=== PATIENT | male | born 1955 | race Caucasian/White ===

== ENCOUNTER 2018-03-02 20:09 | Observation (INO) ==
[2018-03-02 20:28] LABS: Basophils # 0.1 K/mm3 (0-0.2); Basophils % 0.6 % (0.1-2.0); Eosinophils # 0.1 K/mm3 (0.0-0.4); Eosinophils % 1.1 % (0.1-12.0); Hematocrit 50.6 % (42.0-52.0); Lymphocytes # 1.6 K/mm3 (0.7-4.5); Lymphocytes % 17.6 K/mm3 (10-50); Mean Corpuscular HGB Conc 33.6 g/dL (31.8-35.4); Mean Corpuscular Hemoglobin 30.6 pg (27.0-31.2); Mean Corpuscular Volume 91.3 fl (80-94); Mean Platelet Volume 7.3 fl (7.4-10.4); Monocytes # 0.5 K/mm3 (0.1-1.0); Monocytes % 5.9 % (1.7-9.3); Neutrophils # 6.6 K/mm3 (1.8-7.8); Neutrophils % 74.9 % (37.0-80.0); Platelet Count 198 K/mm3 (142-424); Red Blood Count 5.55 M/mm3 (4.60-6.20); Red Cell Distribution Width 13.2 % (11.5-17.5); White Blood Count 8.9 K/mm3 (4.8-10.8)
[2018-03-02 20:50] LABS: Alanine Aminotransferase 25 U/L (12-78); Albumin Level 3.5 gm/dL (3.4-5.0); Albumin/Globulin Ratio 0.9 (1.1-1.8); Alkaline Phosphatase 77 U/L (46-116); Anion Gap 14.7 mEq/L (5-15); Aspartate Amino Transferase 17 U/L (15-37); Bilirubin,Total 0.5 mg/dL (0.2-1.0); Blood Urea Nitrogen 9 mg/dL (7-18); Calcium 9.4 mg/dL (8.5-10.1); Carbon Dioxide 28 mmol/L (21.0-32.0); Chloride 101 mmol/L (98-107); Creatine Kinase 36 U/L (39-308); Globulin 3.7 gm/dl (1.3-3.2); Glucose 105 mg/dL (74-106); Potassium 3.7 mmoL/L (3.5-5.1); Sodium 140 mmol/L (136-145); Total Protein,Serum 7.2 gm/dL (6.4-8.2)
--- NOTE | 2018-03-02 20:54 | Emergency Department Note ---
ED Disposition Clinical Impression: Angina at rest Disposition: Admitted as Observation Condition on Discharge: Good Referrals: Miki Bello MD [Primary Care Provider] - - Critical Care Critical Care Time: No Attestation: On 03/02/18, the high probability of a clinically significant, sudden or life threatening deterioration of the following system(s) required my full and direct attention, intervention and personal management. The time I documented below is in addition to time spent performing reported procedures but includes the following listed in this critical care notation. Medical Decision Making - Medical Records Medical records reviewed: Yes: I reviewed the patient's medical records. - Frank Inquiry Pt receiving controlled substance: No Vital Signs: 03/02/18 20:10 03/02/18 20:30 Temperature 97.4 F L Temperature Source Oral Pulse Rate 73 Pulse Rate [Right Radial] 78 Respiratory Rate 20 Blood Pressure [Right Arm] 137/96 Blood Pressure Mean [Right Arm] 109 02 Sat by Pulse Oximetry 95 Oxygen Delivery Method Room Air - Lab Data Lab results reviewed: Yes: I reviewed the patient's lab results. Lab Results 03/02/18 20:15: WBC 8.9, RBC 5.55, Hgb 17.0, Hct 50.6, MCV 91.3, MCH 30.6, MCHC 33.6, RDW 13.2, Plt Count 198, MPV 7.3 L, Neut % (Auto) 74.9, Lymph % (Auto) 17.6, [place] % (Auto) 5.9, Eos % (Auto) 1.1, Baso % (Auto) 0.6, Neut # (Auto) 6.6 , Lymph # (Auto) 1.6, [place] # (Auto) 0.5, Eos # (Auto) 0.1, Baso # (Auto) 0.1 03/02/18 20:15: Sodium 140, Potassium 3.7, Chloride 101, Carbon Dioxide 28, Anion Gap 14.7, BUN 9, Creatinine 1.26, Estimated Creat Clear 88, Estimated GFR 58 L, Est GFR ( Amer) 70, Glucose 105, Calcium 9.4, Total Bilirubin 0.5, AST 17, ALT 25, Alkaline Phosphatase 77, Total Creatine Kinase 36 L, CK-MB (CK-2 ) 0.9, CK-MB (CK-2) Rel Index 2.5, Troponin I < 0.02, Total Protein 7.2, Albumin 3.5, Globulin 3.7 H, Albumin/Globulin Ratio 0.9 L Result diagrams: 03/02/18 20:15 03/02/18 20:15 Orders (Tests/Meds): ED MEDICATIONS Discontinued Medications Generic Name Dose Route Start Last Admin Trade Name Wilman PRN Reason Stop Dose Admin Aspirin 324 mg 03/02/18 20:18 03/02/18 20:29 Aspirin 81mg Chewable Tablet PO 03/02/18 20:19 324 mg ONCE ONE Administration Nitroglycerin 0.5 gm 03/02/18 20:26 03/02/18 20:29 Nitroglycerin 1 Inch Oint Udp TD 03/02/18 20:27 0.5 gm ONCE ONE Administration ORDERS Category Date Time Status XR chest 2V Stat Exams 03/02/18 20:17 Taken - Radiology Data #1 Image(s): Chest Image Reviewed: Yes I reviewed the patient's radiology image Preliminary Findings: Normal/NAD - ECG Data Tracing #1 I reviewed this ECG and interpreted as documented below: Normal Sinus Rhythm: Yes Ischemic changes: non-specific ST-T wave changes Chest Pain HPI - General Chief Complaint: Chest Pain Stated Complaint: chest pain Time Seen by Provider: 03/02/18 20:20 Mode of Arrival: Ambulatory Source of Information: Patient, Spouse, Medical Record Limitations: No Limitations Description of Symptoms (Recalled from ER Triage Doc. by RN): pt states he started having chest pains approx 20 min ago while cooking dinner. pt states that the pain radiates into left jaw. pt states he has had some nausea as well. - History of Present Illness HPI narrative: acute onset of ant chest pain with rad to jaw which is new and assoc with nausea - occurred at rest MD complaint: chest pain indicative of cardiac Onset (ago): hour(s) Duration: intermittent Activity at onset: during rest Pain location: left chest Severity: moderate Quality: sharp Pain radiation: jaw/teeth Relieving factors: nothing Associated symptoms: nausea Risk Factors for CAD: Family Hx of CAD Treatments prior to or on arrival for Cardiac Chest Pain: none - ABIDA Score Non-Stemi Age of patient: Less than 65 yrs Number of risk factors for CAD: Presence of 3 or more Prior coronary artery stenosis(seen in coronary angiography): Less than 50% ST-Segment deviation on ECG (more than 1 min): Absent Prior aspirin intake: No ASA in the last 7 days Severe anginal chest pain: Two or more episodes in last 24 hours Elevated cardiac markers(CK-MB or troponin): Absent Non-Stemi Risk Score: 2 - Related Data Home Medications Medication Instructions Recorded Confirmed Buspirone HCl [Buspar 10mg tablet] 10 mg PO BID 03/02/18 03/02/18 Lansoprazole [Prevacid] 30 mg PO DAILY 03/02/18 03/02/18 Levothyroxine Sodium [Synthroid 125 mcg PO DAILY 03/02/18 03/02/18 125mcg (0.125mg) tablet] Tamsulosin HCl [Flomax 0.4mg 0.4 mg PO HS 03/02/18 03/02/18 capsule] Allergies Allergy/AdvReac Type Severity Reaction Status Date / Time amantadine [AMANTADINE] Allergy Mild SEIZURE Unverified 10/27/17 15:05 codeine [CODEINE] Allergy Mild I-RASH Unverified 10/27/17 15:05 [facility] History I have reviewed the patient's past medical history: Yes Medical History: Reports:: Cancer (skin cancer removed) Denies:: Diabetes Mellitus Type 1, Diabetes Mellitus Type 2, MRSA Amputation: No Fractures: No - Social History Smoking Status: Former smoker Alcohol Intake: current Alcohol Intake Frequency:: other - Psychiatric History Expresses thoughts of harming self/others: None Suicide Plan Description: No Plan ROS Obtained: Yes All systems reviewed & no additional complaints - Constitutional Constitutional: Denies fever(s) - Eyes Eyes: Denies change in vision - ENT Ears, Nose, Mouth, and Throat: Denies sore throat - Cardiovascular Cardiovascular: Reports chest pain - Respiratory Respiratory: No cough - Gastrointestinal Gastrointestingal: Denies: abdominal pain - Genitourinary Male Genitourinary: Denies hematuria - Musculoskeletal Musculoskeletal: Denies joint pain - Integumentary/Breasts Skin/Breast: Denies rash - Neurologic Neurologic: Denies seizure-like activity Physical Exam - General General appearance: alert, in no apparent distress - Head Head exam: normocephalic - Eye Eye exam: Present: PERRL, EOMI - ENT ENT exam: Present: mucous membranes moist - Neck Neck exam: Present: trachea midline - Respiratory Respiratory exam: Present: normal lung sounds bilaterally. Absent: respiratory distress - Cardiovascular Cardiovascular exam: Present: regular rate, systolic murmur - Abdominal Exam Abdominal exam: Present: soft - Extremities Exam Extremities exam: Absent: calf tenderness - Neurological Exam Neurological exam: Present: alert, oriented X3, CN II-XII intact - Psychiatric Psychiatric exam: Present: normal affect - Skin Skin exam: Absent: rash
[2018-03-03 07:04] LABS: Basophils # 0.1 K/mm3 (0-0.2); Basophils % 0.7 % (0.1-2.0); Eosinophils # 0.1 K/mm3 (0.0-0.4); Eosinophils % 1.7 % (0.1-12.0); Hematocrit 47.6 % (42.0-52.0); Lymphocytes # 1.4 K/mm3 (0.7-4.5); Lymphocytes % 17.5 K/mm3 (10-50); Mean Corpuscular HGB Conc 33.7 g/dL (31.8-35.4); Mean Corpuscular Volume 91.9 fl (80-94); Mean Platelet Volume 7.3 fl (7.4-10.4); Monocytes # 0.5 K/mm3 (0.1-1.0); Neutrophils % 74.1 % (37.0-80.0); Platelet Count 203 K/mm3 (142-424); Red Blood Count 5.17 M/mm3 (4.60-6.20); Red Cell Distribution Width 13.5 % (11.5-17.5); White Blood Count 8.1 K/mm3 (4.8-10.8)
[2018-03-03 07:19] LABS: Anion Gap 13.8 mEq/L (5-15); Chol/HDL Ratio 2.6 (1-3.5); Potassium 3.8 mmoL/L (3.5-5.1)
--- NOTE | 2018-03-03 07:49 | Pharmacy Consult Notes ---
[facility] Pharmacy VTE Monitoring - Patient Demographics Admission date: 03/03/18 Report Date: 03/03/18 Time: 07:49 Allergies/Adverse Reactions: Patient Allergies amantadine [AMANTADINE] Allergy (Mild, Verified 03/02/18 23:34) SEIZURE codeine [CODEINE] Allergy (Mild, Verified 03/02/18 23:34) I-RASH Height: 1.8 m Weight: 100.357 kg Patient Problems: Current Active Problems Angina at rest (Acute) - VTE Risk Labs: VTE Related Lab Results Hgb 16.0 g/dL (14.1-18.0) 03/03/18 06:44 Hct 47.6 % (42.0-52.0) 03/03/18 06:44 Plt Count 203 K/mm3 (142-424) 03/03/18 06:44 BUN 10 mg/dL (7-18) 03/03/18 06:44 Creatinine 1.19 mg/dL (0.70-1.30) 03/03/18 06:44 Estimated Creat Clear 91 mL/min (0-300) 03/03/18 06:44 Was VTE Risk Assessment Performed: Yes VTE Score: 7 VTE Risk Level: Moderate Risk Clinical Trial Participant: No - Prophylaxis VTE Prophylaxis Ordered?: Yes Types of VTE Prophylaxis: TEDS Knee High
--- NOTE | 2018-03-03 09:15 | Consult Report ---
History of Present Illness Consult date: 03/03/18 Consult reason: chest pain Chief complaint: chest pain Additional Medical History:: 1. Former smoker A. History of 1 pack per day 40+ years, discontinued approximately 2014. B. COPD 2. History of esophageal reflux disease and Gonzalez's esophagitis, followed by Dr. Neville with endoscopy every 2 years 3. History of pancreatitis, no significant alcohol use 4. History of cholecystectomy 5. Family history of early heart disease in his father in his 40s at the same time that he was diagnosed with lung cancer 6. Patient relates history of some chronic kidney disease with a "creatinine of 1.6" A. Cr 1.16 with GFR of 75 this admission, 03/03/2018 7. Hypothyroidism History of present illness: 62-year-old white male presented to the emergency department for recurrent episode of chest pain with radiation into the neck and associated stress of breath while grilling last evening. He does relate some recent exertional shortness of breath and right upper abdominal discomfort recently the patient was attributing to known peptic ulcer disease. Patient relates a similar episode of chest pain approximately 2 years ago which time he had a stress test that was on markable. Patient discontinued tobacco use about 3 years ago and denies history of hypertension, hyperlipidemia or diabetes. ER workup last evening included troponin that was normal and EKG without acute changes. Patient was started on nitroglycerin paste and has had no recurrence of the chest pain, jaw discomfort or shortness of breath since then. Cardiology consulted for evaluation recommendation. [facility] History Medical History: Reports:: Cancer (skin cancer removed), Chronic Obstructive Pulmonary Disease (COPD), Renal Insufficiency Denies:: Diabetes Mellitus Type 1, Diabetes Mellitus Type 2, MRSA Other Medical History: Reports: Hypothyroidism Other Surgeries: Yes: Cholecystectomy, Colon Resection, Hernia Repair Amputation: No Fractures: No - *Social History Educational Level: Completed High School Smoking Status: Former smoker Tobacco Type: cigarettes Alcohol Intake: current Alcohol Intake Frequency:: holidays/special occasions only Occupational Status: retired Housing: house Household Members: significant other - Psychiatric History Expresses thoughts of harming self/others: None Suicide Plan Description: No Plan *Family Hx:: Cancer, Coronary Artery Disease, Heart Attack, Hyperlipidemia, Hypertension Meds Home Medications Medication Instructions Recorded Confirmed Type Buspirone HCl [Buspar 10mg tablet] 10 mg PO BID 03/02/18 03/02/18 History Lansoprazole [Prevacid] 30 mg PO DAILY 03/02/18 03/02/18 History Tamsulosin HCl [Flomax 0.4mg 0.4 mg PO HS 03/02/18 03/02/18 History capsule] Levothyroxine Sodium [Synthroid 100 mcg PO DAILY 03/03/18 03/03/18 History 100mcg (0.1mg) tablet] Montelukast Sodium [Singulair 10mg 10 mg PO PM 03/03/18 03/03/18 History tablet] Allergies Allergy/AdvReac Type Severity Reaction Status Date / Time amantadine [AMANTADINE] Allergy Mild SEIZURE Verified 03/02/18 23:34 codeine [CODEINE] Allergy Mild I-RASH Verified 03/02/18 23:34 Review of Systems - *Cardiovascular Reports chest pain - *Respiratory Reports shortness of breath with activity - *Gastrointestinal Reports abdominal pain - *Neurologic Denies seizure-like activity Exam Vital signs and Labs for Last 24 Hours: Temp Pulse Resp BP Pulse Ox 98.0 F 73 18 105/68 91 L 03/03/18 07:42 03/03/18 07:42 03/03/18 07:42 03/03/18 07:42 03/03/18 07:42 Laboratory Results - last 24 hr 03/02/18 20:15: WBC 8.9, RBC 5.55, Hgb 17.0, Hct 50.6, MCV 91.3, MCH 30.6, MCHC 33.6, RDW 13.2, Plt Count 198, MPV 7.3 L, Neut % (Auto) 74.9, Lymph % (Auto) 17.6, [place] % (Auto) 5.9, Eos % (Auto) 1.1, Baso % (Auto) 0.6, Neut # (Auto) 6.6 , Lymph # (Auto) 1.6, [place] # (Auto) 0.5, Eos # (Auto) 0.1, Baso # (Auto) 0.1 03/02/18 20:15: Sodium 140, Potassium 3.7, Chloride 101, Carbon Dioxide 28, Anion Gap 14.7, BUN 9, Creatinine 1.26, Estimated Creat Clear 88, Estimated GFR 58 L, Est GFR ( Amer) 70, Glucose 105, Calcium 9.4, Total Bilirubin 0.5, AST 17, ALT 25, Alkaline Phosphatase 77, Total Creatine Kinase 36 L, CK-MB (CK-2 ) 0.9, CK-MB (CK-2) Rel Index 2.5, Troponin I < 0.02, Total Protein 7.2, Albumin 3.5, Globulin 3.7 H, Albumin/Globulin Ratio 0.9 L 03/02/18 21:30: Troponin I < 0.02 03/03/18 00:45: Troponin I < 0.02 03/03/18 03:35: Troponin I < 0.02 03/03/18 06:44: WBC 8.1, RBC 5.17, Hgb 16.0, Hct 47.6, MCV 91.9, MCH 31.0, MCHC 33.7, RDW 13.5, Plt Count 203, MPV 7.3 L, Neut % (Auto) 74.1, Lymph % (Auto) 17.5, [place] % (Auto) 6.0, Eos % (Auto) 1.7, Baso % (Auto) 0.7, Neut # (Auto) 6.0 , Lymph # (Auto) 1.4, [place] # (Auto) 0.5, Eos # (Auto) 0.1, Baso # (Auto) 0.1 03/03/18 06:44: Sodium 142, Potassium 3.8, Chloride 106, Carbon Dioxide 26, Anion Gap 13.8, BUN 10, Creatinine 1.19, Estimated Creat Clear 91, Estimated GFR 62, Est GFR ( Amer) 75, Glucose 89, Magnesium 1.7, Triglycerides 60, Cholesterol 135 L, LDL Cholesterol 71, VLDL Cholesterol 12, HDL Cholesterol 52, Cholesterol/HDL Ratio 2.6 I & O for Last 24 hours: Intake & Output 02/28/18 03/01/18 03/02/18 03/03/18 11:59 11:59 11:59 11:59 Intake Total 0 / 0 Balance 0 / 0 Weight 221 lb 4 oz - *Routine Neck Exam Absent: JVD, carotid bruit - *Routine Respiratory Exam Present: CTA bilaterally - *Routine Cardiovascular Exam Present: RRR. Absent: murmur, gallop - *Routine Abdominal Exam Absent: tenderness - *Routine Extremities Exam Absent: edema - *Routine Neurological Exam Present: alert, oriented X3, moving all extremities Assessment and Plan (1) Unstable angina Current visit: Yes Status: Acute Category: Medical Code(s): I20.0 - Unstable angina (2) COPD (chronic obstructive pulmonary disease) Current visit: Yes Status: Acute Category: Medical Code(s): J44.9 - Chronic obstructive pulmonary disease, unspecified (3) Ex-smoker for more than 1 year Current visit: Yes Status: Acute Category: Social Hx Code(s): Z87.891 - Personal history of nicotine dependence (4) Family history of coronary artery disease in father Current visit: Yes Status: Acute Category: Medical Code(s): Z82.49 - Family history of ischemic heart disease and other diseases of the circulatory system (5) Peptic ulcer disease Current visit: Yes Status: Acute Category: Medical Code(s): K27.9 - Peptic ulcer, site unspecified, unspecified as acute or chronic, without hemorrhage or perforation (6) Gonzalez's esophagus with esophagitis Current visit: Yes Status: Acute Category: Medical Code(s): K22.70 - Gonzalez's esophagus without dysplasia; K20.9 - Esophagitis, unspecified - Assessment and plan all Dx Assessment and Plan for all problems:: 1. In light of the patient's recurrent episodes of chest pain that resolved with sublingual nitroglycerin and subsequently nitroglycerin paste, would recommend proceeding with left heart catheterization. Patient's blood pressure would not tolerate antianginal med occasions with systolic pressures in the 100 mmHg range. I do not feel repeating a stress test would provide additional benefit in light of the patient's increasing episodes of chest pain or shortness of breath recently. Patient is scheduled to follow up with Dr. Neville for an EGD in the near future and would need preop evaluation and clearance. Further recommendations to follow. She did receive aspirin in the
--- NOTE | 2018-03-03 15:16 | History & Physical Report ---
*Admission Date: 03/03/18 *Chief complaint: chest pain *History of present illness: this wm who presented to [facility] with episode of ant chest pain with rad to jaw- new onset- Former smoker A. History of 1 pack per day 40+ years, discontinued approximately 2014. B. COPD 2. History of esophageal reflux disease and Gonzalez's esophagitis, followed by Dr. Neville with endoscopy every 2 years 3. History of pancreatitis, no significant alcohol use 4. History of cholecystectomy 5. Family history of early heart disease in his father in his 40s at the same time that he was diagnosed with lung cancer 6. Patient relates history of some chronic kidney disease with a "creatinine of 1.6" A. Cr 1.16 with GFR of 75 this admission, 03/03/2018 7. Hypothyroidism History of present illness: 62-year-old white male presented to the emergency department for recurrent episode of chest pain with radiation into the neck and associated stress of breath while grilling last evening. He does relate some recent exertional shortness of breath and right upper abdominal discomfort recently the patient was attributing to known peptic ulcer disease. Patient relates a similar episode of chest pain approximately 2 years ago which time he had a stress test that was on markable. Patient discontinued tobacco use about 3 years ago and denies history of hypertension, hyperlipidemia or diabetes. ER workup last evening included troponin that was normal and EKG without acute changes. Patient was started on nitroglycerin paste and has had no recurrence of the chest pain, jaw discomfort or shortness of breath since then. Cardiology consulted for evaluation recommendation. [facility] History I have reviewed the patient's past medical history: Yes Medical History: Reports:: Cancer (skin cancer removed), Chronic Obstructive Pulmonary Disease (COPD), Renal Insufficiency Denies:: Diabetes Mellitus Type 1, Diabetes Mellitus Type 2, MRSA Other Medical History: Reports: Hypothyroidism Other Surgeries: Yes: Cholecystectomy, Colon Resection, Hernia Repair Amputation: No Fractures: No - *Social History Educational Level: Completed High School Smoking Status: Former smoker Tobacco Type: cigarettes Alcohol Intake: current Alcohol Intake Frequency:: holidays/special occasions only Occupational Status: retired Housing: house Household Members: significant other - Psychiatric History Expresses thoughts of harming self/others: None Suicide Plan Description: No Plan *Family Hx:: Cancer, Coronary Artery Disease, Heart Attack, Hyperlipidemia, Hypertension Review of Systems - Review of Systems Review of systems:: pertinent systems reviewed and negative unless documented below - Constitutional Denies fever(s) - Eyes Denies change in vision - ENT Denies throat swelling - *Cardiovascular Reports chest pain at rest, Reports radiating jaw, neck or arm pain - *Respiratory Denies cough - *Gastrointestinal Reports nausea, Denies abdominal pain - *Genitourinary Denies blood in urine - *Musculoskeletal Denies joint pain, Denies joint swelling - Integumentary/Breasts Denies rash - *Neurologic Denies confusion, Denies headache(s), Denies seizure-like activity Meds Home Medications Medication Instructions Recorded Confirmed Type Buspirone HCl [Buspar 10mg tablet] 10 mg PO BID 03/02/18 03/02/18 History Lansoprazole [Prevacid] 30 mg PO DAILY 03/02/18 03/02/18 History Tamsulosin HCl [Flomax 0.4mg 0.4 mg PO HS 03/02/18 03/02/18 History capsule] Levothyroxine Sodium [Synthroid 100 mcg PO DAILY 03/03/18 03/03/18 History 100mcg (0.1mg) tablet] Montelukast Sodium [Singulair 10mg 10 mg PO PM 03/03/18 03/03/18 History tablet] Allergies Allergy/AdvReac Type Severity Reaction Status Date / Time amantadine [AMANTADINE] Allergy Mild SEIZURE Verified 03/02/18 23:34 codeine [CODEINE] Allergy Mild I-RASH Verified 03/02/18 23:34 Exam Vital signs and Labs for Last 24 Hours: Temp Pulse Resp BP Pulse Ox 97.6 F 71 20 104/70 94 L 03/03/18 11:33 03/03/18 12:41 03/03/18 12:41 03/03/18 12:41 03/03/18 12:41 Laboratory Results - last 24 hr 03/02/18 20:15: WBC 8.9, RBC 5.55, Hgb 17.0, Hct 50.6, MCV 91.3, MCH 30.6, MCHC 33.6, RDW 13.2, Plt Count 198, MPV 7.3 L, Neut % (Auto) 74.9, Lymph % (Auto) 17.6, [place] % (Auto) 5.9, Eos % (Auto) 1.1, Baso % (Auto) 0.6, Neut # (Auto) 6.6 , Lymph # (Auto) 1.6, [place] # (Auto) 0.5, Eos # (Auto) 0.1, Baso # (Auto) 0.1 03/02/18 20:15: Sodium 140, Potassium 3.7, Chloride 101, Carbon Dioxide 28, Anion Gap 14.7, BUN 9, Creatinine 1.26, Estimated Creat Clear 88, Estimated GFR 58 L, Est GFR ( Amer) 70, Glucose 105, Calcium 9.4, Total Bilirubin 0.5, AST 17, ALT 25, Alkaline Phosphatase 77, Total Creatine Kinase 36 L, CK-MB (CK-2 ) 0.9, CK-MB (CK-2) Rel Index 2.5, Troponin I < 0.02, Total Protein 7.2, Albumin 3.5, Globulin 3.7 H, Albumin/Globulin Ratio 0.9 L 03/02/18 21:30: Troponin I < 0.02 03/03/18 00:45: Troponin I < 0.02 03/03/18 03:35: Troponin I < 0.02 03/03/18 06:44: WBC 8.1, RBC 5.17, Hgb 16.0, Hct 47.6, MCV 91.9, MCH 31.0, MCHC 33.7, RDW 13.5, Plt Count 203, MPV 7.3 L, Neut % (Auto) 74.1, Lymph % (Auto) 17.5, [place] % (Auto) 6.0, Eos % (Auto) 1.7, Baso % (Auto) 0.7, Neut # (Auto) 6.0 , Lymph # (Auto) 1.4, [place] # (Auto) 0.5, Eos # (Auto) 0.1, Baso # (Auto) 0.1 03/03/18 06:44: Sodium 142, Potassium 3.8, Chloride 106, Carbon Dioxide 26, Anion Gap 13.8, BUN 10, Creatinine 1.19, Estimated Creat Clear 91, Estimated GFR 62, Est GFR ( Amer) 75, Glucose 89, Magnesium 1.7, Triglycerides 60, Cholesterol 135 L, LDL Cholesterol 71, VLDL Cholesterol 12, HDL Cholesterol 52, Cholesterol/HDL Ratio 2.6 I & O for Last 24 hours: Intake & Output 03/01/18 03/02/18 03/03/18 03/04/18 11:59 11:59 11:59 11:59 Intake Total 0 / 0 Balance 0 / 0 Weight 221 lb 4 oz - Constitutional no acute distress - *Routine HEENT Exam Head: Present: normocephalic Eye: Present: EOMI, PERRL ENT: Present: mucous membranes dry - *Routine Neck Exam Present: supple. Absent: JVD - Routine Chest/Breast/Axilla Exam Chest wall: Absent: tenderness - *Routine Respiratory Exam Present: CTA bilaterally - *Routine Cardiovascular Exam Present: RRR, murmur - *Routine Abdominal Exam Present: soft. Absent: tenderness, distended - *Routine Extremities Exam Absent: calf tenderness - *Routine Skin Exam Present: intact - *Routine Neurological Exam Present: alert, oriented X3, CN II-XII intact - Routine Psychiatric Exam Present: normal affect H&P: Result - Labs Labs: Short CBC 03/02/18 03/03/18 Range/Units 20:15 06:44 WBC 8.9 8.1 (4.8-10.8) K/mm3 Hgb 17.0 16.0 (14.1-18.0) g/dL Hct 50.6 47.6 (42.0-52.0) % Plt Count 198 203 (142-424) K/mm3 BMP 03/02/18 03/03/18 20:15 06:44 Sodium 140 142 Potassium 3.7 3.8 Chloride 101 106 Carbon Dioxide 28 26 BUN 9 10 Creatinine 1.26 1.19 Glucose 105 89 Calcium 9.4 Cardiac Enzymes 03/02/18 03/02/18 03/03/18 Range/Units 20:15 21:30 00:45 Total Creatine Kinase 36 L (39-308) U/L CK-MB (CK-2) 0.9 (0.0-3.6) ng/ml Troponin I < 0.02 < 0.02 < 0.02 (0.00-0.06) ng/ml 03/03/18 Range/Units 03:35 Total Creatine Kinase (39-308) U/L CK-MB (CK-2) (0.0-3.6) ng/ml Troponin I < 0.02 (0.00-0.06) ng/ml Liver Function 04/24/18 Range/Units 20:15 Total Bilirubin 0.5 (0.2-1.0) mg/dL AST 17 (15-37) U/L ALT 25 (12-78) U/L Alkaline Phosphatase 77 (46-116) U/L Albumin 3.5 (3.4-5.0) gm/dL Assessment and Plan (1) Unstable angina Current visit: Yes Status: Acute Category: Medical Code(s): I20.0 - Unstable angina (2) COPD (chronic obstructive pulmonary disease) Current visit: Yes Status: Acute Category: Medical Code(s): J44.9 - Chronic obstructive pulmonary disease, unspecified (3) Ex-smoker for more than 1 year Current visit: Yes Status: Acute Category: Social Hx Code(s): Z87.891 - Personal history of nicotine dependence (4) Family history of coronary artery disease in father Current visit: Yes Status: Acute Category: Medical Code(s): Z82.49 - Family history of ischemic heart disease and other diseases of the circulatory system (5) Peptic ulcer disease Current visit: Yes Status: Acute Category: Medical Code(s): K27.9 - Peptic ulcer, site unspecified, unspecified as acute or chronic, without hemorrhage or perforation (6) Gonzalez's esophagus with esophagitis Current visit: Yes Status: Acute Category: Medical Code(s): K22.70 - Gonzalez's esophagus without dysplasia; K20.9 - Esophagitis, unspecified
--- NOTE | 2018-03-03 20:00 | Discharge Summary ---
General - General Admission date:: 03/02/18 Discharge date: 03/03/18 HPI HPI: this wm who presented to [facility] ed with episode of ant chest pain with rad to jaw- new onset- Former smoker A. History of 1 pack per day 40+ years, discontinued approximately 2014. B. COPD 2. History of esophageal reflux disease and Gonzalez's esophagitis, followed by Dr. Neville with endoscopy every 2 years 3. History of pancreatitis, no significant alcohol use 4. History of cholecystectomy 5. Family history of early heart disease in his father in his 40s at the same time that he was diagnosed with lung cancer 6. Patient relates history of some chronic kidney disease with a "creatinine of 1.6" A. Cr 1.16 with GFR of 75 this admission, 03/03/2018 7. Hypothyroidism History of present illness: 62-year-old white male presented to the emergency department for recurrent episode of chest pain with radiation into the neck and associated stress of breath while grilling last evening. He does relate some recent exertional shortness of breath and right upper abdominal discomfort recently the patient was attributing to known peptic ulcer disease. Patient relates a similar episode of chest pain approximately 2 years ago which time he had a stress test that was on markable. Patient discontinued tobacco use about 3 years ago and denies history of hypertension, hyperlipidemia or diabetes. ER workup last evening included troponin that was normal and EKG without acute changes. Patient was started on nitroglycerin paste and has had no recurrence of the chest pain, jaw discomfort or shortness of breath since then. Cardiology consulted for evaluation recommendation. Hospital Course Hospital Course: pt did well with dec pain and had abn cxr but ct showed no mass and had card cath that was neg GIOGRAPHIC RESULTS: 1. The left main artery normal 2. The left anterior descending artery is a small vessel with no angiographic stenosis 3. The circumflex artery normal 4. The right coronary artery very large dominant and normal 5. The PAEZ ventriculogram reveals normal 65% 6. The left ventricular end-diastolic pressure elevated at 20 25 mmHg IMPRESSION: 1. Normal coronary arteries 2. Congenitally small LAD system 3. Normal ejection fraction 4. Elevated LVEDP PLAN: 1. Decrease LVEDP with diuretics 2. Risk factor modification 3. Control hypertension PRESSION: 1. Centrilobular emphysema. 2. Mild bibasilar atelectasis. 3. No suspicious nodule evident that would correspond to the radiographic abnormality. That abnormality may have been due to summation artifact versus rounded atelectasis that has since clear Objective Vital signs: Temp Pulse Resp BP Pulse Ox 97.6 F 78 16 112/75 94 L 03/03/18 19:25 03/03/18 19:25 03/03/18 19:25 03/03/18 19:25 03/03/18 19:25 no acute distress - *Routine HEENT Exam Head: Present: normocephalic Eye: Present: EOMI, PERRL ENT: Absent: mucous membranes dry - *Routine Neck Exam Present: supple - *Routine Respiratory Exam Present: CTA bilaterally - *Routine Cardiovascular Exam Present: RRR, murmur - *Routine Abdominal Exam Present: soft - *Routine Extremities Exam Absent: edema - *Routine Skin Exam Present: intact - *Routine Neurological Exam Present: alert, oriented X3, CN II-XII intact - Routine Psychiatric Exam Present: normal affect Results Labs on day of discharge: Labs from last 24 hours 03/03/18 03/03/18 03/03/18 06:44 06:44 03:35 WBC 8.1 RBC 5.17 Hgb 16.0 Hct 47.6 MCV 91.9 MCH 31.0 MCHC 33.7 RDW 13.5 Plt Count 203 MPV 7.3 L Neut % (Auto) 74.1 Lymph % (Auto) 17.5 [place] % (Auto) 6.0 Eos % (Auto) 1.7 Baso % (Auto) 0.7 Neut # (Auto) 6.0 Lymph # (Auto) 1.4 [place] # (Auto) 0.5 Eos # (Auto) 0.1 Baso # (Auto) 0.1 Sodium 142 Potassium 3.8 Chloride 106 Carbon Dioxide 26 Anion Gap 13.8 BUN 10 Creatinine 1.19 Estimated Creat Clear 91 Estimated GFR 62 Est GFR ( Amer) 75 Glucose 89 Calcium Magnesium 1.7 Total Bilirubin AST ALT Alkaline Phosphatase Total Creatine Kinase CK-MB (CK-2) CK-MB (CK-2) Rel Index Troponin I < 0.02 Total Protein Albumin Globulin Albumin/Globulin Ratio Triglycerides 60 Cholesterol 135 L LDL Cholesterol 71 VLDL Cholesterol 12 HDL Cholesterol 52 Cholesterol/HDL Ratio 2.6 03/03/18 03/02/18 03/02/18 00:45 21:30 20:15 WBC RBC Hgb Hct MCV MCH MCHC RDW Plt Count MPV Neut % (Auto) Lymph % (Auto) [place] % (Auto) Eos % (Auto) Baso % (Auto) Neut # (Auto) Lymph # (Auto) [place] # (Auto) Eos # (Auto) Baso # (Auto) Sodium 140 Potassium 3.7 Chloride 101 Carbon Dioxide 28 Anion Gap 14.7 BUN 9 Creatinine 1.26 Estimated Creat Clear 88 Estimated GFR 58 L Est GFR ( Amer) 70 Glucose 105 Calcium 9.4 Magnesium Total Bilirubin 0.5 AST 17 ALT 25 Alkaline Phosphatase 77 Total Creatine Kinase 36 L CK-MB (CK-2) 0.9 CK-MB (CK-2) Rel Index 2.5 Troponin I < 0.02 < 0.02 < 0.02 Total Protein 7.2 Albumin 3.5 Globulin 3.7 H Albumin/Globulin Ratio 0.9 L Triglycerides Cholesterol LDL Cholesterol VLDL Cholesterol HDL Cholesterol Cholesterol/HDL Ratio 03/02/18 20:15 WBC 8.9 RBC 5.55 Hgb 17.0 Hct 50.6 MCV 91.3 MCH 30.6 MCHC 33.6 RDW 13.2 Plt Count 198 MPV 7.3 L Neut % (Auto) 74.9 Lymph % (Auto) 17.6 [place] % (Auto) 5.9 Eos % (Auto) 1.1 Baso % (Auto) 0.6 Neut # (Auto) 6.6 Lymph # (Auto) 1.6 [place] # (Auto) 0.5 Eos # (Auto) 0.1 Baso # (Auto) 0.1 Sodium Potassium Chloride Carbon Dioxide Anion Gap BUN Creatinine Estimated Creat Clear Estimated GFR Est GFR ( Amer) Glucose Calcium Magnesium Total Bilirubin AST ALT Alkaline Phosphatase Total Creatine Kinase CK-MB (CK-2) CK-MB (CK-2) Rel Index Troponin I Total Protein Albumin Globulin Albumin/Globulin Ratio Triglycerides Cholesterol LDL Cholesterol VLDL Cholesterol HDL Cholesterol Cholesterol/HDL Ratio DS: Diagnosis - Discharge Diagnosis (1) Unstable angina Status: Acute (2) COPD (chronic obstructive pulmonary disease) Status: Acute (3) Ex-smoker for more than 1 year Status: Acute (4) Family history of coronary artery disease in father Status: Acute (5) Peptic ulcer disease Status: Acute (6) Gonzalez's esophagus with esophagitis Status: Acute Discharge Plan - Patient Discharge Instructions ACTIVITY: Continue current activity DIET: continue same diet - Follow up Plan Disposition: Home, Self-Jail Medications: Home Medications Medication Instructions Recorded Confirmed Type Buspirone HCl [Buspar 10mg tablet] 10 mg PO BID 03/02/18 03/02/18 History Lansoprazole [Prevacid] 30 mg PO DAILY 03/02/18 03/02/18 History Tamsulosin HCl [Flomax 0.4mg 0.4 mg PO HS 03/02/18 03/02/18 History capsule] Levothyroxine Sodium [Synthroid 100 mcg PO DAILY 03/03/18 03/03/18 History 100mcg (0.1mg) tablet] Montelukast Sodium [Singulair 10mg 10 mg PO PM 03/03/18 03/03/18 History tablet] Prescriptions/Medication Reconciliation: New Levothyroxine Sodium [Synthroid 125mcg (0.125mg) tablet] 125 mcg PO DAILY tablet Pantoprazole Sodium [Protonix 40mg tablet] 40 mg PO DAILY tablet. Atorvastatin Calcium [Lipitor 40mg Tablet] 40 mg PO HS #30 tab Furosemide [Lasix 20mg tablet] 20 mg PO DAILY #30 tab Continue Buspirone HCl [Buspar 10mg tablet] 10 mg PO BID Lansoprazole [Prevacid] 30 mg PO DAILY Levothyroxine Sodium [Synthroid 100mcg (0.1mg) tablet] 100 mcg PO DAILY Tamsulosin HCl [Flomax 0.4mg capsule] 0.4 mg PO HS Montelukast Sodium [Singulair 10mg tablet] 10 mg PO PM
--- NOTE | 2018-03-04 13:56 | Cardiology Report ---
PROCEDURE: 2-D M-mode and color Doppler study INDICATIONS FOR THE TEST: Chest pain + COPD Heart Murmur Tobacco Smoking Palpitations Fatigue Syncope Edema Hypertension Diabetes Mellitus Rheumatic Fever SOB HADDAD Obesity Hyperlipidemia Family History HD Additional History PATIENT INFORMATION HEIGHT: 71 WEIGHT:226 GENDER: Male B/P:137/96 2-D/M-MODE INTERPRETATION: 2-D MEASUREMENTS OBSERVED VALUES IN CMS Right Ventricular Dimension (RVDd) 2.6 Interventricular Septum (Thickness)(IVsd) 1.5 Left Ventricular Internal Dimensions(LVIDd) 4.5 Left Ventricular Posterior Wall (Thickness)(LVPWd) 1.3 Aortic Root 4.3 Aortic Cusp Separation 2.4 Left Atrial Dimensions (LAD) 4.9 2D 1. Left atrium is mildly enlarged, left ventricle is normal size, mild concentric left ventricular hypertrophy, visually estimated ejection fraction 55% with no obvious regional wall motion abnormality, endocardial surfaces are poorly visualized. 2. The right atrium and right ventricle are mildly enlarged with normal contractility. 3. The aortic valve is minimally thickened and fibrosed. 4. The mitral and tricuspid valve are grossly normal 5. The pulmonic valve is poorly visualized. 6. No significant pericardial effusion noted. DOPPLER INTERROGATION: Doppler interrogation of the aortic, mitral and tricuspid valvular presence of mild mitral and tricuspid regurgitation, tricuspid and jet velocity is insufficient for calculation of the right ventricular systolic pressure, grade 1 diastolic dysfunction seen without tissue Doppler evidence of raised left atrial pressure. CONCLUSION: 1. Mildly enlarged left atrium, normal left ventricular size, mild concentric left ventricular hypertrophy, visually estimated ejection fraction 55% with no obvious regional wall motion abnormality, grade 1 diastolic dysfunction seen without tissue Doppler evidence of raised left atrial pressure, endocardial surface of poorly visualized. 2. Mild mitral and tricuspid regurgitation 3. No significant pericardial effusion noted.
== END 2018-03-03 20:52 | disposition home or self-care (01) ==
LOC: 2ND 20:09 → ER 20:09 → 2ND 22:09
PROVIDERS: ADMIT Emergency Medicine; ATTEND Emergency Medicine

== ENCOUNTER → 2018-03-09 12:33 | Outpatient (CLI) | payer BC, SELFPAY ==
[2018-03-09 13:55] LABS: Anion Gap 11.8 mEq/L (5-15); Blood Urea Nitrogen 11 mg/dL (7-18); Carbon Dioxide 29 mmol/L (21.0-32.0); Chloride 102 mmol/L (98-107); Creatinine,Serum 1.34 mg/dL (0.70-1.30); Estimated Glomerular Filt Rate 54 ml/min (>60); GFR (African American) 65 ML/MIN (>60); Glucose 89 mg/dL (74-106); Potassium 3.8 mmoL/L (3.5-5.1); Sodium 139 mmol/L (136-145)
== END ==
PROVIDERS: Visit Provider Internal Medicine
DX: I50.30 Unspecified diastolic (congestive) heart failure (principal)
CPT/HCPCS: 36415; 80048

== ENCOUNTER → 2018-05-10 10:15 | Outpatient (POV) | payer BC, SELFPAY ==
[2018-05-10 11:59] LABS: Basophils # 0.1 K/mm3 (0-0.2); Basophils % 1.1 % (0.1-2.0); Eosinophils # 0.2 K/mm3 (0.0-0.4); Eosinophils % 2.7 % (0.1-12.0); Hematocrit 52.1 % (42.0-52.0); Hemoglobin 16.9 g/dL (14.1-18.0); Lymphocytes # 1.5 K/mm3 (0.7-4.5); Lymphocytes % 24.8 K/mm3 (10-50); Mean Corpuscular HGB Conc 32.4 g/dL (31.8-35.4); Mean Corpuscular Hemoglobin 30.2 pg (27.0-31.2); Mean Corpuscular Volume 93.2 fl (80-94); Mean Platelet Volume 7.2 fl (7.4-10.4); Monocytes # 0.4 K/mm3 (0.1-1.0); Monocytes % 7.1 % (1.7-9.3); Neutrophils # 3.9 K/mm3 (1.8-7.8); Neutrophils % 64.4 % (37.0-80.0); Platelet Count 194 K/mm3 (142-424); Red Blood Count 5.59 M/mm3 (4.60-6.20); Red Cell Distribution Width 13.3 % (11.5-17.5)
[2018-05-10 12:23] LABS: Alanine Aminotransferase 22 U/L (12-78); Albumin Level 3.6 gm/dL (3.4-5.0); Albumin/Globulin Ratio 1.2 (1.1-1.8); Alkaline Phosphatase 76 U/L (46-116); Anion Gap 12.8 mEq/L (5-15); Aspartate Amino Transferase 20 U/L (15-37); Bilirubin,Total 0.7 mg/dL (0.2-1.0); Blood Urea Nitrogen 12 mg/dL (7-18); Calcium 9.1 mg/dL (8.5-10.1); Carbon Dioxide 26 mmol/L (21.0-32.0); Chloride 104 mmol/L (98-107); Creatinine,Serum 1.35 mg/dL (0.70-1.30); Estimated Glomerular Filt Rate 54 ml/min (>60); GFR (African American) 65 ML/MIN (>60); Glucose 101 mg/dL (74-106); Potassium 4.8 mmoL/L (3.5-5.1); Sodium 138 mmol/L (136-145); Total Protein,Serum 6.6 gm/dL (6.4-8.2)
== END ==
PROVIDERS: Visit Provider Nurse Practitioner Acute Care
DX: R10.11 Right upper quadrant pain (principal)
CPT/HCPCS: 36415; 80053; 85025

== ENCOUNTER → 2018-05-25 08:22 | Outpatient (CLI) | payer BC, SELFPAY ==
--- NOTE | 2018-05-25 08:26 | US_ITS ---
US abdomen limited History:] Right upper Quadrant pain, history of previous cholecystectomy Ordering Physician:Soraya Shah Patient Age: 63 years Comparison:11/18/2016 Findings: Pancreas:The pancreas is not well seen primarily view the patient's body habitus. Liver:No focal liver lesions demonstrated. Homogeneous echogenicity. No intrahepatic biliary ductal dilatation evident the common bile duct measures 0.5 cm. Right Kidney:Unremarkable. Normal size and echogenicity. Right kidney measures 10.5 x 5.2 x 5.9 cm. There is normal cortical thickness. No hydronephrosis Gallbladder:Surgically absent. Impression: Essentially negative ultrasound right upper quadrant postcholecystectomy though pancreas not well seen
== END ==
PROVIDERS: Family Provider Emergency Medicine; PCP Emergency Medicine; Visit Provider Nurse Practitioner Acute Care
DX: R10.11 Right upper quadrant pain (principal)
CPT/HCPCS: 76705

== ENCOUNTER → 2018-06-21 11:12 | Outpatient (POV) | payer BC, SELFPAY | PROVIDERS: Family Provider Emergency Medicine; PCP Emergency Medicine; Visit Provider Nurse Practitioner Acute Care | DX: Z00.00 Encounter for general adult medical examination without abnormal findings (principal) ==

== ENCOUNTER → 2018-12-20 11:07 | Outpatient (POV) | payer BC, SELFPAY | PROVIDERS: Visit Provider Nurse Practitioner Acute Care | DX: Z00.00 Encounter for general adult medical examination without abnormal findings (principal) ==

== ENCOUNTER → 2019-12-02 09:53 | Outpatient (CLI) | payer BC, SELFPAY ==
[2019-12-02 10:10] LABS: Microscopic, Urine URINE MICROSCOPIC (MICROSCOPIC)
[2019-12-02 10:25] LABS: Basophils # 0.1 K/mm3 (0-0.2); Basophils % 1.3 % (0.1-2.0); Eosinophils # 0.1 K/mm3 (0.0-0.4); Eosinophils % 2.4 % (0.1-12.0); Hematocrit 49.5 % (42.0-52.0); Hemoglobin 16.6 g/dL (14.1-18.0); Lymphocytes # 1.4 K/mm3 (0.7-4.5); Lymphocytes % 25.3 % (10-50); Mean Corpuscular HGB Conc 33.6 g/dL (31.8-35.4); Mean Corpuscular Volume 92.5 fl (80-94); Monocytes # 0.4 K/mm3 (0.1-1.0); Monocytes % 7.4 % (1.7-9.3); Neutrophils # 3.4 K/mm3 (1.8-7.8); Neutrophils % 63.5 % (37.0-80.0); Platelet Count 190 K/mm3 (142-424); Red Blood Count 5.35 M/mm3 (4.60-6.20); Red Cell Distribution Width 12.8 % (11.5-17.5); White Blood Count 5.4 K/mm3 (4.8-10.8)
[2019-12-02 11:10] LABS: Appearance,Urine CLEAR (Clear); Bilirubin,Urine Negative (Negative); Blood, Urine Negative (Negative); Color,Urine YELLOW (Yellow); Glucose,Urine (UA) Negative (Negative); Ketones,Urine Negative (Negative); Leukocyte Esterase,Urine Negative (Negative); Nitrate,Urine Negative (Negative); Protein,Urine Negative (Negative); Specific Gravity, Urine 1.025 (1.005-1.030)
[2019-12-02 11:12] LABS: Alanine Aminotransferase 24 U/L (12-78); Albumin Level 3.5 gm/dL (3.4-5.0); Albumin/Globulin Ratio 1.5 (1.1-1.8); Alkaline Phosphatase 93 U/L (46-116); Anion Gap 10.3 mEq/L (5-15); Aspartate Amino Transferase 21 U/L (15-37); Bilirubin,Total 1.1 mg/dL (0.2-1.0); Blood Urea Nitrogen 13 mg/dL (7-18); Calcium 8.8 mg/dL (8.5-10.1); Carbon Dioxide 30 mmol/L (21.0-32.0); Chloride 107 mmol/L (98-107); Chol/HDL Ratio 2.3 (1-3.5); Cholesterol 150 mg/dL (140-200); Creatinine,Serum 1.51 mg/dL (0.70-1.30); Estimated Glomerular Filt Rate 47 ml/min (>60); GFR (African American) 57 ML/MIN (>60); Globulin 2.4 gm/dl (1.3-3.2); Glucose 90 mg/dL (74-106); HDL Cholesterol 64 mg/dL (27-67); LDL Cholesterol 78 mg/dL (0-130); Potassium 4.3 mmoL/L (3.5-5.1); Sodium 143 mmol/L (136-145); Thyroid Stimulating Hormone 0.02 uIU/ml (0.358-3.740); Total Protein,Serum 5.9 gm/dL (6.4-8.2); Triglycerides 42 mg/dL (30-200); VLDL Cholesterol 8 mg/dL (0-40)
[2019-12-02 11:21] LABS: RBC,Urine Occasional #/hpf (0-3); Squamous Epithelial Cell,Urine Occasional #/hpf (0-5)
[2019-12-03 08:12] LABS: Iron 119 ug/dL (38-169); Iron Saturation 43 % (15-55); UIBC 160 ug/dL (111-343)
[2019-12-03 09:46] LABS: Folate 7.6 ng/mL (>3.0); Vitamin B12 1062 pg/mL (232-1245); Vitamin D 25 Hydroxy 24.9 ng/mL (30.0-100.0)
== END ==
PROVIDERS: Visit Provider Emergency Medicine
DX: E03.9 Hypothyroidism, unspecified (principal); E55.9 Vitamin D deficiency, unspecified; M85.80 Other specified disorders of bone density and structure, unspecified site; D64.9 Anemia, unspecified; I73.9 Peripheral vascular disease, unspecified; N40.0 Benign prostatic hyperplasia without lower urinary tract symptoms
CPT/HCPCS: 80053; 80061; 81001; 82607; 82652; 82746; 83540; 83550; 84443; 85025; G0103

== ENCOUNTER → 2020-01-19 13:19 | Outpatient (CLI) | payer BC, SELFPAY ==
--- NOTE | 2020-01-19 13:28 | XR_ITS ---
PROCEDURE: XR CHEST 2V CLINICAL HISTORY: FLU A Cough and congestion COMPARISON: CXR CHEST(2 VIEWS-NOT PORTABLE) from 11/18/2016 CXR CHEST(2 VIEWS-NOT PORTABLE) from 03/28/2017 CXR2V XR chest 2V from 03/02/[address] chest wo/w con from 03/03/2018 FINDINGS: Heart size upper limits of normal. The no lobar consolidation or collapse. There is mild pleural thickening in the right hemithorax laterally unchanged. There is mild degenerative change in the kyphotic thoracic spine. The lungs are clear without infiltrates, suspicious nodules, or pleural effusions. Degenerative changes thoracic spine IMPRESSION: No change with no acute finding Dictated by: Noam Britton MD 01/19/2020 13:49 Electronically signed by Noam Britton MD in [place] 01/19/2020 13:49
[2020-01-19 14:06] LABS: Basophils # 0.1 K/mm3 (0-0.2); Basophils % 1.1 % (0.1-2.0); Eosinophils # 0.1 K/mm3 (0.0-0.4); Eosinophils % 1.5 % (0.1-12.0); Hematocrit 48.9 % (42.0-52.0); Hemoglobin 16.6 g/dL (14.1-18.0); Lymphocytes # 1.5 K/mm3 (0.7-4.5); Lymphocytes % 21.9 % (10-50); Mean Corpuscular Volume 88.4 fl (80-94); Mean Platelet Volume 7.6 fl (7.4-10.4); Monocytes # 0.4 K/mm3 (0.1-1.0); Monocytes % 5.9 % (1.7-9.3); Neutrophils # 4.9 K/mm3 (1.8-7.8); Neutrophils % 69.6 % (37.0-80.0); Platelet Count 195 K/mm3 (142-424); Red Blood Count 5.53 M/mm3 (4.60-6.20); Red Cell Distribution Width 12.8 % (11.5-17.5)
== END ==
PROVIDERS: PCP Emergency Medicine; Visit Provider Emergency Medicine
DX: J10.1 Influenza due to other identified influenza virus with other respiratory manifestations (principal)
CPT/HCPCS: 36415; 71046; 85025

== ENCOUNTER 2020-05-06 20:13 | Observation (INO) | payer BC, SELFPAY ==
[2020-05-06] VITALS (8 sets, daily range): BP systolic 117–130; BP diastolic 74–88; PULSE 58–76; RESP 16–18; TEMP 36.3–36.8; O2SAT 94–98; BMI 29.8; BMI 31.1
--- NOTE | 2020-05-06 20:15 | PC.NURSE ---
this nurse gave pt a 2 on the NIH scale.
--- NOTE | 2020-05-06 20:45 | CT_ITS ---
PROCEDURE: CT HEAD/BRAIN WO CON Patient Age:64Y CLINICAL INDICATION: left wided weakness last night COMPARISON: No exams were available for comparison TECHNIQUE: Standard axial images were obtained.. No IV contrast All CT scans at the facility use one or more dose reduction, viz: automated exposure control, ma/kV adjustment per patient size (including targeted exams where dose is matched to indication, i.e. head), or iterative reconstruction technique. FINDINGS: No acute intracranial findings. CT without brain within normal limits. No intracranial hemorrhage. No territorial infarct. Particular attention directed to the right cerebral hemisphere motor strip with history of left sign weakness-no appreciable abnormalities. No hydrocephalus.The ventricles and basal cisterns appear clear and satisfactory. No mass or midline shift nor mass effect. No subdural or extra-axial fluid collection is evident. Posterior fossa unremarkable. Skull is intact.. Mastoid air cells well developed well aerated and clear. No mastoid effusion. Middle ear and IAC's unremarkable. The visualized portions of paranasal sinuses are clear with no significant findings. No air-fluid levels. . Deviation nasal septum, convex to the right incidentally noted IMPRESSION: No acute intracranial findings Dictated by: Harlan Le MD 05/06/2020 21:57 Electronically signed by Harlan Le MD in [place] 05/06/2020 21:57
--- NOTE | 2020-05-06 20:45 | HMH.EDNEU ---
ED Disposition Clinical Impression: Cerebrovascular accident Qualifiers: CVA mechanism: unspecified Qualified Code(s): I63.9 - Cerebral infarction, unspecified Disposition: Admitted as Observation Condition on Discharge: Good Referrals: Derrell West [Primary Care Provider] - - Critical Care Critical Care Time: No Attestation: On 05/06/20, the high probability of a clinically significant, sudden or life threatening deterioration of the following system(s) required my full and direct attention, intervention and personal management. The time I documented below is in addition to time spent performing reported procedures but includes the following listed in this critical care notation. Medical Decision Making - Medical Records Medical records reviewed: Yes: I reviewed the patient's medical records. - Frank Inquiry Pt receiving controlled substance: No Vital Signs: 05/06/20 20:14 05/06/20 20:51 05/06/20 21:00 Temperature 98.2 F Temperature Source Oral Pulse Rate [Left Radial] 76 62 63 Respiratory Rate 16 16 18 Blood Pressure [Right Arm] 129/88 119/74 119/74 Blood Pressure Mean [Right Arm] 101 89 89 Blood Pressure Source [Right Arm] Automatic Cuff Automatic Cuff Automatic Cuff Blood Pressure Position [Right Arm] Sitting Sitting Supine 02 Sat by Pulse Oximetry 97 94 L 96 Oxygen Delivery Method Room Air Room Air Room Air 05/06/20 21:30 05/06/20 22:00 05/06/20 22:30 Temperature Temperature Source Pulse Rate [Left Radial] 64 69 58 L Respiratory Rate 16 17 16 Blood Pressure [Right Arm] 117/80 122/77 130/81 Blood Pressure Mean [Right Arm] 92 92 97 Blood Pressure Source [Right Arm] Automatic Cuff Automatic Cuff Automatic Cuff Blood Pressure Position [Right Arm] Supine Supine Supine 02 Sat by Pulse Oximetry 96 98 96 Oxygen Delivery Method Room Air Room Air Room Air - Lab Data Lab results reviewed: Yes: I reviewed the patient's lab results. Lab Results 05/06/20 20:47: Urine Color Yellow, Urine Appearance Clear, Urine pH 6.0, Ur Specific [place] 1.010, Urine Protein Negative, Urine Glucose (UA) Negative, Urine Ketones Negative, Urine Blood Negative, Urine Nitrate Negative, Urine Bilirubin Negative, Urine Urobilinogen 0.2, Ur Leukocyte Esterase Negative, Urine WBC Occasional, Amorphous Sediment Trace 05/06/20 20:47: WBC 7.3, RBC 5.29, Hgb 16.9, Hct 48.3, MCV 91.2, MCH 31.9 H, MCHC 35.0, RDW 13.1, Plt Count 177, MPV 7.8, Neut % (Auto) 65.0, Lymph % (Auto) 25.4, [place] % (Auto) 5.8, Eos % (Auto) 2.7, Baso % (Auto) 1.2, Neut # (Auto) 4.8, Lymph # (Auto) 1.9, [place] # (Auto) 0.4, Eos # (Auto) 0.2, Baso # (Auto) 0.1 05/06/20 20:47: Sodium 136, Potassium 4.0, Chloride 99, Carbon Dioxide 31 H, Anion Gap 10.0, BUN 13, Creatinine 1.30 H, Estimated Creat Clear 81, Estimated GFR 56 L, Est GFR ( Amer) 67, Glucose 132 H, Calcium 9.3, Total Bilirubin 0.4, AST 31, ALT 19, Alkaline Phosphatase 119, Troponin I < 0.01, Total Protein 6.9, Albumin 4.0, Globulin 2.9, Albumin/Globulin Ratio 1.4 Result diagrams: 05/06/20 20:47 05/06/20 20:47 Orders (Tests/Meds): ED MEDICATIONS Generic Name Dose Route Start Last Admin Trade Name Freq PRN Reason Stop Dose Admin Sodium Chloride 1,000 mls @ 999 mls/hr 05/06/20 21:15 05/06/20 21:14 Sod Chlor 0.9% 1000ml Bag IV 05/06/20 22:15 999 mls/hr .Q1H1M JENI Administration Discontinued Medications Generic Name Dose Route Start Last Admin Trade Name Freq PRN Reason Stop Dose Admin Aspirin 324 mg 05/06/20 22:40 05/06/20 22:45 Aspirin 81mg Chewable Tablet PO 05/06/20 22:41 324 mg ONCE ONE Administration Clopidogrel Bisulfate 75 mg 05/06/20 22:40 05/06/20 22:45 Plavix 75mg Tablet PO 05/06/20 22:41 75 mg ONCE ONE Administration ORDERS Category Date Time Status T4 (Thyroxine) Stat Lab 05/06/20 20:40 Received TSH [Thyroid Stimulating Hormone] Stat Lab 05/06/20 20:40 Received Troponin I Q3H Lab 05/07/20 02:51 Ordered Troponin I Routine
--- NOTE | 2020-05-06 20:51 | ECG_ITS ---
APPROVED REPORT Exam: Resting ECG HR:68 bpm ECG Measurements Heart Rate 68 AXES SC 112 P 40 QRSd 88 QRS -8 QT 374 T 234 QTc 397 <Conclusion> Normal sinus rhythm Inferior infarct, old NDST-T Changes Abnormal ECG Electronically signed by : Derrell West, 05/07/2020 11:42:14
[2020-05-06 20:57] LABS: Basophils # 0.1 K/mm3 (0-0.2); Basophils % 1.2 % (0.1-2.0); Eosinophils # 0.2 K/mm3 (0.0-0.4); Eosinophils % 2.7 % (0.1-12.0); Hematocrit 48.3 % (42.0-52.0); Hemoglobin 16.9 g/dL (14.1-18.0); Lymphocytes # 1.9 K/mm3 (0.7-4.5); Lymphocytes % 25.4 % (10-50); Mean Corpuscular Hemoglobin 31.9 pg (27.0-31.2); Mean Corpuscular Volume 91.2 fl (80-94); Mean Platelet Volume 7.8 fl (7.4-10.4); Microscopic, Urine URINE MICROSCOPIC (MICROSCOPIC); Monocytes # 0.4 K/mm3 (0.1-1.0); Monocytes % 5.8 % (1.7-9.3); Neutrophils # 4.8 K/mm3 (1.8-7.8); Platelet Count 177 K/mm3 (142-424); Red Blood Count 5.29 M/mm3 (4.60-6.20); Red Cell Distribution Width 13.1 % (11.5-17.5); White Blood Count 7.3 K/mm3 (4.8-10.8)
[2020-05-06 21:03] LABS: Appearance,Urine CLEAR (Clear); Bilirubin,Urine Negative (Negative); Blood, Urine Negative (Negative); Color,Urine YELLOW (Yellow); Glucose,Urine (UA) Negative (Negative); Ketones,Urine Negative (Negative); Leukocyte Esterase,Urine Negative (Negative); Nitrate,Urine Negative (Negative); Protein,Urine Negative (Negative); Urobilinogen,Urine 0.2 EU/dl (0.2)
[2020-05-06 21:04] LABS: Alanine Aminotransferase 19 U/L (12-78); Albumin/Globulin Ratio 1.4 (1.1-1.8); Alkaline Phosphatase 119 U/L (38-126); Aspartate Amino Transferase 31 U/L (17-59); Bilirubin,Total 0.4 mg/dl (0.2-1.3); Blood Urea Nitrogen 13 mg/dl (9-20); Calcium 9.3 mg/dl (8.4-10.2); Carbon Dioxide 31 mmol/L (22.0-30.0); Chloride 99 mmol/L (98-107); Creatinine Clearance Estimated 81 mL/min (50-200); Estimated Glomerular Filt Rate 56 ml/min (>60); GFR (African American) 67 ML/MIN (>60); Globulin 2.9 g/dL (1.3-3.2); Glucose 132 mg/dl (74-100); Sodium 136 mmol/L (136-145); Total Protein,Serum 6.9 g/dl (6.3-8.2)
[2020-05-06 21:07] LABS: Amorphous Sediment,Urine Trace /lpf; WBC,Urine Occasional #/hpf (0-3)
[2020-05-06 21:33] LABS: Troponin I < 0.01 ng/ml (0.00-0.034)
--- NOTE | 2020-05-06 21:38 | PC.NURSE ---
pt to RAD for head CT
--- NOTE | 2020-05-06 21:50 | PC.NURSE ---
pt back from RAD
--- NOTE | 2020-05-06 22:24 | PC.NURSE ---
speaking with Dr. Isaacs at [facility]
--- NOTE | 2020-05-06 22:30 | PC.NURSE ---
consulted with and placed a call out to dr coker.
--- NOTE | 2020-05-06 22:30 | PC.NURSE ---
[facility] denied acceptance
--- NOTE | 2020-05-06 22:30 | PC.NURSE ---
Dr. Munira davis
--- NOTE | 2020-05-06 22:33 | PC.NURSE ---
on phone with dr. coker at this time
--- NOTE | 2020-05-06 22:43 | PC.NURSE ---
dr coker accepted patient for admission. md at bed side speaking to patient at this time about admission.
[2020-05-06 22:55] LABS: T4 (Thyroxine) 15.6 ug/dl (5.53-11.0)
--- NOTE | 2020-05-06 23:04 | PC.NURSE ---
report called to TANIKA Sanchez. nurse notified of cardiac monitoring and Q4hr neuro checks to be performed.
[2020-05-06 23:09] LABS: Thyroid Stimulating Hormone < 0.02 uIU/mL (0.465-4.68)
[2020-05-07 00:23] LABS: Troponin I < 0.01 ng/ml (0.00-0.034)
[2020-05-07 01:21] VITALS: PULSE 60
[2020-05-07 04:00] VITALS: BP 112/65; PULSE 60; PULSE 67; RESP 18; TEMP 36.7; O2SAT 97
--- NOTE | 2020-05-07 05:32 | PC.NURSE ---
Pt A&O x4. Resting in bed at this time. VS have remained stable. NSR on telemetry. NIH of 2. Pt continues to have slight drifting to LUE and LLE. No additional neurological symptoms noted. Pt has ambulated to BR without difficulty. No complaints stated. Will continue to monitor.
[2020-05-07 06:01] LABS: Basophils # 0.1 K/mm3 (0-0.2); Basophils % 1.4 % (0.1-2.0); Eosinophils # 0.2 K/mm3 (0.0-0.4); Eosinophils % 3.1 % (0.1-12.0); Hematocrit 47.8 % (42.0-52.0); Hemoglobin 16.7 g/dL (14.1-18.0); Lymphocytes # 1.8 K/mm3 (0.7-4.5); Lymphocytes % 30.7 % (10-50); Mean Corpuscular Hemoglobin 31.9 pg (27.0-31.2); Mean Corpuscular Volume 91.2 fl (80-94); Mean Platelet Volume 7.6 fl (7.4-10.4); Monocytes # 0.4 K/mm3 (0.1-1.0); Monocytes % 6.4 % (1.7-9.3); Neutrophils # 3.5 K/mm3 (1.8-7.8); Neutrophils % 58.5 % (37.0-80.0); Platelet Count 175 K/mm3 (142-424); Red Blood Count 5.24 M/mm3 (4.60-6.20); Red Cell Distribution Width 13.4 % (11.5-17.5)
[2020-05-07 06:06] LABS: Blood Urea Nitrogen 13 mg/dl (9-20); Calcium 9.1 mg/dl (8.4-10.2); Carbon Dioxide 30 mmol/L (22.0-30.0); Chloride 103 mmol/L (98-107); Chol/HDL Ratio 2.1 (1-3.5); Cholesterol 153 mg/dl (140-200); Creatinine Clearance Estimated 89 mL/min (50-200); Estimated Glomerular Filt Rate 61 ml/min (>60); GFR (African American) 74 ML/MIN (>60); HDL Cholesterol 72 mg/dl (40-60); Magnesium 1.9 mg/dl (1.6-2.3); Sodium 136 mmol/L (136-145); Triglycerides 61 mg/dl (30-150); VLDL Cholesterol 12 mg/dL (0-40)
[2020-05-07 06:13] LABS: Glucose 93 mg/dl (74-100)
[2020-05-07 06:15] LABS: Hemoglobin A1C 5.6 % (4.0-6.0)
[2020-05-07 06:17] LABS: Direct LDL Cholesterol 73.15 mg/dL (100-129)
--- NOTE | 2020-05-07 06:35 | PC.NURSE ---
Pt off floor for echo and carotid doppler
--- NOTE | 2020-05-07 06:57 | HMH.PHAVTE ---
[facility] Pharmacy VTE Monitoring - Patient Demographics Admission date: 05/06/20 Report Date: 05/07/20 Time: 06:57 Allergies/Adverse Reactions: Patient Allergies amantadine [AMANTADINE] Allergy (Mild, Verified 05/06/20 22:45) SEIZURE codeine [CODEINE] Allergy (Mild, Verified 05/06/20 22:45) I-RASH Penicillins Allergy (Verified 05/06/20 22:45) Height: 1.8 m Weight: 101.293 kg Patient Problems: Current Active Problems Cerebrovascular accident (Acute) - VTE Risk Labs: VTE Related Lab Results Hgb 16.7 g/dL (14.1-18.0) 05/07/20 05:23 Hct 47.8 % (42.0-52.0) 05/07/20 05:23 Plt Count 175 K/mm3 (142-424) 05/07/20 05:23 BUN 13 mg/dl (9-20) 05/07/20 05:23 Creatinine 1.20 mg/dl (0.66-1.25) 05/07/20 05:23 Estimated Creat Clear 89 mL/min (50-200) 05/07/20 05:23 VTE Score: 9 VTE Risk Level: Moderate Risk - Prophylaxis VTE Prophylaxis Ordered?: Yes Types of VTE Prophylaxis: TEDS Knee High Location of Applied Device: Bilateral Lower Extremeties - VTE Diagnosis Confirmed Treatment or plan recommended: Continue Current Treatment
[2020-05-07 08:00] VITALS: BP 155/83; PULSE 70; PULSE 72; RESP 18; TEMP 36.9; O2SAT 97
--- NOTE | 2020-05-07 08:00 | CA_ITS ---
APPROVED REPORT Crowd Controller: RENETTA Laterality: Bilateral Study Quality: Good Indications: cva Doppler Spectral Velocity Analysis dICA (R) 66.40/31.10 cm/s dICA (L) 41.70/14.50 cm/s [place] (R) 82.30/31.50 cm/s [place] (L) 73.20/21.20 cm/s pICA (R) 43.20/18.40 cm/s pICA (L) 45.30/12.00 cm/s dCCA (R) 74.90/26.30 cm/s dCCA (L) 57.80/20.40 cm/s pCCA (R) 76.90/17.10 cm/s pCCA (L) 82.10/22.10 cm/s Vert (R) 43.50/8.60 cm/s Vert (L) 26.90/7.20 cm/s ICA/CCA 1.10 ICA/CCA 1.30 Findings Duplex evaluation demonstrates stenosis of the right proximal internal carotid artery <20% with PSV <140 cm/sec, EDV <100 cm/sec, and IC/CC Ratio <4.0.Duplex evaluation demonstrates stenosis of the left proximal internal carotid artery <20% with PSV <140 cm/sec, EDV <100 cm/sec, and IC/CC Ratio <4.0.Antegrade flow seen bilateral vertebral arteries. Conclusion No increased velocities to suggest hemodynamically significant stenosis in either internal carotid artery. Electronically signed by : Noam Britton MD 05/07/2020 17:03:44
--- NOTE | 2020-05-07 08:25 | HMH.HP ---
*Admission Date: 05/06/20 *Chief complaint: Left hemiparesis *History of present illness: 64-year-old white male with history of chronic kidney insufficiency and hypothyroidism but without history of vascular disease who presented to the emergency department last night with chief complaints of left-sided weakness and clumsiness since 4 AM the morning of 05/06/2020. When he came to the emergency department work-up was unremarkable including negative CT scan but he had demonstrable weakness on the left side and was admitted to hospital for further evaluation. Patient denies previous stroke, previous heart attack, only takes lisinopril, GERD medication, thyroid replacement and BuSpar, is an ex-smoker, quit 5 years ago. Is retired from factory work. [facility] History I have reviewed the patient's past medical history: Yes Medical History: Reports:: Cancer (skin), Congestive Heart Failure, Chronic Obstructive Pulmonary Disease (COPD), Renal Insufficiency Denies:: Diabetes Mellitus Type 1, Diabetes Mellitus Type 2, MRSA *Have you ever received a pneumonia vaccine?: No *Have you received a flu vaccine this season?: Yes Other Medical History: Reports: Arthritis, Hypothyroidism, Thyroid Disease Laterality Cases: Bilateral: Other Other Surgeries: Yes: Cardiac Catheterization (03/03/18 no stents), Cholecystectomy, Colon Resection, Hernia Repair Amputation: No Fractures: No - *Social History Educational Level: Completed High School Smoking Status: Former smoker Tobacco Type: cigarettes # Packs/Day (cigarettes): 1 Alcohol Intake: current Alcohol Intake Frequency:: a few times a week Substance Use Type: denies use *Occupational Status:: retired Housing: house Household Members: significant other *Travel in the last 8 weeks: Inside the [facility] Family Hx:: Cancer, Coronary Artery Disease, Heart Attack, Hyperlipidemia, Hypertension, Kidney Disease, Stroke, Thyroid Disorder, Alcoholism Review of Systems - Review of Systems Review of systems:: pertinent systems reviewed and negative unless documented below - *Neurologic Reports tingling/numbness/burning sensations, Denies localized weakness, Denies headache(s), Denies seizure-like activity Meds Home Medications Medication Instructions Recorded Confirmed Type Buspirone HCl [Buspar 10mg 10 mg PO BID 03/02/18 05/07/20 History tablet] Tamsulosin HCl [Flomax 0.4mg 0.4 mg PO HS 03/02/18 05/07/20 History capsule] cyanocobalamin (vitamin B-12) 1,000 mcg PO DAILY tab 03/09/18 05/07/20 History 1,000 mcg tablet Furosemide [Lasix 20mg tablet] 20 mg PO DAILY 05/16/18 05/07/20 History Albuterol Sulfate [Albuterol HFA 1 - 2 puffs IH Q4-6H PRN #1 inh 10/03/18 05/07/20 Rx Inhaler] Lansoprazole [Prevacid] 30 mg PO DAILY 05/07/20 05/07/20 History Levothyroxine Sodium 125 mcg PO DAILY 05/07/20 05/07/20 History [Levothyroxine 125mcg (0.125mg) Tab] Allergies Allergy/AdvReac Type Severity Reaction Status Date / Time amantadine [AMANTADINE] Allergy Mild SEIZURE Verified 05/06/20 22:45 codeine [CODEINE] Allergy Mild I-RASH Verified 05/06/20 22:45 Penicillins Allergy Verified 05/06/20 22:45 Exam Vital signs and Labs for Last 24 Hours: Temp Pulse Resp BP Pulse Ox 98.4 F 72 18 155/83 H 97 05/07/20 08:00 05/07/20 08:00 05/07/20 08:00 05/07/20 08:00 05/07/20 08:00 Laboratory Results - last 24 hr 05/06/20 20:40: TSH < 0.02 L, Thyroxine (T4) 15.6 H 05/06/20 20:47: Urine Color Yellow, Urine Appearance Clear, Urine pH 6.0, Ur Specific [place] 1.010, Urine Protein Negative, Urine Glucose (UA) Negative, Urine Ketones Negative, Urine Blood Negative, Urine Nitrate Negative, Urine Bilirubin Negative, Urine Urobilinogen 0.2, Ur Leukocyte Esterase Negative, Urine WBC Occasional, Amorphous Sediment Trace 05/06/20 20:47: WBC 7.3, RBC 5.29, Hgb 16.9, Hct 48.3, MCV 91.2, MCH 31.9 H, MCHC 35.0, RDW 13.1, Plt Count 177, MPV 7.8, Neut % (Auto) 65.0, Lymph % (Auto) 25.4, [place]
--- NOTE | 2020-05-07 08:55 | MR_ITS ---
PROCEDURE: MR HEAD/BRAIN WO CON CLINICAL INDICATION: LEFT HEMIPARESIS Left-sided weakness, left leg and arm weakness with disorientation dizziness and headache COMPARISON: CT HEAD/BRAIN WO CON from 05/06/2020 CA ECHO DOPPLER COMPLETE from 05/07/2020 TECHNIQUE: Routine multiplanar multi echo sequences are performed without gadolinium enhancement. FINDINGS: On the diffusion images there is a gyriform area of increased signal intensity in the right parietal area at the vertex with concordant decrease in ADC signal consistent with an area of acute infarction. This area measures 2.2 cm in length and 0 point 6 cm in with. In addition, there is a small cortical area of increased diffusion signal and decreased ADC signal in the right frontal lobe consistent with an area of acute infarction which measures 0.8 x 0.6 cm. No evidence of hemorrhage in these regions on the axial flash hemo images. No other areas of acute infarction are apparent. The cerebellopontine angles, cerebellum, and brainstem and mid brain have an unremarkable appearance. There are few scattered periventricular and subcortical T2 white matter hyperintensities which may be due to small ischemic gliotic foci. The pituitary, optic chiasm, corpus callosum, and craniocervical junction have an unremarkable appearance. No mastoid effusion or sinus air-fluid level. IMPRESSION: There are 2 small areas of the of acute infarction involving the cortex of the right parietal and right frontal lobe. These could be due to small watershed or embolic infarctions. Dictated by: Noam Britton MD 05/07/2020 12:39 Electronically signed by Noam Britton MD in [place] 05/07/2020 12:39
--- NOTE | 2020-05-07 09:09 | HMH.OTEV ---
OT Inpatient Evaluation Rehab OT IP Evaluation Start: 05/07/20 08:24 Freq: ONCE Status: Complete Protocol: Document 05/07/20 09:04 VINCENT (Rec: 05/07/20 09:09 [facility] [id number] Rehab OT IP Assessment Subjective History Pt oriented x 3 on arrival. Pt agreeable to engage in therapy evaluation. Pt is a 64 year old male admitted via ED on 05/06/20 due to L sided weakness. Pt has a past medical history of skin CA, CHF, COPD, and renal insufficency. Pt claims he was independent with all ADL's and IADL's. Pt still drove and did not require any type of AE. Subjective I just felt weak. Objective Patient Orientation Person,Place,Birthday,Year Upper Extremity Gross ROM Min Limitation <25% Shoulder ROM Limitations Muscle Weakness Elbow ROM Limitations Muscle Weakness Wrist Limitations of Range of Motion Muscle Weakness Bed Mobility bed mobility-scooting,bed mobility - supine/sit,bed mobility - rolling Assist Level Supervision/Stand by Transfer Training Sit/Stand Transfer Assist Level Contact Guard/Hand Hold Rehab OT IP prob,goals,plan Problems Date of Evaluation: 05/07/20 OT IP Problems Bed Mobility,Transfers,Gait, Balance,Self care,Safety Rehab Potential Rehab Potential Good Equipment Needs Assistive Devices None / NA Plan OT intervention Plan Bed Mobility,Transfers,Gait, Balance,Self care,Safety, Therapeutic Exercise OT Plan Frequency Daily Duration LOS Discharge Goals Bed Mobility Ability Standby Assistance Sit to Stand Chair Transfer Ability Supervision/Stand by Chair Transfer Ability Supervision/Stand by Chair Transfer Technique Sit to/from Ambulatory Chair Transfer Assistive Devices None Self care skills fully toilet trained,dressing/ undressing independently,uses utensils to feed self Feeding Ability Independent Lower Body Dressing Ability Standby Assistance Upper Body Dressing Ability Standby Assistance Bathing Ability Standby Assistance Performing Toilet Hygiene Ability Standby Assistance Overall Commode/Toilet Transfer Abil
--- NOTE | 2020-05-07 09:22 | HMH.PHAINT ---
MEDICATION RECONCILIATION COMPLETED USING EXTERNAL FILL HISTORY AND PHARMACY
--- NOTE | 2020-05-07 10:33 | PC.NURSE ---
Called and spoke with Vivian in Dr. Silver's office in [place] to stating he is unable to do MRI according to elian, because he is claustrophobic. 1034 am awaiting at this time.
[2020-05-07 12:00] VITALS: BP 119/73; PULSE 56; RESP 20; TEMP 36.5; O2SAT 98
--- NOTE | 2020-05-07 12:44 | PC.NURSE ---
pt back from MRI at this time. Did receive order for [address] x diazepam [address] Silver, r/t pt being anxious claustrophobic in MRI. Pt states it helped. Calm and cooperative at this time and in room. Will cont to mx pt.
--- NOTE | 2020-05-07 13:20 | HMH.PTEV ---
Physical Therapy Evaluation Rehab PT IP Evaluation Start: 05/07/20 08:24 Freq: ONCE Status: Active Protocol: Document 05/07/20 13:15 WILLIAM (Rec: 05/07/20 13:20 WILLIAM [id number]) Subjective/History History History This is the initial IP PT evaluation for Aden Cheung. Pt is a 64 y/o male admitted to [facility] thru ER. Pt reported to ER w/ c/o L sided weakness in upper and lower extremities. PMH includes Cancer (skin), Congestive Heart Failure, Chronic Obstructive Pulmonary Disease (COPD), Renal Insufficiency Subjective Subjective Pt reports he feels okay, still has weakness in L side Rehab PT IP Eval Objective Appearance Patient Behavior Appropriate,Cooperative Patient Orientation Person,Place,Time Difficulty following instructions none Speech Pattern Clear Ambulation Patient Able to Ambulate Yes Ambulation Observation IP General Gait Pattern Observation Decrease Weight Bear (L), Decrease Stride Lngth (L) Ambulation Distance (feet) 30 Ambulation Assistive Device None Ambulation Ability Independent Balance Ability to Arise Able, w/o using arms Sitting Balance Steady, safe Standing Balance Steady, wide stance Dynamic Sitting Balance Ability Normal Dynamic Standing Balance Ability Good Transfers Bed Transfer Ability Independent Chair Transfer Ability Independent Sit to Stand Bed Transfer Ability Independent Sit to Stand Chair Transfer Ability Independent ROM All Extremities PT ROM Status WFL MMT LUE Abnormal MMT Grade 4/5 LLE Abnormal MMT Grade 4/5 Rehab PT IP prob,goals,plan Problems Date of Evaluation: 05/07/20 Rehab Potential Rehab Potential Innapropriate for Skilled Therapy Equipment Needs Assistive Devices None / NA Discharge Plan PT Discharge Plan Pt to dc to home - pt could benefit from HHPT or OPPT for strengthening of L side and return to PLOF G -code Required No Eval Complexity Eval Charge Codes 03500 - Low Complexity PHYSICIAN CERTIFICATION: I certify the specified therapy services for Aden Woodson
[2020-05-07 14:01] VITALS: BMI 31.1
[2020-05-07 15:34] VITALS: BP 119/74; PULSE 58; RESP 20; TEMP 36.5; O2SAT 96
[2020-05-07 16:00] VITALS: PULSE 50
--- NOTE | 2020-05-07 16:00 | HMH.DCSUM ---
General - General Admission date:: 05/06/20 Discharge date: 05/07/20 HPI HPI: 64-year-old white male with history of chronic kidney insufficiency and hypothyroidism but without history of vascular disease who presented to the emergency department last night with chief complaints of left-sided weakness and clumsiness since 4 AM the morning of 05/06/2020. When he came to the emergency department work-up was unremarkable including negative CT scan but he had demonstrable weakness on the left side and was admitted to hospital for further evaluation. Patient denies previous stroke, previous heart attack, only takes lisinopril, GERD medication, thyroid replacement and BuSpar, is an ex-smoker, quit 5 years ago. Is retired from factory work. Hospital Course Hospital Course: Patient was admitted, had no further episodes of neurologic compromise. MRI without contrast was done revealing 2 small embolic areas in the right hemisphere. No bleeding. Echocardiogram was done showing normal ejection fraction, no evidence of embolic source. Carotid Doppler is pending at the time of discharge. Plan will be to discharge home with ongoing lisinopril therapy, we will add Plavix therapy and statin therapy. Patient has appointment with his provider on May 21. I would recommend the patient have a 30-day event recorder at that time to rule out atrial fibrillation although no evidence was seen in the hospital here. Instructed to return to the hospital if worsening neurologic symptoms occur. Objective Vital signs: Temp Pulse Resp BP Pulse Ox 97.7 F 58 L 20 119/74 96 05/07/20 15:34 05/07/20 15:34 05/07/20 15:34 05/07/20 15:34 05/07/20 15:34 Narrative: *Routine HEENT Exam Head: Present: normocephalic Eye: Present: EOMI, PERRL ENT: Present: mucous membranes moist - *Routine Neck Exam Present: supple. Absent: lymphadenopathy - *Routine Respiratory Exam Present: CTA bilaterally - *Routine Cardiovascular Exam Present: RRR - *Routine Abdominal Exam Present: soft, normoactive bowel sounds. Absent: tenderness - *Routine Extremities Exam Absent: cyanosis, clubbing, edema - *Routine Skin Exam Present: warm. Absent: rash - *Routine Neurological Exam Present: alert, oriented X3, CN II-XII intact Patient has diminished dexterity in the left hand, has 4/5 strength in the left arm and leg, 5/5 on the right. Cranial nerves are uninvolved. Results Labs on day of discharge: Labs from last 24 hours 05/07/20 05/07/20 05/07/20 05:23 05:23 05:23 WBC 6.0 RBC 5.24 Hgb 16.7 Hct 47.8 MCV 91.2 MCH 31.9 H MCHC 35.0 RDW 13.4 Plt Count 175 MPV 7.6 Neut % (Auto) 58.5 Lymph % (Auto) 30.7 [place] % (Auto) 6.4 Eos % (Auto) 3.1 Baso % (Auto) 1.4 Neut # (Auto) 3.5 Lymph # (Auto) 1.8 [place] # (Auto) 0.4 Eos # (Auto) 0.2 Baso # (Auto) 0.1 Sodium 136 Potassium 4.0 Chloride 103 Carbon Dioxide 30 Anion Gap 7.0 BUN 13 Creatinine 1.20 Estimated Creat Clear 89 Estimated GFR 61 Est GFR ( Amer) 74 Glucose 93 D Hemoglobin A1c 5.6 Calcium 9.1 Magnesium 1.9 Total Bilirubin AST ALT Alkaline Phosphatase Troponin I Total Protein Albumin Globulin Albumin/Globulin Ratio Triglycerides 61 Cholesterol 153 LDL Cholesterol Direct 73.15 L VLDL Cholesterol 12 HDL Cholesterol 72 H Cholesterol/HDL Ratio 2.1 TSH Thyroxine (T4) Urine Color Urine Appearance Urine pH Ur Specific [place] Urine Protein Urine Glucose (UA) Urine Ketones Urine Blood Urine Nitrate Urine Bilirubin Urine Urobilinogen Ur Leukocyte Esterase Urine WBC Amorphous Sediment 05/06/20 05/06/20 05/06/20 23:40 20:47 20:47 WBC 7.3 RBC 5.29 Hgb 16.9 Hct 48.3 MCV 91.2 MCH 31.9 H MCHC 35.0 RDW 13.1 Plt Count 177
--- NOTE | 2020-05-07 16:24 | HMH.PHAINT ---
NEW MEDICATIONS: CLOPIDOGREL, ATORVASTATIN, AND LISINOPRIL WERE CONSULTED WITH PATIENT AND SENT TO [facility]. ALL HOME MEDICATIONS ARE BEING CONTINUED WHILE NONE ARE BEING DISCONTINUED. PATIENT HAD NO QUESTIONS AT THIS TIME.
--- NOTE | 2020-05-08 10:25 | SW/DCPLANNER ---
PATIENT WAS SET UP WITH OUT PATIENT PT/OT EVAL AND TREAT PER HIS REQUEST... THIS WAS CONFIRMED FOR SERVICES TO START BY SCHEDULING...PATIENT DISCHARGED LAST EVENING.....
[2020-06-08 09:30] LABS: POC Glucose,Bedside 119 (70-110)
== END 2020-05-07 17:00 | disposition home or self-care (01) ==
LOC: ER 22:55 → 2ND 23:29
PROVIDERS: Admitting Provider Internal Medicine Adolescent Medicine; Emergency Provider Emergency Medicine; PCP Internal Medicine; Visit Provider Internal Medicine Adolescent Medicine
DX: I63.49 Cerebral infarction due to embolism of other cerebral artery (principal); G81.94 Hemiplegia, unspecified affecting left nondominant side; E03.9 Hypothyroidism, unspecified; N18.9 Chronic kidney disease, unspecified; I50.9 Heart failure, unspecified; Z87.891 Personal history of nicotine dependence; Z88.0 Allergy status to penicillin; Z88.5 Allergy status to narcotic agent; Z88.8 Allergy status to other drugs, medicaments and biological substances; Z79.899 Other long term (current) drug therapy
CPT/HCPCS: 36415; 70450; 70551; 80048; 80053; 80061; 81001; 82962; 83036; 83735; 84436; 84443; 84484; 85025; 93005; 93306; 93880; 96365; 97161; 97165; 99285; G0378

== ENCOUNTER 2020-05-15 08:01 | Outpatient (RCR) | payer MEDICARE, SELFPAY | END 2020-05-15 09:02 | disposition home or self-care (01) | LOC: OT 08:01 | PROVIDERS: PCP Internal Medicine; Visit Provider Internal Medicine Adolescent Medicine | DX: I63.89 Other cerebral infarction (principal) ==

== ENCOUNTER → 2020-05-15 09:35 | Outpatient (CLI) | payer MEDICARE, SELFPAY | PROVIDERS: PCP Internal Medicine; Visit Provider Internal Medicine | DX: I63.40 Cerebral infarction due to embolism of unspecified cerebral artery (principal); G45.9 Transient cerebral ischemic attack, unspecified | CPT/HCPCS: 93270 ==

== ENCOUNTER → 2020-07-21 15:56 | Outpatient (CLI) | payer MEDICARE, SELFPAY ==
[2020-07-21 17:20] LABS: Coronavirus 19 IgG Antibody Negative (Negative); Coronavirus 19 IgM Antibody Negative (Negative)
== END ==
PROVIDERS: PCP Internal Medicine; Visit Provider Internal Medicine Gastroenterology
DX: Z01.818 Encounter for other preprocedural examination (principal); Z12.11 Encounter for screening for malignant neoplasm of colon; Z13.810 Encounter for screening for upper gastrointestinal disorder
CPT/HCPCS: 86328

== ENCOUNTER 2020-07-23 07:40 | Day surgery (SDC) | payer MEDICARE, SELFPAY ==
[2020-07-17 15:56] VITALS: BMI 30.7
[2020-07-23] VITALS (7 sets, daily range): BP systolic 99–128; BP diastolic 68–81; PULSE 62–82; RESP 16–18; TEMP 33.8–36.4; O2SAT 92–99
--- NOTE | 2020-07-23 08:21 | P.PN_ITS ---
[facility] Anesthesia Checklist - Patient Identification Patient Identification: Arm Band, Verbal (Name & ) - Structural Data Admitted From: Home Planned Operative Procedure/s: egd/colon Consent for Planned Operative Procedure(s) Verified: Yes - NPO Status Verified Time NPO: 00:00 - Additional verifications Patient : No Anesthesia Reactions: No Hx Blood Transfusions: No Blood Transfusion Reaction: No Cephalosporin Allergy: No Previous Colonoscopy: Yes - Cardiovascular Assessment Heart Sounds: S1 & S2 Pulse Strength: Baseline Pulse Rhythm: Regular Peripheral Edema: No - Airway Assessment C-Spine Mobility Assessed: Yes TMJ Mobility Assessed: Yes Dentition: Edentulous - Neurological Assessment Level of Consciousness: Awake, Alert, Appropriate Hx Seizures: No Numbness or tingling in extremities: No - Anesthesia Plan Anesthesia Risk discussed: Yes Anesthesia Plan: Verified ASA Class: III Anesthesia Type: MAC [facility] History I have reviewed the patient's past medical history: Yes Medical History: Reports:: Arrhythmia, Cancer (skin), Congestive Heart Failure, Chronic Obstructive Pulmonary Disease (COPD), Hypertension, Renal Insufficiency, Seizures Denies:: Diabetes Mellitus Type 1, Diabetes Mellitus Type 2, Internal Pacemaker, MRSA *Have you ever received a pneumonia vaccine?: No *Have you received a flu vaccine this season?: No Other Medical History: Reports: Arthritis, Hypothyroidism, Thyroid Disease Anesthesia experience/problems:: none Laterality Cases: Bilateral: Other Other Surgeries: Yes: Cardiac Catheterization (03/03/18 no stents), Cholecystectomy, Colon Resection, Hernia Repair. No: Pacemaker Amputation: No Fractures: No - *Social History Smoking Status: Former smoker Tobacco Type: cigarettes # Packs/Day (cigarettes): 1 Alcohol Intake: current Alcohol Intake Frequency:: a few times a week Substance Use Type: denies use *Occupational Status:: retired Housing: house Household Members: significant other *Travel in the last 8 weeks: None Family Hx:: Cancer, Coronary Artery Disease, Heart Attack, Hyperlipidemia, Hypertension, Kidney Disease, Stroke, Thyroid Disorder, Alcoholism
--- NOTE | 2020-07-23 08:28 | HMH.PROC ---
[facility] Procedure Note Procedure Note:: Upper Endoscopy Procedure Report: Esophagogastroduodenoscopy with cold biopsies Endoscopost: Cash Neville II, MD Referring Physician: Derrell West MD Date of Procedure: July 23, 2020 Equipment: Olympus GIF 180 standard upper endoscope Sedation: MAC sedation Indications: Mr. Cheung is a 65-year-old gentleman with a history of Gonzalez's esophagus who is here for surveillance upper endoscopy. He does have well-controlled reflux as long as he maintains on a PPI (omeprazole or lansoprazole). The patient's last EGD and March 2017 revealed no obvious Gonzalez's esophagus. However, the biopsies did show intestinal metaplasia at the GE junction. The patient reports no heartburn, reflux or dysphagia. He has had no indigestion or dyspepsia. Procedure: Prior to the procedure, a history and physical exam was performed, and patient's medications and allergies were reviewed. The risks, benefits and alternatives of the sedation and procedure were discussed with the patient. All questions were answered and informed consent was obtained. The patient was brought to the procedure room. Patient identification and proposed procedure were verified by the physician and the nurse. The patient was placed in a left lateral decubitus position and the scope was passed under direct vision. Throughout the procedure, the patient's blood pressure, pulse, and oxygen saturations were monitored continuously. The upper GI endoscopy was accomplished without difficulty. The patient tolerated the procedure well. Findings: The scope was passed directly into the upper esophagus and advanced to the third portion of the duodenum. The post bulbar duodenum and duodenal bulb were normal with normal mucosa and conniventes. The scope was withdrawn through a normal duodenal bulb and pylorus into the stomach. There was moderate bile reflux with linear reactive gastropathy of the antrum and body. The remainder of the antrum, body and fundus of the stomach were grossly normal. Upon retroflexion there was no hiatal hernia. 2 biopsies were taken in the antrum and along the lesser curvature for histology to rule out gastritis and/or H pylori. The scope was then withdrawn into the esophagus. There was certainly no clear evidence of Gonzalez's esophagus and there was no reflux esophagitis or Schatzki's ring. Biopsies were taken at the GE junction to rule out intestinal metaplasia. The remainder of the esophageal mucosa was normal. Impression: 1. Nonerosive GERD 2. Bile reflux with mild linear reactive gastropathy Plan: I will follow-up the biopsies. Certainly if the biopsies show intestinal metaplasia at the GE junction, this is not denial management representative of Gonzalez's and I will discuss with the patient. I would continue PPI therapy. I will proceed with surveillance colonoscopy.
--- NOTE | 2020-07-23 08:41 | SUR.OPER ---
EGD COMPLETED. COLONOSCOPY ABORTED DUE TO POOR BOWEL PREP.
--- NOTE | 2020-07-23 08:42 | HMH.PROC ---
[facility] Procedure Note Procedure Note:: Flexible Sigmoidoscopy Procedure Report: Aborted colonoscopy Endoscopist: Cash Neville II, MD Referring physician: Derrell West MD Date of Procedure: July 23, 2020 Equipment: Olympus 180 variable stiffness pediatric colonoscope Sedation: MAC sedation Indication: Mr. Cheung is a 65-year-old gentleman who is here for follow-up high risk screening/surveillance colonoscopy secondary to a personal history of multiple adenomatous colon polyps. His colonoscopy in February 2015 showed 9 polyps (tubular adenomas x7/hyperplastic polyps x2) which were removed. His last colonoscopy in March 2017 revealed 7 polyps (tubular adenomas x5/small serrated adenomas x2) which were removed. He reports no abdominal pain, weight loss, change in his bowel habits or rectal bleeding. He reports no family history of colon cancer. Procedure: Prior to the procedure, a history and physical exam was performed, and patient's medications and allergies were reviewed. The risks, benefits and alternatives of the sedation and procedure were discussed with the patient. All questions were answered and informed consent was obtained. The patient was brought to the procedure room. Patient identification and proposed procedure were verified by the physician and the nurse. The patient was placed in a left lateral decubitus position and the scope was passed under direct vision. Throughout the procedure, the patient's blood pressure, pulse, and oxygen saturations were monitored continuously. The colonoscopy was accomplished without difficulty. The patient tolerated the procedure well. Findings: On digital rectal examination there was normal rectal tone. There were no external hemorrhoids. The scope was then inserted through the anal canal into the rectum and advanced to 35 cm. There was abundant solid stool within the sigmoid and rectum impairing visualization and the preparation was very poor. The procedure was aborted. Impression: 1. Unprepped colonoscopy Plan: I will discuss the bowel preparation with the patient and we will plan to improve this preparation and repeat colonoscopy soon.
== END 2020-07-23 09:41 | disposition home or self-care (01) ==
LOC: OUTP 07:41
PROVIDERS: PCP Internal Medicine; Visit Provider Internal Medicine Gastroenterology
PROC: 0DJ08ZZ Inspection of Upper Intestinal Tract, Via Natural or Artificial Opening Endoscopic (ICD-10-PCS; CPT 43235; principal; 2020-07-23 08:30)
DX: Z12.11 Encounter for screening for malignant neoplasm of colon (principal); K21.9 Gastro-esophageal reflux disease without esophagitis; K31.9 Disease of stomach and duodenum, unspecified; Z86.010 Personal history of colon polyps; Z91.19 Patient's noncompliance with other medical treatment and regimen; Z87.19 Personal history of other diseases of the digestive system; Z85.828 Personal history of other malignant neoplasm of skin; I49.9 Cardiac arrhythmia, unspecified; I50.9 Heart failure, unspecified; J44.9 Chronic obstructive pulmonary disease, unspecified; I11.0 Hypertensive heart disease with heart failure; N28.9 Disorder of kidney and ureter, unspecified
CPT/HCPCS: 43239; 45330; 88305

== ENCOUNTER → 2020-09-18 15:11 | Outpatient (CLI) | payer MEDICARE, SELFPAY ==
[2020-09-20 17:20] LABS: Covid-19 Nasal PCR Sendout Lex Not Detected
== END ==
PROVIDERS: PCP Internal Medicine; Visit Provider Internal Medicine
DX: Z03.818 Encounter for observation for suspected exposure to other biological agents ruled out (principal); J06.9 Acute upper respiratory infection, unspecified
CPT/HCPCS: U0004

== ENCOUNTER 2020-10-04 16:18 | Emergency (ER) | payer MEDICARE, SELFPAY ==
[2020-10-04] VITALS (10 sets, daily range): BP systolic 96–136; BP diastolic 64–86; PULSE 84–110; RESP 17–20; TEMP 36.7–39.4; O2SAT 90–98; BMI 32.1; BMI 34.0
--- NOTE | 2020-10-04 16:41 | XR_ITS ---
PROCEDURE: XR CHEST PORTABLE CLINICAL HISTORY: fever, cough COMPARISON: CR CXR CHEST(2 VIEWS-NOT PORTABLE) from 03/28/2017 CR CXR2V XR chest 2V from 03/02/[address] chest wo/w con from 03/03/2018 CR XR CHEST 2V from 01/19/2020 FINDINGS: The cardiomediastinal silhouette and pulmonary vascularity are within normal limits. The lungs are clear without infiltrates, suspicious nodules, or pleural effusions. No acute bony abnormalities. IMPRESSION: No acute findings. Dictated by: Noam Britton MD 10/04/2020 19:06 Noam Britton MD in [place] 10/04/2020 19:06
--- NOTE | 2020-10-04 17:09 | HMH.EDGENADL ---
ED Disposition Clinical Impression: Febrile illness, Viral respiratory infection Disposition: Home, Self-Care Condition on Discharge: Fair Instructions: DI for Fever (Symptom) -- Adult Additional Instructions: Call back to the emergency department in 2 hours to obtain your COVID-19 test result. Quarantine yourself until you know the result. Continue Tylenol or ibuprofen for fever. Return to the emergency department if you are getting short of breath. If your COVID-19 test result is positive you will be a candidate for antibody infusion. Call your primary care doctor to get this ordered as an outpatient if your COVID-19 test result is positive. If your COVID-19 test swab result is negative, I would recommend that you get retested in 2 days. You may come to the urgent treatment center 9 AM to 9 PM to have this done. Referrals: Derrell West [Primary Care Provider] - - Critical Care Critical Care Time: No Attestation: On 10/04/20, the high probability of a clinically significant, sudden or life threatening deterioration of the following system(s) required my full and direct attention, intervention and personal management. The time I documented below is in addition to time spent performing reported procedures but includes the following listed in this critical care notation. Medical Decision Making - Medical Records Medical records reviewed: Yes: I reviewed the patient's medical records. MR Comment: Admitted 05/06/2020 for CVA - Frank Inquiry Pt receiving controlled substance: No Vital Signs: 10/04/20 16:21 10/04/20 17:36 10/04/20 18:05 Temperature 102.9 F H 101.1 F H Temperature Source Oral Oral Pulse Rate [Right Radial] 110 H 100 H 95 H Respiratory Rate 18 20 20 Blood Pressure [Right Arm] 136/86 111/75 110/70 Blood Pressure Mean [Right Arm] 102 87 83 Blood Pressure Source [Right Arm] Automatic Cuff Automatic Cuff Automatic Cuff Blood Pressure Position [Right Arm] Sitting Sitting Sitting 02 Sat by Pulse Oximetry 94 L 91 L 94 L Oxygen Delivery Method Room Air Room Air Room Air Oxygen Flow Rate (LPM) 10/04/20 18:42 10/04/20 18:51 10/04/20 19:00 Temperature 99.0 F Temperature Source Oral Pulse Rate [Right Radial] 103 H 98 H Respiratory Rate 20 17 Blood Pressure [Right Arm] 96/66 L 101/73 L Blood Pressure Mean [Right Arm] 76 82 Blood Pressure Source [Right Arm] Automatic Cuff Automatic Cuff Blood Pressure Position [Right Arm] Sitting Supine 02 Sat by Pulse Oximetry 90 L 94 L 98 Oxygen Delivery Method Room Air Nasal Cannula Nasal Cannula Oxygen Flow Rate (LPM) 2 2 10/04/20 19:30 Temperature Temperature Source Pulse Rate [Right Radial] 84 Respiratory Rate 17 Blood Pressure [Right Arm] 109/64 L Blood Pressure Mean [Right Arm] 79 Blood Pressure Source [Right Arm] Automatic Cuff Blood Pressure Position [Right Arm] Supine 02 Sat by Pulse Oximetry 95 Oxygen Delivery Method Nasal Cannula Oxygen Flow Rate (LPM) 2 - Lab Data Lab results reviewed: Yes: I reviewed the patient's lab results. Lab Results 10/04/20 17:12: SARS-CoV-2 IgG Ab (Rapid) Negative, SARS-CoV-2 IgM Ab (Rapid) Negative 10/04/20 17:15: WBC 5.5, RBC 5.78, Hgb 18.0, Hct 51.7, MCV 89.5, MCH 31.2, MCHC 34.9, RDW 13.5, Plt Count 125 L, MPV 7.9, Neut % (Auto) 71.9, Lymph % (Auto) 16.0, [place] % (Auto) 9.5 H, Eos % (Auto) 0.4, Baso % (Auto) 2.2 H, Neut # (Auto) 4.0, Lymph # (Auto) 0.9, [place] # (Auto) 0.5, Eos # (Auto) 0.0, Baso # (Auto) 0.1 10/04/20 17:15: Sodium 133 L, Potassium 3.7, Chloride 99, Carbon Dioxide 25, Anion Gap 12.7, BUN 15, Creatinine 1.50 H, Estimated Creat Clear 72, Estimated GFR 47 L, Est GFR ( Amer) 57 L, Glucose 105 H, Calcium 8.9, Total Bilirubin 0.8, AST 51, ALT 28, Alkaline Phosphatase 94, Total Protein 6.9, Albumin 4.1, Globulin 2.8, Albumin/Globulin Ratio 1.5 10/04/20 17:15: Influenza Type A Ag Negative, Influenza Type B Ag Negative 10/04/20 17:15: Lactate 1.2 Result diagrams: 10/04/20 17:15
[2020-10-04 17:29] LABS: Chloride 99 mmol/L (98-107)
[2020-10-04 17:30] LABS: Basophils # 0.1 K/mm3 (0-0.2); Basophils % 2.2 % (0.1-2.0); Eosinophils % 0.4 % (0.1-12.0); Hematocrit 51.7 % (42.0-52.0); Lymphocytes # 0.9 K/mm3 (0.7-4.5); Mean Corpuscular HGB Conc 34.9 g/dL (31.8-35.4); Mean Corpuscular Hemoglobin 31.2 pg (27.0-31.2); Mean Corpuscular Volume 89.5 fl (80-94); Mean Platelet Volume 7.9 fl (7.4-10.4); Monocytes # 0.5 K/mm3 (0.1-1.0); Monocytes % 9.5 % (1.7-9.3); Neutrophils % 71.9 % (37.0-80.0); Platelet Count 125 K/mm3 (142-424); Potassium 3.7 mmoL/L (3.5-5.1); Red Blood Count 5.78 M/mm3 (4.60-6.20); Red Cell Distribution Width 13.5 % (11.5-17.5); Sodium 133 mmol/L (136-145); White Blood Count 5.5 K/mm3 (4.8-10.8)
[2020-10-04 17:32] LABS: Alanine Aminotransferase 28 U/L (12-78); Alkaline Phosphatase 94 U/L (38-126); Aspartate Amino Transferase 51 U/L (17-59); Bilirubin,Total 0.8 mg/dl (0.2-1.3); Blood Urea Nitrogen 15 mg/dl (9-20); Creatinine Clearance Estimated 72 mL/min (50-200); Estimated Glomerular Filt Rate 47 ml/min (>60); GFR (African American) 57 ML/MIN (>60)
[2020-10-04 17:33] LABS: Albumin Level 4.1 g/dl (3.5-5.0); Albumin/Globulin Ratio 1.5 (1.1-1.8); Anion Gap 12.7 mEq/L (5-15); Calcium 8.9 mg/dl (8.4-10.2); Carbon Dioxide 25 mmol/L (22.0-30.0); Globulin 2.8 g/dL (1.3-3.2); Glucose 105 mg/dl (74-100); Lactic Acid 1.2 mmol/L (0.7-2.1); Total Protein,Serum 6.9 g/dl (6.3-8.2)
[2020-10-04 18:08] LABS: Coronavirus 19 IgG Antibody Negative (Negative); Coronavirus 19 IgM Antibody Negative (Negative)
--- NOTE | 2020-10-04 18:47 | CT_ITS ---
PROCEDURE: CT ANGIO CHEST CLINCIAL INDICATION: hypoxia Shortness of breath, cough, shortness of air, fever COMPARISON: CT CHESTWW CT chest wo/w con from 03/03/2018 TECHNIQUE: IV Contrast: 70ML Isovue 370 Axial images obtained with sagittal and coronal reformats. All CT scans at the facility use one or more dose reduction, viz: automated exposure control, ma/kV adjustment per patient size (including targeted exams where dose is matched to indication, i.e. head), or iterative reconstruction technique. FINDINGS: HEART AND MEDIASTINAL STRUCTURES: No evidence of aortic aneurysm or dissection. No evidence of pulmonary embolus. LUNGS AND PLEURAL SPACES: Centrilobular emphysema. There are mild atelectatic changes in the lung bases. Faint ground-glass opacity noted within the lingula and to lesser degree within the right middle lobe right upper lobe posteriorly as well as mediate right perihilar region. No effusions. COPD changes BONY STRUCTURES: Degenerative change thoracic spine with kyphosis. UPPER ABDOMEN: There is an 11 mm hypodensity in the hepatic dome. This is slightly increased in size previously measuring 9 mm. A 7 mm hypodensity is present adjacent to the gallbladder fossa probably not significantly changed. ADDITIONAL FINDINGS: No other significant abnormalities. IMPRESSION: 1. No evidence of pulmonary embolus or aortic aneurysm or dissection. 2. Scattered multi segmental areas of faint ground-glass opacity nonspecific but could be seen with atypical/ COVID 19 pneumonia. 3. Enlarging hypodensity in the hepatic dome. Consider nonemergent MRI for further evaluation. Dictated by: Noam Britton MD 10/05/2020 06:22 Noam Britton MD in [facility] 10/05/2020 06:22
--- NOTE | 2020-10-04 21:17 | PC.NURSE ---
lab called and stated patients COVID test came back positive. I called and advised patient of the results and informed him to self isolate and the health department will be in contact with him.
== END 2020-10-04 20:52 | disposition home or self-care (01) ==
PROVIDERS: Emergency Provider Emergency Medicine; PCP Internal Medicine
DX: U07.1 COVID-19 (principal); J44.9 Chronic obstructive pulmonary disease, unspecified; Z01.84 Encounter for antibody response examination; N28.9 Disorder of kidney and ureter, unspecified; I10 Essential (primary) hypertension; Z86.73 Personal history of transient ischemic attack (TIA), and cerebral infarction without residual deficits; Z87.891 Personal history of nicotine dependence; Z79.899 Other long term (current) drug therapy
CPT/HCPCS: 71045; 71275; 80053; 83605; 85025; 86328; 87040; 87275; 87276; 96365; 99284; Q9967; U0003

== ENCOUNTER 2020-10-09 23:54 | Inpatient (IN) | payer MEDICARE, SELFPAY ==
[2020-10-09 23:38] VITALS: BP 130/78; PULSE 84; RESP 24; TEMP 37.1; O2SAT 92; BMI 32.1
--- NOTE | 2020-10-09 23:53 | XR_ITS ---
PROCEDURE: XR CHEST PORTABLE CLINICAL HISTORY: SOA Shortness of breath, cough, Covid19 positive COMPARISON: CR CXR2V XR chest 2V from 03/02/2018 CR XR CHEST 2V from 01/19/2020 CR XR CHEST PORTABLE from 10/04/[address] ANGIO CHEST from 10/04/2020 FINDINGS: Mild cardiomegaly without failure. Patchy density is developed in the right upper lobe and right lower lobe consistent with pneumonia. No acute bony abnormalities. IMPRESSION: Patchy right upper and right lower lobe pneumonia. Dictated by: Noam Britton MD 10/10/2020 05:20 Noam Britton MD in [facility] 10/10/2020 05:20
--- NOTE | 2020-10-09 23:53 | ECG_ITS ---
APPROVED REPORT Exam: Resting ECG HR:122 bpm ECG Measurements Heart Rate 122 AXES QRSd 88 QRS -6 QT 264 T -89 QTc 376 Conclusion Atrial fibrillation with rapid ventricular response Low voltage QRS Cannot rule out Inferior infarct, age undetermined ST & T wave abnormality, consider anterior ischemia or digitalis effect Abnormal ECG Electronically signed by : Aden Silver, 10/12/2020 10:23:13
[2020-10-09 23:56] LABS: ABG HCO3 22.8 mmhg (22.0-26.0); ABG PCO2 33.6 mmhg (35.0-45.0); ABG PH 7.45 mmol/L (7.35-7.45); ABG PO2 60.7 mmhg (80-100)
[2020-10-09 23:57] LABS: Allen's Test Y; Oxygen R/A %; Source R/R
[2020-10-10] VITALS (28 sets, daily range): BP systolic 90–130; BP diastolic 62–84; PULSE 68–116; RESP 14–29; TEMP 36.4–37.6; O2SAT 88–98; BMI 29.9
[2020-10-10 00:03] LABS: Basophils % 0.8 % (0.1-2.0); Eosinophils % 0.3 % (0.1-12.0); Hematocrit 55.2 % (42.0-52.0); Lymphocytes # 1.1 K/mm3 (0.7-4.5); Lymphocytes % 22.6 % (10-50); Mean Corpuscular HGB Conc 34.4 g/dL (31.8-35.4); Mean Corpuscular Hemoglobin 30.8 pg (27.0-31.2); Mean Corpuscular Volume 89.4 fl (80-94); Mean Platelet Volume 8.9 fl (7.4-10.4); Monocytes # 0.3 K/mm3 (0.1-1.0); Monocytes % 5.6 % (1.7-9.3); Neutrophils # 3.4 K/mm3 (1.8-7.8); Neutrophils % 70.6 % (37.0-80.0); Platelet Count 110 K/mm3 (142-424); Red Blood Count 6.17 M/mm3 (4.60-6.20); Red Cell Distribution Width 13.2 % (11.5-17.5); White Blood Count 4.8 K/mm3 (4.8-10.8)
[2020-10-10 00:10] LABS: Alanine Aminotransferase 57 U/L (12-78); Albumin Level 3.8 g/dl (3.5-5.0); Alkaline Phosphatase 117 U/L (38-126); Anion Gap 13.4 mEq/L (5-15); Aspartate Amino Transferase 116 U/L (17-59); Bilirubin,Direct 0.7 mg/dl (0.0-0.4); Bilirubin,Indirect 0.6 mg/dL (0.0-0.9); Bilirubin,Total 1.3 mg/dl (0.2-1.3); Bilirubin,Unconjugated 0.7 mg/dL (0.0-1.1); Blood Urea Nitrogen 20 mg/dl (9-20); Calcium 8.9 mg/dl (8.4-10.2); Carbon Dioxide 27 mmol/L (22.0-30.0); Chloride 98 mmol/L (98-107); Creatinine Clearance Estimated 78 mL/min (50-200); Estimated Glomerular Filt Rate 51 ml/min (>60); GFR (African American) 62 ML/MIN (>60); Glucose 134 mg/dl (74-100); Potassium 3.4 mmoL/L (3.5-5.1); Sodium 135 mmol/L (136-145); Total Protein,Serum 7.1 g/dl (6.3-8.2)
--- NOTE | 2020-10-10 00:12 | CT_ITS ---
PROCEDURE: CT ANGIO CHEST CLINCIAL INDICATION: SOA Shortness of air, cough, Covid19 positive COMPARISON: CT CT ANGIO CHEST from 10/04/2020 TECHNIQUE: IV Contrast: 70ML Isovue 370 Axial images obtained with sagittal and coronal reformats. All CT scans at the facility use one or more dose reduction, viz: automated exposure control, ma/kV adjustment per patient size (including targeted exams where dose is matched to indication, i.e. head), or iterative reconstruction technique. FINDINGS: HEART AND MEDIASTINAL STRUCTURES: There are mildly prominent mediastinal lymph nodes the largest of which is in the precarinal region measuring 2.2 by 1.3 cm. Mildly prominent bilateral hilar lymph nodes are also present measuring up to 2.6 by 1.6 cm in the right hilar area. The the lymph nodes appear slightly more prominent compared to the previous exam. This may be reactive in nature. No obvious pulmonary embolus. No aortic aneurysm or dissection. There is a moderate amount of pericardial fat which is situated deep and superficial to the pericardium which is thin. There is some minimal calcification of the pericardium however. No pericardial effusion apparent. LUNGS AND PLEURAL SPACES: There has been progression of the ground-glass infiltrates with multi segmental areas of ground-glass infiltrate bilaterally mainly in the upper lobes but also in the superior segment of the lower lobes on both sides to lesser degree in the lung bases. This is consistent with progression of Covid19 pneumonia. There is superimposed centrilobular emphysema. There are mild atelectatic changes in the lung bases. Crazy paving pattern noted in the left upper lobe. BONY STRUCTURES: There are degenerative changes of the thoracic spine with kyphosis. UPPER ABDOMEN: Indeterminate hypodense lesion in the hepatic dome as previously described. Convalescent follow-up suggested. ADDITIONAL FINDINGS: No other significant abnormalities. IMPRESSION: 1. Interval progression of multi segmental ground-glass infiltrates in a background of centrilobular emphysema consistent with Covid19 pneumonia in this patient which is reported Covid19 positive. 2. No evidence of pulmonary embolus. 3. Prominent pericardial and epicardial fat. There is some minimal calcification of the pericardium which could be seen with constrictive pericarditis. 4. Indeterminate hepatic lesion for which convalescent follow-up is suggested. Dictated by: Noam Britton MD 10/10/2020 05:33 Noam Britton MD in [facility] 10/10/2020 05:33
[2020-10-10 00:15] LABS: Lactic Acid 2.6 mmol/L (0.7-2.1)
[2020-10-10 00:22] LABS: Hemoglobin 18.7 g/dL (14.1-18.0)
--- NOTE | 2020-10-10 00:40 | PC.NURSE ---
Pt placed in Airborne and Contact precautions upon arrival. All staff wearing appropriate PPE for pt care.
[2020-10-10 00:55] LABS: Troponin I < 0.01 ng/ml (0.00-0.034)
[2020-10-10 01:00] LABS: Coronavirus 19 IgG Antibody Negative (Negative); Coronavirus 19 IgM Antibody Negative (Negative)
[2020-10-10 01:05] LABS: Procalcitonin 0.293 ng/mL (0.0-2.0)
--- NOTE | 2020-10-10 01:20 | HMH.EDSOB ---
ED Disposition Clinical Impression: Dyspnea due to COVID-19, Acute exacerbation of chronic obstructive airways disease, Severe sepsis with acute organ dysfunction, Atrial fibrillation with rapid ventricular response, Polycythemia, Thrombocytopenia associated with COVID-19 Disposition: Admitted As Inpatient Condition on Discharge: Fair Referrals: Derrell West [Primary Care Provider] - - Critical Care Critical Care Time: No Attestation: On 10/09/20, the high probability of a clinically significant, sudden or life threatening deterioration of the following system(s) required my full and direct attention, intervention and personal management. The time I documented below is in addition to time spent performing reported procedures but includes the following listed in this critical care notation. Medical Decision Making - Medical Records Medical records reviewed: Yes: I reviewed the patient's medical records. - Frank Inquiry Pt receiving controlled substance: No Vital Signs: 10/09/20 23:38 10/10/20 00:00 10/10/20 00:30 Temperature 98.8 F Temperature Source Oral Pulse Rate [Left Radial] 84 98 H 116 H Respiratory Rate 24 24 22 Blood Pressure [Right Arm] 130/78 125/75 116/66 Blood Pressure Mean [Right Arm] 95 91 82 Blood Pressure Source [Right Arm] Automatic Cuff Automatic Cuff Automatic Cuff Blood Pressure Position [Right Arm] Sitting Supine Supine 02 Sat by Pulse Oximetry 92 L 90 L 95 Oxygen Delivery Method Room Air Nasal Cannula Nasal Cannula Oxygen Flow Rate (LPM) 2 2 - Lab Data Lab results reviewed: Yes: I reviewed the patient's lab results. Lab Results 10/09/20 23:45: WBC 4.8, RBC 6.17, Hgb 18.7 H*, Hct 55.2 H, MCV 89.4, MCH 30.8, MCHC 34.4, RDW 13.2, Plt Count 110 L, MPV 8.9, Neut % (Auto) 70.6, Lymph % (Auto) 22.6, Mcdowell % (Auto) 5.6, Eos % (Auto) 0.3, Baso % (Auto) 0.8, Neut # (Auto) 3.4, Lymph # (Auto) 1.1, Mcdowell # (Auto) 0.3, Eos # (Auto) 0.0, Baso # (Auto) 0.0 10/09/20 23:45: Sodium 135 L, Potassium 3.4 L, Chloride 98, Carbon Dioxide 27, Anion Gap 13.4, BUN 20, Creatinine 1.40 H, Estimated Creat Clear 78, Estimated GFR 51 L, Est GFR ( Amer) 62, Glucose 134 H, Calcium 8.9, Total Bilirubin 1.3, Direct Bilirubin 0.7 H, Conjugated Bilirubin 0.0, Indirect Bilirubin 0.6, Unconjugated Bilirubin 0.7, AST 116 H, ALT 57, Alkaline Phosphatase 117, Total Protein 7.1, Albumin 3.8 10/09/20 23:45: Lactate 2.6 H 10/09/20 23:55: Specimen Source R/r, O2 % R/a, ABG pH 7.45, ABG pCO2 33.6 L, ABG pO2 60.7 L, ABG HCO3 22.8, Noam Test Y 10/10/20 00:00: Troponin I < 0.01 10/10/20 00:00: SARS-CoV-2 IgG Ab (Rapid) Negative, SARS-CoV-2 IgM Ab (Rapid) Negative 10/10/20 00:00: Procalcitonin 0.293 Result diagrams: 10/09/20 23:45 10/09/20 23:45 Orders (Tests/Meds): ED MEDICATIONS Generic Name Dose Route Start Last Admin Trade Name Freq PRN Reason Stop Dose Admin Sodium Chloride 1,000 mls @ 999 mls/hr 10/09/20 23:45 10/10/20 00:05 Sod Chlor 0.9% 1000ml Bag IV 10/10/20 00:45 999 mls/hr .Q1H1M JENI Administration Sodium Chloride 1,000 mls @ 999 mls/hr 10/10/20 01:00 Sod Chlor 0.9% 1000ml Bag IV 10/10/20 02:00 .Q1H1M JENI Diltiazem HCl 100 mg/ Sodium 100 mls @ 5 mls/hr 10/10/20 01:15 Chloride IV 11/09/20 01:14 .Q20H JENI Protocol Diltiazem HCl 100 mg/ Sodium 100 mls @ 5 mls/hr 10/10/20 01:27 Chloride IV 11/09/20 01:26 .Q20H JENI Protocol Discontinued Medications Generic Name Dose Route Start Last Admin Trade Name Freq PRN Reason Stop Dose Admin Dexamethasone Sodium Phosphate 8 mg 10/09/20 23:53 10/10/20 00:07 Dexamethasone 4mg/Ml 1ml Vial IV 10/09/20 23:54 Not Given ONCE ONE Dexamethasone Sodium Phosphate 10 mg 10/10/20 00:06 10/10/20 00:07 Dexamethasone 4mg/Ml 5ml Mdv IV 10/10/20 00:07 10 mg ONCE ONE Administration Diltiazem HCl 10 mg 10/10/20 01:12 Diltiazem 25mg/5ml Vial IV 10/10/20 01:13 ONCE ONE ORDERS Cat
--- NOTE | 2020-10-10 01:40 | PC.NURSE ---
Cardizem started at 0120 after 10mg bolus given, verified wit TANIKA Begum.
[2020-10-10 01:53] LABS: NT Pro Brain Natriuretic Pep. 991 pg/mL (0-125)
--- NOTE | 2020-10-10 01:53 | PC.NURSE ---
Cardizem increased to 10ml/hr 0135
[2020-10-10 03:38] LABS: Reflex Lactic Add Lactic Reflex
[2020-10-10 03:57] LABS: Lactic Acid Follow Up (RFLX 1) 1.4 mmol/L (0.7-2.1)
[2020-10-10 04:13] LABS: Troponin I < 0.01 ng/ml (0.00-0.034)
[2020-10-10 06:16] LABS: Chloride 104 mmol/L (98-107); Potassium 4.1 mmoL/L (3.5-5.1); Sodium 134 mmol/L (136-145)
[2020-10-10 06:19] LABS: Anion Gap 10.1 mEq/L (5-15); Blood Urea Nitrogen 20 mg/dl (9-20); Calcium 8.3 mg/dl (8.4-10.2); Carbon Dioxide 24 mmol/L (22.0-30.0); Creatinine Clearance Estimated 92 mL/min (50-200); Estimated Glomerular Filt Rate 67 ml/min (>60); GFR (African American) 81 ML/MIN (>60); Glucose 128 mg/dl (74-100); Magnesium 1.7 mg/dl (1.6-2.3)
[2020-10-10 06:21] LABS: Basophils % 0.4 % (0.1-2.0); Eosinophils % 0.1 % (0.1-12.0); Hematocrit 48.2 % (42.0-52.0); Lymphocytes # 0.5 K/mm3 (0.7-4.5); Lymphocytes % 14.9 % (10-50); Mean Corpuscular HGB Conc 34.6 g/dL (31.8-35.4); Mean Corpuscular Hemoglobin 30.6 pg (27.0-31.2); Mean Corpuscular Volume 88.4 fl (80-94); Mean Platelet Volume 8.9 fl (7.4-10.4); Monocytes # 0.1 K/mm3 (0.1-1.0); Monocytes % 4.3 % (1.7-9.3); Neutrophils # 2.6 K/mm3 (1.8-7.8); Neutrophils % 80.2 % (37.0-80.0); Platelet Count 113 K/mm3 (142-424); Red Blood Count 5.46 M/mm3 (4.60-6.20); Red Cell Distribution Width 13.1 % (11.5-17.5); White Blood Count 3.2 K/mm3 (4.8-10.8)
--- NOTE | 2020-10-10 07:10 | PC.NURSE ---
He reports a poor appetite over the last week. He has a non-productive intermittent cough. Oxygen requirements has increased from 2LPM n/c to 3LPM n/c. He continues in contact and airborne precautions. He reports some SOA at rest. Reports his last BM was 10/08/20. Denies nausea and sore throat. Controlled afib on telemetry.
--- NOTE | 2020-10-10 07:15 | P.CONPHA_ITS ---
[facility] Pharmacy VTE Monitoring - Patient Demographics Admission date: 10/10/20 Report Date: 10/10/20 Time: 07:15 Allergies/Adverse Reactions: Patient Allergies amantadine [AMANTADINE] Allergy (Mild, Verified 10/10/20 03:23) SEIZURE codeine [CODEINE] Allergy (Mild, Verified 10/10/20 03:23) I-RASH Penicillins Allergy (Verified 10/10/20 03:23) Height: 1.8 m Weight: 97.324 kg Patient Problems: Current Active Problems Dyspnea due to COVID-19 (Acute) Acute exacerbation of chronic obstructive airways disease (Acute) Severe sepsis with acute organ dysfunction (Acute) Atrial fibrillation with rapid ventricular response (Acute) Polycythemia (Acute) Thrombocytopenia associated with COVID-19 (Acute) - VTE Risk Labs: VTE Related Lab Results Hgb 18.7 g/dL (14.1-18.0) H* 10/09/20 23:45 Hct 55.2 % (42.0-52.0) H 10/09/20 23:45 Plt Count 110 K/mm3 (142-424) L 10/09/20 23:45 BUN 20 mg/dl (9-20) 10/10/20 05:45 Creatinine 1.10 mg/dl (0.66-1.25) D 10/10/20 05:45 Estimated Creat Clear 92 mL/min (50-200) 10/10/20 05:45 VTE Score: 5 VTE Risk Level: Low Risk Clinical Trial Participant: No - Prophylaxis VTE Prophylaxis Ordered?: Yes Types of VTE Prophylaxis: TEDS Knee High Location of Applied Device: Bilateral Lower Extremeties
[2020-10-10 07:21] LABS: Hemoglobin 16.7 g/dL (14.1-18.0)
--- NOTE | 2020-10-10 07:39 | HMH.PHAINT ---
verified with home med list with [facility] Pharmacy.
--- NOTE | 2020-10-10 07:41 | P.CONPHA_ITS ---
[facility] Pharmacy VTE Monitoring - Patient Demographics Admission date: 10/10/20 Report Date: 10/10/20 Time: 07:41 Allergies/Adverse Reactions: Patient Allergies amantadine [AMANTADINE] Allergy (Mild, Verified 10/10/20 03:23) SEIZURE codeine [CODEINE] Allergy (Mild, Verified 10/10/20 03:23) I-RASH Penicillins Allergy (Verified 10/10/20 03:23) Height: 1.8 m Weight: 97.324 kg Patient Problems: Current Active Problems Dyspnea due to COVID-19 (Acute) Acute exacerbation of chronic obstructive airways disease (Acute) Severe sepsis with acute organ dysfunction (Acute) Atrial fibrillation with rapid ventricular response (Acute) Polycythemia (Acute) Thrombocytopenia associated with COVID-19 (Acute) - VTE Risk Labs: VTE Related Lab Results Hgb 16.7 g/dL (14.1-18.0) D 10/10/20 05:45 Hct 48.2 % (42.0-52.0) 10/10/20 05:45 Plt Count 113 K/mm3 (142-424) L 10/10/20 05:45 BUN 20 mg/dl (9-20) 10/10/20 05:45 Creatinine 1.10 mg/dl (0.66-1.25) D 10/10/20 05:45 Estimated Creat Clear 92 mL/min (50-200) 10/10/20 05:45 Was VTE Risk Assessment Performed: Yes VTE Score: 5 VTE Risk Level: Low Risk Clinical Trial Participant: No - Prophylaxis VTE Prophylaxis Ordered?: Yes Types of VTE Prophylaxis: TEDS Knee High Location of Applied Device: Bilateral Lower Extremeties
--- NOTE | 2020-10-10 08:00 | PC.NURSE ---
Cardizem gtt decreased to 5 mls/hr
--- NOTE | 2020-10-10 09:17 | HMH.HP ---
*Admission Date: 10/10/20 *Chief complaint: shortness of breath *History of present illness: Jonatan is a 65-year old male with a history of hypothyroidism, previous CVA, GERD, Gonzalez's esophagus, recent onset of irregular heart rhythm being evaluated by Dr. Reynaga, sleep apnea who presented to [facility] emergency room with progressive shortness of breath. Patient states he has been sick for greater than 1 week and was seen and [facility] emergency room at which time he tested positive for COVID-19 on 10/04/2020. After his visit he did feel somewhat better but then progressively worsened with a dry cough and shortness of breath. He did have some pain on deep inspiration as well. Following our notes from [facility] emergency room documentation on admission: Pt c/o SOB, mainly with exertion that has gotten worse tonight. Pt also reports dry cough, mild chest pain, and dizziness. He denies N/V/D, abd pain. Pt tested positive for COVID 10/04. covid positive pt from 10/04/20 and has progressive sob with cough - irreg ht beat - With evaluation in the emergency room patient was found to be in atrial fibrillation with and was given a bolus of Cardizem and started on a Cardizem drip. Chest x-ray revealed patchy right upper and right lower lobe pneumonia. CTA of the chest revealed interval progression of multisegmental groundglass infiltrates in a background of centrilobular emphysema consistent with COVID-19 pneumonia, no evidence of pulmonary embolus, prominent pericardial and epicardial fat with minimal calcification of the pericardium, and in determinate hepatic lesion. Laboratory data in the emergency room showed white blood cell count of 4900, hemoglobin of 18.7 hematocrit of 55.2. Sodium was 135 and potassium was 3.4 with a creatinine of 1.40. Liver function studies revealed an AST elevated at 116, ALT normal at 57 and alkaline phosphatase normal at 117. Lactic acid was 2.6. ABGs revealed pH of 7.45, PCO2 of 33.6, PO2 of 68.7, and bicarb of 22.8. Troponin I was less than 0.01. Patient did receive IV fluid boluses as well as 8 mg of dexamethasone and a bolus of diltiazem prior to starting the drip. He was then admitted for further evaluation and treatment. This a.m. patient states he feels much better. He feels his breathing is easier. He states he is scared to eat before taking his normal PPI. He denies chest pain this morning on deep inspiration. He also denies nausea. Repeat lab work this morning reveals white blood cell count of 3200 with a normal hemoglobin and hematocrit at 16.7/48.2. Platelet count continues to be decreased at 113,000. Blood chemistries show a low sodium of 134, potassium of 4.1 and normal renal function. Lactate has decreased to 1.4. BNP is elevated at 991 and troponin I 0.01. [facility] History Medical History: Reports:: Arrhythmia, Atrial Fibrillation, Congestive Heart Failure, Chronic Obstructive Pulmonary Disease (COPD), Hypertension, Renal Insufficiency Denies:: Cancer, Diabetes Mellitus Type 1, Diabetes Mellitus Type 2, Internal Pacemaker, MRSA, Seizures *Have you ever received a pneumonia vaccine?: No *Have you received a flu vaccine this season?: No Other Medical History: Reports: Arthritis, Hypothyroidism, Thyroid Disease. Denies: Blood Transfusion Reaction Comment:: Gonzalez's esophagus which is followed by Dr. Neville Laterality Cases: Bilateral: Other Other Surgeries: Yes: Cardiac Catheterization (03/03/18 no stents), Cholecystectomy, Colon Resection, Hernia Repair. No: Pacemaker Amputation: No Fractures: No - *Social History Last grade of school completed: High school graduate Smoking Status: Former smoker Tobacco Type: cigarettes # Packs/Day (cigarettes): 1 #Yrs smoked (if former smoker): 40 Alcohol Intake: current Alcohol Intake Frequency:: a few times a week Substance Use Type: denies use *Occupational Status:: disabled Housing: house Household Member
--- NOTE | 2020-10-10 10:34 | HMH.CNCARD ---
History of Present Illness Consult date: 10/10/20 Requesting physician: Rich Sanders Consult reason: atrial fibrillation, shortness of breath Chief complaint: soa History of present illness: This is a 65-year-old white gentleman who presented to the emergency department with worsening shortness of breath after being diagnosed with COVID-19. The patient states that he just got more more short of breath with an associated cough. When the patient came into the hospital he is also states that he felt an irregular heart rate. He was found to be in atrial fibrillation with RVR. The patient was given a Cardizem bolus and then started on a Cardizem drip. He is now rate controlled in atrial fibrillation. The patient does have right upper and lower lobe pneumonia from the COVID-19. His troponins have been negative. He has ruled out for an PA. He denies any chest pain or pressure. He denies any fever, chills, nausea, vomiting, diarrhea, PND or orthopnea. Of note, he has been seen by Dr. Reynaga for the irregular heart rhythm. He states that he is set up for a stress test on an outpatient basis and was started on metoprolol but has never started taking the medication. [facility] History I have reviewed the patient's past medical history: Yes Medical History: Reports:: Arrhythmia, Atrial Fibrillation, Congestive Heart Failure, Chronic Obstructive Pulmonary Disease (COPD), Hypertension, Renal Insufficiency Denies:: Cancer, Diabetes Mellitus Type 1, Diabetes Mellitus Type 2, Internal Pacemaker, MRSA, Seizures *Have you ever received a pneumonia vaccine?: No *Have you received a flu vaccine this season?: No Other Medical History: Reports: Arthritis, Hypothyroidism, Thyroid Disease. Denies: Blood Transfusion Reaction Laterality Cases: Bilateral: Other Other Surgeries: Yes: Cardiac Catheterization (03/03/18 no stents), Cholecystectomy, Colon Resection, Hernia Repair. No: Pacemaker Amputation: No Fractures: No - *Social History Last grade of school completed: High school graduate Smoking Status: Former smoker Tobacco Type: cigarettes # Packs/Day (cigarettes): 1 #Yrs smoked (if former smoker): 40 Alcohol Intake: current Alcohol Intake Frequency:: a few times a week Substance Use Type: denies use *Occupational Status:: disabled Housing: house Household Members: significant other *Travel in the last 8 weeks: None Family Hx:: Asthma, Cancer, Heart Attack, Hypertension, Kidney Disease, Thyroid Disorder Meds Home Medications Medication Instructions Recorded Confirmed Type Buspirone HCl [Buspar 10mg 10 mg PO BID 03/02/18 10/10/20 History tablet] Tamsulosin HCl [Flomax 0.4mg 0.4 mg PO HS 03/02/18 10/10/20 History capsule] Furosemide [Lasix 20mg tablet] 20 mg PO DAILY 05/16/18 10/10/20 History Lansoprazole [Prevacid] 30 mg PO DAILY 05/07/20 10/10/20 History Levothyroxine Sodium 125 mcg PO DAILY 05/07/20 10/10/20 History [Levothyroxine 125mcg (0.125mg) Tab] Atorvastatin Calcium [Lipitor 40mg 40 mg PO HS 07/17/20 10/10/20 History Tab] Clopidogrel Bisulfate [Plavix 75mg 75 mg PO DAILY 07/17/20 10/10/20 History Tab] Alendronate Sodium [Fosamax 70mg 70 mg PO WEEKLY 10/10/20 10/10/20 History Tablet] Metoprolol Succinate [Metoprolol 25 mg PO DAILY 10/10/20 10/10/20 History Succinate 25mg Tablet*] lisinopriL [Lisinopril 10mg Tab] 10 mg PO DAILY 10/10/20 10/10/20 History Allergies Allergy/AdvReac Type Severity Reaction Status Date / Time amantadine [AMANTADINE] Allergy Mild SEIZURE Verified 10/10/20 03:23 codeine [CODEINE] Allergy Mild I-RASH Verified 10/10/20 03:23 Penicillins Allergy Verified 10/10/20 03:23 Exam Vital signs and Labs for Last 24 Hours: Temp Pulse Resp BP Pulse Ox 97.6 F 76 29 H 90/62 L 94 L 10/10/20 07:59 10/10/20 07:59 10/10/20 07:59 10/10/20 07:59 10/10/20 07:59 Laboratory Results - last 24 hr 10/09/20 23:45: WBC 4.8, RBC 6.17, Hgb 18.7 H*, Hct 55.2 H, MCV 89.4,
--- NOTE | 2020-10-10 10:37 | CA_ITS ---
APPROVED REPORT EXAM: Comprehensive 2D, Doppler, and color-flow Echocardiogram Baggage Security Checker: Jen Blackwood CRT Ht: 5 ft 10 in Wt: 214lbs BSA: 2.15 BP: 90/60 mmHg Indications: COPD, Shortness of Breath, CVA/TIA, DANNY 2D Dimensions LVOT 2.02 cm (M/F) 1.5-2.5 M-Mode Dimensions RVDd 3.31 cm (0.9-2.6) LA Diam 4.13 cm (1.9-4.0) LVDd 6.04 cm (3.5-5.7) Ao Diam 4.87 cm (2.0-3.7) LVDs 5.01 cm (3.5-5.7) IVSd 1.21 cm (0.6-1.1) PWd 0.63 cm (0.6-1.1) EF (Teich) 46.50% FS 23.90% EDV (Teich) 222.10 mL ESV (Teich) 118.80 mL Aortic Valve AO Peak GR. 1.80 mmHg Pulmonary Valve PV Peak Velocity 62.00 (50-150 cm/s) Tricuspid Valve TR P. Velocity 182.00 cm/s RAP Estimate 10.00 mmHg RVSP 23.20 mmHg Left Ventricle Technically difficult study because of the patient factors and poor acoustic windows. Left atrium is mildly enlarged, left ventricle is normal size, mild concentric left ventricular hypertrophy, visually estimated ejection fraction 50% with no obvious regional wall motion abnormality, endocardial surfaces are very poorly visualized. Diastolic parameters are inconclusive. Right Ventricle Right atrium and right ventricle mildly enlarged with normal contractility. Aortic Valve Aortic valve is minimally thickened and fibrosed, there is no aortic stenosis or aortic insufficiency. Mitral Valve Mitral valve leaflets are minimally thickened, there is mild mitral regurgitation. Tricuspid Valve Tricuspid valve grossly normal, there is mild tricuspid regurgitation, tricuspid regurgitation jet velocity is inadequate for calculation of the right ventricular systolic pressure. Pulmonic Valve Pulmonic valve is poorly visualized. Great Vessels Aortic root is normal size. Pericardium No significant pericardial effusion noted. Conclusion 1. Technically difficult study because of the patient factors and poor acoustic windows. Biatrial enlargement, normal left ventricular size, mild concentric left ventricular hypertrophy, visually estimated ejection fraction approximately 50% with no obvious regional wall motion abnormality, endocardial surfaces are poorly visualized, diastolic parameters are inconclusive. 2. Mildly enlarged right ventricle with normal contractility. 3. Mild mitral and tricuspid regurgitation. 4. No significant pericardial effusion noted. Electronically signed by : Kennedy Dietz, 10/11/2020 12:55:09
--- NOTE | 2020-10-10 12:14 | PC.NURSE ---
Pt instructed to cough. Sputum cup left on bedside.
--- NOTE | 2020-10-10 12:27 | PC.NURSE ---
Verbal order per Luda Knutson to DC cardizem gtt 1 hour after admin of PO cardizem. Cardizem gtt off @ 1977.
[2020-10-10 15:22] LABS: ABG Base Excess -0.3 mmol/L (-2.4-2.3); ABG Oxygen Saturation 92 % (90-100)
--- NOTE | 2020-10-10 16:22 | PC.NURSE ---
Remains on 3 L O2 per nasal cannula. No c/o being SOA. Lungs diminished upon auscultation. Dry hacking cough noted, pt aware for need of sputum specimen and cup is at bedside. Abdomen soft, non-tender w/ active BS. Skin intact. No edema present. Pt voiding per urinal w/o difficulty. Urine color noted to be clear and leno. No BM this shift. Has been awake most of shift using cell phone, napping for short time. Remains off Cardizem gtt, Afib on tely rate ranging 70-80's. Poor appetite this shift. No needs voiced to staff. Call toney w/in reach.
[2020-10-11] VITALS (8 sets, daily range): BP systolic 95–109; BP diastolic 54–74; PULSE 57–110; RESP 20–24; TEMP 36.2–36.6; O2SAT 90–94; BMI 29.8
--- NOTE | 2020-10-11 03:30 | PC.NURSE ---
Pt has rested well this shift. Pt is A&Ox4. Pt o2 was increased to 4L NC this shift due to o2 sats decreasing to 84-85% and sustaining. Currently pt is at 90%. Dry, nonproductive cough noted this shift. Sputum sample has still not been obtained thus far this shift. Lung sounds remain diminished t/o. Pt continues to be in controlled a fib on tele. No other acute changes or complaints this shift. Will continue to monitor.
[2020-10-11 06:31] LABS: Basophils % 0.3 % (0.1-2.0); Chloride 109 mmol/L (98-107); Hematocrit 49.7 % (42.0-52.0); Hemoglobin 16.9 g/dL (14.1-18.0); Lymphocytes # 0.6 K/mm3 (0.7-4.5); Lymphocytes % 13.1 % (10-50); Mean Corpuscular Hemoglobin 30.3 pg (27.0-31.2); Mean Corpuscular Volume 89.3 fl (80-94); Mean Platelet Volume 8.5 fl (7.4-10.4); Monocytes # 0.3 K/mm3 (0.1-1.0); Monocytes % 6.7 % (1.7-9.3); Neutrophils # 3.9 K/mm3 (1.8-7.8); Neutrophils % 79.8 % (37.0-80.0); Platelet Count 153 K/mm3 (142-424); Red Blood Count 5.57 M/mm3 (4.60-6.20); Red Cell Distribution Width 13.1 % (11.5-17.5); White Blood Count 4.9 K/mm3 (4.8-10.8)
[2020-10-11 06:32] LABS: Potassium 3.9 mmoL/L (3.5-5.1); Sodium 139 mmol/L (136-145)
[2020-10-11 06:34] LABS: Alanine Aminotransferase 44 U/L (12-78); Aspartate Amino Transferase 88 U/L (17-59); Blood Urea Nitrogen 25 mg/dl (9-20); Creatinine Clearance Estimated 101 mL/min (50-200); Estimated Glomerular Filt Rate 85 ml/min (>60); GFR (African American) 102 ML/MIN (>60)
[2020-10-11 06:35] LABS: Albumin Level 3.2 g/dl (3.5-5.0); Albumin/Globulin Ratio 1.1 (1.1-1.8); Alkaline Phosphatase 78 U/L (38-126); Anion Gap 9.9 mEq/L (5-15); Bilirubin,Total 0.8 mg/dl (0.2-1.3); Calcium 8.6 mg/dl (8.4-10.2); Carbon Dioxide 24 mmol/L (22.0-30.0); Globulin 2.9 g/dL (1.3-3.2); Glucose 136 mg/dl (74-100); Total Protein,Serum 6.1 g/dl (6.3-8.2)
--- NOTE | 2020-10-11 16:35 | PC.NURSE ---
Remains on 4 L O2 per nasal cannula. Lungs diminished throughout. Non-productive dry cough noted. Remains A-Fib on tely. Abdomen soft, non-tender w/ active BS in all quads. Voiding per urinal. Pt's urine noted to be a drk leno. Skin intact. No edema noted. Appeite remains poor. Pt asked what he would like best to eat for supper and changes called down to dietary. Pt is currently resting in bed w/ no needs voiced. Call toney w/in reach.
[2020-10-12] VITALS (10 sets, daily range): BP systolic 99–110; BP diastolic 63–75; PULSE 66–120; RESP 16–24; TEMP 35.9–36.7; O2SAT 88–96; BMI 30.7
--- NOTE | 2020-10-12 05:00 | PC.NURSE ---
Pt. o2 sat 89-91% on 3.5l nc; pt. reports feeling better , but does state he is a little short of breath . Pt. has an intermittent nonproductive cough. No c/o dizziness, pain, n/v/d this shift.
[2020-10-12 06:18] LABS: Chloride 112 mmol/L (98-107); Potassium 3.6 mmoL/L (3.5-5.1); Sodium 141 mmol/L (136-145)
[2020-10-12 06:21] LABS: Alanine Aminotransferase 42 U/L (12-78); Albumin Level 2.9 g/dl (3.5-5.0); Albumin/Globulin Ratio 1.1 (1.1-1.8); Alkaline Phosphatase 77 U/L (38-126); Anion Gap 9.6 mEq/L (5-15); Aspartate Amino Transferase 70 U/L (17-59); Bilirubin,Total 0.7 mg/dl (0.2-1.3); Blood Urea Nitrogen 23 mg/dl (9-20); Calcium 8.4 mg/dl (8.4-10.2); Carbon Dioxide 23 mmol/L (22.0-30.0); Creatinine Clearance Estimated 104 mL/min (50-200); Estimated Glomerular Filt Rate 85 ml/min (>60); GFR (African American) 102 ML/MIN (>60); Globulin 2.6 g/dL (1.3-3.2); Glucose 116 mg/dl (74-100); Total Protein,Serum 5.5 g/dl (6.3-8.2)
--- NOTE | 2020-10-12 12:55 | SW/DCPLANNER ---
Addendum entered by Jami Haro 10/15/20 13:17: I have faxed patient information to [facility] for a neb machine. Addendum entered by Jami Haro 10/12/20 13:22: Danuta from [facility] has stated that portable tank will be delivered today. Original Note: Patient information and order has been faxed to [facility] for home O2 due to COVID-19 diagnosis.
--- NOTE | 2020-10-12 13:23 | HMH.ACPN2 ---
Internal Medicine - PN: Subj *Date: 10/11/20 *Time: 09:00 Interval history: The patient was seen 12/3 AM but visit was not documented. He is very anxious for discharge, but still requires high level of nasal O2, and remains in A-fib. He is not in distress. He quit smoking 2004. Exam Vital signs and Labs for Last 24 Hours: Temp Pulse Resp BP Pulse Ox 97.2 F L 105 H 20 106/75 L 93 L 10/12/20 12:00 10/12/20 12:00 10/12/20 12:00 10/12/20 12:00 10/12/20 12:00 Laboratory Results - last 24 hr 10/12/20 05:38: Sodium 141, Potassium 3.6, Chloride 112 H, Carbon Dioxide 23, Anion Gap 9.6, BUN 23 H, Creatinine 0.90, Estimated Creat Clear 104, Estimated GFR 85, Est GFR ( Amer) 102, Glucose 116 H, Calcium 8.4, Total Bilirubin 0.7, AST 70 H, ALT 42, Alkaline Phosphatase 77, Total Protein 5.5 L, Albumin 2.9 L, Globulin 2.6, Albumin/Globulin Ratio 1.1 I & O for Last 24 hours: Intake & Output 10/10/20 10/11/20 10/12/20 10/13/20 11:59 11:59 11:59 11:59 Intake Total 221 / 221 3249 / 3249 2838 / 2838 Output Total 1000 / 1000 450 / 450 Balance 221 / 221 2249 / 2249 2388 / 2388 Weight 213 lb 13.574 oz 213 lb 1 oz 219 lb 9 oz Microbiology Reports for the Last 24 Hours: Microbiology 10/09/20 23:45 Blood Blood Culture - Preliminary NO GROWTH AFTER 48 HOURS 10/09/20 23:45 Blood Blood Culture - Preliminary NO GROWTH AFTER 48 HOURS - Constitutional no acute distress - *Routine HEENT Exam Head: Present: normocephalic Eye: Present: PERRL ENT: Present: mucous membranes moist - *Routine Respiratory Exam Present: decreased breath sounds, CTA bilaterally - *Routine Cardiovascular Exam Present: irregular rhythm (controlled rate) - *Routine Abdominal Exam Present: soft. Absent: tenderness - *Routine Extremities Exam Present: edema (trace) Assessment and Plan (1) Acute exacerbation of chronic obstructive airways disease Status: Acute Category: Medical Code(s): J44.1 - Chronic obstructive pulmonary disease with (acute) exacerbation (2) Atrial fibrillation with rapid ventricular response Status: Acute Category: Medical Code(s): I48.91 - Unspecified atrial fibrillation (3) Dyspnea due to COVID-19 Status: Acute Category: Medical Code(s): U07.1 - COVID-19; R06.00 - Dyspnea, unspecified (4) Thrombocytopenia associated with COVID-19 Status: Acute Category: Medical Code(s): U07.1 - COVID-19; D69.59 - Other secondary thrombocytopenia (5) Gonzalez's esophagus with esophagitis Status: Acute Category: Medical Code(s): K22.70 - Gonzalez's esophagus without dysplasia; K20.9 - Esophagitis, unspecified (6) COPD (chronic obstructive pulmonary disease) Status: Acute Category: Medical Code(s): J44.9 - Chronic obstructive pulmonary disease, unspecified (7) Ex-smoker for more than 1 year Status: Acute Category: Social Hx Code(s): Z87.891 - Personal history of nicotine dependence (8) Chronic renal disease Status: Chronic Category: Medical Code(s): N18.9 - Chronic kidney disease, unspecified (9) Peptic ulcer disease Status: Chronic Category: Medical Code(s): K27.9 - Peptic ulcer, site unspecified, unspecified as acute or chronic, without hemorrhage or perforation (10) Pneumonia due to COVID-19 virus Status: Acute Category: Medical Code(s): U07.1 - COVID-19; J12.89 - Other viral pneumonia - Assessment and plan all Dx Assessment and Plan for all problems:: I feel his presentation was more cardiac than COVID, but he deserves 5 days of Remdesivir and Dexamethasone.
--- NOTE | 2020-10-12 13:28 | HMH.ACPN2 ---
Internal Medicine - PN: Subj *Date: 10/12/20 *Time: 09:15 Interval history: The patient was seen this morning on rounds. He would like to be discharged, but I would like him to receive 5 days of Remdesivir. He will also need home O2. I have spoken with Case management about this. Exam Vital signs and Labs for Last 24 Hours: Temp Pulse Resp BP Pulse Ox 97.2 F L 105 H 20 106/75 L 93 L 10/12/20 12:00 10/12/20 12:00 10/12/20 12:00 10/12/20 12:00 10/12/20 12:00 Laboratory Results - last 24 hr 10/12/20 05:38: Sodium 141, Potassium 3.6, Chloride 112 H, Carbon Dioxide 23, Anion Gap 9.6, BUN 23 H, Creatinine 0.90, Estimated Creat Clear 104, Estimated GFR 85, Est GFR ( Amer) 102, Glucose 116 H, Calcium 8.4, Total Bilirubin 0.7, AST 70 H, ALT 42, Alkaline Phosphatase 77, Total Protein 5.5 L, Albumin 2.9 L, Globulin 2.6, Albumin/Globulin Ratio 1.1 I & O for Last 24 hours: Intake & Output 10/10/20 10/11/20 10/12/20 10/13/20 11:59 11:59 11:59 11:59 Intake Total 221 / 221 3249 / 3249 2838 / 2838 Output Total 1000 / 1000 450 / 450 Balance 221 / 221 2249 / 2249 2388 / 2388 Weight 213 lb 13.574 oz 213 lb 1 oz 219 lb 9 oz Microbiology Reports for the Last 24 Hours: Microbiology 10/09/20 23:45 Blood Blood Culture - Preliminary NO GROWTH AFTER 48 HOURS 10/09/20 23:45 Blood Blood Culture - Preliminary NO GROWTH AFTER 48 HOURS - Constitutional no acute distress - *Routine HEENT Exam Head: Present: normocephalic Eye: Present: PERRL ENT: Present: mucous membranes moist - *Routine Respiratory Exam Present: decreased breath sounds (but he is moving air better.), CTA bilaterally - *Routine Cardiovascular Exam Present: irregular rhythm - *Routine Extremities Exam Present: edema (minimal) Assessment and Plan (1) Acute exacerbation of chronic obstructive airways disease Status: Acute Category: Medical Code(s): J44.1 - Chronic obstructive pulmonary disease with (acute) exacerbation (2) Atrial fibrillation with rapid ventricular response Status: Acute Category: Medical Code(s): I48.91 - Unspecified atrial fibrillation (3) Dyspnea due to COVID-19 Status: Acute Category: Medical Code(s): U07.1 - COVID-19; R06.00 - Dyspnea, unspecified (4) Thrombocytopenia associated with COVID-19 Status: Acute Category: Medical Code(s): U07.1 - COVID-19; D69.59 - Other secondary thrombocytopenia (5) Gonzalez's esophagus with esophagitis Status: Acute Category: Medical Code(s): K22.70 - Gonzalez's esophagus without dysplasia; K20.9 - Esophagitis, unspecified (6) COPD (chronic obstructive pulmonary disease) Status: Acute Category: Medical Code(s): J44.9 - Chronic obstructive pulmonary disease, unspecified (7) Ex-smoker for more than 1 year Status: Acute Category: Social Hx Code(s): Z87.891 - Personal history of nicotine dependence (8) Chronic renal disease Status: Chronic Category: Medical Code(s): N18.9 - Chronic kidney disease, unspecified (9) Peptic ulcer disease Status: Chronic Category: Medical Code(s): K27.9 - Peptic ulcer, site unspecified, unspecified as acute or chronic, without hemorrhage or perforation (10) Pneumonia due to COVID-19 virus Status: Acute Category: Medical Code(s): U07.1 - COVID-19; J12.89 - Other viral pneumonia - Assessment and plan all Dx Assessment and Plan for all problems:: I explained about the 5 day course of Remdesivir and discussed home O2. We will assess his status in AM regarding discharge.
--- NOTE | 2020-10-12 14:43 | DIET.NUTRFU ---
PO intakes 50% with mostly fair toleration- diet liberalized from cardiac to no added salt, this allows for greater variety with no fat/cholesterol restriction while keeping 3g Na restriction. Pt may also have snacks/supplements by request/RN offer with poor meal intake. Weight is stable, trace edema present, has had some moderate hyperglycemia- ~120. Continuing to monitor.
--- NOTE | 2020-10-12 16:08 | XR_ITS ---
PROCEDURE: XR CHEST PORTABLE CLINICAL HISTORY: pneumonia Positive Covid19 COMPARISON: CR XR CHEST 2V from 01/19/2020 CR XR CHEST PORTABLE from 10/04/2020 CR XR CHEST PORTABLE from 10/10/[address] ANGIO CHEST from 10/10/2020 FINDINGS: Mild cardiomegaly without failure. Patchy density is present in the lung apices and left lower lobe suspicious Covid19 pneumonia this has progressed since the previous exam No acute bony abnormalities. IMPRESSION: Worsening bilateral pneumonia Dictated by: Noam Britton MD 10/12/2020 17:49 Noam Britton MD in [facility] 10/12/2020 17:49
--- NOTE | 2020-10-12 17:54 | PC.NURSE ---
Patient is resting in bed eating dinner. Neurologically patient is alert and oriented x 4. Pupils are equal and responsive. Dehydrogenation Operator Head are equal. GI: patient has eaten well. No bm on this shift. No c/o n/v/d. : Patient has been using his urinal. Pulmonary: Patient is on room air and has been since roughly noon. Has been educated on and encouraged to use the incentive spirometer which patient has been doing often throughout the day. Patients oxygen saturation is 90 currently, saturations have been down to 85 with exertion but typically range in the mid 90's when resting. [facility] home medication delivered patients oxygen that he will be taking home with him hopefully tomorrow. Patient has had very few complaints and has had a pleasant demeanor throughout the day. Patient is anxious to go home tomorrow.
[2020-10-13] VITALS (7 sets, daily range): BP systolic 105–118; BP diastolic 71–79; PULSE 80–140; RESP 20–22; TEMP 36.6–36.8; O2SAT 90–98; BMI 31.1
--- NOTE | 2020-10-13 05:43 | PC.NURSE ---
At rest pt. o2 sat 89-91% on RA; while asleep pt o2 sat 87-88%, applied 2l nc and o2 sats increased to 90-93%. Around 0200 pt. became increasingly anxious; pt. states I'm going home today whether the doctor wants me to or not , pt. educated on the benefits of staying to receive treatment and discussed with pt. about anxieties he's having. Pt. was able to calm down and rested with his eyes closed for a few hours. Pt. states he has no needs at this time. Has not c/o n/v/d, dizziness or pain. C/o SOA with anxiety and movement, continues to wear o2 at this time.
[2020-10-13 05:54] LABS: Chloride 112 mmol/L (98-107)
[2020-10-13 05:55] LABS: Potassium 3.6 mmoL/L (3.5-5.1); Sodium 142 mmol/L (136-145)
[2020-10-13 05:57] LABS: Alanine Aminotransferase 52 U/L (12-78); Aspartate Amino Transferase 82 U/L (17-59); Blood Urea Nitrogen 21 mg/dl (9-20); Creatinine Clearance Estimated 105 mL/min (50-200); Estimated Glomerular Filt Rate 85 ml/min (>60); GFR (African American) 102 ML/MIN (>60)
[2020-10-13 05:58] LABS: Albumin Level 2.8 g/dl (3.5-5.0); Alkaline Phosphatase 90 U/L (38-126); Anion Gap 8.6 mEq/L (5-15); Bilirubin,Total 0.9 mg/dl (0.2-1.3); Calcium 8.3 mg/dl (8.4-10.2); Carbon Dioxide 25 mmol/L (22.0-30.0); Globulin 2.7 g/dL (1.3-3.2); Glucose 95 mg/dl (74-100); Total Protein,Serum 5.5 g/dl (6.3-8.2)
--- NOTE | 2020-10-13 13:39 | HMH.ACPN2 ---
Internal Medicine - PN: Subj *Date: 10/13/20 *Time: 13:39 Interval history: The patient is desperate for discharge. He refuses to stay another day. I discussed his worsening chest x-ray report and his rapid heart rate. The patient states that he feels well enough for discharge. Oxygen for home use has been arranged already. He understands the risks and limitations of going home at this point. He has received the initial 200 mg of remdesivir on admission +3 additional bags of 100 mg. He has been on dexamethasone since his admission. 10/12/2020 X ray report: Mild cardiomegaly without failure. Patchy density is present in the lung apices and left lower lobe suspicious Covid19 pneumonia this has progressed since the previous exam No acute bony abnormalities. IMPRESSION: Worsening bilateral pneumonia Exam Vital signs and Labs for Last 24 Hours: Temp Pulse Resp BP Pulse Ox 98.1 F 140 H 22 113/79 91 L 10/13/20 11:30 10/13/20 12:00 10/13/20 11:30 10/13/20 11:30 10/13/20 11:31 Laboratory Results - last 24 hr 10/13/20 04:49: Sodium 142, Potassium 3.6, Chloride 112 H, Carbon Dioxide 25, Anion Gap 8.6, BUN 21 H, Creatinine 0.90, Estimated Creat Clear 105, Estimated GFR 85, Est GFR ( Amer) 102, Glucose 95, Calcium 8.3 L, Total Bilirubin 0.9, AST 82 H, ALT 52, Alkaline Phosphatase 90, Total Protein 5.5 L, Albumin 2.8 L, Globulin 2.7, Albumin/Globulin Ratio 1.0 L I & O for Last 24 hours: Intake & Output 10/11/20 10/12/20 10/13/20 10/14/20 11:59 11:59 11:59 11:59 Intake Total 3249 / 3249 2838 / 2838 2243 / 2243 360 / 360 Output Total 1000 / 1000 450 / 1025 1375 / 1375 Balance 2249 / 2249 2388 / 1813 868 / 868 360 / 360 Weight 213 lb 1 oz 219 lb 9 oz 222 lb 5 oz - Constitutional no acute distress (Sitting up with nasal oxygen on and comfortable.) - *Routine HEENT Exam Head: Present: normocephalic Eye: Present: PERRL ENT: Present: mucous membranes moist - Routine Chest/Breast/Axilla Exam Chest wall: Absent: tenderness - *Routine Respiratory Exam Present: decreased breath sounds - *Routine Cardiovascular Exam Present: irregular rhythm (120-140.) - *Routine Abdominal Exam Present: soft. Absent: tenderness - *Routine Extremities Exam Present: edema (1+) Assessment and Plan (1) Acute exacerbation of chronic obstructive airways disease Status: Acute Category: Medical Code(s): J44.1 - Chronic obstructive pulmonary disease with (acute) exacerbation (2) Atrial fibrillation with rapid ventricular response Status: Acute Category: Medical Code(s): I48.91 - Unspecified atrial fibrillation (3) Dyspnea due to COVID-19 Status: Acute Category: Medical Code(s): U07.1 - COVID-19; R06.00 - Dyspnea, unspecified (4) Thrombocytopenia associated with COVID-19 Status: Acute Category: Medical Code(s): U07.1 - COVID-19; D69.59 - Other secondary thrombocytopenia (5) Gonzalez's esophagus with esophagitis Status: Acute Category: Medical Code(s): K22.70 - Gonzalez's esophagus without dysplasia; K20.9 - Esophagitis, unspecified (6) COPD (chronic obstructive pulmonary disease) Status: Acute Category: Medical Code(s): J44.9 - Chronic obstructive pulmonary disease, unspecified (7) Ex-smoker for more than 1 year Status: Acute Category: Social Hx Code(s): Z87.891 - Personal history of nicotine dependence (8) Chronic renal disease Status: Chronic Category: Medical Code(s): N18.9 - Chronic kidney disease, unspecified (9) Peptic ulcer disease Status: Chronic Category: Medical Code(s): K27.9 - Peptic ulcer, site unspecified, unspecified as acute or chronic, without hemorrhage or perforation (10) Pneumonia due to COVID-19 virus Status: Acute Category: Medical Code(s): U07.1 - COVID-19; J12.89 - Other viral pneumonia - Assessment and plan all Dx Assessment and Plan for all problems:: The patient will be discharged. I am increasing his d
--- NOTE | 2020-10-13 15:06 | PC.NURSE ---
Called and spoke with Keyana at [facility] pharmacy in [place] and ordered duonebs for pt, that were ordered per Dr. Sanders and didn't go through. She stated that she would add meds to other list of meds called in.
--- NOTE | 2020-10-13 15:16 | PC.NURSE ---
Called and LM for [facility] emergency line and let them know pt was being d/cd for home 02 set up and also called back and requested nebulizer be set up, since it hadn't been done and pt was d/cd today.
--- NOTE | 2020-10-13 15:22 | PC.NURSE ---
Spoke with Geoffrey at [facility] at this time and he stated he would make sure pt got nebulizer set up.
--- NOTE | 2020-10-15 13:40 | HMH.DCSUM ---
General - General Admission date:: 10/10/20 Discharge date: 10/13/20 HPI HPI: Jonatna is a 65-year old male with a history of hypothyroidism, previous CVA, GERD, Gonzalez's esophagus, recent onset of irregular heart rhythm being evaluated by Dr. Reynaga, sleep apnea who presented to [facility] emergency room with progressive shortness of breath. Patient states he has been sick for greater than 1 week and was seen and [facility] emergency room at which time he tested positive for COVID-19 on 10/04/2020. After his visit he did feel somewhat better but then progressively worsened with a dry cough and shortness of breath. He did have some pain on deep inspiration as well. Following our notes from [facility] emergency room documentation on admission: Pt c/o SOB, mainly with exertion that has gotten worse tonight. Pt also reports dry cough, mild chest pain, and dizziness. He denies N/V/D, abd pain. Pt tested positive for COVID 10/04. covid positive pt from 10/04/20 and has progressive sob with cough - irreg ht beat - With evaluation in the emergency room patient was found to be in atrial fibrillation with and was given a bolus of Cardizem and started on a Cardizem drip. Chest x-ray revealed patchy right upper and right lower lobe pneumonia. CTA of the chest revealed interval progression of multisegmental groundglass infiltrates in a background of centrilobular emphysema consistent with COVID-19 pneumonia, no evidence of pulmonary embolus, prominent pericardial and epicardial fat with minimal calcification of the pericardium, and in determinate hepatic lesion. Laboratory data in the emergency room showed white blood cell count of 4900, hemoglobin of 18.7 hematocrit of 55.2. Sodium was 135 and potassium was 3.4 with a creatinine of 1.40. Liver function studies revealed an AST elevated at 116, ALT normal at 57 and alkaline phosphatase normal at 117. Lactic acid was 2.6. ABGs revealed pH of 7.45, PCO2 of 33.6, PO2 of 68.7, and bicarb of 22.8. Troponin I was less than 0.01. Patient did receive IV fluid boluses as well as 8 mg of dexamethasone and a bolus of diltiazem prior to starting the drip. He was then admitted for further evaluation and treatment. This a.m. patient states he feels much better. He feels his breathing is easier. He states he is scared to eat before taking his normal PPI. He denies chest pain this morning on deep inspiration. He also denies nausea. Repeat lab work this morning reveals white blood cell count of 3200 with a normal hemoglobin and hematocrit at 16.7/48.2. Platelet count continues to be decreased at 113,000. Blood chemistries show a low sodium of 134, potassium of 4.1 and normal renal function. Lactate has decreased to 1.4. BNP is elevated at 991 and troponin I 0.01. Hospital Course Hospital Course: The patient was started on DuoNeb's and Covid medications, labs were monitored. Cardiology was consulted. The patient was rate controlled in atrial fib on a Cardizem drip. The drip was discontinued and he was started on diltiazem ER 120 mg daily. One hour after being given his first oral dose of Cardizem ER, the drip was stopped. Cardiology felt he would require long-term anticoagulation given his A. fib, therefore he was started on Xarelto 20 mg daily. They also ordered an echo which showed an EF of 45 to 50% with mild mitral regurgitation. The patient reported he had had a stress test set up with Dr. Reynaga on an outpatient basis and they felt he needed to proceed with this. Patient's blood cultures showed no growth. It was felt he would need 5 days of remdesivir and dexamethasone. The patient was stable throughout the rest of his stay. He had a repeat chest x-ray on 10/12/2020 showing worsening bilateral pneumonia. The patient, however, felt better and was desperate for discharge. He refused to stay another day. Home oxygen was ordered and he understood
== END 2020-10-13 14:47 | disposition home or self-care (01) | DRG 177 ==
LOC: ER 10-10 01:34 → ICU 10-10 11:45
PROVIDERS: Nurse Practitioner Family; Admitting Provider Family Medicine; Emergency Provider Emergency Medicine; PCP Internal Medicine; Visit Provider Family Medicine
DX: U07.1 COVID-19 (principal); J12.89 Other viral pneumonia; J44.1 Chronic obstructive pulmonary disease with (acute) exacerbation; I13.0 Hypertensive heart and chronic kidney disease with heart failure and stage 1 through stage 4 chronic kidney disease, or unspecified chronic kidney disease; N18.9 Chronic kidney disease, unspecified; I50.9 Heart failure, unspecified; I48.91 Unspecified atrial fibrillation; E03.9 Hypothyroidism, unspecified; Z87.891 Personal history of nicotine dependence; Z88.0 Allergy status to penicillin; Z88.5 Allergy status to narcotic agent; Z79.899 Other long term (current) drug therapy; K22.70 Barrett's esophagus without dysplasia; K20.80 Other esophagitis without bleeding
CPT/HCPCS: 36415; 71045; 71275; 80048; 80053; 80076; 82803; 83605; 83735; 83880; 84145; 84484; 85025; 86328; 87040; 93005; 93306; 94640; 94761; 96365; 96367; 96375; 99285; Q9967

== ENCOUNTER → 2020-10-23 11:06 | Outpatient (POV) | payer MEDICARE, SELFPAY | PROVIDERS: Visit Provider Dermatology | DX: Z00.00 Encounter for general adult medical examination without abnormal findings (principal) ==

== ENCOUNTER → 2021-04-09 09:25 | Outpatient (CLI) | payer MEDICARE, SELFPAY ==
[2021-04-09 11:47] LABS: Chol/HDL Ratio 2.6 (1-3.5); Cholesterol 156 mg/dl (140-200); HDL Cholesterol 60 mg/dl (40-60); Triglycerides 75 mg/dl (30-150); VLDL Cholesterol 15 mg/dL (0-40)
[2021-04-09 11:50] LABS: Alanine Aminotransferase 18 U/L (12-78); Albumin Level 3.8 g/dl (3.5-5.0); Albumin/Globulin Ratio 1.6 (1.1-1.8); Alkaline Phosphatase 107 U/L (38-126); Anion Gap 8.2 mEq/L (5-15); Aspartate Amino Transferase 29 U/L (17-59); Bilirubin,Total 1.2 mg/dl (0.2-1.3); Blood Urea Nitrogen 13 mg/dl (9-20); Calcium 9.1 mg/dl (8.4-10.2); Carbon Dioxide 33 mmol/L (22.0-30.0); Chloride 102 mmol/L (98-107); Estimated Glomerular Filt Rate 47 ml/min (>60); GFR (African American) 57 ML/MIN (>60); Globulin 2.4 g/dL (1.3-3.2); Glucose 103 mg/dl (74-100); Potassium 4.2 mmoL/L (3.5-5.1); Sodium 139 mmol/L (136-145); Total Protein,Serum 6.2 g/dl (6.3-8.2)
[2021-04-09 11:53] LABS: NT Pro Brain Natriuretic Pep. 165 pg/mL (0-125)
[2021-04-09 12:19] LABS: Thyroid Stimulating Hormone < 0.02 uIU/mL (0.465-4.68)
[2021-04-09 17:05] LABS: Basophils # 0.1 K/mm3 (0-0.2); Basophils % 1.1 % (0.1-2.0); Eosinophils # 0.2 K/mm3 (0.0-0.4); Eosinophils % 2.6 % (0.1-12.0); Hematocrit 47.3 % (42.0-52.0); Lymphocytes # 2.2 K/mm3 (0.7-4.5); Lymphocytes % 26.8 % (10-50); Mean Corpuscular HGB Conc 33.8 g/dL (31.8-35.4); Mean Corpuscular Hemoglobin 29.4 pg (27.0-31.2); Mean Corpuscular Volume 86.9 fl (80-94); Mean Platelet Volume 9.9 fl (7.4-10.4); Monocytes # 0.6 K/mm3 (0.1-1.0); Monocytes % 6.9 % (1.7-9.3); Neutrophils # 5.1 K/mm3 (1.8-7.8); Neutrophils % 62.5 % (37.0-80.0); Platelet Count 202 K/mm3 (142-424); Red Blood Count 5.44 M/mm3 (4.60-6.20); Red Cell Distribution Width 14.2 % (11.5-17.5); White Blood Count 8.1 K/mm3 (4.8-10.8)
== END ==
PROVIDERS: Visit Provider Nurse Practitioner Family
DX: I25.10 Atherosclerotic heart disease of native coronary artery without angina pectoris (principal); I50.33 Acute on chronic diastolic (congestive) heart failure; I11.0 Hypertensive heart disease with heart failure; I48.0 Paroxysmal atrial fibrillation; E78.5 Hyperlipidemia, unspecified; E03.9 Hypothyroidism, unspecified; N40.1 Benign prostatic hyperplasia with lower urinary tract symptoms; Z86.73 Personal history of transient ischemic attack (TIA), and cerebral infarction without residual deficits
CPT/HCPCS: 36415; 80053; 80061; 83880; 84153; 84443; 85025

== ENCOUNTER → 2021-09-10 15:22 | Outpatient (POV) | payer MEDICARE, SELFPAY | PROVIDERS: Visit Provider Dermatology | DX: Z00.00 Encounter for general adult medical examination without abnormal findings (principal) ==

== ENCOUNTER → 2021-09-17 15:10 | Outpatient (CLI) | payer MEDICARE, SELFPAY ==
--- NOTE | 2021-09-17 15:13 | XR_ITS ---
PROCEDURE: XR CHEST PORTABLE CLINICAL HISTORY: COVID OUTPATIENT The COMPARISON: CR XR CHEST PORTABLE from 10/04/2020 CR XR CHEST PORTABLE from 10/10/[address] ANGIO CHEST from 10/10/2020 CR XR CHEST PORTABLE from 10/12/2020 FINDINGS: The cardiomediastinal silhouette and pulmonary vascularity are within normal limits. The lungs are clear without infiltrates, suspicious nodules, or pleural effusions. No acute bony abnormalities. IMPRESSION: No acute findings. Dictated by: Noam Britton MD 09/17/2021 15:47 Noam Britton MD in [facility] 09/17/2021 15:47
[2021-09-17 15:28] LABS: Coronavirus 19, PCR Not Detected (NotDetected); Influenza A, PCR Not Detected (NotDetected); Influenza B, PCR Not Detected (NotDetected)
== END ==
PROVIDERS: PCP Internal Medicine; Visit Provider Internal Medicine
DX: Z20.822 Contact with and (suspected) exposure to COVID-19 (principal)
CPT/HCPCS: 71045; C9803; U0003; U0005

== ENCOUNTER → 2021-10-14 08:18 | Outpatient (CLI) | payer MEDICARE, SELFPAY ==
[2021-10-14 09:11] LABS: Basophils # 0.1 K/mm3 (0-0.2); Basophils % 0.9 % (0.1-2.0); Eosinophils # 0.1 K/mm3 (0.0-0.4); Eosinophils % 1.5 % (0.1-12.0); Hematocrit 45.4 % (42.0-52.0); Hemoglobin 15.7 g/dL (14.1-18.0); Lymphocytes # 3.1 K/mm3 (0.7-4.5); Lymphocytes % 33.5 % (10-50); Mean Corpuscular HGB Conc 34.5 g/dL (31.8-35.4); Mean Corpuscular Hemoglobin 30.8 pg (27.0-31.2); Mean Corpuscular Volume 89.2 fl (80-94); Mean Platelet Volume 8.2 fl (7.4-10.4); Monocytes # 0.6 K/mm3 (0.1-1.0); Monocytes % 6.9 % (1.7-9.3); Neutrophils # 5.3 K/mm3 (1.8-7.8); Neutrophils % 57.2 % (37.0-80.0); Platelet Count 239 K/mm3 (142-424); Red Blood Count 5.09 M/mm3 (4.60-6.20); Red Cell Distribution Width 13.3 % (11.5-17.5); White Blood Count 9.2 K/mm3 (4.8-10.8)
[2021-10-14 09:45] LABS: Chloride 100 mmol/L (98-107); Potassium 3.8 mmoL/L (3.5-5.1); Sodium 139 mmol/L (136-145)
[2021-10-14 09:48] LABS: Alanine Aminotransferase 24 U/L (12-78); Alkaline Phosphatase 110 U/L (38-126); Aspartate Amino Transferase 39 U/L (17-59); Bilirubin,Total 0.7 mg/dl (0.2-1.3); Blood Urea Nitrogen 12 mg/dl (9-20); Cholesterol 162 mg/dl (140-200); Estimated Glomerular Filt Rate 51 ml/min (>60); GFR (African American) 61 ML/MIN (>60); Total Protein,Serum 6.5 g/dl (6.3-8.2); Triglycerides 81 mg/dl (30-150); VLDL Cholesterol 16 mg/dL (0-40)
[2021-10-14 09:49] LABS: Calcium 9.5 mg/dl (8.4-10.2); Chol/HDL Ratio 2.7 (1-3.5); Glucose 104 mg/dl (74-100); HDL Cholesterol 59 mg/dl (40-60)
[2021-10-14 10:00] LABS: Direct LDL Cholesterol 79.66 mg/dL (100-129)
[2021-10-14 10:04] LABS: Free T4 (Free Thyroxine) 1.67 ng/dl (0.78-2.19)
[2021-10-14 10:19] LABS: Thyroid Stimulating Hormone < 0.02 uIU/mL (0.465-4.68)
[2021-10-14 15:47] LABS: Anion Gap 11.8 mEq/L (5-15); Carbon Dioxide 31 mmol/L (22.0-30.0)
[2021-10-14 15:48] LABS: Albumin Level 3.9 g/dl (3.5-5.0); Albumin/Globulin Ratio 1.5 (1.1-1.8); Globulin 2.6 g/dL (1.3-3.2)
== END ==
PROVIDERS: Visit Provider Internal Medicine
DX: I10 Essential (primary) hypertension (principal); E78.5 Hyperlipidemia, unspecified; E03.9 Hypothyroidism, unspecified; I48.0 Paroxysmal atrial fibrillation; I63.9 Cerebral infarction, unspecified
CPT/HCPCS: 36415; 80053; 80061; 84439; 84443; 85025

== ENCOUNTER → 2021-11-19 08:54 | Outpatient (CLI) | payer MEDICARE, SELFPAY ==
--- NOTE | 2021-11-19 08:58 | CT_ITS ---
FINAL REPORT TECHNIQUE: Axial images through the abdomen and pelvis were performed without contrast.This study was performed with techniques to keep radiation doses as low as reasonably achievable, (ALARA). Individualized dose reduction techniques using automated exposure control or adjustment of mA and/or kV according to the patient's size were employed. CLINICAL HISTORY: INCISIONAL HERNIA COMPARISON: 11/18/2016 FINDINGS: ABDOMEN: There is mild scarring seen at the lung bases. There is mild, stable pericardial thickening and pericardial calcifications. The heart size is normal. Patient is status post cholecystectomy. A small, low-attenuation mass is seen in the liver dome, now measuring 15 mm, previously measuring 11 mm. Findings could represent cyst or hemangioma. The spleen is normal. No adrenal mass is identified. The aorta is normal in caliber. There is no significant free fluid or adenopathy. There is no nephrolithiasis. There is no hydronephrosis. There are 3, small supraumbilical hernias containing only fat, visually stable from prior exam. These are seen on axial images 45 and 74. PELVIS: The appendix is not identified. There are no secondary findings of appendicitis. There is mild wall thickening of the urinary bladder. There is descending and sigmoid diverticulosis without evidence of diverticulitis. There is no significant free fluid or adenopathy. IMPRESSION: 3, small supraumbilical hernias containing only fat, visually stable from prior exam. No acute process identified. Reviewed, Interpreted and Dictated by Noel Neal III, MD Transcribed by Carey Orozco Authenticated by Noel Neal III, MD on 11/19/2021 10:30:[address] [facility]
== END ==
PROVIDERS: PCP Internal Medicine; Visit Provider Surgery
DX: K43.2 Incisional hernia without obstruction or gangrene (principal)
CPT/HCPCS: 74176

== ENCOUNTER → 2022-01-14 14:04 | Outpatient (CLI) | payer MEDICARE, SELFPAY ==
[2022-01-14 15:10] LABS: Anion Gap 13.6 mEq/L (5-15); Blood Urea Nitrogen 11 mg/dl (9-20); Calcium 9.1 mg/dl (8.4-10.2); Carbon Dioxide 33 mmol/L (22.0-30.0); Chloride 96 mmol/L (98-107); Estimated Glomerular Filt Rate 51 ml/min (>60); GFR (African American) 61 ML/MIN (>60); Glucose 69 mg/dl (74-100); Potassium 3.6 mmoL/L (3.5-5.1); Sodium 139 mmol/L (136-145)
[2022-01-14 15:40] LABS: Thyroid Stimulating Hormone 0.05 uIU/mL (0.465-4.68)
== END ==
PROVIDERS: Visit Provider Internal Medicine
DX: I25.10 Atherosclerotic heart disease of native coronary artery without angina pectoris (principal); I10 Essential (primary) hypertension; I48.0 Paroxysmal atrial fibrillation; E03.9 Hypothyroidism, unspecified
CPT/HCPCS: 80048; 84443

== ENCOUNTER → 2022-03-24 16:43 | Outpatient (CLI) | payer MEDICARE, SELFPAY ==
[2022-03-24 17:20] LABS: Basophils # 0.1 K/mm3 (0-0.2); Basophils % 1.3 % (0.1-2.0); Eosinophils # 0.2 K/mm3 (0.0-0.4); Eosinophils % 2.2 % (0.1-12.0); Hematocrit 47.3 % (42.0-52.0); Hemoglobin 15.9 g/dL (14.1-18.0); Lymphocytes # 1.9 K/mm3 (0.7-4.5); Lymphocytes % 25.7 % (10-50); Mean Corpuscular HGB Conc 33.7 g/dL (31.8-35.4); Mean Corpuscular Hemoglobin 31.2 pg (27.0-31.2); Mean Corpuscular Volume 92.6 fl (80-94); Mean Platelet Volume 9.1 fl (7.4-10.4); Monocytes # 0.5 K/mm3 (0.1-1.0); Monocytes % 6.3 % (1.7-9.3); Neutrophils # 4.7 K/mm3 (1.8-7.8); Neutrophils % 64.5 % (37.0-80.0); Platelet Count 235 K/mm3 (142-424); Red Blood Count 5.11 M/mm3 (4.60-6.20); Red Cell Distribution Width 13.2 % (11.5-17.5); White Blood Count 7.2 K/mm3 (4.8-10.8)
[2022-03-24 17:48] LABS: Chloride 97 mmol/L (98-107); Potassium 3.5 mmoL/L (3.5-5.1); Sodium 138 mmol/L (136-145)
[2022-03-24 17:50] LABS: Amylase 64 U/L (30-110)
[2022-03-24 17:51] LABS: Alanine Aminotransferase 18 U/L (12-78); Albumin Level 3.9 g/dl (3.5-5.0); Albumin/Globulin Ratio 1.6 (1.1-1.8); Alkaline Phosphatase 145 U/L (38-126); Anion Gap 12.5 mEq/L (5-15); Aspartate Amino Transferase 28 U/L (17-59); Bilirubin,Total 0.7 mg/dl (0.2-1.3); Blood Urea Nitrogen 13 mg/dl (9-20); Calcium 9.2 mg/dl (8.4-10.2); Carbon Dioxide 32 mmol/L (22.0-30.0); Estimated Glomerular Filt Rate 55 ml/min (>60); GFR (African American) 67 ML/MIN (>60); Globulin 2.4 g/dL (1.3-3.2); Glucose 123 mg/dl (74-100); Total Protein,Serum 6.3 g/dl (6.3-8.2)
== END ==
PROVIDERS: PCP Internal Medicine; Visit Provider Internal Medicine
DX: R10.13 Epigastric pain (principal); R11.0 Nausea; R10.9 Unspecified abdominal pain
CPT/HCPCS: 80053; 82150; 85025

== ENCOUNTER → 2022-03-28 10:08 | Outpatient (CLI) | payer MEDICARE, SELFPAY ==
--- NOTE | 2022-03-28 10:10 | CT_ITS ---
FINAL REPORT CLINICAL HISTORY: EPIGASTRIC PAIN,NAUSEA POST EATING, pain on left side, hx bowel obstruction COMPARISON: November 19, 2021 FINDINGS: Axial CT images of the abdomen and pelvis were obtained without intravenous contrast. Coronal reformatted images were also obtained.This study was performed with techniques to keep radiation doses as low as reasonably achievable (ALARA). Individualized dose reduction techniques using automated exposure control or adjustment of mA and/or kV according to the patient''s size were employed. Abdomen: There is calcified granuloma at the right lung base, stable. There is mild bibasilar atelectasis or scarring. There are stable pericardial calcifications which may represent sequela of pericarditis. There is no evidence of renal stone or hydronephrosis.The spleen and pancreas have an unremarkable, unenhanced appearance. There is a stable 13 mm low-attenuation mass in the liver dome which may represent cyst or hemangioma. The patient is status post cholecystectomy. There are moderate vascular calcifications. No inflammatory process is identified. There are small bilateral periumbilical hernias containing fat. There are other small supraumbilical hernias containing fat which are stable. Pelvis: Images of the pelvis reveal no evidence of ureteral dilation or ureteral stone.No mass or abnormal fluid collection is identified. There is descending and sigmoid colon diverticulosis. There is mild urinary bladder wall thickening. IMPRESSION: Stable low-attenuation mass in the liver dome. Stable bilateral periumbilical and supraumbilical hernias. Reviewed, Interpreted and Dictated by Noel Neal III, MD Transcribed by Tyra Johnson Authenticated by Noel Neal III, MD on 03/28/2022 11:54:[address] [facility]
== END ==
PROVIDERS: PCP Internal Medicine; Visit Provider Internal Medicine
DX: R10.13 Epigastric pain (principal); R11.0 Nausea
CPT/HCPCS: 74176

== ENCOUNTER → 2022-04-08 09:43 | Outpatient (CLI) | payer MEDICARE, SELFPAY ==
[2022-04-08 10:02] LABS: Coronavirus 19, PCR Not Detected (NotDetected); Influenza A, PCR Not Detected (NotDetected); Influenza B, PCR Not Detected (NotDetected)
== END ==
PROVIDERS: Visit Provider Internal Medicine Gastroenterology
DX: Z01.812 Encounter for preprocedural laboratory examination (principal); Z20.822 Contact with and (suspected) exposure to COVID-19; R10.13 Epigastric pain; K22.70 Barrett's esophagus without dysplasia
CPT/HCPCS: C9803; U0003; U0005

== ENCOUNTER → 2022-04-15 11:19 | Outpatient (CLI) | payer MEDICARE, SELFPAY ==
[2022-04-15 13:33] LABS: Chol/HDL Ratio 2.7 (1-3.5); Cholesterol 139 mg/dl (140-200); HDL Cholesterol 52 mg/dl (40-60); Triglycerides 93 mg/dl (30-150); VLDL Cholesterol 19 mg/dL (0-40)
[2022-04-15 13:45] LABS: Direct LDL Cholesterol 63.58 mg/dL (100-129)
[2022-04-15 14:04] LABS: Thyroid Stimulating Hormone 0.04 uIU/mL (0.465-4.68)
== END ==
PROVIDERS: PCP Internal Medicine; Visit Provider Internal Medicine
DX: E03.9 Hypothyroidism, unspecified (principal); I10 Essential (primary) hypertension; E78.5 Hyperlipidemia, unspecified; J44.9 Chronic obstructive pulmonary disease, unspecified; Z86.73 Personal history of transient ischemic attack (TIA), and cerebral infarction without residual deficits
CPT/HCPCS: 80061; 84443

== ENCOUNTER → 2022-10-15 13:53 | Outpatient (CLI) | payer MEDICARE, SELFPAY ==
[2022-10-15 15:49] LABS: Basophils # 0.1 K/mm3 (0-0.2); Basophils % 1.1 % (0.1-2.0); Eosinophils # 0.3 K/mm3 (0.0-0.4); Eosinophils % 2.8 % (0.1-12.0); Hemoglobin 15.7 g/dL (14.1-18.0); Lymphocytes % 22.4 % (10-50); Mean Corpuscular HGB Conc 32.8 g/dL (31.8-35.4); Mean Corpuscular Hemoglobin 30.3 pg (27.0-31.2); Mean Corpuscular Volume 92.4 fl (80-94); Mean Platelet Volume 9.4 fl (7.4-10.4); Monocytes # 0.5 K/mm3 (0.1-1.0); Monocytes % 5.4 % (1.7-9.3); Neutrophils # 6.3 K/mm3 (1.8-7.8); Neutrophils % 68.4 % (37.0-80.0); Platelet Count 230 K/mm3 (142-424); Red Blood Count 5.19 M/mm3 (4.60-6.20); Red Cell Distribution Width 12.9 % (11.5-17.5); White Blood Count 9.2 K/mm3 (4.8-10.8)
[2022-10-15 16:39] LABS: Alanine Aminotransferase 14 U/L (12-78); Albumin Level 4.1 g/dl (3.5-5.0); Albumin/Globulin Ratio 1.6 (1.1-1.8); Alkaline Phosphatase 169 U/L (38-126); Anion Gap 13.8 mEq/L (5-15); Aspartate Amino Transferase 25 U/L (17-59); Bilirubin,Total 1.3 mg/dl (0.2-1.3); Blood Urea Nitrogen 12 mg/dl (9-20); Calcium 9.5 mg/dl (8.4-10.2); Carbon Dioxide 31 mmol/L (22.0-30.0); Chloride 97 mmol/L (98-107); Chol/HDL Ratio 2.7 (1-3.5); Cholesterol 172 mg/dl (140-200); Estimated Glomerular Filt Rate 27 ml/min (>60); GFR (African American) 33 ML/MIN (>60); Globulin 2.5 g/dL (1.3-3.2); Glucose 75 mg/dl (74-100); HDL Cholesterol 64 mg/dl (40-60); Potassium 3.8 mmoL/L (3.5-5.1); Sodium 138 mmol/L (136-145); Total Protein,Serum 6.6 g/dl (6.3-8.2); Triglycerides 79 mg/dl (30-150); VLDL Cholesterol 16 mg/dL (0-40)
[2022-10-15 17:10] LABS: Prostate Specific Ag Screen 0.5 ng/ml (0.0-4.0); Thyroid Stimulating Hormone 3.77 uIU/mL (0.465-4.68)
== END ==
PROVIDERS: PCP Internal Medicine; Visit Provider Internal Medicine
DX: I48.0 Paroxysmal atrial fibrillation (principal); I10 Essential (primary) hypertension; E78.5 Hyperlipidemia, unspecified; E03.9 Hypothyroidism, unspecified; Z86.73 Personal history of transient ischemic attack (TIA), and cerebral infarction without residual deficits; Z12.5 Encounter for screening for malignant neoplasm of prostate
CPT/HCPCS: 80053; 80061; 84443; 85025; G0103

== ENCOUNTER → 2022-12-08 14:33 | Outpatient (CLI) | payer MEDICARE, SELFPAY ==
[2022-12-08 14:46] LABS: Microscopic, Urine URINE MICROSCOPIC (MICROSCOPIC)
[2022-12-08 15:18] LABS: Appearance,Urine CLEAR (Clear); Bilirubin,Urine Negative (Negative); Blood, Urine Negative (Negative); Color,Urine YELLOW (Yellow); Glucose,Urine (UA) Negative (Negative); Ketones,Urine Negative (Negative); Leukocyte Esterase,Urine Negative (Negative); Nitrate,Urine Negative (Negative); Protein,Urine Negative (Negative); Specific Gravity, Urine <= 1.005 (1.005-1.030); Urobilinogen,Urine 0.2 EU/dl (0.2)
[2022-12-08 15:21] LABS: Basophils # 0.1 K/mm3 (0-0.2); Basophils % 1.2 % (0.1-2.0); Eosinophils # 0.3 K/mm3 (0.0-0.4); Eosinophils % 3.7 % (0.1-12.0); Hemoglobin 14.9 g/dL (14.1-18.0); Lymphocytes # 1.7 K/mm3 (0.7-4.5); Lymphocytes % 18.5 % (10-50); Mean Corpuscular HGB Conc 32.3 g/dL (31.8-35.4); Mean Corpuscular Hemoglobin 29.5 pg (27.0-31.2); Mean Corpuscular Volume 91.1 fl (80-94); Monocytes # 0.6 K/mm3 (0.1-1.0); Monocytes % 6.7 % (1.7-9.3); Neutrophils # 6.3 K/mm3 (1.8-7.8); Neutrophils % 69.9 % (37.0-80.0); Platelet Count 265 K/mm3 (142-424); Red Blood Count 5.05 M/mm3 (4.60-6.20); Red Cell Distribution Width 13.6 % (11.5-17.5)
[2022-12-08 15:44] LABS: Squamous Epithelial Cell,Urine Occasional #/hpf (0-5)
[2022-12-08 16:11] LABS: Albumin Level 3.7 g/dl (3.5-5.0); Blood Urea Nitrogen 7 mg/dl (9-20); Calcium 8.6 mg/dl (8.4-10.2); Carbon Dioxide 34 mmol/L (22.0-30.0); Chloride 96 mmol/L (98-107); Estimated Glomerular Filt Rate 43 ml/min (>60); GFR (African American) 52 ML/MIN (>60); Glucose 83 mg/dl (74-100); Phosphorous 3.9 mg/dl (2.5-4.5); Sodium 136 mmol/L (136-145)
[2022-12-08 16:22] LABS: Intact Parathyroid Hormone 129.3 pg/mL (7.5-53.5)
[2022-12-08 16:27] LABS: 25-OH Vitamin D, Total 22.7 ng/mL (30-100)
[2022-12-11 13:42] LABS: Creatinine,Urine Random 24 mg/dL (Not Estab.)
== END ==
PROVIDERS: PCP Internal Medicine; Visit Provider Internal Medicine Nephrology
DX: N18.4 Chronic kidney disease, stage 4 (severe) (principal); E55.9 Vitamin D deficiency, unspecified
CPT/HCPCS: 36415; 80069; 81001; 82306; 82570; 83970; 84155; 85025

== ENCOUNTER → 2023-02-13 13:34 | Outpatient (CLI) | payer MEDICARE, SELFPAY ==
[2023-02-13 14:42] LABS: Albumin Level 3.9 g/dl (3.5-5.0); Anion Gap 7.6 mEq/L (5-15); Blood Urea Nitrogen 14 mg/dl (9-20); Calcium 8.6 mg/dl (8.4-10.2); Carbon Dioxide 34 mmol/L (22.0-30.0); Chloride 96 mmol/L (98-107); Estimated Glomerular Filt Rate 40 ml/min (>60); GFR (African American) 49 ML/MIN (>60); Glucose 111 mg/dl (74-100); Phosphorous 3.8 mg/dl (2.5-4.5); Potassium 3.6 mmoL/L (3.5-5.1); Sodium 134 mmol/L (136-145)
== END ==
PROVIDERS: PCP Internal Medicine; Visit Provider Internal Medicine Nephrology
DX: N18.4 Chronic kidney disease, stage 4 (severe) (principal)
CPT/HCPCS: 36415; 80069

== ENCOUNTER → 2023-02-16 14:33 | Outpatient (POV) | payer MEDICARE, SELFPAY | PROVIDERS: Visit Provider Internal Medicine Nephrology | DX: Z00.00 Encounter for general adult medical examination without abnormal findings (principal) ==

== ENCOUNTER → 2023-03-31 09:54 | Outpatient (POV) | payer MEDICARE, SELFPAY | PROVIDERS: Visit Provider Dermatology | DX: Z00.00 Encounter for general adult medical examination without abnormal findings (principal) ==

== ENCOUNTER → 2023-07-01 14:39 | Outpatient (CLI) | payer MEDICARE, SELFPAY ==
--- NOTE | 2023-07-01 14:43 | XR_ITS ---
FINAL REPORT CLINICAL HISTORY: LOW BACK PAIN, FINDINGS: LUMBAR SPINE Five views demonstrate no acute fracture. The disc spaces are well preserved. There is no malalignment. There is moderate calcification of the abdominal aorta. There is facet sclerosis in the lower lumbar spine. IMPRESSION: Facet sclerosis in the lower lumbar spine. Reviewed, Interpreted and Dictated by Kelby Bettencourt MD Transcribed by Allyn Tsang Authenticated and [facility]
== END ==
LOC: RAD 14:40
PROVIDERS: PCP Internal Medicine; Visit Provider Internal Medicine
DX: M54.50 Low back pain, unspecified (principal)
CPT/HCPCS: 72110

== ENCOUNTER → 2023-07-09 13:00 | Outpatient (CLI) | payer MEDICARE, SELFPAY ==
--- NOTE | 2023-07-09 13:41 | US_ITS ---
FINAL REPORT CLINICAL HISTORY: CHRONIC KIDNEY DISESE COMPARISON: None FINDINGS: RENAL ULTRASOUND Ultrasound images of the kidneys were obtained. Limited images of the liver parenchyma demonstrates normal echogenicity. The right kidney measures 9.8 cm in length. It is normal echogenicity. There is no hydronephrosis. The left kidney measures 11.9 cm in length. It is normal echogenicity. There is no hydronephrosis. IMPRESSION: Normal renal ultrasound. Reviewed, Interpreted and Dictated by Noel Neal III, MD Transcribed by Tyra Johnson Authenticated and [facility]
== END ==
LOC: RAD 13:00
PROVIDERS: PCP Internal Medicine; Visit Provider Internal Medicine Nephrology
DX: N18.32 Chronic kidney disease, stage 3b (principal)
CPT/HCPCS: 76770

== ENCOUNTER → 2023-07-10 10:11 | Outpatient (CLI) | payer MEDICARE, SELFPAY ==
[2023-07-10 10:20] LABS: Microscopic, Urine URINE MICROSCOPIC (MICROSCOPIC)
[2023-07-10 10:34] LABS: Basophils % 1.1 % (0.1-2.0); Eosinophils # 0.2 K/mm3 (0.0-0.4); Eosinophils % 5.9 % (0.1-12.0); Hematocrit 46.6 % (42.0-52.0); Hemoglobin 15.1 g/dL (14.1-18.0); Lymphocytes # 1.4 K/mm3 (0.7-4.5); Lymphocytes % 35.4 % (10-50); Mean Corpuscular HGB Conc 32.4 g/dL (31.8-35.4); Mean Corpuscular Hemoglobin 29.9 pg (27.0-31.2); Mean Corpuscular Volume 92.3 fl (80-94); Monocytes # 0.2 K/mm3 (0.1-1.0); Monocytes % 6.2 % (1.7-9.3); Neutrophils % 51.3 % (37.0-80.0); Platelet Count 169 K/mm3 (142-424); Red Blood Count 5.05 M/mm3 (4.60-6.20); Red Cell Distribution Width 14.1 % (11.5-17.5); White Blood Count 3.9 K/mm3 (4.8-10.8)
[2023-07-10 11:04] LABS: Appearance,Urine Clear (Clear); Bilirubin,Urine Negative (Negative); Blood, Urine Negative (Negative); Color,Urine Yellow (Yellow); Glucose,Urine (UA) Negative (Negative); Ketones,Urine Negative (Negative); Leukocyte Esterase,Urine Negative (Negative); Nitrate,Urine Negative (Negative); Protein,Urine Negative (Negative); Specific Gravity, Urine 1.005 (1.005-1.030); Urobilinogen,Urine 0.2 EU/dl (0.2)
[2023-07-10 11:06] LABS: Squamous Epithelial Cell,Urine Occasional #/hpf (0-5); WBC,Urine Occasional #/hpf (0-3)
[2023-07-10 11:26] LABS: Albumin Level 3.7 g/dl (3.5-5.0); Anion Gap 15.1 mEq/L (5-15); Blood Urea Nitrogen 13 mg/dl (9-20); Calcium 8.9 mg/dl (8.4-10.2); Carbon Dioxide 29 mmol/L (22.0-30.0); Chloride 100 mmol/L (98-107); Estimated Glomerular Filt Rate 47 ml/min (>60); GFR (African American) 56 ML/MIN (>60); Glucose 78 mg/dl (74-100); Phosphorous 3.7 mg/dl (2.5-4.5); Potassium 4.1 mmoL/L (3.5-5.1); Sodium 140 mmol/L (136-145)
[2023-07-10 11:38] LABS: Creatinine,Urine Random 11 mg/dL (Not Estab.)
[2023-07-10 11:45] LABS: 25-OH Vitamin D, Total 42.3 ng/mL (30-100)
[2023-07-10 14:47] LABS: Intact Parathyroid Hormone 96.4 pg/mL (7.5-53.5)
== END ==
PROVIDERS: PCP Internal Medicine; Visit Provider Internal Medicine Nephrology
DX: N18.32 Chronic kidney disease, stage 3b (principal)
CPT/HCPCS: 36415; 80069; 81001; 82306; 82570; 83970; 84155; 85025

== ENCOUNTER → 2023-10-13 11:18 | Outpatient (CLI) | payer MEDICARE, SELFPAY ==
[2023-10-13 12:06] LABS: Basophils # 0.1 K/mm3 (0-0.2); Basophils % 1.1 % (0.1-2.0); Eosinophils # 0.2 K/mm3 (0.0-0.4); Eosinophils % 2.8 % (0.1-12.0); Hematocrit 45.6 % (42.0-52.0); Hemoglobin 15.5 g/dL (14.1-18.0); Lymphocytes # 1.9 K/mm3 (0.7-4.5); Mean Corpuscular Hemoglobin 31.1 pg (27.0-31.2); Mean Corpuscular Volume 91.6 fl (80-94); Mean Platelet Volume 8.7 fl (7.4-10.4); Monocytes # 0.4 K/mm3 (0.1-1.0); Monocytes % 6.3 % (1.7-9.3); Neutrophils # 4.4 K/mm3 (1.8-7.8); Neutrophils % 62.9 % (37.0-80.0); Platelet Count 192 K/mm3 (142-424); Red Blood Count 4.98 M/mm3 (4.60-6.20); Red Cell Distribution Width 13.7 % (11.5-17.5)
[2023-10-13 12:42] LABS: Alanine Aminotransferase 22 U/L (12-78); Albumin Level 4.2 g/dl (3.5-5.0); Albumin/Globulin Ratio 1.3 (1.1-1.8); Alkaline Phosphatase 121 U/L (38-126); Anion Gap 13.8 mEq/L (5-15); Aspartate Amino Transferase 34 U/L (17-59); Bilirubin,Total 0.6 mg/dl (0.2-1.3); Blood Urea Nitrogen 21 mg/dl (9-20); Carbon Dioxide 32 mmol/L (22.0-30.0); Chloride 98 mmol/L (98-107); Chol/HDL Ratio 2.4 (1-3.5); Cholesterol 204 mg/dl (140-200); Estimated Glomerular Filt Rate 43 ml/min (>60); GFR (African American) 52 ML/MIN (>60); Globulin 3.2 g/dL (1.3-3.2); Glucose 86 mg/dl (74-100); HDL Cholesterol 86 mg/dl (40-60); Potassium 3.8 mmoL/L (3.5-5.1); Sodium 140 mmol/L (136-145); Total Protein,Serum 7.4 g/dl (6.3-8.2); Triglycerides 48 mg/dl (30-150); VLDL Cholesterol 10 mg/dL (0-40)
[2023-10-13 13:46] LABS: Prostate Specific Ag Screen 0.7 ng/ml (0.0-4.0)
[2023-10-13 14:15] LABS: Direct LDL Cholesterol 103.32 mg/dL (100-129)
== END ==
PROVIDERS: PCP Internal Medicine; Visit Provider Internal Medicine
DX: I25.10 Atherosclerotic heart disease of native coronary artery without angina pectoris (principal); I10 Essential (primary) hypertension; I48.0 Paroxysmal atrial fibrillation; E03.9 Hypothyroidism, unspecified; E78.5 Hyperlipidemia, unspecified; J44.9 Chronic obstructive pulmonary disease, unspecified; G47.33 Obstructive sleep apnea (adult) (pediatric); Z86.73 Personal history of transient ischemic attack (TIA), and cerebral infarction without residual deficits; Z12.5 Encounter for screening for malignant neoplasm of prostate
CPT/HCPCS: 36415; 80053; 80061; 85025; G0103

== ENCOUNTER 2024-01-07 09:47 | Outpatient (CLI) | payer MEDICARE, SELFPAY ==
[2024-01-07 09:59] LABS: Microscopic, Urine URINE MICROSCOPIC (MICROSCOPIC)
[2024-01-07 10:22] LABS: Appearance,Urine CLEAR (Clear); Bilirubin,Urine Negative (Negative); Blood, Urine Negative (Negative); Color,Urine YELLOW (Yellow); Glucose,Urine (UA) Negative (Negative); Ketones,Urine Negative (Negative); Leukocyte Esterase,Urine Negative (Negative); Nitrate,Urine Negative (Negative); Protein,Urine Negative (Negative); Specific Gravity, Urine 1.015 (1.005-1.030); Urobilinogen,Urine 0.2 EU/dl (0.2)
[2024-01-07 10:27] LABS: Hematocrit 46.6 % (42.0-52.0); Hemoglobin 15.1 g/dL (14.1-18.0); Mean Corpuscular HGB Conc 32.5 g/dL (31.8-35.4); Mean Corpuscular Volume 92.4 fl (80-94); Platelet Count 266 K/mm3 (142-424); Red Blood Count 5.04 M/mm3 (4.60-6.20); Red Cell Distribution Width 14.3 % (11.5-17.5); White Blood Count 9.7 K/mm3 (4.8-10.8)
[2024-01-07 10:38] LABS: Bacteria,Urine Trace /lpf; Squamous Epithelial Cell,Urine Occasional #/hpf (0-5)
[2024-01-07 10:41] LABS: Creatinine,Urine Random 17 mg/dL (Not Estab.)
[2024-01-07 11:02] LABS: Albumin Level 3.8 g/dl (3.5-5.0); Anion Gap 9.1 mEq/L (5-15); Blood Urea Nitrogen 18 mg/dl (9-20); Calcium 9.4 mg/dl (8.4-10.2); Carbon Dioxide 32 mmol/L (22.0-30.0); Chloride 103 mmol/L (98-107); Estimated Glomerular Filt Rate 50 ml/min (>60); GFR (African American) 61 ML/MIN (>60); Glucose 88 mg/dl (74-100); Phosphorous 4.2 mg/dl (2.5-4.5); Potassium 4.1 mmoL/L (3.5-5.1); Sodium 140 mmol/L (136-145)
== END 2024-01-07 23:59 ==
LOC: LAB 09:49
PROVIDERS: PCP Internal Medicine; Visit Provider Internal Medicine Nephrology
DX: N18.32 Chronic kidney disease, stage 3b (principal)
CPT/HCPCS: 36415; 80069; 81001; 82570; 84155; 85014; 85018; 85048; 85049

== ENCOUNTER 2024-01-14 16:06 | Outpatient (POV) | payer MEDICARE, SELFPAY | END 2024-01-14 23:59 | disposition home or self-care (01) | LOC: SC 16:06 | PROVIDERS: Visit Provider Internal Medicine Nephrology | DX: Z00.00 Encounter for general adult medical examination without abnormal findings (principal) ==

== ENCOUNTER 2024-04-13 09:44 | Outpatient (CLI) | payer MEDICARE, SELFPAY ==
[2024-04-13 15:10] LABS: Basophils # 0.1 K/mm3 (0-0.2); Basophils % 1.4 % (0.1-2.0); Eosinophils # 0.4 K/mm3 (0.0-0.4); Eosinophils % 5.8 % (0.1-12.0); Hematocrit 48.2 % (42.0-52.0); Lymphocytes # 1.7 K/mm3 (0.7-4.5); Lymphocytes % 27.2 % (10-50); Mean Corpuscular HGB Conc 33.1 g/dL (31.8-35.4); Mean Corpuscular Hemoglobin 30.4 pg (27.0-31.2); Mean Corpuscular Volume 91.8 fl (80-94); Mean Platelet Volume 8.4 fl (7.4-10.4); Monocytes # 0.5 K/mm3 (0.1-1.0); Monocytes % 7.7 % (1.7-9.3); Neutrophils # 3.6 K/mm3 (1.8-7.8); Neutrophils % 57.9 % (37.0-80.0); Platelet Count 185 K/mm3 (142-424); Red Blood Count 5.25 M/mm3 (4.60-6.20); Red Cell Distribution Width 14.9 % (11.5-17.5); White Blood Count 6.2 K/mm3 (4.8-10.8)
[2024-04-13 15:50] LABS: Chloride 100 mmol/L (98-107); Potassium 4.7 mmoL/L (3.5-5.1); Sodium 139 mmol/L (136-145)
[2024-04-13 15:53] LABS: Alanine Aminotransferase 15 U/L (12-78); Albumin Level 4.2 g/dl (3.5-5.0); Albumin/Globulin Ratio 1.6 (1.1-1.8); Alkaline Phosphatase 93 U/L (38-126); Anion Gap 12.7 mEq/L (5-15); Aspartate Amino Transferase 31 U/L (17-59); Bilirubin,Total 0.9 mg/dl (0.2-1.3); Blood Urea Nitrogen 19 mg/dl (9-20); Calcium 9.5 mg/dl (8.4-10.2); Carbon Dioxide 31 mmol/L (22.0-30.0); Chol/HDL Ratio 1.6 (1-3.5); Cholesterol 175 mg/dl (140-200); Estimated Glomerular Filt Rate 47 ml/min (>60); GFR (African American) 56 ML/MIN (>60); Globulin 2.7 g/dL (1.3-3.2); Glucose 73 mg/dl (74-100); HDL Cholesterol 107 mg/dl (40-60); Total Protein,Serum 6.9 g/dl (6.3-8.2); Triglycerides 71 mg/dl (30-150); VLDL Cholesterol 14 mg/dL (0-40)
[2024-04-13 16:08] LABS: Direct LDL Cholesterol 73.75 mg/dL (100-129)
== END 2024-04-13 23:59 | disposition home or self-care (01) ==
LOC: LAB.DROPOF 04-14 09:45
PROVIDERS: PCP Internal Medicine; Visit Provider Internal Medicine
DX: I10 Essential (primary) hypertension (principal); E78.5 Hyperlipidemia, unspecified; Z87.891 Personal history of nicotine dependence
CPT/HCPCS: 80053; 80061; 85025

== ENCOUNTER 2024-06-02 13:55 | Emergency (ER) | payer MEDICARE, SELFPAY ==
[2024-06-02 14:35] VITALS: BP 121/76; PULSE 77; RESP 16; TEMP 36.9; O2SAT 96; BMI 31.1
[2024-06-02 15:00] LABS: Uric Acid 9.3 mg/dl (3.5-8.5)
--- NOTE | 2024-06-02 15:07 | ED_ITS ---
Discharge Plan Disposition Patient Disposition: Home, Self-Care Condition: Good Prescriptions Prescriptions: New prednisone 20 mg tablet 20 mg PO BID 5 Days Qty: 10 0RF No Action ascorbic acid (vitamin C) 500 mg tablet 500 mg PO DAILY sildenafil 100 mg tablet 100 mg PO PRN potassium chloride 20 mEq tablet extended release PO bumetanide 2 mg tablet 2 mg PO DAILY ondansetron HCl 4 mg tablet 4 mg PO Q8H PRN terbinafine HCl 250 mg tablet See Rx Instructions PO DAILY Qty: 45 0RF Rx Instructions: One half a tablet daily orally ; tamsulosin 0.4 mg capsule 0.4 mg PO DAILY Qty: 30 0RF Eliquis 5 mg tablet 5 mg PO BID Qty: 180 1RF tamsulosin 0.4 MG capsule 0.4 mg PO HS buspirone 10 MG tablet 10 mg PO BID lansoprazole 30 MG capsule,delayed release(DR/EC) 30 mg PO DAILY levothyroxine 125 mcg tablet 75 mcg PO DAILY ipratropium-albuterol 3 ML solution for nebulization 3 ml inhalation Q6RT 0RF diltiazem HCl 120 MG capsule,extended release 24hr 120 mg PO BID Qty: 60 1RF atorvastatin 40 MG tablet 40 mg PO HS Referrals Follow up/Referrals: Derrell West MD [Primary Care Provider] - See instructions Activity Restrictions/Add. Instructions Additional Instructions/Restrictions: Start oral Prednisone tomorrow 06/04/24 Follow up with your Family Doctor if no improvement or any worsening of symptoms Return if needed Straight to ER if any life threatening symptoms Clinical Impressions Clinical Impression: Gout Qualifiers: Gout site: knee Gout etiology: unspecified cause Chronicity: acute Laterality: left Qualified Code(s): M10.9 - Gout, unspecified Instructions Patient Instructions: Gout, DI for Gout, Prednisone Print Language Print Language: Nigerian Discharge ED Provider: Carri Matos [facility] [place] General Stated complaint: pain in right foot and ankle Mode of Arrival: Wheelchair Source of Information: Patient Limitations: No Limitations Time Seen by Provider: 06/02/24 15:07 Description of Symptoms (Recalled from Triage Doc. by RN): Reports right foot and ankle pain and swelling. States he thinks he has a gout flareup. HEENT Symptoms (Recalled from RN notes): No Resp Symptoms (Recalled from RN notes): No Skin Symptoms (Recalled from RN notes): No MS Symptoms (Recalled from RN notes): Yes Functional Status (Recalled from RN notes): wnl History of Present Illness Provider Complaint: Patient states that he has been having swelling and pain in his right ankle States he seen PCP earlier in the week but the pain had stopped so they increased his fluid pill but now the pain has returned and feels like it does when he has gout so he came in Related Data Home Medications ?Medication ?Instructions ?Recorded ?Confirmed buspirone 10 mg tablet 10 mg PO BID Anxiety 03/02/18 05/30/24 tamsulosin 0.4 mg capsule 0.4 mg PO HS Prostate 03/02/18 05/30/24 lansoprazole 30 mg capsule,delayed 30 mg PO DAILY ACID REFLUX 05/07/20 05/30/24 release atorvastatin 40 mg tablet 40 mg PO HS Cholesterol 07/17/20 05/30/24 ascorbic acid (vitamin C) 500 mg 500 mg PO DAILY 04/13/24 05/30/24 tablet bumetanide 2 mg tablet 2 mg PO DAILY 04/13/24 05/30/24 levothyroxine 125 mcg tablet 75 mcg PO DAILY Hypothyroidism 04/13/24 05/30/24 ondansetron HCl 4 mg tablet 4 mg PO Q8H PRN 04/13/24 05/30/24 potassium chloride 20 mEq meq PO 04/13/24 05/30/24 tablet,extended release sildenafil 100 mg tablet 100 mg PO PRN 04/13/24 05/30/24 Previous Rx's ?Medication ?Instructions ?Recorded diltiazem HCl 120 mg 120 mg PO BID ##60 10/13/20 capsule,extended release 24 hr ipratropium 0.5 mg-albuterol 3 mg 3 ml inhalation Q6RT 10/13/20 (2.5 mg base)/3 mL nebulization soln tamsulosin 0.4 mg capsule 0.4 mg PO DAILY #30 caps 03/25/24 apixaban 5 mg tablet (Eliquis) 5 mg PO BID #180 tabs 05/23/24 terbinafine HCl 250 mg tablet See Rx Instructions PO DAILY #45 05/30/24 tabs prednisone 20 mg tablet 20 mg PO BID 5 days #10 tabs 06/02/24 Allergies Allergy/AdvReac Type Severity Reaction Status Date / Time amantadine [AMANTADINE] Allergy Mild SEIZURE Verified 05/30/24 14:07 codeine [CODEINE] Allergy Mild I-RASH Verified 05/30/24 14:07 metoclopramide [From Reglan] Allergy Verified 05/30/24 14:07 Penicillins Allergy Verified 05/30/24 14:07 Worker's Comp Is this a Worker's Comp case?: No [facility] Disclaimer: The information contained in this section may have been updated after the patient was seen, as this information can be updated by other users. Medical History Acute gout of left foot Moderate major depression Benign essential HTN Hyperlipidemia LDL goal <100 Obstructive sleep apnea (adult) (pediatric) Anxiety disorder, unspecified Hypothyroidism, unspecified Social History Smoking Status: Former smoker tobacco type: cigarettes packs per day: 1 second hand exposure: Yes alcohol intake: current alcohol intake frequency: a few times a week substance use type: denies use current occupational status: disabled Travel in the last 8 weeks: None household members: significant other housing: house current occupational exposures/hazards: No caffeine: Yes ROS Obtained: Yes All systems reviewed & no additional complaints except as documented and Yes Systems reviewed as appropriate & no additional complaints except as documented Constitutional Constitutional: Reports system reviewed and no additional complaints, except as documented and Reports as per HPI ENT Ears, Nose, Mouth, and Throat: Reports system reviewed and no additional complaints, except as documented and Reports as per HPI Cardiovascular Cardiovascular: Reports system reviewed and no additional complaints, except as documented and Reports as per HPI Respiratory Respiratory: Reports system reviewed and no additional complaints, except as documented and Reports as per HPI Gastrointestinal Gastrointestingal: Reports system reviewed and no additional complaints, except as documented and as per HPI Musculoskeletal Musculoskeletal: Reports system reviewed and no additional complaints, except as documented and Reports as per HPI Comments: Pain and swelling in right ankle feels like it does when he has gout flare Integumentary/Breasts Skin/Breast: Reports system reviewed and no additional complaints, except as documented and Reports as per HPI Physical Exam General General appearance: alert and in no apparent distress ENT ENT exam: Present mucous membranes moist Respiratory Respiratory exam: Present normal lung sounds bilaterally; Absent respiratory distress or wheezes Cardiovascular Cardiovascular exam: Present regular rate and normal rhythm Expanded Lower Extremity Exam Right: Ankle exam: Present swelling and erythema (mild) Ankle image: 2 1. swelling noted Neurological Exam Neurological exam: Present alert, oriented X3 and normal gait Medical Decision Making Frank Inquiry Pt receiving controlled substance: No Frank was queried for this patient: No Vital Signs: 06/02/24 14:35 Temperature 98.4 F Temperature Source Oral Pulse Rate [Radial] 77 Respiratory Rate 16 Blood Pressure [Right Arm] 121/76 Blood Pressure Mean [Right Arm] 91 Blood Pressure Source [Right Arm] Automatic Cuff Blood Pressure Position [Right Arm] Sitting 02 Sat by Pulse Oximetry 96 Oxygen Delivery Method Room Air Lab Data Lab results reviewed: Yes I reviewed the patient's lab results. Lab Results 06/02/24 14:33: Uric Acid 9.3 H Orders (Tests/Meds): ORDERS Category Date Time Status Uric Acid Stat Lab 06/02/24 14:33 Completed Medical Decision Narrative: Medication discussed with pharmacy, Patient reports he has taken prednisone in the past without complications or reactions
[2024-06-02] MEDS: METHYLPREDNISOLONE SOD SUCC 125MG VIAL 125 MG IM (15:26)
[2024-06-02 15:49] VITALS: BP 121/76; PULSE 77; RESP 16; TEMP 36.9; O2SAT 96
== END 2024-06-02 15:50 | disposition home or self-care (01) ==
PROVIDERS: Emergency Provider Nurse Practitioner; PCP Internal Medicine
DX: M10.071 Idiopathic gout, right ankle and foot (principal); M25.571 Pain in right ankle and joints of right foot
CPT/HCPCS: 84550; 96372; 99204; 99212; G0463; J2919

== ENCOUNTER 2024-09-06 14:55 | Outpatient (CLI) | payer MEDICARE, SELFPAY ==
[2024-09-06 15:09] LABS: Microscopic, Urine URINE MICROSCOPIC (MICROSCOPIC)
[2024-09-06 15:50] LABS: Appearance,Urine CLEAR (Clear); Bilirubin,Urine Negative (Negative); Blood, Urine Negative (Negative); Color,Urine YELLOW (Yellow); Glucose,Urine (UA) Negative (Negative); Ketones,Urine Negative (Negative); Leukocyte Esterase,Urine Negative (Negative); Nitrate,Urine Negative (Negative); PH,Urine 6.5 (5.0-8.5); Protein,Urine Negative (Negative)
[2024-09-06 15:55] LABS: Basophils # 0.1 K/mm3 (0-0.2); Eosinophils # 0.2 K/mm3 (0.0-0.4); Eosinophils % 2.6 % (0.1-12.0); Hematocrit 46.7 % (42.0-52.0); Hemoglobin 16.2 g/dL (14.1-18.0); Lymphocytes # 1.4 K/mm3 (0.7-4.5); Lymphocytes % 15.4 % (10-50); Mean Corpuscular HGB Conc 34.7 g/dL (31.8-35.4); Mean Corpuscular Hemoglobin 30.9 pg (27.0-31.2); Mean Corpuscular Volume 88.9 fl (80-94); Mean Platelet Volume 7.3 fl (7.4-10.4); Monocytes # 0.6 K/mm3 (0.1-1.0); Monocytes % 6.3 % (1.7-9.3); Neutrophils # 6.6 K/mm3 (1.8-7.8); Neutrophils % 74.7 % (37.0-80.0); Platelet Count 184 K/mm3 (142-424); Red Blood Count 5.26 M/mm3 (4.60-6.20); Red Cell Distribution Width 14.1 % (11.5-17.5); White Blood Count 8.9 K/mm3 (4.8-10.8)
[2024-09-06 16:27] LABS: Bacteria,Urine 1+ /lpf; Mucus,Urine 1+ /lpf
[2024-09-06 16:44] LABS: Albumin Level 3.7 g/dl (3.5-5.0); Anion Gap 15.9 mEq/L (5-15); Blood Urea Nitrogen 20 mg/dl (9-20); Carbon Dioxide 26 mmol/L (22.0-30.0); Chloride 97 mmol/L (98-107); Estimated Glomerular Filt Rate 43 ml/min (>60); GFR (African American) 52 ML/MIN (>60); Glucose 82 mg/dl (74-100); Phosphorous 3.2 mg/dl (2.5-4.5); Potassium 3.9 mmoL/L (3.5-5.1); Sodium 135 mmol/L (136-145)
[2024-09-06 16:46] LABS: Creatinine,Urine Random 41 mg/dL (Not Estab.)
== END 2024-09-06 23:59 | disposition home or self-care (01) ==
LOC: LAB 14:58
PROVIDERS: PCP Internal Medicine; Visit Provider Internal Medicine Nephrology
DX: N18.31 Chronic kidney disease, stage 3a (principal)
CPT/HCPCS: 36415; 80069; 81001; 82570; 84156; 85025

== ENCOUNTER 2024-09-13 13:10 | Outpatient (POV) | payer MEDICARE, SELFPAY | END 2024-09-13 23:59 | disposition home or self-care (01) | LOC: SC 09-14 08:09 | PROVIDERS: Visit Provider Dermatology | DX: Z00.00 Encounter for general adult medical examination without abnormal findings (principal) ==

== ENCOUNTER 2024-10-13 13:03 | Outpatient (CLI) | payer MEDICARE, SELFPAY ==
[2024-10-13 12:46] LABS: Basophils # 0.1 K/mm3 (0-0.2); Basophils % 0.7 % (0.1-2.0); Eosinophils # 0.2 K/mm3 (0.0-0.4); Eosinophils % 1.8 % (0.1-12.0); Hemoglobin 17.2 g/dL (14.1-18.0); Lymphocytes # 2.6 K/mm3 (0.7-4.5); Mean Corpuscular HGB Conc 33.8 g/dL (31.8-35.4); Mean Corpuscular Volume 91.9 fl (80-94); Mean Platelet Volume 7.7 fl (7.4-10.4); Monocytes # 0.8 K/mm3 (0.1-1.0); Monocytes % 6.6 % (1.7-9.3); Neutrophils # 8.1 K/mm3 (1.8-7.8); Neutrophils % 68.9 % (37.0-80.0); Platelet Count 215 K/mm3 (142-424); Red Blood Count 5.55 M/mm3 (4.60-6.20); Red Cell Distribution Width 14.9 % (11.5-17.5); White Blood Count 11.8 K/mm3 (4.8-10.8)
[2024-10-13 13:38] LABS: Alanine Aminotransferase 30 U/L (12-78); Albumin Level 4.2 g/dl (3.5-5.0); Albumin/Globulin Ratio 1.8 (1.1-1.8); Alkaline Phosphatase 80 U/L (38-126); Anion Gap 11.7 mEq/L (5-15); Aspartate Amino Transferase 34 U/L (17-59); Bilirubin,Total 1.2 mg/dl (0.2-1.3); Blood Urea Nitrogen 29 mg/dl (9-20); Calcium 9.5 mg/dl (8.4-10.2); Carbon Dioxide 34 mmol/L (22.0-30.0); Chloride 97 mmol/L (98-107); Cholesterol 199 mg/dl (140-200); Estimated Glomerular Filt Rate 46 ml/min (>60); GFR (African American) 56 ML/MIN (>60); Globulin 2.4 g/dL (1.3-3.2); Glucose 68 mg/dl (74-100); Potassium 3.7 mmoL/L (3.5-5.1); Sodium 139 mmol/L (136-145); Total Protein,Serum 6.6 g/dl (6.3-8.2); Triglycerides 128 mg/dl (30-150); Uric Acid 10.3 mg/dl (3.5-8.5); VLDL Cholesterol 26 mg/dL (0-40)
[2024-10-13 13:45] LABS: Chol/HDL Ratio 1.9 (1-3.5); HDL Cholesterol 104 mg/dl (40-60)
[2024-10-13 13:48] LABS: Direct LDL Cholesterol 78.05 mg/dL (100-129)
[2024-10-13 14:03] LABS: Prostate Specific Ag Screen 0.8 ng/ml (0.0-4.0)
== END 2024-10-13 23:59 | disposition home or self-care (01) ==
LOC: LAB.DROPOF 13:03
PROVIDERS: PCP Internal Medicine; Visit Provider Internal Medicine
DX: Z12.5 Encounter for screening for malignant neoplasm of prostate (principal); I11.0 Hypertensive heart disease with heart failure; I50.32 Chronic diastolic (congestive) heart failure; E78.5 Hyperlipidemia, unspecified; M10.9 Gout, unspecified; Z87.891 Personal history of nicotine dependence
CPT/HCPCS: 80053; 80061; 84550; 85025; G0103

== ENCOUNTER 2024-11-11 13:40 | Outpatient (CLI) | payer MEDICARE, SELFPAY ==
--- NOTE | 2024-11-11 13:43 | XR_ITS ---
FINAL REPORT CLINICAL HISTORY: Low back pain COMPARISON: 07/01/2023 FINDINGS: AP and lateral views of the lumbar spine were obtained. There is no prior exam for comparison. There is no acute fracture or malalignment. There is a minimal compression deformity of the superior endplate of L1, stable when compared to the prior exam. Multilevel degenerative disc disease is present, similar to that seen on the prior exam. No acute paraspinal abnormality. IMPRESSION: Degenerative change as described above, without acute osseous abnormality. Reviewed, Interpreted and Dictated by Rika Ennis MD Transcribed by Svetlana Chase Authenticated and [facility]
== END 2024-11-11 23:59 | disposition home or self-care (01) ==
LOC: RAD 13:41
PROVIDERS: PCP Internal Medicine; Visit Provider Internal Medicine
DX: M54.50 Low back pain, unspecified (principal)
CPT/HCPCS: 72100

== ENCOUNTER 2024-12-06 14:00 | Outpatient (RCR) | payer MEDICARE, SELFPAY ==
--- NOTE | 2024-11-21 12:27 | HMH.PTOPEV ---
PT Outpatient Evaluation Rehab PT Outpatient Evaluation Start: 11/21/24 10:01 Freq: Status: Active Protocol: Document 11/21/24 10:01 BELTRAN (Rec: 11/21/24 12:24 [id number]) E-signed By Sydnee Khan, PT Outpatient Therapy Subjective History Subjective History This is an initial physical therapy evaluation for 69 y/o male, Aden Cheung, who presents to PT with referral for LBP and Stiffness . Pt reports he had similar LBP in 2019 that resolved itself but then returned in Sep. Pt reports since his symptoms have returned, they have worsened. Pt reports central LBP with recent onset of radiating LLE pain to the knee . Pt is retired. Activities that worsen pt's pain include weed eating, vacuuming, bed mobility, and carrying weights /lifting. Pt does report more difficulty being able to lift LE into car d/t some weakness. Pt does have some numbness and tingling but those symptoms are infrequent. Pt finds some relief with muscle relaxers, heat, and Tylenol. Symptom onset: 2019. Symptoms went away. Then September 2024 symptoms returned. Mechanism of injury: Insidious X-ray 11/11: Degenerative change as described above, without acute osseous abnormality. There is a minimal compression deformity of the superior endplate of L1. PMH: Osteoporosis, Hypertension, chronic diastolic congestive heart failure, chronic atrial fibrillation, atherosclerotic coronary artery disease without angina pectoris, chronic kidney disease, old CVA, hyperlipidemia, degenerative joint disease, gout, and GERD with Gonzalez's esophagus. New diagnosis of cancer in past 12 No months? Chief Complaint Pain,Stiff,Weakness Symptom Type Ache,Shooting Symptoms Relieved By OTC Meds Symptoms Aggravated By Prone,Bending/Stooping, Physical Activity,Twisting, Lifting Prior Functional Limitations None Current Functional Limitations Lifting,Housework,Sleeping, Standing,Squatting,Recreation Activity,Bending/Stooping Level of pain today (0-10) 5 Pain scale - at its best (0-10) 0 Lumbopelvic Eval Posture Thoracic Spine Posture Standing Position Neutral Lumbar Spine Posture Standing Position Neutral Assistive device Assistive Devices None / NA Gait Observation General Gait Pattern Observation Antalgic Gait Palapation tenderness right lumbar spinal tenderness Yes: 2/4 TTP paraspinal tenderness Yes: 1/4 TTP buttock tenderness No: 0/4 TTP left lumbar spinal tenderness Yes: 2/4 TTP paraspinal tenderness Yes: 2/4 TTP buttock tenderness Yes: 2/4 TTP Lumbar/Sacral Palpation Findings Tenderness Range of Motion Lumbar Spine Active Flexion Range of 50%, painful Motion (degrees) Lumbar Spine Active Extension Range of 25%, painful Motion (degrees) Left Lumbar Spine Lateral Flexion Active 50%, painful Range of Motion (degrees) Right Lumbar Spine Lateral Flexion 50%, painful Active Range of Motion (degrees) Lumbar Spine ROM Limitations Pain Manual Muscle Test Right Hip Flexion Strength Grade 4 Good Hip Abduction Strength Grade 4- Good- Hip Adduction Strength Grade 4 Good Hip Extension Strength Grade 4 Good Left Hip Flexion Strength Grade 4- Good- Hip Abduction Strength Grade 4- Good- Hip Adduction Strength Grade 4- Good- Hip Extension Strength Grade 4- Good- Special Tests Hip Chris (JOSE R) Test Negative Left,Negative Right Hip Piriformis Test Negative Right,Positive Left Sciatic Nerve Tension Test Negative Right,Positive Left Crossed Straight Leg Raise Test Negative Left,Negative Right Sacroiliac Joint Compression Test Negative Left,Negative Right Oswestry Index Section 1 Pain Intensity The pain comes and goes and is severe Section 2 Personal Care (Washing,Dresing) my way of washing or dressing even though it causes some pain Section 3 Lifting I can lift heavy weights, but it gives me extra pain Section 4 Walking I cannot walk more than 1/4 mile without increasing pain Section 5 Sitting I can sit in any chair for as long as I like Section 6 Standing I have some pain on standing, but it does not increase with time Section 7 Sleeping Because of my pain, my normal night's sleep is less than 4 hours Section 8 Social Life Pain has no significant effect on my social life apart from limiting Section 9 Traveling I get some pain when traveling , but none of my usual forms of travel m Section 10 Changing Degreee of Pain My pain is neither getting better or worse Score and Risk Level Oswestry Sc 20 Oswestry Risk Level Moderate Disability Outpatient Therapy Assessment Impairments Problems/Impairmments Impaired Range of Motion, Impaired Strength,Impaired Transfers,Impaired Gait Pattern,Impaired Walking, Impaired Standing,Impaired Lifting,Impaired Bending, Impaired Recreational Activities,Subjective C/O Pain Prognosis Rehab Potential Good Comment Pt presents with chronic LBP with radiating pain. Pt with + slump test and sciatic nerve tensioning test on L side. Pt found symptom relief with HS and piriformis stretch. POC to include stretching taut muscles and strengthening core muscles. Pt would benefit from skilled OP PT to address deficits. Clinical Impression Consistent with Diagnosis Yes Consistent with LBP Short Term Goals Number of Weeks 3 Decreased Palpation Tenderness Yes: Lumbar paraspinals 1/4 TTP to decrease symptom irritability Increase Range of Motion Yes: Improved B HS mobility to 90 degrees. Increase Strength Yes: Improve LLE hip flexion to 4/5 MMT to assist with car transfers. Improve Oswestry Score Yes: Improve by 2 points/score of 18 points Decrease Subjective C/O Pain Yes: 48 hour pain average of 4 10 Patient to be Ind w/ HEP Yes: Verbalize IND with HEP White Spooler Goals Number of Weeks 8 Decreased Palpation Tenderness Yes: Lumbar paraspinals 0/4 TTP to decrease symptom irritability Increase Range of Motion Yes: Improve lumbar AROM to at least 75% available range all planes Increase Strength Yes: BLE demo 5/5 MMT to maximize functional strength and return to PLOF. Improve Oswestry Score Yes: Improve by 4 points since IE (<or=16) to improve symptom severity Decrease Subjective C/O Pain Yes: 48-hour pain average of to decrease pain severity. Patient to be Ind w/ Advanced HEP Yes: Verbalize compliance with HEP Outpatient Therapy Plan of Care Treatment Plan May Include Therapeutic Exercise Including Home Yes Exercise Program Manual Therapy Techniques Yes: Avoid spinal joint mobs d /t reported osteoporosis. Neuromuscular Re-education Yes Therapeutic Activities to Return to Yes Previous Functional/Work Level Gait Training Yes ADL/Self Care Education Yes Mechanical Traction Pt reports hx of osteoporosis Dry Needling Yes Thermal Modalities Yes Electrical Stimulation Yes Ultrasound/Phonophoresis Yes Iontophoresis Yes Orthotics/Bracing/Splinting Yes Vasopneumatic Compression Pump Yes Massage Yes Eval/Re-Eval Yes Aquatic Therapy Yes Frequency Times per week 2-3 times Duration Number of Weeks 6-8 weeks Addendums This patient is a candidate for social No or vocational rehab? Patient/Guardian verbally acknowledges Yes understanding of treatment program and consents to further treatment? Patient/Guardian verbally acknowledges Yes understanding of diagnosis, prognosis and goals for treatment? Eval Complexity PT Charges 04997 - Moderate Complexity Shoulder/Elbow Eval Shoulder Objective Measurements Elbow Objective Measurements PHYSICIAN CERTIFICATION: I certify the specified therapy services for Aden Fightmaster are required, authorized, and reviewed every 30 days.
== END 2024-12-06 23:59 | disposition home or self-care (01) ==
LOC: PT 14:00
PROVIDERS: Visit Provider Internal Medicine
DX: M54.50 Low back pain, unspecified (principal)
CPT/HCPCS: 97110; 97163; 97530

== ENCOUNTER 2024-12-13 14:02 | Outpatient (RCR) | payer MEDICARE, SELFPAY | END 2024-12-13 23:59 | disposition home or self-care (01) | LOC: PT 14:02 | PROVIDERS: Visit Provider Internal Medicine | DX: M54.50 Low back pain, unspecified (principal) | CPT/HCPCS: 97110 ==

== ENCOUNTER 2025-01-13 04:34 | Emergency (ER) | payer MEDICARE, SELFPAY ==
[2025-01-13 04:33] VITALS: BP 128/92; PULSE 82; O2SAT 92
[2025-01-13 04:34] VITALS: BP 128/92; PULSE 59; RESP 20; TEMP 36.8; O2SAT 93; BMI 33.5
--- NOTE | 2025-01-13 04:44 | PC.NURSE ---
Pt awake alert and oriented Skin pink warm and dry REsp full and easy Speech clear and appropriate. Pt able to [place] x4.
[2025-01-13 04:45] VITALS: PULSE 83; O2SAT 95
--- NOTE | 2025-01-13 04:45 | HMH.EDGENADL ---
Discharge Plan Disposition Patient Disposition: Home, Self-Care Prescriptions Prescriptions: New cyclobenzaprine 5 mg tablet 10 mg PO TID PRN (Reason: muscle spasm) Qty: 30 0RF lidocaine 5 % adhesive patch,medicated 1 patch topical DAILY PRN (Reason: pain) Qty: 30 0RF Rx Instructions: leave on most painful area for up to 12 hrs No Action ascorbic acid (vitamin C) 500 mg tablet 500 mg PO DAILY potassium chloride 20 mEq tablet extended release PO bumetanide 2 mg tablet 2 mg PO DAILY ondansetron HCl 4 mg tablet 4 mg PO Q8H PRN prednisone 10 mg tablet 10 mg PO DIRECTED Qty: 32 0RF Rx Instructions: see taper instructions: 4 tabs po qam x 5 days; 3 tabs po qam x 2 days; 2 tabs po qam x 2 days; 1 tab po qam x 2 days; then stop tizanidine 2 mg tablet See Rx Instructions PO Q8H PRN (Reason: muscle spasticity) Qty: 60 1RF Rx Instructions: 1 or 2 tablets orally every 8 hours PRN; prednisone 10 mg tablet 10 mg PO DIRECTED Qty: 32 0RF Rx Instructions: see taper instructions: 4 tabs po qam x 5 days; 3 tabs po qam x 2 days; 2 tabs po qam x 2 days; 1 tab po qam x 2 days; then stop allopurinol 100 mg tablet 200 mg PO DAILY Qty: 180 1RF trazodone 50 mg tablet 50 mg PO HS PRN (Reason: insomnia) Qty: 30 1RF tamsulosin 0.4 mg capsule 0.4 mg PO DAILY Qty: 30 0RF Eliquis 5 mg tablet 5 mg PO BID Qty: 180 1RF sildenafil 100 mg tablet See Rx Instructions .ROUTE .COMPLEX Qty: 9 2RF Dose Instruction: TAKE 1/2 OR 1 TABLET NEEDED Rx Instructions: TAKE 1/2 OR 1 TABLET NEEDED azithromycin 250 mg tablet See Rx Instructions PO .COMPLEX Qty: 6 0RF Rx Instructions: For 250 mg dose pack: take 500 mg today (day 1), then 250 mg for 4 days (days 2-5) PO lansoprazole 30 mg capsule,delayed release(DR/EC) 30 mg PO DAILY Qty: 90 1RF levothyroxine 125 mcg tablet 75 mcg PO DAILY Qty: 90 1RF buspirone 10 MG tablet 10 mg PO BID diltiazem HCl 120 MG capsule,extended release 24hr 120 mg PO BID Qty: 60 1RF atorvastatin 40 MG tablet 40 mg PO HS Activity Restrictions/Add. Instructions Additional Instructions/Restrictions: Please follow-up with your primary care provider. Please return to the emergency department if you develop any new or worsening symptoms or become concerned for your health. Clinical Impressions Clinical Impression: Osteopenia, Degenerative disc disease Acute left-sided low back pain with sciatica Qualifiers: Sciatica laterality: sciatica of left side Qualified Code(s): M54.42 - Lumbago with sciatica, left side Instructions Patient Instructions: DI for Low Back Pain Print Language Print Language: Bots[place] Discharge ED Provider: Odilon Jacob Adult HPI General Chief complaint: Back Pain/Injury Stated complaint: Back pain Time Seen by Provider: 01/13/25 04:35 Mode of Arrival: Ambulatory Source of Information: Patient Description of Symptoms (Recalled from ER Triage Doc. by RN): Pt states his back pain became worse yesterday morning Pain radiating down L leg Denies incontinence History of Present Illness HPI narrative: 69-year-old male with history of gout, chronic low back pain, A-fib on Eliquis, COPD presents for worsening back pain. He reports that he chronically has left-sided low back pain and has been going to therapy for it but does not feel like it has been getting any better. He is here this morning because back pain has been significantly worse than normal. It is located in the same location, left low back/SI joint area. It also radiates down the back of the left leg in the thigh. He denies any urinary/stool retention or incontinence, denies any groin/inguinal numbness. No recent trauma. No recent fever or infectious symptoms. No history of surgery in the area. Related Data Home Medications ?Medication ?Instructions ?Recorded ?Confirmed buspirone 10 mg tablet 10 mg PO BID Anxiety 03/02/18 12/21/24 atorvastatin 40 mg tablet 40 mg PO HS Cholesterol 07/17/20 12/21/24 ascorbic acid (vitamin C) 500 mg 500 mg PO DAILY 04/13/24 12/21/24 tablet bumetanide 2 mg tablet 2 mg PO DAILY 04/13/24 12/21/24 ondansetron HCl 4 mg tablet 4 mg PO Q8H PRN 04/13/24 12/21/24 potassium chloride 20 mEq meq PO 04/13/24 12/21/24 tablet,extended release Previous Rx's ?Medication ?Instructions ?Recorded diltiazem HCl 120 mg 120 mg PO BID ##60 10/13/20 capsule,extended release 24 hr tamsulosin 0.4 mg capsule 0.4 mg PO DAILY #30 caps 03/25/24 apixaban 5 mg tablet (Eliquis) 5 mg PO BID #180 tabs 05/23/24 sildenafil 100 mg tablet See Rx Instructions .Route 09/09/24 .COMPLEX #9 tabs azithromycin 250 mg tablet See Rx Instructions PO .COMPLEX #6 09/26/24 tabs lansoprazole 30 mg capsule,delayed 30 mg PO DAILY ACID REFLUX #90 caps 09/27/24 release levothyroxine 125 mcg tablet 75 mcg (0.6 x 125 mcg) PO DAILY 09/27/24 Hypothyroidism #90 tabs prednisone 10 mg tablet 10 mg PO DIRECTED #32 tabs 10/04/24 tizanidine 2 mg tablet See Rx Instructions PO Q8H PRN 10/04/24 muscle spasticity #60 tabs allopurinol 100 mg tablet 200 mg (2 x 100 mg) PO DAILY #180 12/21/24 tabs prednisone 10 mg tablet 10 mg PO DIRECTED #32 tabs 12/21/24 trazodone 50 mg tablet 50 mg PO HS PRN insomnia #30 tabs 12/21/24 cyclobenzaprine 5 mg tablet 10 mg (2 x 5 mg) PO TID PRN muscle 01/13/25 spasm #30 tabs lidocaine 5 % topical patch 1 patch topical DAILY PRN pain #30 01/13/25 ea Allergies Allergy/AdvReac Type Severity Reaction Status Date / Time metoclopramide (From Reglan) Allergy Intermediate Anxiety Verified 01/13/25 04:55 Penicillins Allergy Intermediate Anxiety Verified 01/13/25 04:55 amantadine (AMANTADINE) Allergy Mild SEIZURE Verified 12/21/24 13:48 codeine (CODEINE) Allergy Mild I-RASH Verified 12/21/24 13:48 cephalexin (From Keflex) Allergy Anxiety Verified 01/13/25 04:55 terbinafine AdvReac Mild Confusion Verified 12/21/24 13:48 [facility] Disclaimer: The information contained in this section may have been updated after the patient was seen, as this information can be updated by other users. Medical History Acute gout of left foot Moderate major depression Benign essential HTN Hyperlipidemia LDL goal <100 Obstructive sleep apnea (adult) (pediatric) Anxiety disorder, unspecified Hypothyroidism, unspecified Social History Smoking Status: Never smoker second hand exposure: Yes alcohol intake: current alcohol intake frequency: a few times a week substance use type: denies use current occupational status: disabled Travel in the last 8 weeks: None household members: significant other housing: house current occupational exposures/hazards: No caffeine: Yes Other Medical History Have you received the Flu Vaccine for this season: No Have you received the Pneumonia Vaccine: Yes ROS Obtained: Yes All systems reviewed & no additional complaints except as documented Physical Exam General General appearance: alert and in no apparent distress Head Head exam: atraumatic and normocephalic Eye Eye exam: Present normal appearance, PERRL and EOMI ENT ENT exam: Present normal oropharynx and normal external ear exam Neck Neck exam: Present normal inspection and full ROM Chest Chest inspection: Present normal inspection and symmetric chest wall rise; Absent tenderness Respiratory Respiratory exam: Present normal lung sounds bilaterally; Absent respiratory distress Cardiovascular Cardiovascular exam: Present regular rate and normal rhythm Abdominal Exam Abdominal exam: Present soft; Absent distention, tenderness or guarding Extremities Exam Extremities exam: Present normal inspection; Absent edema or joint swelling Back Exam Back exam: Present normal inspection, tenderness (Left low back/SI joint area. No CVA tenderness, no midline spinal tenderness.) and straight leg raise (L) Neurological Exam Neurological exam: Present alert and oriented X3; Absent motor sensory deficit Psychiatric Psychiatric exam: Present normal affect and normal mood Skin Skin exam: Present warm, dry and normal color Lymphatic Lymphatic Findings: no adenopathy Medical Decision Making Medical Records Medical records reviewed: Yes I reviewed the patient's medical records. Screening: Per USPSTF and CDC recommendations, given the prevalence of disease in our region, it is our hospital?s policy to screen for HIV and viral Hepatitis for all patients aged 18 and over and those with ongoing risk factors. Frank Inquiry Pt receiving controlled substance: No Frank was queried for this patient: No Vital Signs: 01/13/25 04:33 01/13/25 04:34 01/13/25 04:45 Temperature 98.2 F Temperature Source Oral Pulse Rate 82 83 Pulse Rate [Right Brachial] 59 L Respiratory Rate 20 Blood Pressure 128/92 H Blood Pressure [Right Arm] 128/92 H Blood Pressure Mean [Right Arm] 104 Blood Pressure Source [Right Arm] Automatic Cuff Blood Pressure Position [Right Arm] Sitting 02 Sat by Pulse Oximetry 92 L 93 L 95 Oxygen Delivery Method Room Air Room Air 01/13/25 05:00 01/13/25 05:06 Temperature Temperature Source Pulse Rate 79 91 H Pulse Rate [Right Brachial] Respiratory Rate Blood Pressure 127/75 116/71 Blood Pressure [Right Arm] Blood Pressure Mean [Right Arm] Blood Pressure Source [Right Arm] Blood Pressure Position [Right Arm] 02 Sat by Pulse Oximetry 96 94 L Oxygen Delivery Method Room Air Lab Data Lab results reviewed: Yes I reviewed the patient's lab results. Orders (Tests/Meds): ED MEDICATIONS Discontinued Medications Generic Name Dose Route Start Last Admin Trade Name Wilman PRN Reason Stop Dose Admin Acetaminophen 1,000 mg 01/13/25 04:55 01/13/25 05:02 Acetaminophen 500mg Tab PO 01/13/25 04:56 1,000 mg ONCE ONE Administration Ketorolac Tromethamine 30 mg 01/13/25 04:55 01/13/25 05:02 Ketorolac 30mg/Ml Vial IV 01/13/25 04:56 30 mg ONCE ONE Administration Lidocaine 1 each 01/13/25 04:55 01/13/25 05:02 Lidocaine 5% Transdermal Patch TP 01/13/25 04:56 1 each ONCE ONE Administration Methocarbamol 1,000 mg 01/13/25 04:55 01/13/25 05:02 Methocarbamol 500mg Tablet PO 01/13/25 04:56 1,000 mg ONCE ONE Administration ORDERS Category Date Time Status CT lumbar spine wo con Stat Cat Scan 01/13/25 04:55 Taken Medical Decision Narrative: 69-year-old male with history of gout hypertension COPD A-fib on Eliquis chronic low back pain presents with worsening of his left low back pain. History was obtained via interactive discussion with patient, chart review. On arrival, patient is [afebrile, hemodynamically stable, satting appropriately, alert, oriented x4, GCS 15], moving all extremities spontaneously. Full physical exam performed and significant for focal tenderness over the left SI area, positive straight leg raise on the left, no neurologic deficits on exam, no urinary retention Differential includes but is not limited to sacroiliitis, herniated disc, arthritis, fracture, dislocation, spinal cord pathology. Patient has no urinary symptoms nor any CVA tenderness to suggest a kidney stone UTI or pyelonephritis Patient was given Tylenol Toradol Robaxin and lidocaine patch for symptomatic management and correction of underlying abnormalities. Workup initiated including CT Noncon of the spine.. On re-evaluation, patient reports some symptomatic improvement. Imaging independently interpreted by me and significant for osteopenia and degenerative disc disease without fracture or severe canal stenosis. See radiology read for full review of final results. Blood work and urinalysis was considered, but deemed unnecessary due to history and exam. Given patient history, exam and workup, patient's presentation most likely represents acute on chronic low back pain, may represent sciatica or sacroiliitis. Interactive discussion was had with patient regarding his presentation and CT scan. He was given return precautions for signs of spinal cord pathology such as urinary retention, weakness numbness etc. He was discharged with prescription for Flexeril and lidocaine patches. Procedures Risk/Benefits of Procedure(s) Were Explained: Yes Critical Care Critical Care Time Critical Care Time: No
--- NOTE | 2025-01-13 04:55 | CT_ITS ---
FINAL REPORT CLINICAL HISTORY: worsening left low back/SI pain, fall from wheelchair COMPARISON: none FINDINGS: CT LUMBAR SPINE TECHNIQUE: Thin section axial CT with sagittal and coronal reconstructions This study was performed with techniques to keep radiation doses as low as reasonably achievable, (ALARA). Individualized dose reduction techniques using automated exposure control or adjustment of mA and/or kV according to the patient's size were employed. FINDINGS: No fracture is present. Alignment is normal. No bony canal stenosis is seen. There is mild degenerative disc disease and facet arthropathy. IMPRESSION: Negative CT evaluation of the lumbar spine for acute bony injury. Reviewed, Interpreted and Dictated by Rich Shearer MD Transcribed by Tyra Johnson Authenticated and [facility]
[2025-01-13 05:00] VITALS: BP 127/75; PULSE 79; O2SAT 96
[2025-01-13] MEDS: METHOCARBAMOL 500MG TABLET 1000 MG PO (05:02)
[2025-01-13] MEDS: KETOROLAC 30MG/ML VIAL 30 MG IV (05:02)
[2025-01-13] MEDS: LIDOCAINE 5% TRANSDERMAL PATCH 1 EACH TP (05:02)
[2025-01-13] MEDS: ACETAMINOPHEN 500MG TAB 1000 MG PO (05:02)
[2025-01-13 05:06] VITALS: BP 116/71; PULSE 91; O2SAT 94
--- NOTE | 2025-01-13 05:43 | PC.NURSE ---
provider at the bedside.
[2025-01-13 06:03] VITALS: BP 116/71; PULSE 91; RESP 14; TEMP 36.6; O2SAT 94
== END 2025-01-13 06:04 | disposition home or self-care (01) ==
PROVIDERS: Emergency Provider Emergency Medicine
DX: M54.2 Cervicalgia (principal)
CPT/HCPCS: 72131; 96374; 99284; J1885

== ENCOUNTER 2025-01-26 09:09 | Outpatient (POV) | payer MEDICARE, SELFPAY ==
--- NOTE | 2025-01-26 09:17 | A.OFFVIS_ITS ---
HPI Data of Consult Patient: new to practice Consult date: 01/26/25 Requesting Physician: Aleida Frank APRN Primary Care Provider: Derrell West MD Consult Narrative Reason for consult: Low back pain, left-sided History of present illness: Mr. Cheung is a 69 year old male who presents today as a new patient. He is a referral from Dr. West. Today he rates his pain a 7 out of 10. Patient states that he has been experiencing worsening pain in his low back along the left side and into his left hip, buttocks area for longer than a year. He denies any specific trauma or injury that initially started this symptoms. He states that it is a aching sensation with occasional sharp shooting pains with certain positions. He states over the last 3 months it is progressively worsened to where it is constant and is interfering with his ability to perform activities of daily living such as cooking and cleaning. Patient has had oral medications such as Tylenol as well as muscle relaxers and Percocet with some improvement however not consistent. He has also tried heat and topical THC ointment with minimal changes. Patient did complete physical therapy however did not get any improvement whatsoever from this. Patient denies any prior injections for his back however does state in years past he did have injections into his hips for bursitis and that these did work well and he has not needed any for more than 5 years. Patient is interested in any options we may be able to provide. His Frank has been reviewed and is appropriate. CC: Aleida Frank APRN [facility] Disclaimer: The information contained in this section may have been updated after the patient was seen, as this information can be updated by other users. Medical History Acute gout of left foot Moderate major depression Benign essential HTN Hyperlipidemia LDL goal <100 Obstructive sleep apnea (adult) (pediatric) Anxiety disorder, unspecified Hypothyroidism, unspecified Family History (Updated 01/26/25 @ 09:45 by Francesca Juarez RN) Other Unknown family medical history Social History (Updated 01/26/25 @ 09:45 by Francesca Juarez RN) Smoking Status: Never smoker second hand exposure: Yes alcohol intake: current alcohol intake frequency: a few times a week substance use type: denies use current occupational status: disabled Travel in the last 8 weeks: None household members: significant other housing: house current occupational exposures/hazards: No caffeine: Yes Contact w/someone who lives/traveled outside [place] past 30 days?: No Exposure to someone with infectious disease in past 14 days?: No Do you have a fever (greater than 100.4 F or 38 C)?: No Have you tested positive for COVID-19: No Exposed to someone with COVID-19 in past 14 days?: No Do you have a sore throat?: No Do you have a cough?: No Do you have any weakness?: No Are you experiencing any nausea/vomitting?: No Do you have any diarrhea?: No Are you experiencing any unusual bleeding?: No Do you have any muscle aches/pain?: No Do you have any abdominal pain?: No Are you experiencing loss of taste or smell?: No Review of Systems Review of Systems Review of systems:: pertinent systems reviewed and negative unless documented below Review of systems (narrative): Review of Systems: General: No recent weight changes, no fever, no sleep disturbances Respiratory: No cough, no shortness of air, no recurring pulmonary infections Cardiovascular/peripheral vascular: No chest pain, no palpitations, no edema, no shortness of breath Gastrointestinal: No new onset incontinence, normal bowel movements reported Genitourinary: No new onset incontinence Musculoskeletal: Low back pain left-sided Psychiatric: [Normal mood/affect] Neurological: [Denies weakness in extremities], [denies balance issues] Meds Home Medications and Allergies Home Medications ?Medication ?Instructions ?Recorded ?Confirmed ?Type buspirone 10 mg tablet 10 mg PO BID Anxiety 03/02/18 01/19/25 History atorvastatin 40 mg tablet 40 mg PO HS Cholesterol 07/17/20 01/19/25 History diltiazem HCl 120 mg 120 mg PO BID ##60 10/13/20 01/19/25 Rx capsule,extended release 24 hr tamsulosin 0.4 mg capsule 0.4 mg PO DAILY #30 caps 03/25/24 01/19/25 Rx ascorbic acid (vitamin C) 500 mg 500 mg PO DAILY 04/13/24 01/19/25 History tablet bumetanide 2 mg tablet 2 mg PO DAILY 04/13/24 01/19/25 History ondansetron HCl 4 mg tablet 4 mg PO Q8H PRN 04/13/24 01/19/25 History potassium chloride 20 mEq meq PO 04/13/24 01/19/25 History tablet,extended release apixaban 5 mg tablet (Eliquis) 5 mg PO BID #180 tabs 05/23/24 01/19/25 Rx lansoprazole 30 mg capsule,delayed 30 mg PO DAILY ACID REFLUX #90 caps 09/27/24 01/19/25 Rx release levothyroxine 125 mcg tablet 75 mcg (0.6 x 125 mcg) PO DAILY 09/27/24 01/19/25 Rx Hypothyroidism #90 tabs tizanidine 2 mg tablet See Rx Instructions PO Q8H PRN 10/04/24 01/19/25 Rx muscle spasticity #60 tabs allopurinol 100 mg tablet 200 mg (2 x 100 mg) PO DAILY #180 12/21/24 01/19/25 Rx tabs trazodone 50 mg tablet 50 mg PO HS PRN insomnia #30 tabs 12/21/24 01/19/25 Rx cyclobenzaprine 5 mg tablet 10 mg (2 x 5 mg) PO TID PRN muscle 01/13/25 01/19/25 Rx spasm #30 tabs lidocaine 5 % topical patch 1 patch topical DAILY PRN pain #30 01/13/25 01/19/25 Rx ea oxycodone-acetaminophen 5 mg-325 1 tab PO Q8H PRN pain #20 tabs 01/19/25 01/19/25 Rx mg tablet sildenafil 100 mg tablet See Rx Instructions .Route 01/19/25 01/19/25 Rx .COMPLEX #9 tabs New Prescriptions to Start Prescriptions: Allergies Allergy/AdvReac Type Severity Reaction Status Date / Time metoclopramide (From Reglan) Allergy Intermediate Anxiety Verified 01/19/25 10:44 Penicillins Allergy Intermediate Anxiety Verified 01/19/25 10:44 amantadine (AMANTADINE) Allergy Mild SEIZURE Verified 01/19/25 10:44 codeine (CODEINE) Allergy Mild I-RASH Verified 01/19/25 10:44 cephalexin (From Keflex) Allergy Anxiety Verified 01/19/25 10:44 terbinafine AdvReac Mild Confusion Verified 01/19/25 10:44 Objective Narrative: Physical Exam: General: Alert and oriented x3, no acute distress, pleasant and cooperative Lungs: Respirations even and unlabored, symmetrical chest expansion Eyes: PERRL Musculoskeletal: Flexion and extension of lumbar [spine] somewhat guarded secondary to pain, [antalgic gait noted] point tenderness along left SI with positive left Dario's, Tabitha's, Gaenslen's, compression and distraction exam Neurological: Speech clear, no gross sensory deficit Additional findings Additional findings: FINDINGS: CT LUMBAR SPINE TECHNIQUE: Thin section axial CT with sagittal and coronal reconstructions This study was performed with techniques to keep radiation doses as low as reasonably achievable, (ALARA). Individualized dose reduction techniques using automated exposure control or adjustment of mA and/or kV according to the patient's size were employed. FINDINGS: No fracture is present. Alignment is normal. No bony canal stenosis is seen. There is mild degenerative disc disease and facet arthropathy. IMPRESSION: Negative CT evaluation of the lumbar spine for acute bony injury. Reviewed, Interpreted and Dictated by Rich Shearer MD Transcribed by Tyra Johnson Authenticated and [facility] FINDINGS: AP and lateral views of the lumbar spine were obtained. There is no prior exam for comparison. There is no acute fracture or malalignment. There is a minimal compression deformity of the superior endplate of L1, stable when compared to the prior exam. Multilevel degenerative disc disease is present, similar to that seen on the prior exam. No acute paraspinal abnormality. IMPRESSION: Degenerative change as described above, without acute osseous abnormality. Reviewed, Interpreted and Dictated by Rika Ennis MD Transcribed by Svetlana Chase Authenticated and [facility] Assessment and Plan *Assessment and plan (1) Lumbago with sciatica, left side: Status: Acute Category: Medical Code(s): M54.42 - Lumbago with sciatica, left side (2) Low back pain: Status: Acute Category: Medical Code(s): M54.50 - Low back pain, unspecified (3) Sacroiliitis: Status: Acute Category: Medical Code(s): M46.1 - Sacroiliitis, not elsewhere classified Plan Patient is experiencing worsening pain along the low back and left hip. They did have limited range of motion of the lumbar spine along with point tenderness along left SI joints and a left bilateral Dario's, Tabitha's, Gaenslen's, compression and distraction exam. I did discuss with the patient that I do believe they would benefit from left SI injections. Risk and benefits were discussed with the patient and they would like to proceed forward with this option. Patient has tried and failed conservative therapy including oral medications, heat and ice, topicals, physical therapy and continued at home stretching exercise for longer than 12 weeks that was physician guided. Patient has been experiencing this pain for longer than 3 months. This will be a diagnostic SI injection with less than 1 mL of solution to be injected. If he does get significant improvement we will plan on repeating the injection when his pain does return with the possibility of a SI fusion in future. I will also order the patient a compounded cream. Patient will be scheduled for left SI injections under fluoroscopy. Patient has been instructed to contact the clinic with any concerns before the next appointment. Dr. Marvin has reviewed this note and agrees with this plan of care. This note was dictated using voice recognition software and make contain errors or omissions. All injections are used with Lidocaine or Bupivacaine and Depo Medrol.
[2025-01-26 09:44] VITALS: BP 106/57; PULSE 62; RESP 18; O2SAT 95; BMI 33.5
== END 2025-01-26 23:59 | disposition home or self-care (01) ==
LOC: SC.PAIN 09:10
PROVIDERS: PCP Internal Medicine; Visit Provider Nurse Practitioner Family
DX: M54.42 Lumbago with sciatica, left side (principal); M46.1 Sacroiliitis, not elsewhere classified; Z73.89 Other problems related to life management difficulty; Z79.01 Long term (current) use of anticoagulants
CPT/HCPCS: 99202; G0463

== ENCOUNTER 2025-02-15 18:14 | Observation (INO) | payer MEDICARE, SELFPAY ==
--- NOTE | 2025-02-15 18:17 | XR_ITS ---
PROCEDURE INFORMATION: Exam: XR Chest Exam date and time: 02/15/2025 7:10 PM Age: 69 years old Clinical indication: Shortness of breath; Additional info: yazmin BALDERAS TECHNIQUE: Imaging protocol: Radiologic exam of the chest. Views: 1 view. COMPARISON: CR XR CHEST PORTABLE 09/17/2021 3:27 PM FINDINGS: Lungs: Pleuroparenchymal scarring of the lung bases with subsegmental atelectasis is present without consolidations or pleural effusions that project above the diaphragm. Mild centrilobular emphysematous changes with an apical gradient is present. Pleural spaces: Unremarkable. No pleural effusion. No pneumothorax. Heart/Mediastinum: Unremarkable. No cardiomegaly. Bones/joints: Unremarkable. IMPRESSION: Pleuroparenchymal scarring of the lung bases with subsegmental atelectasis is present without consolidations or pleural effusions that project above the diaphragm.
[2025-02-15 18:18] VITALS: BP 115/82; PULSE 109; RESP 13; TEMP 36.9; O2SAT 93; BMI 34.2
--- NOTE | 2025-02-15 18:28 | ED_ITS ---
Discharge Plan Disposition Patient Disposition: Admitted Condition: Good Clinical Impressions Clinical Impression: CHF (congestive heart failure) Discharge ED Provider: Hua Allen General Adult HPI <Deb Wilkerson ([facility]), [employer] - Last Filed: 02/15/25 20:40> General Chief complaint: Shortness of Breath/Dyspnea Stated complaint: Gout Both Ankles Time Seen by Provider: 02/15/25 18:16 Mode of Arrival: EMS Source of Information: Patient Description of Symptoms (Recalled from ER Triage Doc. by RN): pt couldnt get up out of chair at home and called ems for a lift assist and then decided to come to hospital for bilateral ankle pain from his gout. pt states he took 5 mg percocet prior to ems ariival History of Present Illness HPI narrative: 69-year-old male presents for complaints of bilateral ankle pain and edema and increased shortness of breath. Patient states earlier today he could not get up out of a chair at home and called EMS for lift assistance and once they were there he decided to go get checked out in the ER. Related Data Home Medications ?Medication ?Instructions ?Recorded ?Confirmed buspirone 10 mg tablet 10 mg PO BID Anxiety 03/02/18 02/15/25 atorvastatin 40 mg tablet 40 mg PO HS Cholesterol 07/17/20 02/15/25 ascorbic acid (vitamin C) 500 mg 500 mg PO DAILY 04/13/24 02/15/25 tablet bumetanide 2 mg tablet 2 mg PO DAILY 04/13/24 02/15/25 ondansetron HCl 4 mg tablet 4 mg PO Q8H PRN Nausea 04/13/24 02/15/25 potassium chloride 20 mEq 40 meq PO DAILY SUPPLIMENT 04/13/24 02/15/25 tablet,extended release levothyroxine 112 mcg tablet 112 mcg PO DAILY 02/15/25 02/15/25 prasterone (dhea) 50 mg tablet 50 mg PO DAILY 02/15/25 02/15/25 (DHEA) sildenafil 100 mg tablet 100 mg PO NEEDED PRN Erectile 02/15/25 02/15/25 Dysfunction tamsulosin 0.4 mg capsule 0.8 mg PO DAILY 02/15/25 02/15/25 tizanidine 2 mg tablet 2 mg PO Q8H PRN muscle spasticity 02/15/25 02/15/25 Previous Rx's ?Medication ?Instructions ?Recorded diltiazem HCl 120 mg 120 mg PO BID ##60 10/13/20 capsule,extended release 24 hr apixaban 5 mg tablet (Eliquis) 5 mg PO BID #180 tabs 05/23/24 lansoprazole 30 mg capsule,delayed 30 mg PO DAILY ACID REFLUX #90 caps 09/27/24 release allopurinol 100 mg tablet 200 mg (2 x 100 mg) PO DAILY #180 12/21/24 tabs trazodone 50 mg tablet 50 mg PO HS PRN insomnia #30 tabs 12/21/24 cyclobenzaprine 5 mg tablet 10 mg (2 x 5 mg) PO TID PRN muscle 01/13/25 spasm #30 tabs oxycodone-acetaminophen 5 mg-325 1 tab PO Q8H PRN pain #20 tabs 01/19/25 mg tablet prednisone 10 mg tablet 10 mg PO DIRECTED #32 tabs 01/31/25 Allergies Allergy/AdvReac Type Severity Reaction Status Date / Time metoclopramide (From Reglan) Allergy Intermediate Anxiety Verified 01/19/25 10:44 Penicillins Allergy Intermediate Anxiety Verified 01/19/25 10:44 amantadine (AMANTADINE) Allergy Mild SEIZURE Verified 01/19/25 10:44 codeine (CODEINE) Allergy Mild I-RASH Verified 01/19/25 10:44 cephalexin (From Keflex) Allergy Anxiety Verified 01/19/25 10:44 terbinafine AdvReac Mild Confusion Verified 01/19/25 10:44 PFSH <Deb Wilkerson ([facility]), [employer] - Last Filed: 02/15/25 20:40> PFS Disclaimer: The information contained in this section may have been updated after the patient was seen, as this information can be updated by other users. Medical History (Reviewed 02/15/25 @ 20:36 by Deb Wilkerson ([facility]), [employer]) Acute gout of left foot Moderate major depression Benign essential HTN Hyperlipidemia LDL goal <100 Obstructive sleep apnea (adult) (pediatric) Anxiety disorder, unspecified Hypothyroidism, unspecified Family History (Updated 02/15/25 @ 21:28 by Krysta Storm RN) Other No significant family history Unknown family medical history Social History (Updated 02/15/25 @ 21:28 by Krysta Storm RN) Smoking Status: Former smoker tobacco type: cigarettes packs per day: 1 second hand exposure: Yes alcohol intake: current alcohol intake frequency: a few times a week substance use type: denies use current occupational status: retired and disabled Travel in the last 8 weeks: None household members: significant other housing: house current occupational exposures/hazards: No caffeine: Yes Have you lived/traveled outside [place] in past 30 days?: No Contact w/someone who lives/traveled outside US past 30 days?: No Exposure to someone with infectious disease in past 14 days?: No Do you have a fever (greater than 100.4 F or 38 C)?: No Have you tested positive for COVID-19: No Exposed to someone with COVID-19 in past 14 days?: No Do you have a sore throat?: No Do you have a cough?: No Do you have any weakness?: No Do you have any diarrhea?: No Are you experiencing any unusual bleeding?: No Do you have any muscle aches/pain?: No Do you have any abdominal pain?: No Are you experiencing loss of taste or smell?: No Other Medical History Have you received the Flu Vaccine for this season: Yes Have you received the Pneumonia Vaccine: Yes <Deb Wilkerson ([facility]), [employer] - Last Filed: 02/15/25 20:40> ROS Obtained: Yes Systems reviewed as appropriate & no additional complaints except as documented Cardiovascular Cardiovascular: Reports system reviewed and no additional complaints, except as documented, Reports as per HPI, Reports dyspnea, Reports dyspnea on exertion, Reports edema and Reports leg edema Respiratory Respiratory: Reports system reviewed and no additional complaints, except as documented, Reports as per HPI, Reports dyspnea and Reports dyspnea on exertion Physical Exam <Deb Wilkerson ([facility]), [employer] - Last Filed: 02/15/25 20:40> General General appearance: alert and in no apparent distress ENT ENT exam: Present normal exam Respiratory Respiratory exam: Present normal lung sounds bilaterally Cardiovascular Cardiovascular exam: Present regular rate and normal rhythm Extremities Exam Extremities exam: Present edema (2+) Neurological Exam Neurological exam: Present alert and oriented X3 Skin Skin exam: Present warm Medical Decision Making <Deb Wilkerson ([facility]), [employer] - Last Filed: 02/15/25 20:40> Medical Records Medical records reviewed: Yes I reviewed the patient's medical records. Screening: Per USPSTF and CDC recommendations, given the prevalence of disease in our region, it is our hospital?s policy to screen for HIV and viral Hepatitis for all patients aged 18 and over and those with ongoing risk factors. Frank Inquiry Pt receiving controlled substance: No Frank was queried for this patient: No Vital Signs: 02/15/25 18:18 02/15/25 18:30 02/15/25 19:00 Temperature 98.5 F Temperature Source Oral Pulse Rate 107 H 98 H Pulse Rate [Left Radial] 109 H Respiratory Rate 13 16 14 Blood Pressure 118/75 125/87 Blood Pressure [Right Arm] 115/82 Blood Pressure Mean 87 Blood Pressure Mean [Right Arm] 93 Blood Pressure Source Blood Pressure Position 02 Sat by Pulse Oximetry 93 L 93 L 92 L Oxygen Delivery Method Room Air 02/15/25 19:30 02/15/25 20:00 02/15/25 20:39 Temperature Temperature Source Pulse Rate 96 H 92 H Pulse Rate [Left Radial] Respiratory Rate 17 18 Blood Pressure 118/79 114/79 Blood Pressure [Right Arm] Blood Pressure Mean Blood Pressure Mean [Right Arm] Blood Pressure Source Blood Pressure Position 02 Sat by Pulse Oximetry 93 L 92 L Oxygen Delivery Method Room Air Room Air 02/15/25 21:00 02/15/25 21:01 Temperature 98.9 F Temperature Source Oral Pulse Rate 74 Pulse Rate [Left Radial] Respiratory Rate 16 Blood Pressure 115/84 Blood Pressure [Right Arm] Blood Pressure Mean Blood Pressure Mean [Right Arm] Blood Pressure Source Automatic Cuff Blood Pressure Position Supine 02 Sat by Pulse Oximetry Oxygen Delivery Method Room Air Lab Data Lab results reviewed: Yes I reviewed the patient's lab results. Lab Results 02/15/25 18:10: WBC 13.8 H, RBC 5.55, Hgb 17.3, Hct 50.7, MCV 91.4, MCH 31.2, MCHC 34.1, RDW 13.5, Plt Count 178, MPV 10.6 H, Neut % (Auto) 78.2, Lymph % (Auto) 11.1, Dundy % (Auto) 9.3, Eos % (Auto) 0.4, Baso % (Auto) 0.4, Neut # (Auto) 10.8 H, Lymph # (Auto) 1.5, Dundy # (Auto) 1.3 H, Eos # (Auto) 0.1, Baso # (Auto) 0.1 02/15/25 18:18: WBC Cancelled, Corrected WBC Cancelled, RBC Cancelled, Hgb Cancelled, Hct Cancelled, MCV Cancelled, MCH Cancelled, MCHC Cancelled, RDW Cancelled, Plt Count Cancelled, MPV Cancelled, Neut % (Auto) Cancelled, Lymph % (Auto) Cancelled, Dundy % (Auto) Cancelled, Eos % (Auto) Cancelled, Baso % (Auto) Cancelled, Neut # (Auto) Cancelled, Lymph # (Auto) Cancelled, Dundy # (Auto) Cancelled, Eos # (Auto) Cancelled, Baso # (Auto) Cancelled, Total Counted Cancelled, Neutrophils % (Manual) Cancelled, Band Neutrophils % Cancelled, Lymphocytes % (Manual) Cancelled, Atypical Lymphs % Cancelled, Monocytes % (Manual) Cancelled, Eosinophils % (Manual) Cancelled, Basophils % (Manual) Cancelled, Metamyelocytes % Cancelled, Myelocytes % Cancelled, Promyelocytes % Cancelled, Blast Cells % Cancelled, Nucleated RBCs Cancelled, Differential Comment Cancelled, Hypersegmented Neuts Cancelled, Toxic Granulation Cancelled, Toxic Vacuolation Cancelled, Dohle Bodies Cancelled, Theresa Rods Cancelled, Platelet Estimate Cancelled, Giant Platelets Cancelled, RBC Morphology Cancelled, Polychromasia Cancelled, Hypochromasia Cancelled, Poikilocytosis Cancelled, Basophilic Stippling Cancelled, Anisocytosis Cancelled, Microcytosis Cancelled, Macrocytosis Cancelled, Spherocytes Cancelled, Pappenheimer Bodies Cancelled, Sickle Cells Cancelled, Target Cells Cancelled, Tear Drop Cells Cancelled, Ovalocytes Cancelled, Stomatocytes Cancelled, Helmet Cells Cancelled, [place] Bodies Cancelled, [place] Rings Cancelled, [place] Cells Cancelled, Elliptocytes Cancelled, Acanthocytes (Spur) Cancelled, Rouleaux Cancelled, Schistocytes Cancelled, Sodium 137, Potassium 4.3, Chloride 97 L, Carbon Dioxide 30, Anion Gap 14.3, BUN 19, Creatinine 1.60 H, Estimated Creat Clear 68, E stimated GFR 43 L, Est GFR ( Amer) 52 L, Glucose 103 H, Uric Acid 8.9 H, Calcium 9.0, Total Bilirubin 1.3, AST 26, ALT 28, Alkaline Phosphatase 84, Troponin I < 0.01, NT-Pro-B Natriuret Pep 287 H, Total Protein 7.3, Albumin 4.1, Globulin 3.2, Albumin/Globulin Ratio 1.3 02/15/25 18:10 02/15/25 18:18 Orders (Tests/Meds): ED MEDICATIONS Generic Name Dose Route Start Last Admin Trade Name Freq PRN Reason Stop Dose Admin Acetaminophen 650 mg 02/15/25 20:54 Acetaminophen 325mg Tab PO 03/17/25 20:53 Q4HP PRN Fever or Mild Pain (1-3) Bumetanide 1 mg 02/15/25 20:54 02/15/25 21:44 Bumetanide 1mg/4ml Vial IV 02/15/25 20:55 1 mg ONCE ONE Administration Bumetanide 1 mg 02/16/25 09:00 Bumetanide 1mg/4ml Vial IV 03/18/25 08:59 BID JENI Colchicine 1.2 mg 02/15/25 20:49 02/15/25 21:45 Colchicine 0.6mg Tablet PO 02/15/25 20:50 1.2 mg ONCE ONE Administration Ondansetron HCl 4 mg 02/15/25 20:54 Ondansetron 4mg/2ml Vial IV 03/17/25 20:53 Q8HP PRN Nausea Oxycodone/Acetaminophen 1 each 02/15/25 20:59 Oxycodone 5mg W/Apap 325mg Tablet PO 03/17/25 20:58 Q6HP PRN Moderate to Severe Pain (4-10) Prednisone 40 mg 02/15/25 20:55 02/15/25 21:45 Prednisone 20mg Tab PO 03/17/25 20:54 40 mg DAILY JENI Administration Sodium Chloride 10 ml 02/15/25 20:54 Sodium Chloride 0.9% 10ml Flush Syringe IV 03/17/25 20:53 NEEDED PRN Maintain IV Site ORDERS Category Date Time Status CA echo color flow Routine Exams 02/16/25 08:00 Ordered XR chest portable Stat Exams 02/15/25 18:17 Completed BNP [NT Pro Brain Natriuretic Pep.] Stat Lab 02/15/25 18:18 Completed Basic Metabolic Panel AMLAB Lab 02/16/25 06:00 Ordered Basic Metabolic Panel AMLAB Lab 02/17/25 06:00 Ordered Basic Metabolic Panel AMLAB Lab 02/18/25 06:00 Ordered Basic Metabolic Panel AMLAB Lab 02/19/25 06:00 Ordered Basic Metabolic Panel AMLAB Lab 02/20/25 06:00 Ordered Basic Metabolic Panel AMLAB Lab 02/21/25 06:00 Ordered Basic Metabolic Panel AMLAB Lab 02/22/25 06:00 Ordered Basic Metabolic Panel AMLAB Lab 02/23/25 06:00 Ordered Basic Metabolic Panel AMLAB Lab 02/24/25 06:00 Ordered Basic Metabolic Panel AMLAB Lab 02/25/25 06:00 Ordered CBC [Complete Blood Count Auto Diff] Stat Lab 02/15/25 18:10 Completed CMP [Comprehensive Metabolic Panel] Stat Lab 02/15/25 18:18 Completed Complete Blood Count Auto Diff AMLAB Lab 02/16/25 06:00 Ordered Complete Blood Count Auto Diff AMLAB Lab 02/17/25 06:00 Ordered Complete Blood Count Auto Diff AMLAB Lab 02/18/25 06:00 Ordered Complete Blood Count Auto Diff AMLAB Lab 02/19/25 06:00 Ordered Complete Blood Count Auto Diff AMLAB Lab 02/20/25 06:00 Ordered Complete Blood Count Auto Diff AMLAB Lab 02/21/25 06:00 Ordered Complete Blood Count Auto Diff AMLAB Lab 02/22/25 06:00 Ordered Complete Blood Count Auto Diff AMLAB Lab 02/23/25 06:00 Ordered Complete Blood Count Auto Diff AMLAB Lab 02/24/25 06:00 Ordered Complete Blood Count Auto Diff AMLAB Lab 02/25/25 06:00 Ordered Trop I [Troponin I] Stat Lab 02/15/25 18:18 Completed Troponin I Q3H Lab 02/15/25 21:30 Completed Troponin I Q3H Lab 02/16/25 00:30 Ordered Uric Acid Stat Lab 02/15/25 18:18 Completed Medical Decision Narrative: In summary patient is a 69-year-old male who presents to the emergency department for evaluation of lower leg edema, pain, and increased shortness of breath. Patient is hemodynamically stable upon arrival, afebrile. 2+ lower leg edema. Differential diagnosis includes congestive heart failure, gout,. Initial workup will be conducted with BNP elevated, creatinine elevated, chest x-ray shows pleural effusion. Initial inventions include labs EKG chest x-ray. Initial workup reviewed by or labs with elevated BNP, creatinine elevated. Upon repeat evaluation was determined patient should be admitted to the hospital for congestive heart failure and elevated creatinine with shortness of breath. Given this hospitalist called José Basurto excepted the patient to [facility]. <Hua Allen MD - Last Filed: 02/16/25 00:20> Vital Signs: 02/15/25 18:18 02/15/25 18:30 02/15/25 19:00 Temperature 98.5 F Temperature Source Oral Pulse Rate 107 H 98 H Pulse Rate [Left Radial] 109 H Respiratory Rate 13 16 14 Blood Pressure 118/75 125/87 Blood Pressure [Right Arm] 115/82 Blood Pressure Mean 87 Blood Pressure Mean [Right Arm] 93 Blood Pressure Source Blood Pressure Position 02 Sat by Pulse Oximetry 93 L 93 L 92 L Oxygen Delivery Method Room Air 02/15/25 19:30 02/15/25 20:00 02/15/25 20:39 Temperature Temperature Source Pulse Rate 96 H 92 H Pulse Rate [Left Radial] Respiratory Rate 17 18 Blood Pressure 118/79 114/79 Blood Pressure [Right Arm] Blood Pressure Mean Blood Pressure Mean [Right Arm] Blood Pressure Source Blood Pressure Position 02 Sat by Pulse Oximetry 93 L 92 L Oxygen Delivery Method Room Air Room Air 02/15/25 21:00 02/15/25 21:01 Temperature 98.9 F Temperature Source Oral Pulse Rate 74 Pulse Rate [Left Radial] Respiratory Rate 16 Blood Pressure 115/84 Blood Pressure [Right Arm] Blood Pressure Mean Blood Pressure Mean [Right Arm] Blood Pressure Source Automatic Cuff Blood Pressure Position Supine 02 Sat by Pulse Oximetry Oxygen Delivery Method Room Air Lab Data Lab Results 02/15/25 18:10: WBC 13.8 H, RBC 5.55, Hgb 17.3, Hct 50.7, MCV 91.4, MCH 31.2, MCHC 34.1, RDW 13.5, Plt Count 178, MPV 10.6 H, Neut % (Auto) 78.2, Lymph % (Auto) 11.1, Dundy % (Auto) 9.3, Eos % (Auto) 0.4, Baso % (Auto) 0.4, Neut # (Auto) 10.8 H, Lymph # (Auto) 1.5, Dundy # (Auto) 1.3 H, Eos # (Auto) 0.1, Baso # (Auto) 0.1 02/15/25 18:18: WBC Cancelled, Corrected WBC Cancelled, RBC Cancelled, Hgb Cancelled, Hct Cancelled, MCV Cancelled, MCH Cancelled, MCHC Cancelled, RDW Cancelled, Plt Count Cancelled, MPV Cancelled, Neut % (Auto) Cancelled, Lymph % (Auto) Cancelled, Dundy % (Auto) Cancelled, Eos % (Auto) Cancelled, Baso % (Auto) Cancelled, Neut # (Auto) Cancelled, Lymph # (Auto) Cancelled, Dundy # (Auto) Cancelled, Eos # (Auto) Cancelled, Baso # (Auto) Cancelled, Total Counted Cancelled, Neutrophils % (Manual) Cancelled, Band Neutrophils % Cancelled, Lymphocytes % (Manual) Cancelled, Atypical Lymphs % Cancelled, Monocytes % (Manual) Cancelled, Eosinophils % (Manual) Cancelled, Basophils % (Manual) Cancelled, Metamyelocytes % Cancelled, Myelocytes % Cancelled, Promyelocytes % Cancelled, Blast Cells % Cancelled, Nucleated RBCs Cancelled, Differential Comment Cancelled, Hypersegmented Neuts Cancelled, Toxic Granulation Cancelled, Toxic Vacuolation Cancelled, Dohle Bodies Cancelled, Theresa Rods Cancelled, Platelet Estimate Cancelled, Giant Platelets Cancelled, RBC Morphology Cancelled, Polychromasia Cancelled, Hypochromasia Cancelled, Poikilocytosis Cancelled, Basophilic Stippling Cancelled, Anisocytosis Cancelled, Microcytosis Cancelled, Macrocytosis Cancelled, Spherocytes Cancelled, Pappenheimer Bodies Cancelled, Sickle Cells Cancelled, Target Cells Cancelled, Tear Drop Cells Cancelled, Ovalocytes Cancelled, Stomatocytes Cancelled, Helmet Cells Cancelled, [place] Bodies Cancelled, [place] Rings Cancelled, [place] Cells Cancelled, Elliptocytes Cancelled, Acanthocytes (Spur) Cancelled, Rouleaux Cancelled, Schistocytes Cancelled, Sodium 137, Potassium 4.3, Chloride 97 L, Carbon Dioxide 30, Anion Gap 14.3, BUN 19, Creatinine 1.60 H, Estimated Creat Clear 68, E stimated GFR 43 L, Est GFR ( Amer) 52 L, Glucose 103 H, Uric Acid 8.9 H, Calcium 9.0, Total Bilirubin 1.3, AST 26, ALT 28, Alkaline Phosphatase 84, Troponin I < 0.01, NT-Pro-B Natriuret Pep 287 H, Total Protein 7.3, Albumin 4.1, Globulin 3.2, Albumin/Globulin Ratio 1.3 Orders (Tests/Meds): ED MEDICATIONS Generic Name Dose Route Start Last Admin Trade Name Freq PRN Reason Stop Dose Admin Acetaminophen 650 mg 02/15/25 20:54 Acetaminophen 325mg Tab PO 03/17/25 20:53 Q4HP PRN Fever or Mild Pain (1-3) Bumetanide 1 mg 02/15/25 20:54 02/15/25 21:44 Bumetanide 1mg/4ml Vial IV 02/15/25 20:55 1 mg ONCE ONE Administration Bumetanide 1 mg 02/16/25 09:00 Bumetanide 1mg/4ml Vial IV 03/18/25 08:59 BID JENI Colchicine 1.2 mg 02/15/25 20:49 02/15/25 21:45 Colchicine 0.6mg Tablet PO 02/15/25 20:50 1.2 mg ONCE ONE Administration Ondansetron HCl 4 mg 02/15/25 20:54 Ondansetron 4mg/2ml Vial IV 03/17/25 20:53 Q8HP PRN Nausea Oxycodone/Acetaminophen 1 each 02/15/25 20:59 Oxycodone 5mg W/Apap 325mg Tablet PO 03/17/25 20:58 Q6HP PRN Moderate to Severe Pain (4-10) Prednisone 40 mg 02/15/25 20:55 02/15/25 21:45 Prednisone 20mg Tab PO 03/17/25 20:54 40 mg DAILY JENI Administration Sodium Chloride 10 ml 02/15/25 20:54 Sodium Chloride 0.9% 10ml Flush Syringe IV 03/17/25 20:53 NEEDED PRN Maintain IV Site ORDERS Category Date Time Status CA echo color flow Routine Exams 02/16/25 08:00 Ordered XR chest portable Stat Exams 02/15/25 18:17 Completed BNP [NT Pro Brain Natriuretic Pep.] Stat Lab 02/15/25 18:18 Completed Basic Metabolic Panel AMLAB Lab 02/16/25 06:00 Ordered Basic Metabolic Panel AMLAB Lab 02/17/25 06:00 Ordered Basic Metabolic Panel AMLAB Lab 02/18/25 06:00 Ordered Basic Metabolic Panel AMLAB Lab 02/19/25 06:00 Ordered Basic Metabolic Panel AMLAB Lab 02/20/25 06:00 Ordered Basic Metabolic Panel AMLAB Lab 02/21/25 06:00 Ordered Basic Metabolic Panel AMLAB Lab 02/22/25 06:00 Ordered Basic Metabolic Panel AMLAB Lab 02/23/25 06:00 Ordered Basic Metabolic Panel AMLAB Lab 02/24/25 06:00 Ordered Basic Metabolic Panel AMLAB Lab 02/25/25 06:00 Ordered CBC [Complete Blood Count Auto Diff] Stat Lab 02/15/25 18:10 Completed CMP [Comprehensive Metabolic Panel] Stat Lab 02/15/25 18:18 Completed Complete Blood Count Auto Diff AMLAB Lab 02/16/25 06:00 Ordered Complete Blood Count Auto Diff AMLAB Lab 02/17/25 06:00 Ordered Complete Blood Count Auto Diff AMLAB Lab 02/18/25 06:00 Ordered Complete Blood Count Auto Diff AMLAB Lab 02/19/25 06:00 Ordered Complete Blood Count Auto Diff AMLAB Lab 02/20/25 06:00 Ordered Complete Blood Count Auto Diff AMLAB Lab 02/21/25 06:00 Ordered Complete Blood Count Auto Diff AMLAB Lab 02/22/25 06:00 Ordered Complete Blood Count Auto Diff AMLAB Lab 02/23/25 06:00 Ordered Complete Blood Count Auto Diff AMLAB Lab 02/24/25 06:00 Ordered Complete Blood Count Auto Diff AMLAB Lab 02/25/25 06:00 Ordered Trop I [Troponin I] Stat Lab 02/15/25 18:18 Completed Troponin I Q3H Lab 02/15/25 21:30 Completed Troponin I Q3H Lab 02/16/25 00:30 Ordered Uric Acid Stat Lab 02/15/25 18:18 Completed ECG Data Tracing #1: I reviewed this ECG and interpreted as documented below: (Sinus tachycardia with intermittent PVCs. T wave inversions in lateral and inferior leads with no reciprocal elevations. Ventricular rate 102, QRS 90, QTc 359, OH 129.) Medical Decision Narrative: In summary patient is a 69-year-old male who presents to the emergency department for evaluation of lower leg edema, pain, and increased shortness of breath. Patient is hemodynamically stable upon arrival, afebrile. 2+ lower leg edema. Differential diagnosis includes congestive heart failure, gout,. Initial workup will be conducted with BNP elevated, creatinine elevated, chest x-ray shows pleural effusion. Initial inventions include labs EKG chest x-ray. Initial workup reviewed by me labs with elevated BNP, creatinine elevated. Upon repeat evaluation was determined patient should be admitted to the hospital for congestive heart failure and elevated creatinine with shortness of breath. Given this hospitalist called José Basurto excepted the patient to [employer]. I was consulted by the CLAU, and we discussed the complexity of the problems being addressed. I approved the treatment and management plan for this patient's care in the Emergency Department, thus performing a substantive portion of the medical decision making. Hua Allen MD Critical Care <Deb Wilkerson ([facility]), [employer] - Last Filed: 02/15/25 20:40> Critical Care Time Critical Care Time: No
--- NOTE | 2025-02-15 18:28 | ECG_ITS ---
APPROVED REPORT Exam: Resting ECG HR:102 bpm ECG Measurements Heart Rate 102 AXES VA 129 P 44 QRSd 90 QRS 12 QT 301 T 195 QTc 359 Conclusion SINUS TACHYCARDIA WITH OCCASIONAL VENTRICULAR PREMATURE COMPLEXES NONSPECIFIC T-WAVE ABNORMALITY ABNORMAL ECG UNCONFIRMED REPORT Electronically signed by : ANTONI WALKER, 02/16/2025 06:25:13
[2025-02-15 18:30] VITALS: BP 118/75; PULSE 107; RESP 16; O2SAT 93
[2025-02-15 18:31] LABS: Alanine Aminotransferase 28 U/L (12-78); Albumin Level 4.1 g/dl (3.5-5.0); Albumin/Globulin Ratio 1.3 (1.1-1.8); Alkaline Phosphatase 84 U/L (38-126); Anion Gap 14.3 mEq/L (5-15); Aspartate Amino Transferase 26 U/L (17-59); Bilirubin,Total 1.3 mg/dl (0.2-1.3); Blood Urea Nitrogen 19 mg/dl (9-20); Carbon Dioxide 30 mmol/L (22.0-30.0); Chloride 97 mmol/L (98-107); Creatinine Clearance Estimated 68 mL/min (50-200); Estimated Glomerular Filt Rate 43 ml/min (>60); GFR (African American) 52 ML/MIN (>60); Globulin 3.2 g/dL (1.3-3.2); Glucose 103 mg/dl (74-100); Potassium 4.3 mmoL/L (3.5-5.1); Sodium 137 mmol/L (136-145); Total Protein,Serum 7.3 g/dl (6.3-8.2); Uric Acid 8.9 mg/dl (3.5-8.5)
[2025-02-15 18:40] LABS: Basophils # 0.1 K/mm3 (0-0.2); Basophils % 0.4 % (0.1-2.0); Eosinophils # 0.1 K/mm3 (0.0-0.4); Eosinophils % 0.4 % (0.1-12.0); Hematocrit 50.7 % (42.0-52.0); Hemoglobin 17.3 g/dL (14.1-18.0); Lymphocytes # 1.5 K/mm3 (0.7-4.5); Lymphocytes % 11.1 % (10-50); Mean Corpuscular HGB Conc 34.1 g/dL (31.8-35.4); Mean Corpuscular Hemoglobin 31.2 pg (27.0-31.2); Mean Corpuscular Volume 91.4 fl (80-94); Mean Platelet Volume 10.6 fl (7.4-10.4); Monocytes # 1.3 K/mm3 (0.1-1.0); Monocytes % 9.3 % (1.7-9.3); Neutrophils # 10.8 K/mm3 (1.8-7.8); Neutrophils % 78.2 % (37.0-80.0); Nucleated Red Blood Cells # 0 10^3/uL; Nucleated Red Blood Cells % 0 %; Platelet Count 178 K/mm3 (142-424); Red Blood Count 5.55 M/mm3 (4.60-6.20); Red Cell Distribution Width 13.5 % (11.5-17.5); Red Cell Distribution Width-SD 45.1 fL; White Blood Count 13.8 K/mm3 (4.8-10.8)
[2025-02-15 18:42] LABS: NT Pro Brain Natriuretic Pep. 287 pg/mL (0-125)
[2025-02-15 18:50] LABS: Troponin I < 0.01 ng/ml (0.00-0.034)
[2025-02-15 19:00] VITALS: BP 125/87; PULSE 98; RESP 14; O2SAT 92
[2025-02-15 19:30] VITALS: BP 118/79; PULSE 96; RESP 17; O2SAT 93
--- NOTE | 2025-02-15 19:50 | PC.NURSE ---
shift report given to gayle garcia
[2025-02-15 20:00] VITALS: BP 114/79; PULSE 92; RESP 18; O2SAT 92
--- NOTE | 2025-02-15 20:41 | PC.NURSE ---
Report called to Kassidy Fernandes RN
[2025-02-15 21:01] VITALS: BP 115/84; PULSE 74; RESP 16; TEMP 37.2; O2SAT 96
--- NOTE | 2025-02-15 21:02 | P.HP_ITS ---
<Statement entered by Jair Barney MD - 02/18/25 14:07> I personally examined the patient and agree with the plan of care as outlined by the SUPPORT SERVICES REP. History of Present Illness *Admission Date: 02/15/25 *Reason for visit:: Shortness of breath *History of present illness: This is a 69-year-old male who has a past medical history significant for degenerative disc disease, osteopenia, insomnia, gout, obstructive sleep apnea, GERD, Gonzalez's esophagus, atrial fibrillation, diastolic dysfunction congestive heart failure (last 2D echo was obtained in 2019 revealed an EF of 50%), hypertension, and melodic stroke, CKD, bronchitis, peptic ulcer disease, COPD, unstable angina, anxiety, and hypothyroidism who presents with a chief complaint of an inability to get up out of his chair. Due to patient's symptoms, he contacted EMS for lift assist. Once EMS presented to patient's home residence, he decided he wanted to come to the emergency room for evaluation. While in the emergency room, chest x-ray revealed bilateral pleural effusions. Patient did have some elevation in his BNP. His uric acid level was elevated. Due to these findings, patient is being admitted for further management During my evaluation of the patient, patient states he has got intermittent shortness of breath; however, able started getting worse on Thursday. Patient also states he has had some weight gain with increasing swelling to his bilateral lower extremities. He reports that he had his most recent weight gain last week when he was prescribed steroids for a acute gout flare. Patient states that normally his right ankle only hurts when he has a gout flare but this time he has pain in both ankles. He reports swelling up to his calves but no pain/claudication in calf area. Patient is prescribed Eliquis. Patient reports that he has increased shortness of breath when he attempts to lay flat. He is currently denying any chest pain, lightheadedness, dizziness, fever, chills, rigors, nausea, vomiting, or diarrhea. Additional pertinent vitals obtained including white blood cell count of 13.8, chloride of 97, creatinine 1.60, GFR 43, blood glucose 103, uric acid level 8.9, and BNP of 287. [facility] Disclaimer: The information contained in this section may have been updated after the patient was seen, as this information can be updated by other users. Medical History , SUPPORT SERVICES REP) Acute gout of left foot Moderate major depression Benign essential HTN Hyperlipidemia LDL goal <100 Obstructive sleep apnea (adult) (pediatric) Anxiety disorder, unspecified Hypothyroidism, unspecified Family History , [facility] REP) Unknown family medical history Social History , [facility] REP) Smoking Status: Never smoker second hand exposure: Yes alcohol intake: current alcohol intake frequency: a few times a week substance use type: denies use current occupational status: disabled Travel in the last 8 weeks: None household members: significant other housing: house current occupational exposures/hazards: No caffeine: Yes Have you lived/traveled outside [place] in past 30 days?: No Contact w/someone who lives/traveled outside [place] past 30 days?: No Exposure to someone with infectious disease in past 14 days?: No Do you have a fever (greater than 100.4 F or 38 C)?: No Have you tested positive for COVID-19: No Exposed to someone with COVID-19 in past 14 days?: No Do you have a sore throat?: No Do you have a cough?: No Do you have any weakness?: No Do you have any diarrhea?: No Are you experiencing any unusual bleeding?: No Do you have any muscle aches/pain?: No Do you have any abdominal pain?: No Are you experiencing loss of taste or smell?: No Other Medical History Have you received the Flu Vaccine for this season: Yes Have you received the Pneumonia Vaccine: Yes Review of Systems Review of Systems Review of systems:: pertinent systems reviewed and negative unless documented below Constitutional Constitutional: Reports system reviewed and no additional complaints, except as documented Eyes Eyes: Reports system reviewed and no additional complaints, except as documented ENT Ears, Nose, Mouth, and Throat: Reports system reviewed and no additional complaints, except as documented *Cardiovascular Cardiovascular: Reports dyspnea, Reports dyspnea on exertion and Reports edema *Respiratory Respiratory: Reports dyspnea and Reports dyspnea on exertion *Gastrointestinal Gastrointestinal: Reports system reviewed and no additional complaints, except as documented *Genitourinary Genitourinary: Reports system reviewed and no additional complaints, except as documented *Musculoskeletal Musculoskeletal: Reports system reviewed and no additional complaints, except as documented Integumentary/Breasts Skin/Breast: Reports system reviewed and no additional complaints, except as documented *Neurologic Neurologic: Reports system reviewed and no additional complaints, except as documented Psychiatric Psychiatric: Reports system reviewed and no additional complaints, except as documented Endocrine Endocrine: Reports system reviewed and no additional complaints, except as documented Hematologic/Lymphatic Hematologic/Lymphatic: Reports system reviewed and no additional complaints, except as documented Allergic/Immunologic Allergic/Immunologic: Reports system reviewed and no additional complaints, except as documented Meds Home Medications and Allergies Home Medications ?Medication ?Instructions ?Recorded ?Confirmed ?Type buspirone 10 mg tablet 10 mg PO BID Anxiety 03/02/18 01/31/25 History atorvastatin 40 mg tablet 40 mg PO HS Cholesterol 07/17/20 01/31/25 History diltiazem HCl 120 mg 120 mg PO BID ##60 10/13/20 01/31/25 Rx capsule,extended release 24 hr ascorbic acid (vitamin C) 500 mg 500 mg PO DAILY 04/13/24 01/31/25 History tablet bumetanide 2 mg tablet 2 mg PO DAILY 04/13/24 01/31/25 History ondansetron HCl 4 mg tablet 4 mg PO Q8H PRN Nausea 04/13/24 01/31/25 History potassium chloride 20 mEq 20 meq PO DAILY SUPPLIMENT 04/13/24 01/31/25 History tablet,extended release apixaban 5 mg tablet (Eliquis) 5 mg PO BID #180 tabs 05/23/24 01/31/25 Rx lansoprazole 30 mg capsule,delayed 30 mg PO DAILY ACID REFLUX #90 caps 09/27/24 01/31/25 Rx release allopurinol 100 mg tablet 200 mg (2 x 100 mg) PO DAILY #180 12/21/24 01/31/25 Rx tabs trazodone 50 mg tablet 50 mg PO HS PRN insomnia #30 tabs 12/21/24 01/31/25 Rx cyclobenzaprine 5 mg tablet 10 mg (2 x 5 mg) PO TID PRN muscle 01/13/25 01/31/25 Rx spasm #30 tabs oxycodone-acetaminophen 5 mg-325 1 tab PO Q8H PRN pain #20 tabs 01/19/25 01/31/25 Rx mg tablet prednisone 10 mg tablet 10 mg PO DIRECTED #32 tabs 01/31/25 01/31/25 Rx levothyroxine 112 mcg tablet 112 mcg PO DAILY 02/15/25 02/15/25 History prasterone (dhea) 50 mg tablet 50 mg PO DAILY 02/15/25 02/15/25 History (DHEA) sildenafil 100 mg tablet 100 mg PO NEEDED PRN Erectile 02/15/25 02/15/25 History Dysfunction tamsulosin 0.4 mg capsule 0.8 mg PO DAILY 02/15/25 02/15/25 History tizanidine 2 mg tablet 2 mg PO Q8H PRN muscle spasticity 02/15/25 02/15/25 History New Prescriptions to Start Prescriptions: Allergies Allergy/AdvReac Type Severity Reaction Status Date / Time metoclopramide (From Reglan) Allergy Intermediate Anxiety Verified 01/19/25 10:44 Penicillins Allergy Intermediate Anxiety Verified 01/19/25 10:44 amantadine (AMANTADINE) Allergy Mild SEIZURE Verified 01/19/25 10:44 codeine (CODEINE) Allergy Mild I-RASH Verified 01/19/25 10:44 cephalexin (From Keflex) Allergy Anxiety Verified 01/19/25 10:44 terbinafine AdvReac Mild Confusion Verified 01/19/25 10:44 Exam Data for Last 24 hours Vital signs and Labs for Last 24 Hours: Temp Pulse Resp BP Pulse Ox O2 Del Method 98.5 F 92 H 18 114/79 92 L Room Air 02/15/25 18:18 02/15/25 20:00 02/15/25 20:00 02/15/25 20:00 02/15/25 20:00 02/15/25 20:00 Laboratory Results - last 24 hr 02/15/25 18:10: WBC 13.8 H, RBC 5.55, Hgb 17.3, Hct 50.7, MCV 91.4, MCH 31.2, MCHC 34.1, RDW 13.5, Plt Count 178, MPV 10.6 H, Neut % (Auto) 78.2, Lymph % (Auto) 11.1, Wilcox % (Auto) 9.3, Eos % (Auto) 0.4, Baso % (Auto) 0.4, Neut # (Auto) 10.8 H, Lymph # (Auto) 1.5, Wilcox # (Auto) 1.3 H, Eos # (Auto) 0.1, Baso # (Auto) 0.1 02/15/25 18:18: WBC Cancelled, Corrected WBC Cancelled, RBC Cancelled, Hgb Cancelled, Hct Cancelled, MCV Cancelled, MCH Cancelled, MCHC Cancelled, RDW Cancelled, Plt Count Cancelled, MPV Cancelled, Neut % (Auto) Cancelled, Lymph % (Auto) Cancelled, Wilcox % (Auto) Cancelled, Eos % (Auto) Cancelled, Baso % (Auto) Cancelled, Neut # (Auto) Cancelled, Lymph # (Auto) Cancelled, Wilcox # (Auto) Cancelled, Eos # (Auto) Cancelled, Baso # (Auto) Cancelled, Total Counted Cancelled, Neutrophils % (Manual) Cancelled, Band Neutrophils % Cancelled, Lymphocytes % (Manual) Cancelled, Atypical Lymphs % Cancelled, Monocytes % (Manual) Cancelled, Eosinophils % (Manual) Cancelled, Basophils % (Manual) Cancelled, Metamyelocytes % Cancelled, Myelocytes % Cancelled, Promyelocytes % Cancelled, Blast Cells % Cancelled, Nucleated RBCs Cancelled, Differential Comment Cancelled, Hypersegmented Neuts Cancelled, Toxic Granulation Cancelled, Toxic Vacuolation Cancelled, Dohle Bodies Cancelled, Theresa Rods Cancelled, Platelet Estimate Cancelled, Giant Platelets Cancelled, RBC Morphology Cancelled, Polychromasia Cancelled, Hypochromasia Cancelled, Poikilocytosis Cancelled, Basophilic Stippling Cancelled, Anisocytosis Cancelled, Microcytosis Cancelled, Macrocytosis Cancelled, Spherocytes Cancelled, Pappenheimer Bodies Cancelled, Sickle Cells Cancelled, Target Cells Cancelled, Tear Drop Cells Cancelled, Ovalocytes Cancelled, Stomatocytes Cancelled, Helmet Cells Cancelled, [place] Bodies Cancelled, [place] Rings Cancelled, [place] Cells Cancelled, Elliptocytes Cancelled, Acanthocytes (Spur) Cancelled, Rouleaux Cancelled, Schistocytes Cancelled, Sodium 137, Potassium 4.3, Chloride 97 L, Carbon Dioxide 30, Anion Gap 14.3, BUN 19, Creatinine 1.60 H, Estimated Creat Clear 68, Estimated GFR 43 L, Est GFR ( Amer) 52 L, Glucose 103 H, Uric Acid 8.9 H, Calcium 9.0, Total Bilirubin 1.3, AST 26, ALT 28, Alkaline Phosphatase 84, Troponin I < 0.01, NT-Pro-B Natriuret Pep 287 H, Total Protein 7.3, Albumin 4.1, Globulin 3.2, Albumin/Globulin Ratio 1.3 I & O for Last 24 hours: Intake & Output 02/12/25 02/13/25 02/14/25 02/15/25 23:59 23:59 23:59 23:59 Weight 111.13 kg Constitutional Constitutional: no acute distress and obese *Routine HEENT Exam Head: Present normocephalic and atraumatic Eye: Present EOMI and PERRL ENT: Present mucous membranes moist *Routine Neck Exam Neck: Present supple, full ROM and trachea midline *Routine Respiratory Exam Respiratory: Present wheezes and crackles *Routine Cardiovascular Exam Cardiovascular: Present Normal S1 and Normal S2 *Routine Abdominal Exam Abdominal: Present distended and obese *Routine Rectal Exam Rectal:: deferred *Routine Genitalia Exam Genitalia:: deferred *Routine Extremities Exam Extremities: Present full ROM, pulses intact and normal capillary refill Routine Back/Spine/Pelvis Exam Back/Spine: Present full ROM *Routine Skin Exam Skin: Present erythema, dry and warm *Routine Neurological Exam Neurological: Present alert, oriented X3, CN II-XII intact, moving all extremities and normal speech Routine Psychiatric Exam Psychiatric: Present normal affect, normal thought process, cooperative, good insight and good judgment H&P: Result Impressions This is a 69-year-old female who presents with shortness of breath and weakness found to be hypervolemic with acute gout flare. Assessment and Plan *Assessment and plan (1) Acute on chronic diastolic (congestive) heart failure: Status: Acute Category: Medical Code(s): I50.33 - Acute on chronic diastolic (congestive) heart failure (2) Pleural effusion: Status: Acute Category: Medical Code(s): J90 - Pleural effusion, not elsewhere classified (3) Acute gout: Status: Acute Qualifiers: Gout site: ankle Gout etiology: unspecified cause Laterality: unspecified laterality Qualified Code(s): M10.9 - Gout, unspecified Category: Medical Code(s): M10.9 - Gout, unspecified (4) Leukocytosis: Status: Acute Qualifiers: Leukocytosis type: unspecified Qualified Code(s): D72.829 - Elevated white blood cell count, unspecified Category: Medical Code(s): D72.829 - Elevated white blood cell count, unspecified (5) CKD (chronic kidney disease): Status: Acute Qualifiers: Chronic kidney disease stage: unspecified stage Qualified Code(s): N18.9 - Chronic kidney disease, unspecified Category: Medical Code(s): N18.9 - Chronic kidney disease, unspecified (6) Hypervolemia: Status: Acute Qualifiers: Hypervolemia type: unspecified Qualified Code(s): E87.70 - Fluid overload, unspecified Category: Medical Code(s): E87.70 - Fluid overload, unspecified Plan Assessment: Acute on chronic diastolic congestive heart failure: HFpEF -Give 1 mg of Bumex IV now and then twice daily -Strict intake and output -1500 mL fluid restriction -Once patient is euvolemic or close to normal swelling, will discharge patient home -Hopefully we can promote enough fluid diuresis to reduce patient's weight to baseline weight prior to weight gain -Obtain 2D echo Pleural effusion/hypervolemia -Will use Bumex as above -Will consider decubitus of the chest -Chest x-ray does not show significant effusions -Not sure if patient would benefit from thoracentesis -Will consider plasterer stucco consultation Acute gout flare -Give 1.2 mg of colchicine p.o. now and possibly repeat in 1 to 2 hours of 0.6 mg -40 mg of prednisone p.o. daily Leukocytosis -Will obtain blood cultures x 2 -Procalcitonin -Will hold off antibiotics for now Chronic kidney disease -Appears to be at baseline creatinine Plan: Admit patient to the MedSurg unit Saline lock Cardiac diet CBC/BMP daily 4 mg Zofran IV push to 8 hours pain nausea vomit 5 mg of Percocet p.o. every 6 hours pain moderate to severe pain Full code I will discuss this case with attending physician Dr. Barney and I look forward to more input
[2025-02-15] MEDS: BUMETANIDE 1MG/4ML VIAL 1 MG IV (21:44)
[2025-02-15] MEDS: COLCHICINE 0.6MG TABLET 1.2 MG PO (21:45)
[2025-02-15] MEDS: predniSONE 20MG TAB 40 MG PO (21:45)
[2025-02-15 22:13] LABS: Troponin I < 0.01 ng/ml (0.00-0.034)
[2025-02-16] VITALS: BP 127/77; PULSE 103; RESP 19; TEMP 36.8; O2SAT 98
--- NOTE | 2025-02-16 00:31 | PC.NURSE ---
patient had blood in urinal from urethra - states it is new and he has dysuria today at home.
[2025-02-16 01:08] LABS: Troponin I < 0.01 ng/ml (0.00-0.034)
[2025-02-16 03:49] VITALS: BMI 33.0
[2025-02-16 03:50] VITALS: BP 109/70; PULSE 87; RESP 18; TEMP 36.7; O2SAT 94
[2025-02-16 06:09] LABS: Basophils % 0.3 % (0.1-2.0); Eosinophils % 0.1 % (0.1-12.0); Hematocrit 47.9 % (42.0-52.0); Hemoglobin 16.2 g/dL (14.1-18.0); Lymphocytes % 8.7 % (10-50); Mean Corpuscular HGB Conc 33.8 g/dL (31.8-35.4); Mean Corpuscular Hemoglobin 30.8 pg (27.0-31.2); Mean Corpuscular Volume 91.1 fl (80-94); Mean Platelet Volume 10.1 fl (7.4-10.4); Monocytes # 0.3 K/mm3 (0.1-1.0); Neutrophils % 87.4 % (37.0-80.0); Nucleated Red Blood Cells # 0 10^3/uL; Nucleated Red Blood Cells % 0 %; Platelet Count 161 K/mm3 (142-424); Red Blood Count 5.26 M/mm3 (4.60-6.20); Red Cell Distribution Width 13.2 % (11.5-17.5); Red Cell Distribution Width-SD 44.1 fL; White Blood Count 11.5 K/mm3 (4.8-10.8)
[2025-02-16 06:19] LABS: Chloride 98 mmol/L (98-107); Sodium 133 mmol/L (136-145)
[2025-02-16 06:20] LABS: Potassium 4.3 mmoL/L (3.5-5.1)
--- NOTE | 2025-02-16 06:20 | PC.NURSE ---
patient educated on fluid restrictions and verbalized understanding. brought in home meds and they're labeled, in the second steward office awaiting pharm pickup. patient denies SOA. 4+ edema in bilateral ankles, not his baseline (describes a baseline of 1+).
[2025-02-16 06:22] LABS: Blood Urea Nitrogen 20 mg/dl (9-20); Creatinine Clearance Estimated 66 mL/min (50-200); Estimated Glomerular Filt Rate 43 ml/min (>60); GFR (African American) 52 ML/MIN (>60)
[2025-02-16 06:23] LABS: Anion Gap 10.3 mEq/L (5-15); Calcium 9.4 mg/dl (8.4-10.2); Carbon Dioxide 29 mmol/L (22.0-30.0); Glucose 152 mg/dl (74-100)
[2025-02-16 08:00] VITALS: BP 114/73; PULSE 75; RESP 18; TEMP 36.6; O2SAT 93
--- NOTE | 2025-02-16 08:00 | CA_ITS ---
APPROVED REPORT EXAM: Comprehensive 2D, Doppler, and color-flow Echocardiogram Administrative Assistant Coordinator: Vaishali Esteban RCS, RVS Ht: 5 ft 10 in Wt: 235lbs BSA: 2.24 BP: 114/79 mmHg Indications: CHF, Exsmokr Echo Enhancing Agent Comments: Technically limited exam due to body habitus 2D Dimensions IVSd 1.31 cm M: 0.6-1.2 LVEF (Visual) 50.00 % PWd 1.22 cm M: 0.6 - 1.2 EF AP4 46.20 % LVDd 5.22 cm M: 4.2 - 5.9 GL Strain -22.0 % LVDs 3.35 cm M: 2.5 - 4.0 Left Atrium 3.95 cm M: 3.0 - 4.0 M-Mode Dimensions LA Diam 4.09 cm (1.9-4.0) EPSs 2.27 cm TAPSE 1.84 (<1.7) LV Diastology E Decel Time 257 (160-240 msec) E/A Ratio 0.84 MED A' 11.30 cm/s LAT A' 8.10 cm/s Aortic Valve FLORENTINO Index 1.25 cm2/m2 AoV Peak Rafiq. 94.0 (50-130 cm/s) AO Peak GR. 3.60 mmHg AO Mean GR. 1.80 (<5 mmHg) AO VTI 15.9 (18-25 cm) FLORENTINO (VTI) 2.86 (2.5-4.5 cm2) Mitral Valve MV A Velocity 66.0 (40-130 cm/s) E/A Ratio 0.84 Pulmonary Valve PV Peak Velocity 61.0 (50-150 cm/s) Left Ventricle The left ventricle is normal size. The left ventricular systolic function is low normal. There is increased LV wall thickness. Diastolic function is indeterminate. There is normal LV segmental wall motion. LVEF is 50%. Right Ventricle Right ventricle is mildly dilated. The right ventricular systolic function is normal. Atria Left atrium is mildly dilated. Right atrium is mildly dilated. There is no Doppler evidence of interatrial shunt. Aortic Valve Aortic valve is mildly thickened. Trace aortic regurgitation. There is no aortic valvular stenosis. Mitral Valve The mitral valve is normal in structure. Trace mitral regurgitation. No evidence of mitral valve stenosis. Tricuspid Valve Tricuspid valve is grossly normal in structure and function. Trace tricuspid regurgitation. There is insufficient TR jet to estimate RVSP. Pulmonic Valve The pulmonary valve is normal in structure. Trace pulmonic regurgitation. Great Vessels The aortic root is normal in size. IVC is normal in size and collapses >50% with inspiration. Pericardium There is no pericardial effusion. Other Information Study Quality: Fair Conclusion Low normal LV systolic function Mild RV dilation. Mild biatrial dilation. No significant valvular stenosis or regurgitation. Electronically signed by : Jerri Alberts MD 02/17/2025 09:43:06
[2025-02-16] MEDS: predniSONE 20MG TAB 40 MG PO (08:38)
[2025-02-16] MEDS: BUMETANIDE 1MG/4ML VIAL 1 MG IV (08:38)
--- NOTE | 2025-02-16 08:46 | HMH.PHAINT1 ---
Pharmacy Intervention Comments: MEDICATION RECONCILIATION COMPLETED ON PATIENT USING EXTERNAL FILL HISTORY FROM PHARMACY AND LIST FROM PCP OFFICE. -LALITO ANDERSON, ANGÉLICAD
--- NOTE | 2025-02-16 12:31 | P.DS_ITS ---
General Admission date:: 02/15/25 HPI HPI HPI: This is a 69-year-old male who has a past medical history significant for degenerative disc disease, osteopenia, insomnia, gout, obstructive sleep apnea, GERD, Gonzalez's esophagus, atrial fibrillation, diastolic dysfunction congestive heart failure (last 2D echo was obtained in 2019 revealed an EF of 50%), hypertension, and melodic stroke, CKD, bronchitis, peptic ulcer disease, COPD, unstable angina, anxiety, and hypothyroidism who presents with a chief complaint of an inability to get up out of his chair. Due to patient's symptoms, he contacted EMS for lift assist. Once EMS presented to patient's home residence, he decided he wanted to come to the emergency room for evaluation. While in the emergency room, chest x-ray revealed bilateral pleural effusions. Patient did have some elevation in his BNP. His uric acid level was elevated. Due to these findings, patient is being admitted for further management During my evaluation of the patient, patient states he has got intermittent shortness of breath; however, able started getting worse on Thursday. Patient also states he has had some weight gain with increasing swelling to his bilateral lower extremities. He reports that he had his most recent weight gain last week when he was prescribed steroids for a acute gout flare. Patient states that normally his right ankle only hurts when he has a gout flare but this time he has pain in both ankles. He reports swelling up to his calves but no pain/claudication in calf area. Patient is prescribed Eliquis. Patient reports that he has increased shortness of breath when he attempts to lay flat. He is currently denying any chest pain, lightheadedness, dizziness, fever, chills, rigors, nausea, vomiting, or diarrhea. Additional pertinent vitals obtained including white blood cell count of 13.8, chloride of 97, creatinine 1.60, GFR 43, blood glucose 103, uric acid level 8.9, and BNP of 287. Hospital Course Hospital Course Hospital Course: Mich Cheung is a 69-year-old male who presented with worsening ankle pain, swelling and was admitted for acute gout flare and suspected HFpEF exacerbation. #Gout flare #CKD stage III ? Patient states he has not been very adherent to his diet, has been eating purine rich foods including red meat, alcohol. ? Uric acid 8.9, currently takes allopurinol 200 mg at home. ? Improved with prednisone 40 mg, IV Decadron 4 mg. Ambulating with only mild pain. ? Discharged with prednisone 40 mg for 4 more days, increased allopurinol to 300 mg daily with caution in the setting of CKD stage III. ? Creatinine 1.6, GFR 43. Stable. #HFpEF ? No overt signs of exacerbation. BNP 287. ? Patient states he has not been adherent with his fluid/salt restriction. In fact, he states he adds salt to [employer] [place] fries. Patient states he is trying to do better though. ? PCP reportedly has increased his Bumex from 2 mg to 6 mg daily, patient has been taking it all in the morning. Advised patient to take it 3 times a day in conjunction to salt restriction. #A-fib ? Currently rate controlled. ? Continue diltiazem, Eliquis. #Hypothyroidism ? Continue home levothyroxine. #BPH ? Continue home tamsulosin. Total time spent on discharge: 32 minutes on chart review, counseling, documentation, and direct care with patient. Exam Data for Last 24 hours Vital signs and Labs for Last 24 Hours: Temp Pulse Resp BP Pulse Ox O2 Del Method 97.8 F 75 18 114/73 93 L Room Air 02/16/25 08:00 02/16/25 08:00 02/16/25 08:00 02/16/25 08:00 02/16/25 08:00 02/16/25 11:00 Laboratory Results - last 24 hr 02/15/25 18:10: WBC 13.8 H, RBC 5.55, Hgb 17.3, Hct 50.7, MCV 91.4, MCH 31.2, MCHC 34.1, RDW 13.5, Plt Count 178, MPV 10.6 H, Neut % (Auto) 78.2, Lymph % (Auto) 11.1, [place] % (Auto) 9.3, Eos % (Auto) 0.4, Baso % (Auto) 0.4, Neut # (Auto) 10.8 H, Lymph # (Auto) 1.5, [place] # (Auto) 1.3 H, Eos # (Auto) 0.1, Baso # (Auto) 0.1 02/15/25 18:18: WBC Cancelled, Corrected WBC Cancelled, RBC Cancelled, Hgb Cancelled, Hct Cancelled, MCV Cancelled, MCH Cancelled, MCHC Cancelled, RDW Cancelled, Plt Count Cancelled, MPV Cancelled, Neut % (Auto) Cancelled, Lymph % (Auto) Cancelled, [place] % (Auto) Cancelled, Eos % (Auto) Cancelled, Baso % (Auto) Cancelled, Neut # (Auto) Cancelled, Lymph # (Auto) Cancelled, [place] # (Auto) Cancelled, Eos # (Auto) Cancelled, Baso # (Auto) Cancelled, Total Counted Cancelled, Neutrophils % (Manual) Cancelled, Band Neutrophils % Cancelled, Lymphocytes % (Manual) Cancelled, Atypical Lymphs % Cancelled, Monocytes % (Manual) Cancelled, Eosinophils % (Manual) Cancelled, Basophils % (Manual) Cancelled, Metamyelocytes % Cancelled, Myelocytes % Cancelled, Promyelocytes % Cancelled, Blast Cells % Cancelled, Nucleated RBCs Cancelled, Differential Comment Cancelled, Hypersegmented Neuts Cancelled, Toxic Granulation Cancelled, Toxic Vacuolation Cancelled, Dohle Bodies Cancelled, Theresa Rods Cancelled, Platelet Estimate Cancelled, Giant Platelets Cancelled, RBC Morphology Cancelled, Polychromasia Cancelled, Hypochromasia Cancelled, Poikilocytosis Cancelled, Basophilic Stippling Cancelled, Anisocytosis Cancelled, Microcytosis Cancelled, Macrocytosis Cancelled, Spherocytes Cancelled, Pappenheimer Bodies Cancelled, Sickle Cells Cancelled, Target Cells Cancelled, Tear Drop Cells Cancelled, Ovalocytes Cancelled, Stomatocytes Cancelled, Helmet Cells Cancelled, [place] Bodies Cancelled, Bend Rings Cancelled, [place] Cells Cancelled, Elliptocytes Cancelled, Acanthocytes (Spur) Cancelled, Rouleaux Cancelled, Schistocytes Cancelled, Sodium 137, Potassium 4.3, Chloride 97 L, Carbon Dioxide 30, Anion Gap 14.3, BUN 19, Creatinine 1.60 H, Estimated Creat Clear 68, Estimated GFR 43 L, Est GFR ( Amer) 52 L, Glucose 103 H, Uric Acid 8.9 H, Calcium 9.0, Total Bilirubin 1.3, AST 26, ALT 28, Alkaline Phosphatase 84, Troponin I < 0.01, NT-Pro-B Natriuret Pep 287 H, Total Protein 7.3, Albumin 4.1, Globulin 3.2, Albumin/Globulin Ratio 1.3 02/15/25 21:30: Troponin I < 0.01, Procalcitonin 0.120 02/16/25 00:29: Troponin I < 0.01 02/16/25 05:42: WBC 11.5 H, RBC 5.26, Hgb 16.2, Hct 47.9, MCV 91.1, MCH 30.8, MCHC 33.8, RDW 13.2, Plt Count 161, MPV 10.1, Neut % (Auto) 87.4 H, Lymph % (Auto) 8.7 L, [place] % (Auto) 3.0, Eos % (Auto) 0.1, Baso % (Auto) 0.3, Neut # (Auto) 10.0 H, Lymph # (Auto) 1.0, [place] # (Auto) 0.3, Eos # (Auto) 0.0, Baso # (Auto) 0.0, Sodium 133 L, Potassium 4.3, Chloride 98, Carbon Dioxide 29, Anion Gap 10.3, BUN 20, Creatinine 1.60 H, Estimated Creat Clear 66, Estimated GFR 43 L, Est GFR ( Amer) 52 L, Glucose 152 H D, Calcium 9.4 I & O for Last 24 hours: Intake & Output 02/13/25 02/14/25 02/15/25 02/16/25 23:59 23:59 23:59 23:59 Intake Total 120 / 120 480 / 480 Output Total 1000 / 1000 Balance 120 / -880 -520 / -520 Weight 111.13 kg 107.002 kg Constitutional Constitutional: no acute distress *Routine HEENT Exam Head: Present normocephalic Eye: Present EOMI and PERRL ENT: Present mucous membranes moist *Routine Neck Exam Neck: Present supple; Absent lymphadenopathy *Routine Respiratory Exam Respiratory: Present CTA bilaterally *Routine Cardiovascular Exam Cardiovascular: Present RRR *Routine Abdominal Exam Abdominal: Present soft and normoactive bowel sounds; Absent tenderness *Routine Extremities Exam Extremities: Absent cyanosis, clubbing or edema Comments: Swelling around ankles, with mild tenderness. No erythema. *Routine Skin Exam Skin: Present warm; Absent rash *Routine Neurological Exam Neurological: Present alert and oriented X3 Results Data Completed and Pending Labs on day of discharge: Labs from last 24 hours 0402/16/25 02/15/25 05:42 00:29 21:30 WBC 11.5 H Corrected WBC RBC 5.26 Hgb 16.2 Hct 47.9 MCV 91.1 MCH 30.8 MCHC 33.8 RDW 13.2 Plt Count 161 MPV 10.1 Neut % (Auto) 87.4 H Lymph % (Auto) 8.7 L [place] % (Auto) 3.0 Eos % (Auto) 0.1 Baso % (Auto) 0.3 Neut # (Auto) 10.0 H Lymph # (Auto) 1.0 [place] # (Auto) 0.3 Eos # (Auto) 0.0 Baso # (Auto) 0.0 Total Counted Neutrophils % (Manual) Band Neutrophils % Lymphocytes % (Manual) Atypical Lymphs % Monocytes % (Manual) Eosinophils % (Manual) Basophils % (Manual) Metamyelocytes % Myelocytes % Promyelocytes % Blast Cells % Nucleated RBCs Differential Comment Hypersegmented Neuts Toxic Granulation Toxic Vacuolation Dohle Bodies Theresa Rods Platelet Estimate Giant Platelets RBC Morphology Polychromasia Hypochromasia Poikilocytosis Basophilic Stippling Anisocytosis Microcytosis Macrocytosis Spherocytes Pappenheimer Bodies Sickle Cells Target Cells Tear Drop Cells Ovalocytes Stomatocytes Helmet Cells [place] Bodies Bend Rings [place] Cells Elliptocytes Acanthocytes (Spur) Rouleaux Schistocytes Sodium 133 L Potassium 4.3 Chloride 98 Carbon Dioxide 29 Anion Gap 10.3 BUN 20 Creatinine 1.60 H Estimated Creat Clear 66 Estimated GFR 43 L Est GFR ( Amer) 52 L Glucose 152 H D Uric Acid Calcium 9.4 Total Bilirubin AST ALT Alkaline Phosphatase Troponin I < 0.01 < 0.01 NT-Pro-B Natriuret Pep Total Protein Albumin Globulin Albumin/Globulin Ratio Procalcitonin 0.120 02/15/25 02/15/25 18:18 18:10 WBC Cancelled 13.8 H Corrected WBC Cancelled RBC Cancelled 5.55 Hgb Cancelled 17.3 Hct Cancelled 50.7 MCV Cancelled 91.4 MCH Cancelled 31.2 MCHC Cancelled 34.1 RDW Cancelled 13.5 Plt Count Cancelled 178 MPV Cancelled 10.6 H Neut % (Auto) Cancelled 78.2 Lymph % (Auto) Cancelled 11.1 [place] % (Auto) Cancelled 9.3 Eos % (Auto) Cancelled 0.4 Baso % (Auto) Cancelled 0.4 Neut # (Auto) Cancelled 10.8 H Lymph # (Auto) Cancelled 1.5 [place] # (Auto) Cancelled 1.3 H Eos # (Auto) Cancelled 0.1 Baso # (Auto) Cancelled 0.1 Total Counted Cancelled Neutrophils % (Manual) Cancelled Band Neutrophils % Cancelled Lymphocytes % (Manual) Cancelled Atypical Lymphs % Cancelled Monocytes % (Manual) Cancelled Eosinophils % (Manual) Cancelled Basophils % (Manual) Cancelled Metamyelocytes % Cancelled Myelocytes % Cancelled Promyelocytes % Cancelled Blast Cells % Cancelled Nucleated RBCs Cancelled Differential Comment Cancelled Hypersegmented Neuts Cancelled Toxic Granulation Cancelled Toxic Vacuolation Cancelled Dohle Bodies Cancelled Theresa Rods Cancelled Platelet Estimate Cancelled Giant Platelets Cancelled RBC Morphology Cancelled Polychromasia Cancelled Hypochromasia Cancelled Poikilocytosis Cancelled Basophilic Stippling Cancelled Anisocytosis Cancelled Microcytosis Cancelled Macrocytosis Cancelled Spherocytes Cancelled Pappenheimer Bodies Cancelled Sickle Cells Cancelled Target Cells Cancelled Tear Drop Cells Cancelled Ovalocytes Cancelled Stomatocytes Cancelled Helmet Cells Cancelled [place] Bodies Cancelled [place] Rings Cancelled [place] Cells Cancelled Elliptocytes Cancelled Acanthocytes (Spur) Cancelled Rouleaux Cancelled Schistocytes Cancelled Sodium 137 Potassium 4.3 Chloride 97 L Carbon Dioxide 30 Anion Gap 14.3 BUN 19 Creatinine 1.60 H Estimated Creat Clear 68 Estimated GFR 43 L Est GFR ( Amer) 52 L Glucose 103 H Uric Acid 8.9 H Calcium 9.0 Total Bilirubin 1.3 AST 26 ALT 28 Alkaline Phosphatase 84 Troponin I < 0.01 NT-Pro-B Natriuret Pep 287 H Total Protein 7.3 Albumin 4.1 Globulin 3.2 Albumin/Globulin Ratio 1.3 Procalcitonin DS: Diagnosis Discharge Diagnosis (1) Acute on chronic diastolic (congestive) heart failure: Status: Acute Code(s): I50.33 - Acute on chronic diastolic (congestive) heart failure (2) Pleural effusion: Status: Acute Code(s): J90 - Pleural effusion, not elsewhere classified (3) Acute gout: Status: Acute Code(s): M10.9 - Gout, unspecified Qualifiers: Gout etiology: unspecified cause Gout site: ankle Laterality: unspecified laterality Qualified Code(s): M10.9 - Gout, unspecified (4) Leukocytosis: Status: Acute Code(s): D72.829 - Elevated white blood cell count, unspecified Qualifiers: Leukocytosis type: unspecified Qualified Code(s): D72.829 - Elevated white blood cell count, unspecified (5) CKD (chronic kidney disease): Status: Acute Code(s): N18.9 - Chronic kidney disease, unspecified Qualifiers: Chronic kidney disease stage: unspecified stage Qualified Code(s): N18.9 - Chronic kidney disease, unspecified (6) Hypervolemia: Status: Acute Code(s): E87.70 - Fluid overload, unspecified Qualifiers: Hypervolemia type: unspecified Qualified Code(s): E87.70 - Fluid overload, unspecified Meds Home Medications and Allergies Home Medications ?Medication ?Instructions ?Recorded ?Confirmed ?Type buspirone 10 mg tablet 10 mg PO BID Anxiety 03/02/18 02/15/25 History atorvastatin 40 mg tablet 40 mg PO HS Cholesterol 07/17/20 02/15/25 History diltiazem HCl 120 mg 120 mg PO BID ##60 10/13/20 02/15/25 Rx capsule,extended release 24 hr ascorbic acid (vitamin C) 500 mg 500 mg PO DAILY 04/13/24 02/15/25 History tablet bumetanide 2 mg tablet 2 mg PO DAILY 04/13/24 02/15/25 History potassium chloride 20 mEq 40 meq PO DAILY 04/13/24 02/15/25 History tablet,extended release apixaban 5 mg tablet (Eliquis) 5 mg PO BID #180 tabs 05/23/24 02/15/25 Rx levothyroxine 112 mcg tablet 112 mcg PO DAILY 02/15/25 02/15/25 History prasterone (dhea) 50 mg tablet 50 mg PO DAILY 02/15/25 02/15/25 History (DHEA) sildenafil 100 mg tablet 50 - 100 mg PO NEEDED PRN 02/15/25 02/16/25 History Erectile Dysfunction tamsulosin 0.4 mg capsule 0.8 mg PO DAILY 02/15/25 02/15/25 History allopurinol 100 mg tablet 300 mg (3 x 100 mg) PO DAILY #180 02/16/25 02/15/25 Rx tabs cyclobenzaprine 5 mg tablet 10 mg PO TIDP PRN muscle spasm 02/16/25 02/16/25 History lansoprazole 30 mg capsule,delayed 30 mg PO DAILY 02/16/25 02/15/25 History release oxycodone-acetaminophen 5 mg-325 1 tab PO Q8HP PRN Moderate Pain 02/16/25 02/16/25 History mg tablet (Scale Score 5-6) prednisone 20 mg tablet 40 mg (2 x 20 mg) PO DAILY 4 days 02/16/25 Rx #8 tabs trazodone 50 mg tablet 50 mg PO HSP PRN insomnia 02/16/25 02/16/25 History New Prescriptions to Start Prescriptions: Jair Ceron Allergies Allergy/AdvReac Type Severity Reaction Status Date / Time metoclopramide (From Reglan) Allergy Intermediate Anxiety Verified 01/19/25 10:44 Penicillins Allergy Intermediate Anxiety Verified 01/19/25 10:44 amantadine (AMANTADINE) Allergy Mild SEIZURE Verified 01/19/25 10:44 codeine (CODEINE) Allergy Mild I-RASH Verified 01/19/25 10:44 cephalexin (From Keflex) Allergy Anxiety Verified 01/19/25 10:44 terbinafine AdvReac Mild Confusion Verified 01/19/25 10:44 Discharge Plan Disposition Patient Disposition: Home, Self-Care Condition: Fair Follow up Plan Follow up with: Derrell West MD [Primary Care Provider] - 02/20/25 11:00 am () Prescriptions/Medication Reconciliation: New prednisone 20 mg Tablet 40 mg PO DAILY 4 Days Qty: 8 0RF Continued ascorbic acid (vitamin C) 500 mg tablet 500 mg PO DAILY potassium chloride 20 mEq tablet extended release 40 meq PO DAILY bumetanide 2 mg tablet 2 mg PO DAILY Eliquis 5 mg tablet 5 mg PO BID Qty: 180 1RF buspirone 10 MG tablet 10 mg PO BID diltiazem HCl 120 MG capsule,extended release 24hr 120 mg PO BID Qty: 60 1RF atorvastatin 40 MG tablet 40 mg PO HS levothyroxine 112 mcg tablet 112 mcg PO DAILY sildenafil 100 mg tablet 50 - 100 mg PO NEEDED PRN (Reason: Erectile Dysfunction) Rx Instructions: TAKE 1/2 OR 1 TABLET NEEDED tamsulosin 0.4 mg capsule 0.8 mg PO DAILY DHEA 50 mg Tablet 50 mg PO DAILY trazodone 50 mg tablet 50 mg PO HSP PRN (Reason: insomnia) oxycodone-acetaminophen 5-325 mg tablet 1 tab PO Q8HP PRN (Reason: Moderate Pain (Scale Score 5-6)) lansoprazole 30 mg capsule,delayed release(DR/EC) 30 mg PO DAILY cyclobenzaprine 5 mg tablet 10 mg PO TIDP PRN (Reason: muscle spasm) Changed allopurinol 100 mg tablet 300 mg PO DAILY Qty: 180 1RF Problem Reconciliation Problems Reviewed?: Yes Patient Discharge Instructions Patient Instructions: Low-Purine Diet Print Language: [place] Providers Primary Care Provider: Derrell West Admit Provider: Jair Barney Attending Provider: Jair Barney
[2025-02-16] MEDS: DEXAMETHASONE 4MG/ML 1ML VIAL 4 MG IV (12:59)
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
--- NOTE | 2025-02-17 10:03 | SW/DCPLANNER ---
Spoke with patient on the phone. Patient stated that he is doing good. Patient stated that he is aware of his upcoming appointments. Patient stated that his new medicine was brought to his bedside. Patient stated that he has no concerns or questions at this time. Rosangela Espinoza
== END 2025-02-16 13:32 | disposition home or self-care (01) ==
LOC: ER 18:19 → 2ND 20:40
PROVIDERS: Nurse Practitioner Family; Admitting Provider Student in an Organized Health Care Education/Training Program; Emergency Provider Emergency Medicine; PCP Internal Medicine; Visit Provider Student in an Organized Health Care Education/Training Program
DX: M10.072 Idiopathic gout, left ankle and foot (principal); I50.30 Unspecified diastolic (congestive) heart failure; J90 Pleural effusion, not elsewhere classified; D72.829 Elevated white blood cell count, unspecified; M10.9 Gout, unspecified; N18.30 Chronic kidney disease, stage 3 unspecified; E87.70 Fluid overload, unspecified; E03.9 Hypothyroidism, unspecified; Z88.5 Allergy status to narcotic agent; Z88.0 Allergy status to penicillin; Z88.8 Allergy status to other drugs, medicaments and biological substances; Z79.01 Long term (current) use of anticoagulants; Z79.899 Other long term (current) drug therapy; K21.9 Gastro-esophageal reflux disease without esophagitis; I25.110 Atherosclerotic heart disease of native coronary artery with unstable angina pectoris; G47.33 Obstructive sleep apnea (adult) (pediatric); F41.8 Other specified anxiety disorders; I13.0 Hypertensive heart and chronic kidney disease with heart failure and stage 1 through stage 4 chronic kidney disease, or unspecified chronic kidney disease
CPT/HCPCS: 36415; 71045; 80048; 80053; 83880; 84145; 84484; 84550; 85025; 87040; 93005; 93306; 99285; G0378; J1100; J1939

== ENCOUNTER 2025-02-21 10:56 | Day surgery (SDC) | payer MEDICARE, SELFPAY ==
[2025-02-21 11:11] VITALS: BP 120/65; PULSE 79; RESP 16; TEMP 36.6; O2SAT 97; BMI 33.7
--- NOTE | 2025-02-21 11:20 | EXP.PAIN.PRO ---
Procedure Date: 02/21/25 Time: 11:10 Anesthesiologist:: Chris Doherty CRNA Complications:: None Pre-procedure Diagnosis:: Left sacroiliitis Post-procedure Diagnosis:: Same Indications for Procedure:: Patient is a very pleasant 69-year-old male who comes our clinic today for left sacroiliac joint injection of cortisone and local anesthetic. Patient describes low lumbar back pain off the midline to the left. Left posterior hip pain. Difficulty transitioning from sitting to standing due to left posterior hip pain. He rates his pain 7/10. Procedure Details:: Procedure: Left sacroiliac injection under fluoroscopy Informed consent was obtained and the risk and benefits of the procedure were explained to the patient.~ The patient was taken to the procedure room and noninvasive monitors were placed including noninvasive blood pressure cuff and pulse oximeter.~ The patient was placed prone on the procedure table.~ The~ left hip was cleansed using Betadine as a cleansing solution.~ C-arm fluorosocpy was used to view the left SI joint.~ The skin and subcutaneous tissues were anesthetized using Lidocaine 1.5% and a 25-gauge needle.~ After this, a 22-gauge spinal needle was inserted under fluoroscopic guidance into the inferior aspect of the left SI joint.~ Omnipaque dye was injected and a good spread was seen throughout the joint.~ After this, approximately 5 mL of bupivacaine 0.25% and Depo-Medrol 40 mg was incrementally injected into the sacroiliac joint.~ The patient tolerated the procedure well with no complications.~ The patient was observed in the Pain Clinic for a period of 30-45 minutes, then discharged home neurologically intact.~ Plan and Disposition:: Patient was discharged without incident.
[2025-02-21 11:30] VITALS: BP 131/71; PULSE 72; RESP 16; O2SAT 98
[2025-02-21] MEDS: BUPIVACAINE 0.25% 10ML INJ 25 MG IJ (12:04)
[2025-02-21] MEDS: methylPREDNISolone ACETATE 80MG/ML VIAL 80 MG (12:04)
[2025-02-21] MEDS: LIDOCAINE 1% 5ML PF VIAL 5 ML (12:04)
[2025-02-21 12:05] VITALS: BP 140/76; PULSE 77; RESP 18; O2SAT 95
[2025-02-21 12:06] VITALS: BP 140/76; PULSE 77; RESP 18; O2SAT 95
== END 2025-02-21 11:30 | disposition home or self-care (01) ==
PROVIDERS: PCP Internal Medicine; Visit Provider Nurse Anesthetist, Certified Registered
DX: M46.1 Sacroiliitis, not elsewhere classified (principal)
CPT/HCPCS: 27096; G0260; J1010

== ENCOUNTER 2025-03-08 10:17 | Outpatient (POV) | payer MEDICARE, SELFPAY ==
[2025-03-08 10:33] VITALS: BP 113/73; PULSE 64; RESP 18; O2SAT 98; BMI 33.5
--- NOTE | 2025-03-08 10:54 | EXP.PAIN.SOA ---
[facility] Disclaimer: The information contained in this section may have been updated after the patient was seen, as this information can be updated by other users. Medical History Hypervolemia Leukocytosis Pleural effusion Acute on chronic diastolic (congestive) heart failure COVID-19 Polycythemia Atrial fibrillation with rapid ventricular response Severe sepsis with acute organ dysfunction Acute exacerbation of chronic obstructive airways disease Dyspnea due to COVID-19 Viral respiratory infection Febrile illness Acute bronchitis Acute gout of left foot Moderate major depression Benign essential HTN Hyperlipidemia LDL goal <100 Obstructive sleep apnea (adult) (pediatric) Anxiety disorder, unspecified Hypothyroidism, unspecified Family History Other No significant family history Unknown family medical history Social History Smoking Status: Former smoker tobacco type: cigarettes packs per day: 1 second hand exposure: Yes alcohol intake: current alcohol intake frequency: a few times a week substance use type: denies use current occupational status: retired Travel in the last 8 weeks?: None household members: significant other housing: house current occupational exposures/hazards: No caffeine: Yes PM Subjective & Objective Subjective Subjective:: Patient is a pleasant 69-year-old male who presents today for follow-up of left SI injection on 02/21/2025. Today he rates his pain a 4 out of 10. He denies any new trauma or injury. He does state that it did take a couple of days to kick in but it has definitely brought the pain down to where it is much more manageable. He is rating at least 50% relief. Patient denies any other changes. Patient did get the compounded cream however states he is only tried it 1 or 2 times so cannot say for sure whether or not how much improvement it has done. Patient does state today that a lot of his pain is just when he is now up standing for prolonged periods and will occasionally happen when he is walking. He states that this pain is in and around his left lower buttocks area. His Frank has been reviewed and is appropriate. Review of Systems: General: No recent weight changes, no fever, no sleep disturbances Respiratory: No cough, no shortness of air, no recurring pulmonary infections Cardiovascular/peripheral vascular: No chest pain, no palpitations, no edema, no shortness of breath Gastrointestinal: No new onset incontinence, normal bowel movements reported Genitourinary: No new onset incontinence Musculoskeletal: Left hip pain Psychiatric: [Normal mood/affect] Neurological: [Denies weakness in extremities], [denies balance issues] Pain at rest (0-10 scale): 4 Objective Objective:: Physical Exam: General: Alert and oriented x3, no acute distress, pleasant and cooperative Lungs: Respirations even and unlabored, symmetrical chest expansion Eyes: PERRL Musculoskeletal: Flexion and extension of left hip somewhat guarded secondary to pain, [antalgic gait noted] Neurological: Speech clear, no gross sensory deficit Has patient had previous pain injection?: Yes Percent improvement in pain since last injection: At least 50% Conservative treatment options previously tried: Home exercise plan Length of treatment: Longer than 12 weeks Meds Home Medications and Allergies Home Medications ?Medication ?Instructions ?Recorded ?Confirmed ?Type buspirone 10 mg tablet 10 mg PO BID Anxiety 03/02/18 03/08/25 History atorvastatin 40 mg tablet 40 mg PO HS Cholesterol 07/17/20 03/08/25 History diltiazem HCl 120 mg 120 mg PO BID ##60 10/13/20 03/08/25 Rx capsule,extended release 24 hr ascorbic acid (vitamin C) 500 mg 500 mg PO DAILY 04/13/24 03/08/25 History tablet bumetanide 2 mg tablet 2 mg PO DAILY 04/13/24 03/08/25 History potassium chloride 20 mEq 40 meq PO DAILY 04/13/24 03/08/25 History tablet,extended release apixaban 5 mg tablet (Eliquis) 5 mg PO BID #180 tabs 05/23/24 03/08/25 Rx levothyroxine 112 mcg tablet 112 mcg PO DAILY 02/15/25 03/08/25 History prasterone (dhea) 50 mg tablet 50 mg PO DAILY 02/15/25 03/08/25 History (DHEA) sildenafil 100 mg tablet 50 - 100 mg PO NEEDED PRN 02/15/25 03/08/25 History Erectile Dysfunction tamsulosin 0.4 mg capsule 0.8 mg PO DAILY 02/15/25 03/08/25 History allopurinol 100 mg tablet 300 mg (3 x 100 mg) PO DAILY #180 02/16/25 03/08/25 Rx tabs cyclobenzaprine 5 mg tablet 10 mg PO TIDP PRN muscle spasm 02/16/25 03/08/25 History lansoprazole 30 mg capsule,delayed 30 mg PO DAILY 02/16/25 03/08/25 History release trazodone 50 mg tablet 50 mg PO HSP PRN insomnia 02/16/25 03/08/25 History colchicine 0.6 mg tablet 0.6 mg PO .COMPLEX #20 tabs 02/20/25 03/08/25 Rx oxycodone-acetaminophen 5 mg-325 1 tab PO Q8HP PRN Moderate Pain 02/22/25 03/08/25 Rx mg tablet (Scale Score 5-6) #20 tabs New Prescriptions to Start Prescriptions: Allergies Allergy/AdvReac Type Severity Reaction Status Date / Time metoclopramide (From Reglan) Allergy Intermediate Anxiety Verified 02/20/25 14:04 Penicillins Allergy Intermediate Anxiety Verified 02/20/25 14:04 amantadine (AMANTADINE) Allergy Mild SEIZURE Verified 02/20/25 14:04 codeine (CODEINE) Allergy Mild I-RASH Verified 02/20/25 14:04 cephalexin (From Keflex) Allergy Anxiety Verified 02/20/25 14:04 terbinafine AdvReac Mild Confusion Verified 02/20/25 14:04 Assessment and Plan *Assessment and plan (1) Sacroiliitis: Status: Acute Category: Medical Code(s): M46.1 - Sacroiliitis, not elsewhere classified (2) Left hip pain: Status: Acute Category: Medical Code(s): M25.552 - Pain in left hip Plan Patient has had significant improvement following his SI injection and does not require any additional injection therapy at this time. Patient is still having some left hip pain however his complaints are more lower in his buttocks and do seem more consistent with left hip/femoral head pain. I did discuss with patient in future he may benefit from an intra-articular hip injection. We will follow-up with this in future visits. Patient will return to clinic in 6 weeks for reevaluation of symptoms and plan of care. We did also discuss possibility of pump in the future if the injections only provide temporary relief. We will continue to monitor this. Patient has been instructed to contact the clinic with any concerns before the next appointment. Dr. Marvin has reviewed this note and agrees with this plan of care. This note was dictated using voice recognition software and make contain errors or omissions. All injections are used with Lidocaine, Bupivacaine and dexamethasone. Occasionally urine drug screen is needed to verify patient's compliance with our office pain contract. This is ordered based off specific treatments related to chronic pain with the potential to abuse certain medications.
== END 2025-03-08 23:59 | disposition home or self-care (01) ==
LOC: SC.PAIN 10:18
PROVIDERS: PCP Internal Medicine; Visit Provider Nurse Practitioner Family
DX: M46.1 Sacroiliitis, not elsewhere classified (principal); M25.552 Pain in left hip; Z87.891 Personal history of nicotine dependence
CPT/HCPCS: 99212; G0463

== ENCOUNTER 2025-03-21 08:59 | Outpatient (CLI) | payer MEDICARE, SELFPAY ==
[2025-03-21 09:04] LABS: Microscopic, Urine URINE MICROSCOPIC (MICROSCOPIC)
[2025-03-21 09:29] LABS: Hematocrit 45.6 % (42.0-52.0); Hemoglobin 15.5 g/dL (14.1-18.0); Mean Corpuscular Hemoglobin 30.9 pg (27.0-31.2); Nucleated Red Blood Cells # 0 10^3/uL; Nucleated Red Blood Cells % 0 %; Platelet Count 171 K/mm3 (142-424); Red Blood Count 5.01 M/mm3 (4.60-6.20); Red Cell Distribution Width 14.6 % (11.5-17.5); Red Cell Distribution Width-SD 47.8 fL; White Blood Count 6.2 K/mm3 (4.8-10.8)
[2025-03-21 10:00] LABS: Albumin Level 3.8 g/dl (3.5-5.0); Anion Gap 5.6 mEq/L (5-15); Blood Urea Nitrogen 21 mg/dl (9-20); Calcium 8.8 mg/dl (8.4-10.2); Carbon Dioxide 28 mmol/L (22.0-30.0); Chloride 107 mmol/L (98-107); Estimated Glomerular Filt Rate 50 ml/min (>60); GFR (African American) 61 ML/MIN (>60); Glucose 76 mg/dl (74-100); Phosphorous 3.4 mg/dl (2.5-4.5); Potassium 3.6 mmoL/L (3.5-5.1); Sodium 137 mmol/L (136-145)
[2025-03-21 10:04] LABS: Appearance,Urine CLEAR (Clear); Bilirubin,Urine Negative (Negative); Blood, Urine Negative (Negative); Color,Urine YELLOW (Yellow); Glucose,Urine (UA) Negative (Negative); Ketones,Urine Negative (Negative); Leukocyte Esterase,Urine Negative (Negative); Nitrate,Urine Negative (Negative); Protein,Urine Negative (Negative)
[2025-03-21 10:11] LABS: Intact Parathyroid Hormone 109.9 pg/mL (7.5-53.5)
[2025-03-21 10:17] LABS: 25-OH Vitamin D, Total 58.9 ng/mL (30-100)
[2025-03-21 10:20] LABS: Total Protein,Urine Random < 5.0 mg/dL (0.0-12.0)
[2025-03-21 10:23] LABS: Creatinine,Urine Random 167 mg/dL (Not Estab.)
[2025-03-21 10:27] LABS: Microalbumin < 6.000 mg/L (0-16.7)
== END 2025-03-21 23:59 | disposition home or self-care (01) ==
LOC: LAB 08:59
PROVIDERS: PCP Internal Medicine; Visit Provider Student in an Organized Health Care Education/Training Program
DX: I12.9 Hypertensive chronic kidney disease with stage 1 through stage 4 chronic kidney disease, or unspecified chronic kidney disease (principal); N18.30 Chronic kidney disease, stage 3 unspecified; Z87.891 Personal history of nicotine dependence
CPT/HCPCS: 36415; 80069; 81001; 82043; 82306; 82570; 83970; 84156; 85027

== ENCOUNTER 2025-03-22 13:19 | Outpatient (CLI) | payer MEDICARE, SELFPAY ==
[2025-03-22 18:59] LABS: Alanine Aminotransferase 19 U/L (12-78); Albumin Level 4.1 g/dl (3.5-5.0); Alkaline Phosphatase 86 U/L (38-126); Aspartate Amino Transferase 23 U/L (17-59); Bilirubin,Direct 0.2 mg/dl (0.0-0.4); Bilirubin,Indirect 0.6 mg/dL (0.0-0.9); Bilirubin,Total 0.8 mg/dl (0.2-1.3); Bilirubin,Unconjugated 0.5 mg/dL (0.0-1.1); Chol/HDL Ratio 2.3 (1-3.5); Cholesterol 171 mg/dl (140-200); HDL Cholesterol 75 mg/dl (40-60); Total Protein,Serum 6.3 g/dl (6.3-8.2); Triglycerides 98 mg/dl (30-150); Uric Acid 9.4 mg/dl (3.5-8.5); VLDL Cholesterol 20 mg/dL (0-40)
[2025-03-22 19:09] LABS: Direct LDL Cholesterol 82.42 mg/dL (100-129)
--- OUTSIDE RECORDS SUMMARY | 2025-03-24 13:21 | XMS_ITS | Data Portability ---
Author Organization [facility] Address [address] [place] [address] Care Team Providers Care Brand Recorder Name Role Phone DERRELL WEST Primary Care Provider [phone] HEMANTH BROOKS JR General Surgeon Assessment Encounter Date Assessment Date Assessment LastModified by Organization Details LastModified Time 05/14/2023 05/14/2023 Status post repair of large incisional hernia. No sign of recurrence. Follow-up as needed. [email or web address] Not available 05/14/2023 12:24:38 Plan of Treatment [...] pelvi s, w/o contr ast [place] [facility] [address] [place] [address] Fabiola t Name: RODGER marrqouin : 955 Patiramy t Orderi ng Provid er: Rich BROOKS EXAM [...] Atilio Belle MD on 022 5:[address] , [place], [address], 10/21/2022 09:38:56 Result Notes None recorded. Problems Name Problem SNOMED Code Status Onset Date Resolution Date Notes Provider Name and Address Organization Details Recorded Time Incisiona l hernia 997140771 Active 2021 HEMANTH BROOKS JR, MD [address] [place] [address], [phone] , [facility] 17:00:25 Abdominal pain 88651754 Active 2015 From [employer];Provi evie: Soraya Shah;Sta tus: Active Not Available [facility] 6 06:38:04 Problem Notes None recorded. Procedures Surgical History Date Name Laterality Status Provider Name and Address Organization Details Recorded Time cholecystectomy completed [facility] 10/07/2022 15:39:08 hernia repair completed [facility] 10/07/2022 15:39:18 Colectomy completed [facility] 10/07/2022 15:40:23 Appendectomy completed [facility] 10/07/2022 15:40:31 Xcapsl ctrc rmvl cplx wo ecp completed [facility] 10/07/2022 15:40:42 Cardioversion electric ext completed [facility] 10/07/2022 15:41:11 operation on testis completed [facility] 10/07/2022 15:41:40 Imaging Results Imaging Date Name Status LastModified by Organiz ation Details LastModified Time 10/13/2022 CT, abdomen + pelvis, w/o contrast completed [address] , [place], [address], 10/21/2022 09:38:56 Procedure Notes None recorded. Medical Equipment None Reported. Allergies Allergen ID Allergen Name Allergen Category Reaction Reaction Severity Criticality Documentation Date Start Date Code Code System Note Provider Name and Address Organization Details Recorded Time [id number] amantadin e hydrochlo ride medicatio n other Not available Not available 10/02/20162009 26724 5 RxNorm React ion: OTHER ; Comme nt: seizu res;C reate d By: Grdinesh ins Sandr a;Cre ated Date: 2009 9:00: 37 AM; Not Available [facility] 6 11:56:47 285389 Product containin g penicilli n (product) medicatio n hives Not available Not available 10/03/20162009 72289 8001 SNOMED React ion: HIVES ; Comme nt: Creat ed By: Grdinesh ins Sandr a;Cre ated Date: 2009 8:59: 55 AM; Not Available [facility] 6 05:40:36 702365 codeine medicatio n hives Not available Not available 10/03/20162009 2670 RxNorm React ion: HIVES ; Comme nt: Creat ed By: Michelle ins Sandr a;Cre ated Date: 2009 8:59: 37 AM; Not Available [facility] 6 08:37:12 631084 Reglan medicatio n Not available Not available Not available 10/07/2022 9230 RxNorm Arely No [facility] 2 15:29:04 487385 dexametha sone medicatio n Not available Not available Not available 10/07/2022 3264 [facility] 15:[facility] Medications Name Sig Start Date [...] Updated DateTime 2 180.34 cm 31.4 kg/m2 210149. 28 g 69 /min 126 mm[Hg] 84 mm[Hg] Arely [facility] 2 15:30:29 Date Recorded Body height Body mass index (BMI) Body weight Heart rate Systolic blood pressure Diastolic blood pressure Provider Name and Address Organization Details Last Updated DateTime 3 180.34 cm 28.6 kg/m2 58244.4 4 g 52 /min 106 mm[Hg] 75 mm[Hg] [facility] 3 09:50:13 Date Recorded Body height Body mass index (BMI) Body weight Heart rate Systolic blood pressure Diastolic blood pressure Provider Name and Address Organization Details Last Updated DateTime 3 180.34 cm 27.9 kg/m2 44779.4 7 g 68 /min 108 mm[Hg] 69 mm[Hg] [facility] 3 12:04:34 Social History None recorded. [...] available 2021 15:38:15 Medical History Condition Response Heart Disease Y Other Thyroid Disease Y Stroke Y Asthma Y Past Encounters Encounter ID Performer Location Encounter Start Date Encounter Closed Date Diagnosis/Indication Diagnosis SNOMED-CT Code Diagnosis ICD10 Code Diagnosis Note [id number] HEMANTH BROOKS JR, MD GENERAL SURGERY [address] [address] 10/07/2022 15:15:02 10/08/2022 12:13:02 Abdominal pain 75954650 R10.9 Incisional hernia 292549 000 K43.2 His abdominal pain is most likely from the incisional hernias. Check CT scan abdomen pelvis to confirm this and for operative planning. Dr. Alford cox branson found him low risk for cardiac complicati [...] smaller meshes. Await records from before deciding. [id number] HEMANTH BROOKS JR, MD GENERAL SURGERY [address] [address] 12/04/2022 09:38:32 12/05/2022 04:23:39 Abdominal pain 97013747 R10.9 Incisional hernia 452225 000 K43.2 Status post open repair of large incisional hernia requiring transversu s abdominis release on 11/12/2022 [id number] HEMANTH BROOKS JR, MD GENERAL SURGERY [address] [id number] 05/14/2023 11:57:03 05/18/2023 09:31:01 Health Concerns Section Related Observation LastModified by Organization Detai ls LastModified Time None Recorded Concern Status LastModified by Organization Details LastModified Time None Recorded Advance Directives Directive None Recorded Payers Insurance Date Sequence Insurance Name Policy Number Policy Limon Covered Member ID Limon Member ID Guarantor Name 05/14/2023 1 [employer] (MEDICARE REPLACEMENT HMO) Aden Cheung [id number] Aden Cheung 12/03/2022 1 [place] Aden Cheung [id number] Aden Cheung 12/04/2022 2 [employer] (MEDICARE SUPPLEMENT) Aden Cheung [id number] Aden Cheung 12/04/2022 [employer] (MEDICARE SUPPLEMENT) Aden Cheung [id number] Aden Cheung 01/14/2019 1 *SELF PAY* [facility] Notes Date Note Type Note Provider [...] for hydrocele, cardioversion. HEMANTH BROOKS JR, MD [address] [place] [address], [phone], [facility] 10/30/2022 10:21:20 12/04/2022 text/html 10/07/2022 [...] in a store without shortness of breath. Independence removed today. He is back on Eliquis for atrial fibrillation. I will see him in 6 months time. He will avoid heavy lifting until early January. HEMANTH BROOKS JR, MD [address] [place] [address], [phone], [facility] 12/04/2022 10:25:13 05/14/2023 text/html He [...] He feels great. HEMANTH BROOKS JR, MD [address] [place] [address], [phone], [facility] 05/14/2023 12:25:00
== END 2025-03-22 23:59 | disposition home or self-care (01) ==
LOC: LAB.DROPOF 03-24 13:19
PROVIDERS: PCP Internal Medicine; Visit Provider Internal Medicine
DX: M10.9 Gout, unspecified (principal); E78.5 Hyperlipidemia, unspecified; I10 Essential (primary) hypertension
CPT/HCPCS: 80061; 80076; 84550

== ENCOUNTER 2025-04-12 12:41 | Outpatient (CLI) | payer MEDICARE, SELFPAY ==
--- NOTE | 2025-04-12 12:44 | XR_ITS ---
FINAL REPORT CLINICAL HISTORY: Right neck pain and spasm FINDINGS: CERVICAL SPINE 5 views were obtained. There is no prior exam for comparison. The cervicothoracic junction is not well-seen on the lateral view. There is no acute fracture or malalignment through the superior endplate of C7. Multilevel degenerative disc disease is most pronounced at C5-6. Precervical soft tissues are unremarkable. IMPRESSION: Degenerative changes without acute osseous abnormality. Reviewed, Interpreted and Dictated by Rika Ennis MD Transcribed by Tyra Johnson Authenticated and [facility]
== END 2025-04-12 23:59 | disposition home or self-care (01) ==
LOC: RAD 12:41
PROVIDERS: PCP Internal Medicine; Visit Provider Internal Medicine
DX: M47.812 Spondylosis without myelopathy or radiculopathy, cervical region (principal)
CPT/HCPCS: 72050

== ENCOUNTER 2025-04-19 10:37 | Outpatient (POV) | payer MEDICARE, SELFPAY ==
--- OUTSIDE RECORDS SUMMARY | 2025-03-24 10:40 | XMS_ITS | Encounter Summary ---
Author Organization [facility] Address [address] [place] [address] Care Team Providers Care Drying Oven Attendant Name Role Phone Derrell West MD Primary Care Provider [phone] Reason for Visit * Reason Comments Chronic [...] Description 03/24/2025 10:40 AM EDT [facility] [address] [place] [address] Vernon Medina MD [address] [place] [phone] Stage 3 chronic kidney disease, unspecified whether [...] not included. Nephrology Outpatient Clinic Progress Note [facility] Patient: Aden Cheung Primary Care Provider: [...] Insecurity: No Food Insecurity (11/20/2023) Received from [employer] Insecurity : Not on file : Not on file Transportation Needs: Not on file Physical Activity: Not on file Stress: Not on file Social Connections: Low Risk (11/20/2023) Received from [facility] [employer] Family and Community Support Help with Day to Day Activities: Not on file Feeling Lonely or Isolated: Not on file Intimate Partner Violence: Unknown (08/19/2023) Received from [facility] Abuse Screen Unsafe at Home or Work/School: Not on file Feels Threatened by Someone?: Not on file Does Anyone Keep You from Contacting Others or Doint Things Outside the Home?: Not on file Physical Sign of Abuse Present: Not on file Housing Stability: Low Risk (11/20/2023) Received from [employer] Housing Stability Living situation today: Not on file Living situation problems: Not on file Allergies Allergen Reactions Amantadines Other - please document in the comment field seizure; confirmed by patient's daughter - per pharmacy sales representative Seizures, only time pt has ever had a seizure Penicillins Hives, Itching, Rash and Swelling confirmed by patient's daughter - per pharmacy sales representative Codeine Hives confirmed by patient's daughter - per pharmacy sales representative Metoclopramide Other - please document in the [...] , CAUR , CALCIUMUR , PHOSUR , [id number] , [id number] , CREATUR MBD: No results found for: [...] , LH , PROLACTIN , TSH , [id number] , FREET4 , CORTISOL 09/06/24 labs CBC: [...] discuss significance below. Impression & Plan: Aden hCeung is a 69 y.o. male with PMH [...] may tolerate it. Recommended he discuss with business database analyst for benefit #HTN in CKD - controlled [...] year Vernon Medina MD Division of Nephrology [facility] Counseling Documentation: The patient was counseled regarding COUNSELING TOPICS: diagnostic results, prognosis, risks and benefit of treatment options, risk factor reductions, instructions for management, patient and family education, medication changes, diagnostic impressions, Heart healthy diet, regular physical activity and weight control, Avoidance of NSAIDs and other nephrotoxins, and intermission coordinator nature of condition. Education provided was verbal counseling.Additional time was spent in care coordination including medical record review. ORDERS PLACED THIS ENCOUNTER Orders Placed This Encounter Procedures CBC W/O Differential Standing Status: Future Expected Date: 03/24/2026 Expiration Date: 04/28/2026 Release to patient in [facility]: Immediate Urinalysis with reflex microscopic (Culture NOT Included) Standing Status: Future Expected Date: 03/24/2026 Expiration Date: 04/28/2026 Release to patient in [facility]: Immediate Vitamin D 25 Hydroxy Standing Status: Future Expected Date: 03/24/2026 Expiration Date: 04/28/2026 Release to patient in [facility]: Immediate PTH Intact Total Standing Status: Future Expected Date: 03/24/2026 Expiration Date: 04/28/2026 Release to patient in [facility]: Immediate Albumin-creatinine ratio, urine, random Standing Status: Future Expected Date: 03/24/2026 Expiration Date: 04/28/2026 [facility] Protein, Random, Urine with Creatinine Standing Status: Future Expected Date: 03/24/2026 Expiration Date: 04/28/2026 [facility] Renal Function Panel, Plasma Standing Status: Future Expected Date: 03/24/2026 Expiration Date: 04/28/2026 [facility] Im[facility] Problem List Items Addressed This Visit Anemia in stage 3 chronic kidney disease Hypertensive chronic kidney disease with stage 1 through stage 4 chronic kidney disease, or unspecified chronic kidney disease Acute idiopathic gout of right foot Mixed hyperlipidemia Chronic kidney disease-mineral and bone disorder (CKD-MBD) Other Visit Diagnoses Stage 3 chronic kidney disease, unspecified whether stage 3a or 3b CKD ([facility]) - Primary Relevant Orders CBC W/O Differential [...] unspecified whether stage 3a or 3b CKD ([facility]) Expected: 03/24/2026 (Approximate), Expires: 04/28/2026 Vitamin D 25 Hydroxy Lab Routine Stage 3 chronic kidney disease, unspecified whether stage 3a or 3b CKD ([facility]) Expected: 03/24/2026 (Approximate), Expires: 04/28/2026 PTH Intact Total Lab Routine Stage 3 chronic kidney disease, unspecified whether stage 3a or 3b CKD ([facility]) Expected: 03/24/2026 (Approximate), Expires: 04/28/2026 Albumin-creatinine ratio, urine, random Lab Routine Stage 3 chronic kidney disease, unspecified whether stage 3a or 3b CKD ([facility]) Expected: 03/24/2026 (Approximate), Expires: 04/28/2026 Protein, Random, Urine with Creatinine Lab Routine Stage 3 chronic kidney disease, unspecified whether stage 3a or 3b CKD ([facility]) Expected: 03/24/2026 (Approximate), Expires: 04/28/2026 Renal Function Panel, Plasma Lab Routine Stage 3 chronic kidney disease, unspecified whether stage 3a or 3b CKD ([facility]) Expected: 03/24/2026 (Approximate), Expires: 04/28/2026 documented as of this encounter Visit Diagnoses Diagnosis Stage 3 chronic kidney disease, unspecified whether stage 3a or 3b CKD ([facility])- Primary Hypertensive chronic kidney disease with stage [...] documented as of this encounter Care Teams Drying Oven Attendant Relationship Specialty Start Date End Date Derrell West MD [address] [place] [address] [address] [place] [address] PCP - General 10/21/22 documented as of this encounter
--- NOTE | 2025-04-19 10:44 | EXP.PAIN.SOA ---
[facility] Disclaimer: The information contained in this section may have been updated after the patient was seen, as this information can be updated by other users. Medical History Hypervolemia Leukocytosis Pleural effusion Acute on chronic diastolic (congestive) heart failure COVID-19 Polycythemia Atrial fibrillation with rapid ventricular response Severe sepsis with acute organ dysfunction Acute exacerbation of chronic obstructive airways disease Dyspnea due to COVID-19 Viral respiratory infection Febrile illness Acute bronchitis Acute gout of left foot Moderate major depression Benign essential HTN Hyperlipidemia LDL goal <100 Obstructive sleep apnea (adult) (pediatric) Anxiety disorder, unspecified Hypothyroidism, unspecified Family History Other No significant family history Unknown family medical history Social History Smoking Status: Former smoker tobacco type: cigarettes packs per day: 1 second hand exposure: Yes alcohol intake: current alcohol intake frequency: a few times a week substance use type: denies use current occupational status: retired Travel in the last 8 weeks?: None household members: significant other housing: house current occupational exposures/hazards: No caffeine: Yes PM Subjective & Objective Subjective Subjective:: Patient is a pleasant 69-year-old male who presents today for 6-week follow-up. Today he rates his pain a 7 out of 10. Patient denies any new falls or injuries. He does state that he is still having the chronic low back pain and denies any radiating symptoms into his leg. He states typically it was tight more around the low back and into his hips or buttocks area. He does state that pain does interfere with his ability perform activities of daily living such as cooking and cleaning. Patient is interested in injection therapy as well as the possibility of the pump. Patient does state that he has been dealing with this for years and it just seems to progressively worsen and does not get better. patient did previously have a left SI injection that did provide significant relief. Patient has continued conservative measures with no additional improvement. His Frank has been reviewed and is appropriate. Review of Systems: General: No recent weight changes, no fever, no sleep disturbances Respiratory: No cough, no shortness of air, no recurring pulmonary infections Cardiovascular/peripheral vascular: No chest pain, no palpitations, no edema, no shortness of breath Gastrointestinal: No new onset incontinence, normal bowel movements reported Genitourinary: No new onset incontinence Musculoskeletal: Chronic back pain Psychiatric: [Normal mood/affect] Neurological: [Denies weakness in extremities], [denies balance issues] Pain at rest (0-10 scale): 7 Objective Objective:: Physical Exam: General: Alert and oriented x3, no acute distress, pleasant and cooperative Lungs: Respirations even and unlabored, symmetrical chest expansion Eyes: PERRL Musculoskeletal: Flexion and extension of lumbar [spine] somewhat guarded secondary to pain, [antalgic gait noted] point tenderness along bilateral SIs with positive bilateral Dario's, Tabitha's, Gaenslen's, compression and distraction exam Neurological: Speech clear, no gross sensory deficit Has patient had previous pain injection?: No Conservative treatment options previously tried: Home exercise plan Length of treatment: Longer than 12 weeks Meds Home Medications and Allergies Home Medications ?Medication ?Instructions ?Recorded ?Confirmed ?Type buspirone 10 mg tablet 10 mg PO BID Anxiety 03/02/18 04/12/25 History atorvastatin 40 mg tablet 40 mg PO HS Cholesterol 07/17/20 04/12/25 History diltiazem HCl 120 mg 120 mg PO BID ##60 10/13/20 04/12/25 Rx capsule,extended release 24 hr ascorbic acid (vitamin C) 500 mg 500 mg PO DAILY 04/13/24 04/12/25 History tablet bumetanide 2 mg tablet 2 mg PO DAILY 04/13/24 04/12/25 History potassium chloride 20 mEq 40 meq PO DAILY 04/13/24 04/12/25 History tablet,extended release apixaban 5 mg tablet (Eliquis) 5 mg PO BID #180 tabs 05/23/24 04/12/25 Rx levothyroxine 112 mcg tablet 112 mcg PO DAILY 02/15/25 04/12/25 History prasterone (DHEA) 50 mg tablet 50 mg PO DAILY 02/15/25 04/12/25 History (DHEA) sildenafil 100 mg tablet 50 - 100 mg PO NEEDED PRN 02/15/25 04/12/25 History Erectile Dysfunction tamsulosin 0.4 mg capsule 0.8 mg PO DAILY 02/15/25 04/12/25 History allopurinol 100 mg tablet 300 mg (3 x 100 mg) PO DAILY #180 02/16/25 04/12/25 Rx tabs trazodone 50 mg tablet 50 mg PO HSP PRN insomnia 02/16/25 04/12/25 History colchicine 0.6 mg tablet 0.6 mg PO .COMPLEX #20 tabs 02/20/25 04/12/25 Rx lansoprazole 30 mg capsule,delayed See Rx Instructions .Route 03/10/25 04/12/25 Rx release .COMPLEX #90 caps oxycodone-acetaminophen 5 mg-325 1 tab PO Q8HP PRN Moderate Pain 03/22/25 04/12/25 Rx mg tablet (Scale Score 5-6) #20 tabs cyclobenzaprine 5 mg tablet 5 mg PO TIDP PRN muscle spasm #60 04/12/25 04/12/25 Rx tabs prednisone 10 mg tablet 10 mg PO DIRECTED #32 tabs 04/12/25 04/12/25 Rx New Prescriptions to Start Prescriptions: Allergies Allergy/AdvReac Type Severity Reaction Status Date / Time metoclopramide (From Reglan) Allergy Intermediate Anxiety Verified 03/22/25 14:06 Penicillins Allergy Intermediate Anxiety Verified 03/22/25 14:06 amantadine (AMANTADINE) Allergy Mild SEIZURE Verified 03/22/25 14:06 codeine (CODEINE) Allergy Mild I-RASH Verified 03/22/25 14:06 cephalexin (From Keflex) Allergy Anxiety Verified 03/22/25 14:06 terbinafine AdvReac Mild Confusion Verified 03/22/25 14:06 Assessment and Plan *Assessment and plan (1) Bilateral sacroiliitis: Status: Acute Category: Medical Code(s): M46.1 - Sacroiliitis, not elsewhere classified (2) Disc disease, degenerative, cervical: Status: Acute Category: Medical Code(s): M50.30 - Other cervical disc degeneration, unspecified cervical region (3) Degenerative disc disease: Status: Acute Category: Medical (4) Chronic pain syndrome: Status: Acute Category: Medical Code(s): G89.4 - Chronic pain syndrome Plan Patient is experiencing worsening pain along the low back and bilateral hips. They did have limited range of motion of the lumbar spine along with point tenderness along bilateral SI joints and a positive bilateral Dario's, Tabitha's, Gaenslen's, compression and distraction exam. I did discuss with the patient that I do believe they would benefit from bilateral SI injections. Risk and benefits were discussed with the patient and they would like to proceed forward with this option. Patient has tried and failed conservative therapy. Patient has been actively doing conservative treatment including oral medication, heat and ice, topicals, at home exercising and stretching for longer than 12 weeks. Patient is having to adjust their activity based off the increased pain resulting in activity modification. I do believe the patient would benefit from SI injection. Patient did previously have a diagnostic left SI injection back in February that did decrease down his pain and improve function. Patient states he had at least 80 to 50% improvements with the local anesthetic. Patient does have significant heart related issues and is not a candidate for SI fusion due to this along with osteopenia. I did also review over with the patient regarding the possibility of a intrathecal pump trial in the future. Patient does have significant findings in both his neck and low back. I will send him for psychological evaluation if he is deemed an appropriate candidate we will proceed forward with this option at a later date. Patient has also had updated x-ray and CT imaging and I will send him over to neurosurgery with Jhony vega for evaluation. Patient will be scheduled for bilateral SI injections under fluoroscopy. Patient has been instructed to contact the clinic with any concerns before the next appointment. Dr. Marvin has reviewed this note and agrees with this plan of care. This note was dictated using voice recognition software and make contain errors or omissions. All injections are used with Lidocaine or Bupivacaine and dexamethasone unless diagnostic in which no steroids were injected.
--- OUTSIDE RECORDS SUMMARY | 2025-04-19 10:44 | XMS_ITS | Referral Summary ---
Author Organization [employer] Address [address] [place] [address] Care Team Providers Care Legal Counsel Name Role Phone Jennifer Sinclair DO Primary Care Provider [phone] Encounters Date Type Department Care Team Description 02/22/2025 Travel 02/11/2025 Refill [facility] [address] [place] [address] Jennifer Sinclair DO Hypothyroidism from Last 3 Months Allergies Active Allergy Reactions Criticality Noted Date Comments Codeine 11/07/2022 Dexamethasone Other (See Comments) 11/07/2022 Pt states when had dr. YANIV Prescribed decadron and pt could not sleep for 3 days Penicillin 11/07/2022 Metoclopramide 11/07/2022 Amantadine Hcl Other (See Comments) High 11/07/2022 Seizures, only time pt has ever had a seizure Medications tamsulosin (FLOMAX) 0.4 mg Cap 24 hr capsule Take 2 capsules (0.8 mg total) by mouth nightly. Active lansoprazole (Prevacid) 30 MG capsule Take 1 capsule (30 mg total) by mouth daily. Active apixaban (Eliquis) 5 mg Tab tablet Take 1 tablet (5 mg total) by mouth 2 (two) times daily. Active cyanocobalamin, vitamin B-12, 500 MCG tablet Take 1 tablet (500 mcg total) by mouth daily. Active busPIRone (BUSPAR) 10 MG tablet Take 1 tablet (10 mg total) by mouth 2 (two) times daily. Active ondansetron (Zofran) 4 MG tablet Take 1 tablet (4 mg total) by mouth 3 (three) times daily as needed for nausea. Active meclizine (ANTIVERT) 25 MG tablet Take 1 tablet (25 mg total) by mouth 3 (three) times daily as needed. Active potassium chloride SA (K-DUR,KLOR-CON -M) 20 MEQ tablet Take 1 tablet (20 mEq total) by mouth 2 (two) times daily. Active dilTIAZem (DILACOR XR) 120 MG 24 hr capsule Take 1 capsule (120 mg total) by mouth 2 (two) times daily. Active allopurinoL (ZYLOPRIM) 100 MG tablet Take 1 tablet (100 mg total) by mouth daily. 09/03/2024 Active atorvastatin (LIPITOR) 20 MG tablet 01/05/2024 Active sildenafiL (VIAGRA) 100 MG tablet 01/05/2024 Active bumetanide (BUMEX) 2 MG tablet Take 1 tablet (2 mg total) by mouth. 04/12/2024 Active linaCLOtide (Linzess) 72 mcg cap 01/05/2024 Active predniSONE (DELTASONE) 10 MG tablet Take by mouth. 12/21/2024 Active tiZANidine (ZANAFLEX) 2 MG tablet Take 1-2 tablets (2-4 mg total) by mouth every 8 (eight) hours as needed. 10/04/2024 Active traZODone (DESYREL) 50 MG tablet Take 1 tablet (50 mg total) by mouth every night as needed. 12/22/2024 Active levothyroxine (SYNTHROID) 112 MCG tabletIndicatio ns:Hypothyroidi sm TAKE 1 TABLET EVERY MORNING ON AN EMPTY STOMACH 90 tablet 3 02/14/2025 Active Active Problems Problem Noted Date Diagnosed Date Hypokalemia 12/31/2024 Assessment & Plan (12/31/2024 5:29 PM EST): Newly identified On K replacement Recheck today Orders: Comprehensive metabolic panel; Future Comprehensive metabolic panel Hypothyroidism 11/14/2024 Assessment & Plan (12/31/2024 5:29 PM EST): Uncontrolled Increase levo from 75mcg to 112mcg Start taking by itself on 1 hour away from meals, dairy and other medication Gout, unspecified 11/10/2024 Overview (11/14/2024): Chronic Gout On allopurinol Unstable angina 11/10/2024 Gonzalez's esophagus with esophagitis 11/10/2024 Overview (11/14/2024): Barretts esophagus Follows with Dr. Neville EGD in 2021 and was clear Lansoprazole Bupsar 10mg twice daily COPD (chronic obstructive pulmonary disease) 12/2024 Edema 11/10/2024 Embolic stroke 11/10/2024 Ex-smoker for more than 1 year 11/10/2024 Family history of coronary artery disease in fat her 11/10/2024 History of adenomatous polyp of colon 11/10/2024 Neck pain 11/10/2024 Onychogryphosis 11/10/2024 Peptic ulcer disease 11/10/2024 Polycythemia 11/10/2024 Chronic fatigue 11/10/2024 Assessment & Plan (12/31/2024 5:29 PM EST): Normal testosterone Low DHEA Normal B12, iron and cortisol evaluation Start DHEA supplementation 50mg every evening Orders: CBC With Diff/Platelet; Future CBC With Diff/Platelet Anemia in stage 3 chronic kidney disease 024 Mixed hyperlipidemia 09/09/2024 Chronic kidney disease-mineral and bone disorder (CKD-MBD) 09/09/2024 Recurrent ventral hernia 11/13/2022 Incisional hernia of anterio r abdominal wall without obstruction or gangrene 11/12/2022 History of incisional hernia repair 11/12/2022 Chronic diastolic congestive heart failure 09/30 Overview (11/14/2024): CHF pA fib s/p cardioversion Oct 2020 On Eliqusaleem Guy Frequent PVCs 09/30/2022 AF (paroxysmal atrial fibrillation) 06/25/2022 CKD (chronic kidney disease) stage 2, GFR 60-89 ml/min 06/25/2022 Overview (11/14/2024): CKD stage 3 Dr. Vernon Medina Follows with Nephrology Essential hypertension 06/25/2022 Obstructive sleep apnea 06/25/2022 Overview (11/14/2024): DANNY BiPAP - not currently on it. Resolved Problems Problem Noted Date Diagnosed Date Resolved Date Cerebrovascular accident (CVA) 11/10/2024 11/10/2024 Overview (11/10/2024): Excellent recovery post CVA. Hypertensive chronic kidney disease with stage 1 through stage 4 chronic kidney disease, or unspecified chronic kidney disease 09/09/2024 11/14/2024 Incisional hernia 10/07/2022 11/10/2024 Immunizations Name Administration Dates Next Due Influenza, High Dose 09/13/2024 Pneumococcal Conjugate Vaccine (20-Valent) IM RESPIRATORY SYNCYTIAL VIRUS (RSV) VACCINE - (AREXV[employer]- aScentias) ([id number]) 10/06/2023 Social History Tobacco Use Types Packs/Day Years Used Date Smoking Tobacco: Former Cigarettes Q uit: 11/12/2014 Smokeless Tobacco: Never Tobacco Cessation:Counseling Given: Not Answered Alcohol Use Standard Drinks/Week Comments Yes 9 (1 standard drink = 0.6 oz pur e alcohol) wknds PHQ-2 Answer Date Recorded Patient Health Questionnaire-2 Score 0 12/29/2024 Interpersonal Safety Answer Date Record ed Family or friends hurt you Not on file 11/20 Family or friends insult you Not on file 10/2024 Family or friends threaten you Not on file 0 11/20/2023 Family or friends scream or curse at you Not on file 11/20/2023 Housing Stability Answer Date Recorded Living situation today Not on file Living situation problems Not on file 2023 Family and Community Support Answer Miles e Recorded Help with Day to Day Activities Not on file 11/20/2023 Feeling Lonely or Isolated Not on file 11/20 Educational Attainment Answer Date Jm rded Speak language other than Czech at home Not on file 11/20/2023 Want help with school or training Not on file 11/20/2023 Depression Answer Date Recorded PHQ-2 Risk Not on file 11/20/2023 Disabilities Answer Date Recorded Difficulty concentrating Not on file 024 Difficulty doing errands alone Not on file 0 11/20/2023 Substance Use Answer Date Recorded Used prescription meds for non-medical reasons N ot on file 11/20/2023 Used illegal drugs past 12 months Not on file 11/20/2023 Sex and Gender Information Value Date Recorded Sex Assigned at Not on file Legal Sex Male 10:54 AM CDT Gender Identity Not on file Sexual Orientation Not on file Last Filed Vital Signs Vital Sign Reading Time Taken Comments Blood Pressure 126/79 12/29/2024 9:33 AM EST Pulse 63 12/29/2024 9:33 AM EST Temperature 36.8 C (98.2 F) 12/29/2024 9:33 AM EST Respiratory Rate 16 11/24/2022 9:53 AM EST Oxygen Saturation 95% 12/29/2024 9:33 AM EST Inhaled Oxygen Concentration - - Weight 109.8 kg (242 lb) 12/29/2024 9:33 AM EST Height 180.3 cm (5' 11 ) 12/29/2024 9:33 AM EST Body Mass Index 33.75 12/29/2024 9:33 AM EST Plan of Treatment Not on file Medical Devices Implanted Type Area [employer] Device Identifier Shelf Expiration Date Model / Serial / Lot Mesh Phasix [id number] - [id number] Implanted:Qt y: 1 on 11/12/2022 by Jair Nunez MD at [facility] IMPLANTS N/A: Abdomen CR BARD:DAVOL [id number] 02/04/2024 [id number] / / [id number] Insurance [employer] MEDICARE HMO Advance Directives For more information, please contact: [phone] * Full Code (Latest Code Status on File) Date Activated Date Inactivated Comments 11/12/2022 5:57 PM 11/24/2022 2:01 PM Care Teams Legal Counsel Relationship Specialty Start Date End Date Jennifer Sinclair DO [address] [place] [address] PCP - General Family Medicine 11/10/24
--- OUTSIDE RECORDS SUMMARY | 2025-04-19 10:44 | XMS_ITS | Encounter Summary ---
Author Organization [employer] Address [address] [place] [address] Care Team Providers Care Sales Support Technician Name Role Phone Jennifer Sinclair DO Primary Care Provider [phone] Encounter Details Date Type Department Care Team (Latest Contact Info) Description 02/22/2025 Travel Social History Tobacco Use Types Packs/Day Years Used Date Smoking Tobacco: Former Cigarettes Q uit: 11/12/2014 Smokeless Tobacco: Never Alcohol Use Standard Drinks/Week Comments Yes 9 [...] Date Jm rded Speak language other than Monegasque at home Not on file 11/20/2023 Want [...] on file documented as of this encounter Plan of Treatment Not on file documented as of this encounter Visit Diagnoses Not on filedocumented in this encounter Care Teams Sales Support Technician Relationship Specialty Start Date End Date Jennifer Sinclair DO [address] [place] [address] PCP - General Family Medicine 11/10/24 documented as of this encounter
--- OUTSIDE RECORDS SUMMARY | 2025-04-19 10:44 | XMS_ITS | Data Portability ---
Author Organization [employer] [facility], [facility] [employer] Address [address] [facility] [address] [place] [address] Care Team Providers Care Bottle Caser Name Role Phone DERRELL WEST Primary Care Provider [phone] HEMANTH BROOKS JR General Surgeon Assessment Encounter Date Assessment Date Assessment LastModified by Organization Details LastModified Time 05/14/2023 05/14/2023 Status post repair of large incisional hernia. No sign of recurrence. Follow-up as needed. [email or web address] Not available 05/14/2023 12:24:38 Plan of Treatment [...] pelvi s, w/o contr ast [place] [facility] [address] [place] [address] Fabiola t Name: RODGER marroquin : [phone] [...] denopa thy, mass or fluid. MUSCUL OSKELE ILZA STRUCT URES: Normal . COMBIN ED IMPRES HASEEB: 1. Diasta sis of rectus muscle s with bulgin g of the linea alba. 2. Fascia l defect s around the umbili cus throug h which small hernia s are seen to protru de. Interp reted By: Atilio Belle MD Electr onical ly Signed By: Atilio Belle MD on 022 5:27 PM [email or web address] [facility] [address] [place] [address] Dr, [place], [address], 10/21/2022 09:38:56 Result Notes None recorded. Problems Name Problem SNOMED Code Status Onset Date Resolution Date Notes Provider Name and Address Organization Details Recorded Time Incisiona l hernia 280400183 Active 2021 HEMANTH BROOKS JR, MD [address] [place] [address], [phone] , [facility] 17:00:25 Abdominal pain 53040418 Active 2015 From Automated Load;Provi evie: Soraya Shah;Sta tus: Active Not Available [facility] 6 06:38:04 Problem Notes None recorded. Procedures Surgical History Date Name Laterality Status Provider Name and Address Organization Details Recorded Time cholecystectomy completed [facility] 10/07/2022 15:39:08 hernia repair completed [facility] 10/07/2022 15:39:18 Colectomy completed [facility] 10/07/2022 15:40:23 Appendectomy completed [facility] 10/07/2022 15:40:31 Xcapsl ctrc rmvl cplx wo ecp completed [facility] 10/07/2022 15:40:42 Cardioversion electric ext completed [facility] 10/07/2022 15:41:11 operation on testis completed [facility] 10/07/2022 15:41:40 Imaging Results None recorded. Procedure Notes None recorded. Medical Equipment None Reported. Allergies Allergen ID Allergen Name Allergen Category Reaction Reaction Severity Criticality Documentation Date Start Date Code Code System Note Provider Name and Address Organization Details Recorded Time 243438 amantadin e hydrochlo ride medicatio n other Not available Not available 10/02/20162009 26347 5 RxNorm React ion: OTHER ; Comme nt: seizu res;C reate d By: Gribb ins Sandr a;Cre ated Date: 2009 9:00: 37 AM; Not Available [facility] 6 11:56:47 [id number] Product containin g penicilli n (product) medicatio n hives Not available Not available 10/03/20162009 86979 8001 SNOMED React ion: HIVES ; Comme nt: Creat ed By: Gribb ins Sandr a;Cre ated Date: 2009 8:59: 55 AM; Not Available [facility] 6 05:40:36 [id number] codeine medicatio n hives Not available Not available 10/03/20162009 2670 RxNorm React ion: HIVES ; Comme nt: Creat ed By: Michelle ins Sandr a;Cre ated Date: 2009 8:59: 37 AM; Not Available [facility] 6 08:37:12 [id number] Reglan medicatio n Not available Not available Not available 10/07/2022 9230 RxNorm Arely No [facility] 2 15:29:04 [id number] dexametha sone medicatio n Not available Not available Not available 10/07/2022 3264 RxNorm Arely No [facility] 2 15:30:08 Medications Name Sig Start [...] Updated DateTime 3 180.34 cm 28.6 kg/m2 53815.4 4 g 52 /min 106 mm[Hg] 75 mm[Hg] [facility] 3 09:50:13 Date Recorded Body height Body mass index (BMI) Body weight Heart rate Systolic blood pressure Diastolic blood pressure Provider Name and Address Organization Details Last Updated DateTime 3 180.34 cm 27.9 kg/m2 87418.4 7 g 68 /min 108 mm[Hg] 69 mm[Hg] [facility] 3 12:04:34 Date Recorded Body height Body mass index (BMI) Body weight Heart rate Systolic blood pressure Diastolic blood pressure Provider Name and Address Organization Details Last Updated DateTime 2 180.34 cm 31.4 kg/m2 474479. 28 g 69 /min 126 mm[Hg] 84 mm[Hg] Arely No [facility] 2 15:30:29 Social History None recorded. Functional Status None [...] SNOMED-CT Code Diagnosis ICD10 Code Diagnosis Note [id number] HEMANTH BROOKS JR, MD GENERAL SURGERY [address] [place] [address] 10/07/2022 15:15:02 10/08/2022 12:13:02 Abdominal pain 55140239 R10.9 Incisional hernia 168809 000 K43.2 His abdominal pain is most likely from the incisional hernias. Check CT scan abdomen pelvis to confirm this and for operative planning. Dr. Alford rt found him low risk for cardiac complicati [...] smaller meshes. Await records from before deciding. [id number] HEMANTH BROOKS JR, MD GENERAL SURGERY [address] [address] 12/04/2022 09:38:32 12/05/2022 04:23:39 Abdominal pain 48086654 R10.9 Incisional hernia 679004 000 K43.2 Status post open repair of large incisional hernia requiring transversu s abdominis release on 11/12/2022 [id number] HEMANTH BROOKS JR, MD GENERAL SURGERY [address] [address] 05/14/2023 11:57:03 05/18/2023 09:31:01 Health Concerns Section Related Observation LastModified by Organization Detai ls LastModified Time None Recorded Concern Status LastModified by Organization Details LastModified Time None Recorded Advance Directives Directive None Recorded Payers Insurance Date Sequence Insurance Name Policy Number Policy Limon Covered Member ID Limon Member ID Guarantor Name 05/14/2023 1 [employer] - GOLD PLUS (MEDICARE REPLACEMENT/ ADVANTAGE - HMO) Aden Pickardmaster [id number] Aden Pickardmaster 12/03/2022 1 [place] Aden Pickardmaster [id number] Aden Fightmaster 12/04/2022 2 [employer] (MEDICARE SUPPLEMENT) Aden Cheung [id number] Aden Cheung 12/04/2022 [employer] INSURANCE [employer] (MEDICARE SUPPLEMENT) Aden Cheung [id number] Aden Cheung 01/14/2019 1 *SELF PAY* [...] for hydrocele, cardioversion. HEMANTH BROOKS JR, MD [address] [place] [address], [phone], [facility] 10/30/2022 10:21:20 12/04/2022 text/html 10/07/2022 I [...] until early January. HEMANTH BROOKS JR, MD [address] [place] [address], [phone], [facility] 12/04/2022 10:25:13 05/14/2023 text/html He had open repa ir of large incisional hernia requiring right-sided transversus abdominis release with 25 x 30 cm piece of phasix mesh November 2022. He had postop ileus and pneumonia requiring 12-day hospitalization. He states that since then he has had stress of his dying. He is lost 40 pounds. He feels great. HEMANTH BROOKS JR, MD [address] [place] [address], [phone], [facility] 05/14/2023 12:25:00
--- OUTSIDE RECORDS SUMMARY | 2025-04-19 10:44 | XMS_ITS | Clinical Summary ---
Author Organization [employer] Address [address] [place] [address] Care Team Providers Care Motor Vehicle Operator Road Supervisor Name Role Phone Jennifer Sinclair DO Primary Care Provider [phone] Allergies Active Allergy Reactions Criticality Noted Date [...] pA fib s/p cardioversion Oct [address] Guy Frequent PVCs 09/30/2022 AF (paroxysmal atrial [...] disease 09/09/2024 11/14/2024 Incisional hernia 10/07/2022 11/10/2024 Encounters Date Type Department Care Team Description 02/22/2025 Travel 02/11/2025 Refill [facility] [address] [place] [address] Jennfier Sinclair DO Hypothyroidism from Last 3 Months Immunizations Name Administration Dates Next Due Influenza, High Dose 09/13/2024 Pneumococcal Conjugate Vaccine (20-Valent) IM RESPIRATORY SYNCYTIAL VIRUS (RSV) VACCINE - (AREXVY- Master Route) ([id number]) 10/06/2023 Family History Medical History Relation Name Comments Heart disease Brother Hemophilia Brother bleeding per outpt records Heart disease Father Lung disease Father Heart disease Mother Hypertension Mother Relation Name Status Comments Brother Father Mother Social History Tobacco Use Types Packs/Day Years [...] Date Jm rded Speak language other than Mauritian at home Not on file 11/20/2023 Want [...] 12/29/2024 9:33 AM EST Plan of Treatment Health Maintenance Due Date Last Done Comments CT Colonography 1955 Colonoscopy 1955 Colorectal Cancer Screening 1955 FOBT/FIT 1955 Fit-DNA (Cologuard) 1955 Sigmoidoscopy 1955 Hepatitis C Screening 1973 DTAP/TDAP/TD VACCINES (1 - Tdap) 1974 Shingles Vaccine (Zoster) (1 of 2) 2005 Abdominal Aortic Aneurysm (A AA) Screen 2020 Medicare Initial AWV [id number] 05/10/2021 COVID-19 VACCINE ( - season) 2024 08/26/2021, 02/12/2021, 01/22/2021 Falls Risk Screening 11/09/2024 Depression Screening (12+) 12/29/2025 12/29/2024 Tobacco Cessation Counseling and Screening (12+) 12/29/2025 12/29/2024 Pneumococcal 50+ years Completed 10/06/2023 Respiratory Syncytial Virus (RSV) Adult or Completed 10/06/2023 Influenza Vaccine Completed 09/13/2024 Medical Devices Implanted Type Area Child Care Sitter Device Identifier Shelf Expiration Date Model / Serial / Lot Mesh Phasix [id number] - [id number] Implanted:Qt y: 1 on 11/12/2022 by Jair Nunez MD at [facility] IMPLANTS N/A: Abdomen CR BARD:DAVOL [id number] 02/04/2024 [id number] / / [id number] Insurance [employer] MEDICARE HMO Advance Directives For more information, please contact: [phone] * Full Code (Latest Code Status on File) Date Activated Date Inactivated Comments 11/12/2022 5:57 PM 11/24/2022 2:01 PM Care Teams Motor Vehicle Operator Road Supervisor Relationship Specialty Start Date End Date Jennifer Sinclair DO [address] [place] [address] PCP - General Family Medicine 11/10/24
--- OUTSIDE RECORDS SUMMARY | 2025-04-19 10:45 | XMS_ITS | Encounter Summary ---
Author Organization Healthcare Address [address] [place] [address] Care Team Providers Care Pouncer Machine Name Role Phone Derrell West MD Primary Care Provider [phone] Encounter Details Date Type Department Care Team (Latest Contact Info) Description 03/24/2025 Travel Social History Tobacco Use Types Packs/Day Years Used Date Smoking Tobacco: Former Cigarettes Q uit: 11/09/2014 Passive Smoke Exposure: Past Smokeless Tobacco: Never Alcohol Use Standard Drinks/Week Comments Never 0 (1 standard drink = 0.6 oz pur e alcohol) Sex and Gender Information Value Date Recorded Sex Assigned at Male 03/24/2025 2:07 PM EDT Legal Sex Male 6:46 PM EDT Gender Identity Male 03/24/2025 2:07 PM EDT Sexual Orientation Asexual 03/24/2025 2: 07 PM EDT documented as of this encounter Plan of Treatment Not on file documented as of this encounter Visit Diagnoses Not on filedocumented in this encounter Additional Health Concerns Assessment Noted Time A fall risk assessment has been complete d for the patient 01/14/2024 3:12 PM EST A Body Mass Index follow-up plan has been documented for the patient 03/24/2025 11:11 AM EDT documented as of this encounter Care Teams Pouncer Machine Relationship Specialty Start Date End Date Derrell West MD [address] [address] [place] [address] PCP - General 10/21/22 documented as of this encounter
--- OUTSIDE RECORDS SUMMARY | 2025-04-19 10:45 | XMS_ITS | Encounter Summary ---
Author Organization Healthcare Address [address] [place] [address] Care Team Providers Care Promotions Assistant Name Role Phone Derrell West MD Primary Care Provider [phone] Encounter Details Date Type Department Care Team (Late st Contact Info) Description 03/28/2025 Orders Only [address] [place] [address] Amy Pham Social History Tobacco Use Types Packs/Day Years [...] documented as of this encounter Care Teams Promotions Assistant Relationship Specialty Start Date End Date Derrell West MD [address] [place] [address] PCP - General 10/21/22 documented as of this encounter
--- OUTSIDE RECORDS SUMMARY | 2025-04-19 10:45 | XMS_ITS | Clinical Summary ---
Author Organization [facility] Address [address] [place] [address] Care Team Providers Care Gearman Name Role Phone Derrell West MD Primary Care Provider [phone] Allergies Active Allergy Reactions Criticality Noted Date Comments Amantadines Other - please document in the comment field High 08/07/2010 seizure; confirmed by patient's daughter - per pharmacy intern Seizures, only time pt has ever had a seizure Codeine Hives Medium 08/07/2010 confirmed by patient's daughter - per pharmacy intern Hydrochlorothiazide Rash Low 06/23/2022 Metoclopramide Other - please document in the comment field Medium 06/25/2022 Caused depression Penicillins Hives,Itching,Rash,S w elling High 08/07/2010 confirmed by patient's daughter - per pharmacy intern Medications bumetanide (Bumex) 2 MG tablet Take 1 tablet (2 mg) by mouth 2 (two) times a day. Active busPIRone (Buspar) 10 MG tablet Take by mouth 2 (two) times a day. Active dilTIAZem (Cardizem) 120 MG immediate release tablet Take 1 tablet (120 mg) by mouth 2 (two) times a day. Active apixaban (Eliquis) 5 MG tablet Take 1 tablet (5 mg) by mouth 2 (two) times a day. Active lansoprazole (Prevacid) [address] capsule Take 1 capsule (30 mg) by mouth 1 (one) time each day before breakfast. Do not crush or chew. Active meclizine (Antivert) 25 MG tablet Take 1 tablet (25 mg) by mouth 3 (three) times a day if needed. Active ondansetron (Zofran) 4 MG tablet Take 1 tablet (4 mg) by mouth every 8 (eight) hours if needed. Active tamsulosin (Flomax) 0.4 MG 24 hr capsule Take 1 capsule (0.4 mg) by mouth 2 (two) times a day. Active cyanocobalamin (Vitamin B-12) 500 MCG tablet cyanocobalamin (vit B-12) 500 mcg tablet Daily Active levothyroxine (Synthroid, Levoxyl) 75 MCG tablet 3 Active potassium chloride CR (K-Tab) 20 MEQ ER tablet 3 Active atorvastatin (Lipitor) 20 MG tablet 4 Active Linzess 72 MCG capsule capsule 4 Active sildenafil (Viagra) 100 MG tablet 4 Active cyclobenzaprin e (Flexeril) 5 MG tablet Take 2 tablets by mouth as needed for muscle spasms. Active colchicine (Colcrys) 0.6 MG tablet Take 1 tablet by mouth as needed (for gout). 5 Active tiZANidine (Zanaflex) 2 MG tablet Take 1-2 tablets by mouth every 8 hours as needed for muscle spasms. 4 Active traZODone (Desyrel) 50 MG tablet Take 1 tablet by mouth nightly. 5 Active oxyCODONE-acet aminophen (Percocet) 5-325 MG tablet Take 1 tablet by mouth every 8 hours as needed for severe pain. Active Active Problems Problem Noted Date Diagnosed Date Anemia in stage 3 chronic kidney disease 024 Hypertensive chronic kidney disease with stage 1 through stage 4 chronic kidney disease, or unspecified chronic kidney disease 09/09/2024 Acute idiopathic gout of right foot 09/09/2024 Mixed hyperlipidemia 09/09/2024 Chronic kidney disease-mineral and bone disorder (CKD-MBD) 09/09/2024 Essential hypertension 06/25/2022 3 CKD (chronic kidney disease) stage 2, GFR 60-89 ml/min 06/25/2022 07/09/2023 Encounters Date Type Department Care Team Description 03/28/2025 Orders Only [facility] [address] [address] AnkitAmy guadalupe Leela 03/24/2025 10:40 AM EDT Office Visit [facility] [address] [address] Vernon Medina MD Stage 3 chronic kidney disease, unspecified whether stage 3a or 3b CKD (CMS/HCC) (Primary Dx); Hypertensive chronic kidney disease with stage 1 through stage 4 chronic kidney disease, or unspecified chronic kidney disease; Anemia in stage 3 chronic kidney disease, unspecified whether stage 3a or 3b CKD; Acute idiopathic gout of right foot; Mixed hyperlipidemia; Chronic kidney disease-mineral and bone disorder (CKD-MBD) 03/24/2025 Travel 03/23/2025 Travel from Last 3 Months Immunizations Immunization Administration Dates Next Due [facility] COVID-19 Vac cine (Purple Cap) 12+ 08/26/2021,02/12/2021,01/22/2021 Pneumococcal 20-julianne Conj Vaccine 10/06/2023 Rsvpref, Recombinant, Protei n Subunit, Adjuvent 10/06/2023 Family History Medical History Relation Name Comments Cancer Father Heart disease Father Heart disease Mother Hypertension Mother Osteoporosis Mother Relation Name Status Comments Father Mother Social History Tobacco Use Types [...] Orientation Asexual 03/24/2025 2: 07 PM EDT Last Filed Vital Signs Vital Sign Reading Time Taken Comments Blood Pressure 122/73 03/24/2025 10:46 AM EDT Pulse 78 03/24/2025 10:46 AM EDT Temperature 36.7 C (98 F) 09/09/2024 10:46 AM EDT Respiratory Rate 20 03/24/2025 10:46 AM EDT Oxygen Saturation 96% 03/24/2025 10:46 AM EDT Inhaled Oxygen Concentration - - Weight 108 kg (239 lb) 03/24/2025 10:46 AM EDT Height 182.9 cm (6') 03/24/2025 10:46 AM EDT Body Mass Index 32.41 03/24/2025 10:46 AM EDT Plan of Treatment Health Maintenance Due Date Last Done Comments [facility]-Depression Screening 1955 [facility]-Hepatitis C Screening 1955 [facility]-Medicare Annual Wellness (AWV) 1955 [facility]-Infant/Child/Adol SDOH Screenings 1955 [facility]- SDOH Screenings 1973 [facility]-Adult SDOH Screenings 1973 [facility]-DTaP,Tdap,and Td Vaccines (1 - Tdap) 1974 CT Colonography 2000 Colonoscopy 2000 FIT-DNA 2000 FIT 2000 FOBT 2000 Sigmoidoscopy 2000 [facility]-Colorectal Cancer Screening 2000 [facility]-Zoster Vaccines (1 of 2) 2005 [facility]-Abdominal Aortic Aneurysm (AAA) Screening 2020 [id number] Vaccine ( season) 2024 08/26/2021, 02/12/2021, 01/22/2021 [facility]-Pneumococcal Vaccine: 50+ Years Completed 10/06/2023 [facility]-RSV Vaccine: 60+ Years or Completed 10/06/2023 [facility]-Influenza Vaccine Completed 09/13/2024 [facility]-Obesity Intervention Completed 025, 09/09/2024, 01/14/2024, Additional history exists HPV Vaccines Aged Out No longer eligi ble based on patient's age to complete this topic [facility]-HIB Vaccines Aged Out No longer e ligible based on patient's age to complete this topic [facility]-Hepatitis A Vaccines Aged Out No longer eligible based on patient's age to complete this topic [facility]-IPV Vaccines Aged Out No longer e ligible based on patient's age to complete this topic [facility]-Rotavirus Vaccines Aged Out No lo nger eligible based on patient's age to complete this topic Insurance [employer] MEDICARE Care Teams Gearman Relationship Specialty Start Date End Date Derrell West MD [address] [address] [place] [address] PCP - General 10/21/22
--- OUTSIDE RECORDS SUMMARY | 2025-04-19 10:45 | XMS_ITS | Encounter Summary ---
Author Organization Healthcare Address [address] [place] [address] Care Team Providers Care Environmental Construction Engineer Name Role Phone Derrell West MD Primary Care Provider [phone] Encounter Details Date Type Department Care Team (Latest Contact Info) Description 03/23/2025 Travel Social History Tobacco Use Types Packs/Day [...] plan has been documented for the patient 09/09/2024 11:31 AM EDT documented as of this encounter Care Teams Environmental Construction Engineer Relationship Specialty Start Date End Date Derrell West MD [address] [facility] [address] [place] [address] PCP - General 10/21/22 documented as of this encounter
[2025-04-19 13:25] VITALS: BP 112/68; PULSE 77; RESP 16; O2SAT 95; BMI 32.5
== END 2025-04-19 23:59 | disposition home or self-care (01) ==
LOC: SC.PAIN 10:38
PROVIDERS: PCP Internal Medicine; Visit Provider Nurse Practitioner Family
DX: M46.1 Sacroiliitis, not elsewhere classified (principal); M50.30 Other cervical disc degeneration, unspecified cervical region; G89.4 Chronic pain syndrome
CPT/HCPCS: 99212; G0463

== ENCOUNTER 2025-05-03 09:53 | Outpatient (POV) | payer MEDICARE, SELFPAY ==
--- OUTSIDE RECORDS SUMMARY | 2025-03-24 10:40 | XMS_ITS | Encounter Summary ---
Author Organization [facility] Address [address] [place] [address] Care Team Providers Care Wall Covering Contractor Name Role Phone Derrell West MD Primary Care Provider [phone] Reason for Visit * Reason Comments Chronic Kidney Disease Pt is a 69 year o ld male that presents to the clinic on this date for a follow up for CKD. Pt denies pain at the current moment. Pt denies any complaints or concerns at the current moment. Encounter Details Date Type Department Care Team (Late st Contact Info) Description 03/24/2025 10:40 AM EDT Office Visit [facility] [address] [place] [address] Vernon Medina MD [address] [place] [id number] Stage 3 chronic kidney disease, unspecified whether stage 3a or 3b CKD (CMS/HCC) (Primary Dx); Hypertensive chronic kidney disease with stage 1 through stage 4 chronic kidney disease, or unspecified chronic kidney disease; Anemia in stage 3 chronic kidney disease, unspecified whether stage 3a or 3b CKD; Acute idiopathic gout of right foot; Mixed hyperlipidemia; Chronic kidney disease-mineral and bone disorder (CKD-MBD) Social History Tobacco Use Types Packs/Day Years Used Date Smoking Tobacco: Former Cigarettes Q uit: 11/09/2014 Passive Smoke Exposure: Past Smokeless Tobacco: Never Tobacco Cessation:Counseling Given: Not Answered Alcohol Use Standard Drinks/Week Comments Never 0 (1 standard drink = 0.6 oz pur e alcohol) Sex and Gender Information Value Date Recorded Sex Assigned at Male 03/24/2025 2:07 PM EDT Legal Sex Male 6:46 PM EDT Gender Identity Male 03/24/2025 2:07 PM EDT Sexual Orientation Asexual 03/24/2025 2: 07 PM EDT documented as of this encounter Last Filed Vital Signs Vital Sign Reading Time Taken Comments Blood Pressure 122/73 03/24/2025 10:46 AM EDT Pulse 78 03/24/2025 10:46 AM EDT Temperature - - Respiratory Rate 20 03/24/2025 10:46 AM EDT Oxygen Saturation 96% 03/24/2025 10:46 AM EDT Inhaled Oxygen Concentration - - Weight 108 kg (239 lb) 03/24/2025 10:46 AM EDT Height 182.9 cm (6') 03/24/2025 10:46 AM EDT Body Mass Index 32.41 03/24/2025 10:46 AM EDT documented in this encounter Miscellaneous Notes * Progress Notes - Vernon Medina MD - 03/24/2025 10:40 AM EDT Images from the original note were not included. Nephrology Outpatient Clinic Progress Note [facility] Patient: Aden Cheung Primary Care Provider: Derrell West MD Reason for visit: CKD3 follow up HPI/Subjective Aden Cheung is a 69 y.o. male with a PMH of Afib, CHF, HTN, COPD, former smoker presents for follow up of CKD Doing well today. No major changes in health since last visit. Reports he has some impotence when using Flomax so has been holding this medications on occasion. He notices weakness in his stream, butotherwise is okay while off the flomax. Has not seen a Urologist in many years. ROS Review of Systems No urinary symptoms Negative for SOA/swelling History: Past Medical History: Diagnosis Date Gout Sleep apnea Stroke (CMS/HCC) Patient Active Problem List Diagnosis Essential hypertension CKD (chronic kidney disease) stage 2, GFR 60-89 ml/min Anemia in stage 3 chronic kidney disease Hypertensive chronic kidney disease with stage 1 through stage 4 chronic kidney disease, or unspecified chronic kidney disease Acute idiopathic gout of right foot Mixed hyperlipidemia Chronic kidney disease-mineral and bone disorder (CKD-MBD) Past Surgical History: Procedure Laterality Date APPENDECTOMY CATARACT EXTRACTION Right CHOLECYSTECTOMY HERNIA REPAIR SMALL INTESTINE SURGERY TESTICLE SURGERY Left Family History Problem Relation Name Age of Onset Heart disease Mother Hypertension Mother Osteoporosis Mother Heart disease Father Cancer Father Social History Socioeconomic History Marital status: Single Spouse name: Not on file Number of children: Not on file Years of education: Not on file Highest education level: Not on file Occupational History Not on file Tobacco Use Smoking status: Former Current packs/day: 0.00 Types: Cigarettes Quit date: 11/09/2014 Years since quittin.3 Passive exposure: Past Smokeless tobacco: Never Substance and Sexual Activity Alcohol use: Never Drug use: Never Sexual activity: Not on file Other Topics Concern Not on file Social History Narrative Not on file Social Drivers of Health Financial Resource Strain: Not on file Food Insecurity: No Food Insecurity (11/20/2023) Received from [employer] Food Insecurity : Not on file : Not on file Transportation Needs: Not on file Physical Activity: Not on file Stress: Not on file Social Connections: Low Risk (11/20/2023) Received from [facility] [employer] Family and Community Support Help with Day to Day Activities: Not on file Feeling Lonely or Isolated: Not on file Intimate Partner Violence: Unknown (08/19/2023) Received from [facility] Abuse Screen Unsafe at Home or Work/School: Not on file Feels Threatened by Someone?: Not on file Does Anyone Keep You from Contacting Others or Doint Things Outside the Home?: Not on file Physical Sign of Abuse Present: Not on file Housing Stability: Low Risk (11/20/2023) Received from [employer] Housing Stability Living situation today: Not on file Living situation problems: Not on file Allergies Allergen Reactions Amantadines Other - please document in the comment field seizure; confirmed by patient's daughter - per student support advisor Seizures, only time pt has ever had a seizure Penicillins Hives, Itching, Rash and Swelling confirmed by patient's daughter - per student support advisor Codeine Hives confirmed by patient's daughter - per student support advisor Metoclopramide Other - please document in the comment field Caused depression Hydrochlorothiazide Rash Medications: Current Medications: Current Outpatient Medications Medication Instructions apixaban (ELIQUIS) 5 mg, 2 times daily atorvastatin (Lipitor) 20 MG tablet bumetanide (BUMEX) 2 mg, 2 times daily (0900 & 1500) busPIRone (Buspar) 10 MG tablet 2 times daily cyanocobalamin (Vitamin B-12) 500 MCG tablet cyanocobalamin (vit B-12) 500 mcg tablet Daily cyclobenzaprine (FLEXERIL) 10 mg, As needed dilTIAZem (CARDIZEM) 120 mg, 2 times daily lansoprazole (PREVACID) 30 mg, Daily before breakfast levothyroxine (Synthroid, Levoxyl) 75 MCG tablet No dose, route, or frequency recorded. Linzess 72 MCG capsule capsule meclizine (ANTIVERT) 25 mg, 3 times daily PRN ondansetron (ZOFRAN) 4 mg, Every 8 hours PRN potassium chloride CR (K-Tab) 20 MEQ ER tablet No dose, route, or frequency recorded. sildenafil (Viagra) 100 MG tablet tamsulosin (FLOMAX) 0.4 mg, 2 times daily Objective Visit Vitals BP 122/73 (BP Location: Left arm, Patient Position: Sitting, BP Cuff Size: Large adult) Pulse 78 Resp 20 Ht 1.829 m (6') Wt 108 kg (239 lb) SpO2 96% BMI 32.41 kg/m?? Smoking Status Former BSA 2.34 m?? Heart Rate: [78] 78 Resp: [20] 20 BP: (122)/(73) 122/73 Physical Exam: Physical Exam Constitutional: General: He is not in acute distress. Appearance: Normal appearance. HENT: Head: Normocephalic. Right Ear: External ear normal. Left Ear: External ear normal. Nose: Nose normal. Mouth/Throat: Mouth: Mucous membranes are moist. Pharynx: Oropharynx is clear. Eyes: Conjunctiva/sclera: Conjunctivae normal. Pupils: Pupils are equal, round, and reactive to light. Cardiovascular: Rate and Rhythm: Normal rate. Pulses: Normal pulses. Pulmonary: Effort: Pulmonary effort is normal. Abdominal: General: Abdomen is flat. Musculoskeletal: General: Normal range of motion. Cervical back: Normal range of motion. Right lower leg: No edema. Left lower leg: No edema. Skin: General: Skin is warm and dry. Neurological: General: No focal deficit present. Mental Status: He is alert and oriented to person, place, and time. Psychiatric: Mood and Affect: Mood normal. Behavior: Behavior normal. Laboratory: LAB RESULTS Renal Panel: No results found for: NA , K , CL , CO2 , BUN , BUNPRE , BUNPOST , CREATININE , EGFR , CA , GLU , PHOS , ALBUMIN CBC: No results found for: WBC , RBC , HGB , HCT , PLT , MCV , MCH , MCHC , RDW , NRBC Iron studies: No results found for: FERRITIN , IRON , IRONSAT , TIBC Urine studies: No results found for: CAR , CAUR , CALCIUMUR , PHOSUR , [id number] , [id number] , CREATUR MBD: No results found for: PTH , CA , CALCIUM , ICAS , PHOS , MG VITAMIN D 25 No results found for: VITD25 VITAMIN D 1,25 No results found for: VITD32 Paraproteinemia Labs: No results found for: SPEP , KAPPALAMBDA Nutritional: No results found for: PREALBUMIN , VITD25 Endocrine profile: No results found for: TESTOSTERONE , TESTOST , FSH , LH , PROLACTIN , TSH , Z2FUAXP , FREET4 , CORTISOL 09/06/24 labs CBC: WBC 8.9, Hgb 16.2, PLT 184 RFP: Na 135, K 3.9, Cl 97, CO2 26, BUN 20, Cr 1.6, eGFR 43 Ca 9.0, phos 3.2, alb 3.7 UA: SG 1.010, Negative protein, negative blood UPCR 08/25 Labs CBC: WBC 6.2, Hgb 15.5, PLT 171 RFP: Na 137, K 3.6, Cl 107, CO2 28, Creatinine 1.4, EGFR 50, Glu 76, Ca 8.8, Phos 3.4, Alb 3.8 Urine creat 167, micro alb <6, ratio <0, UPCR <0 UA sanders negative Vit D 109.9 (High) Imaging: I reviewed the recent laboratory and imaging studies ordered by myself and other providers and discuss significance below. Impression & Plan: Aden Cheung is a 69 y.o. male with PMH of CHF, Hypothyroidism, HTN, former smoker, follows for CKD. #CKD Stage 3 a/b - STABLE Etiology: Cardiorenal syndrome, HTN Baseline serum creatinine: 1.4-1.6 Most recent Scr: 1.4 w/ eGFR 50 Electrolytes, acid/base wnl Volume status: Chronic hypervolemia on bumetanide 2mg daily + prn dose Urine: Negative for protein and blood Anatomy: normal on renal ultrasound Risk factor reduction to slow progression of kidney disease: -BP Control goal BP <130/80- AT goal -Lifestyle management: ---Maintain healthy weight: currently BMI 32, would benefit from some weight loss ---Diet recommendations: Heart healthy and Low sodium <2g/day ---Daily exercise 20-30 minutes as tolerated -Avoid NSAIDs -TIN blockade: Not able to tolerate Acei/arb in past -SGLT2 inhibitor: May benefit, no proteinuria but does have heart disease. He has chronic hypok which may be made worse by this medication; however he is taking a lot of loop diuretics so if that dose was decreased when starting SGLT2 inhibitor he may tolerate it. Recommended he discuss with solar lab technician for benefit #HTN in CKD - controlled -goal <130/80 - At goal -Diltiazem 120mg ir BID, bumex 2mg daily + prn dose #Anemia in CKD -hgb at goal #CKD Bone and Mineral Disease -pth goal, normal ca/phos -hypervitaminosis D, lvl 109 - patient should stop all Vit d supplements #Hyperlipidemia in CKD -on statin #Gout -on allopurinol 100mg daily Recommendations and plan: -Kidney function improved from last visit; creatinine is at 1.4 eGFR 50. He cannot tolerate ACEi/aRB. He does not have proteinuria so no strong renal indication for SGLT2 inhibitor. However, he does have cardiac disease on loop diuretics so he may benefit from the diuretic effect of this medicationclass. -Gout - on allopurinol 100mg -Continue to avoid NSAIDs -Low sodium diet <2g/day -consider seeing a Urologist about issues with flomax and if there is another option -patient should stop Vit d supplement as his level is supratherapeutic RTC in 1 year Vernon Medina MD Division of Nephrology [facility] Counseling Documentation: The patient was counseled regarding COUNSELING TOPICS: diagnostic results, prognosis, risks and benefit of treatment options, risk factor reductions, instructions for management, patient and family education, medication changes, diagnostic impressions, Heart healthy diet, regular physical activity and weight control, Avoidance of NSAIDs and other nephrotoxins, and film color tester nature of condition. Education provided was verbal counseling.Additional time was spent in care coordination including medical record review. ORDERS PLACED THIS ENCOUNTER Orders Placed This Encounter Procedures CBC W/O Differential Standing Status: Future Expected Date: 03/24/2026 Expiration Date: 04/28/2026 Release to patient in [facility]: Immediate Urinalysis with reflex microscopic (Culture NOT Included) Standing Status: Future Expected Date: 03/24/2026 Expiration Date: 04/28/2026 Release to patient in [facility]: Immediate Vitamin D 25 Hydroxy Standing Status: Future Expected Date: 03/24/2026 Expiration Date: 04/28/2026 Release to patient in [facility]: Immediate PTH Intact Total Standing Status: Future Expected Date: 03/24/2026 Expiration Date: 04/28/2026 Release to patient in [facility]: Immediate Albumin-creatinine ratio, urine, random Standing Status: Future Expected Date: 03/24/2026 Expiration Date: 04/28/2026 [facility] Immediate Protein, Random, Urine with Creatinine Standing Status: Future Expected Date: 03/24/2026 Expiration Date: 04/28/2026 [facility]: Immediate Renal Function Panel, Plasma Standing Status: Future Expected Date: 03/24/2026 Expiration Date: 04/28/2026 [facility]: Immediate Problem List Items Addressed This Visit Anemia in stage 3 chronic kidney disease Hypertensive chronic kidney disease with stage 1 through stage 4 chronic kidney disease, or unspecified chronic kidney disease Acute idiopathic gout of right foot Mixed hyperlipidemia Chronic kidney disease-mineral and bone disorder (CKD-MBD) Other Visit Diagnoses Stage 3 chronic kidney disease, unspecified whether stage 3a or 3b CKD ([facility]) - Primary Relevant Orders CBC W/O Differential Urinalysis with reflex microscopic (Culture NOT Included) Vitamin D 25 Hydroxy PTH Intact Total Albumin-creatinine ratio, urine, random Protein, Random, Urine with Creatinine Renal Function Panel, Plasma documented in this encounter Plan of Treatment Scheduled Orders Name Type Priority Associated Diagnoses Orde r Schedule CBC W/O Differential Lab Routine Stage 3 chronic kidney disease, unspecified whether stage 3a or 3b CKD (CMS/HCC) Expected: 03/24/2026 (Approximate), Expires: 04/28/2026 Urinalysis with reflex microscopic (Culture NOT Included) Lab Routine Stage 3 chronic kidney disease, unspecified whether stage 3a or 3b CKD ([facility]) Expected: 03/24/2026 (Approximate), Expires: 04/28/2026 Vitamin D 25 Hydroxy Lab Routine Stage 3 chronic kidney disease, unspecified whether stage 3a or 3b CKD ([facility]) Expected: 03/24/2026 (Approximate), Expires: 04/28/2026 PTH Intact Total Lab Routine Stage 3 chronic kidney disease, unspecified whether stage 3a or 3b CKD ([facility]/HCC) Expected: 03/24/2026 (Approximate), Expires: 04/28/2026 Albumin-creatinine ratio, urine, random Lab Routine Stage 3 chronic kidney disease, unspecified whether stage 3a or 3b CKD ([facility]) Expected: 03/24/2026 (Approximate), Expires: 04/28/2026 Protein, Random, Urine with Creatinine Lab Routine Stage 3 chronic kidney disease, unspecified whether stage 3a or 3b CKD ([facility]) Expected: 03/24/2026 (Approximate), Expires: 04/28/2026 Renal Function Panel, Plasma Lab Routine Stage 3 chronic kidney disease, unspecified whether stage 3a or 3b CKD ([facility]) Expected: 03/24/2026 (Approximate), Expires: 04/28/2026 documented as of this encounter Visit Diagnoses Diagnosis Stage 3 chronic kidney disease, unspecified whether stage 3a or 3b CKD ([facility])- Primary Hypertensive chronic kidney disease with stage 1 through stage 4 chronic kidney disease, or unspecified chronic kidney disease Anemia in stage 3 chronic kidney disease, unspecified whether stage 3a or 3b CKD Acute idiopathic gout of right foot Mixed hyperlipidemia Chronic kidney disease-mineral and bone disorder (CKD-MBD) documented in this encounter Additional Health Concerns Assessment Noted Time A fall risk assessment has been complete d for the patient 01/14/2024 3:12 PM EST A Body Mass Index follow-up plan has been documented for the patient 03/24/2025 11:11 AM EDT documented as of this encounter Care Teams Wall Covering Contractor Relationship Specialty Start Date End Date Derrell West MD [address] [place] [address] [address] [place] [address] PCP - General 10/21/22 documented as of this encounter
--- OUTSIDE RECORDS SUMMARY | 2025-05-03 09:57 | XMS_ITS | Referral Summary ---
Author Organization [facility] Address [address] [place] [address] Care Team Providers Care Inside Sales Specialist Name Role Phone Jennifer Sinclair DO Primary Care Provider [phone] Encounters Date Type Department Care Team Description 02/22/2025 Travel 02/11/2025 Refill [facility] [address] [place] [address] Jennifer Sinclair DO Hypothyroidism from Last [...] IM RESPIRATORY SYNCYTIAL VIRUS (RSV) VACCINE - (AREXVGiveGab- Zenprise) ([id number]) 10/06/2023 Social History Tobacco Use Types Packs/Day [...] Date Jm rded Speak language other than Kazakh at home Not on file 11/20/2023 Want [...] on file Medical Devices Implanted Type Area Mid Level Practitioner Device Identifier Shelf Expiration Date Model / Serial / Lot Mesh Phasix [id number] - [id number] Implanted:Qt y: 1 on 11/12/2022 by Jair Nunez MD at [facility] IMPLANTS N/A: Abdomen CR BARD:DAVOL [id number] 02/04/2024 [id number] / / [id number] Insurance [employer] MEDICARE HMO Advance Directives For more information, please contact: [phone] * Full Code (Latest Code Status on File) Date Activated Date Inactivated Comments 11/12/2022 5:57 PM 11/24/2022 2:01 PM Care Teams Inside Sales Specialist Relationship Specialty Start Date End Date Jennifer Sinclair DO [address] [place] [address] PCP - General Family Medicine 11/10/24
--- OUTSIDE RECORDS SUMMARY | 2025-05-03 09:57 | XMS_ITS | Clinical Summary ---
Author Organization [facility] Address [address] [place] [address] Care Team Providers Care Flight Attendant Ramp Name Role Phone Derrell West MD Primary Care Provider [phone] Allergies Active Allergy Reactions Criticality Noted Date Comments Amantadines Other - please document in the comment field High 08/07/2010 seizure; confirmed by patient's daughter - per clinical pharmacy coordinator Seizures, only time pt has ever had a seizure Codeine Hives Medium 08/07/2010 confirmed by patient's daughter - per clinical pharmacy coordinator Hydrochlorothiazide Rash Low 06/23/2022 Metoclopramide Other - please document in the comment field Medium 06/25/2022 Caused depression Penicillins Hives,Itching,Rash,S w elling High 08/07/2010 confirmed by patient's daughter - per clinical pharmacy coordinator Medications bumetanide (Bumex) 2 MG tablet Take [...] Department Care Team Description 03/28/2025 Orders Only [facility] [address] [address] AnkitAmy guadalupe Leela 03/24/2025 10:40 AM EDT Office Visit [facility] [address] [address] Vernon Medina MD Stage [...] Months Immunizations Immunization Administration Dates Next Due [facility] COVID-19 Vac cine (Purple Cap) 12+ 08/26/2021,02/12/2021,01/22/2021 [...] 2005 [facility]-Abdominal Aortic Aneurysm (AAA) Screening 2020 [id number] Vaccine ( season) 2024 08/26/2021, 02/12/2021, 01/22/2021 [...] this topic Insurance [employer] MEDICARE Care Teams Flight Attendant Ramp Relationship Specialty Start Date End Date Derrell West MD [address] [facility] [address] [place] [address] PCP - General 10/21/22
--- OUTSIDE RECORDS SUMMARY | 2025-05-03 09:57 | XMS_ITS | Encounter Summary ---
Author Organization Healthcare Address [address] [place] [address] Care Team Providers Care Cell Changer Name Role Phone Derrell West MD Primary Care Provider [phone] Encounter Details Date Type Department Care Team (Late st Contact Info) Description 03/28/2025 Orders Only [address] [place] [address] Amy Pham Social History Tobacco [...] documented as of this encounter Care Teams Cell Changer Relationship Specialty Start Date End Date Derrell West MD [address] [place] [address] PCP - General 10/21/22 documented as of this encounter
--- OUTSIDE RECORDS SUMMARY | 2025-05-03 09:57 | XMS_ITS | Encounter Summary ---
Author Organization Healthcare Address [address] [place] [address] Care Team Providers Care Development Team Lead Name Role Phone Derrell West MD Primary Care Provider [phone] Encounter Details Date Type Department Care Team [...] documented as of this encounter Care Teams Development Team Lead Relationship Specialty Start Date End Date Derrell West MD [address] [facility] [address] [place] [address] PCP - General 10/21/22 documented as of this encounter
--- OUTSIDE RECORDS SUMMARY | 2025-05-03 09:57 | XMS_ITS | Encounter Summary ---
Author Organization Healthcare Address [address] [place] [address] Care Team Providers Care Nuclear Medicine Specialist Name Role Phone Derrell West MD Primary Care Provider Encounter Details Date Type Department Care Team [...] documented as of this encounter Care Teams Nuclear Medicine Specialist Relationship Specialty Start Date End Date Derrell West MD [address] [address] [facility] [facility] [address] [place] [address] PCP - General 10/21/22 documented as of this encounter
--- OUTSIDE RECORDS SUMMARY | 2025-05-03 09:57 | XMS_ITS | Clinical Summary ---
Author Organization [facility] Address [address] [place] [address] Care Team Providers Care Storage Worker Name Role Phone Jennifer Sinclair DO Primary Care Provider [phone] Allergies Active Allergy Reactions Criticality Noted Date [...] Care Team Description 02/22/2025 Travel 02/11/2025 Refill [facility] Primary Care [address] [place] [address] Jennifer Sinclair DO Hypothyroidism from Last 3 Months Immunizations Name Administration Dates Next Due Influenza, High Dose 09/13/2024 Pneumococcal Conjugate Vaccine (20-Valent) IM RESPIRATORY SYNCYTIAL VIRUS (RSV) VACCINE - (AREXVY- CyActive) ([id number]) 10/06/2023 Family History Medical History Relation Name [...] Date Jm rded Speak language other than [place]arag[place] at home Not on file 11/20/2023 Want [...] Completed 09/13/2024 Medical Devices Implanted Type Area Shift Engineer Device Identifier Shelf Expiration Date Model / Serial / Lot Mesh Phasix [id number] - [id number] Implanted:Qt y: 1 on 11/12/2022 by Jair Nunez MD at [facility] ([place], [place]) IMPLANTS N/A: Abdomen CR BARD:DAVOL [id number] 02/04/2024 [id number] / / [id number] Insurance [employer] MEDICARE HMO Advance Directives For more information, please contact: [phone] * Full Code (Latest Code Status on File) Date Activated Date Inactivated Comments 11/12/2022 5:57 PM 11/24/2022 2:01 PM Care Teams Storage Worker Relationship Specialty Start Date End Date Jennifer Sinclair DO [address] [place] [address] PCP - General Family Medicine 11/10/24
[2025-05-03 10:09] VITALS: BP 128/70; PULSE 79; RESP 14; O2SAT 97; BMI 33.5
--- NOTE | 2025-05-03 11:59 | EXP.PAIN.SOA ---
[facility] Disclaimer: The information contained in this section may have been updated after the patient was seen, as this information can be updated by other users. Medical History Hypervolemia Leukocytosis Pleural effusion Acute on chronic diastolic (congestive) heart failure COVID-19 Polycythemia Atrial fibrillation with rapid ventricular response Severe sepsis with acute organ dysfunction Acute exacerbation of chronic obstructive airways disease Dyspnea due to COVID-19 Viral respiratory infection Febrile illness Acute bronchitis Acute gout of left foot Moderate major depression Benign essential HTN Hyperlipidemia LDL goal <100 Obstructive sleep apnea (adult) (pediatric) Anxiety disorder, unspecified Hypothyroidism, unspecified Family History Other No significant family history Unknown family medical history Social History Smoking Status: Former smoker (States he quit 10 years ago.) tobacco type: cigarettes packs per day: 1 second hand exposure: Yes alcohol intake: current alcohol intake frequency: a few times a week (7 beers over the course of 2 nights.) substance use type: prescription drug (States he is prescribed Percocet once or twice daily.) current occupational status: other Travel in the last 8 weeks?: None household members: significant other housing: house number of children: 2 current occupational exposures/hazards: No caffeine: Yes Have you lived/traveled outside US in past 30 days?: No Contact w/someone who lives/traveled outside US past 30 days?: No Exposure to someone with infectious disease in past 14 days?: No Do you have a fever (greater than 100.4 F or 38 C)?: No Have you tested positive for COVID-19?: No Exposed to someone with COVID-19 in past 14 days?: No Do you have a sore throat?: No Do you have a cough?: No Do you have any weakness?: No Do you have any diarrhea?: No Are you experiencing any unusual bleeding?: No Do you have any muscle aches/pain?: No Do you have any abdominal pain?: No Are you experiencing loss of taste or smell?: No PM Subjective & Objective Subjective Subjective:: Patient is a pleasant 69-year-old male who presents today for follow-up of his psychological evaluation. Today he rates his pain a 5 out of 10. He denies any new trauma or injury. He does state that he is scheduled for his SI injections on 16 May. Patient states that he does still want to proceed forward with the pump trial. Patient does have a few questions regarding this procedure. His Frank has been reviewed and is appropriate. Review of Systems: General: No recent weight changes, no fever, no sleep disturbances Respiratory: No cough, no shortness of air, no recurring pulmonary infections Cardiovascular/peripheral vascular: No chest pain, no palpitations, no edema, no shortness of breath Gastrointestinal: No new onset incontinence, normal bowel movements reported Genitourinary: No new onset incontinence Musculoskeletal: Low back pain Psychiatric: [Normal mood/affect] Neurological: [Denies weakness in extremities], [denies balance issues] Pain at rest (0-10 scale): 5 Objective Objective:: Physical Exam: General: Alert and oriented x3, no acute distress, pleasant and cooperative Lungs: Respirations even and unlabored, symmetrical chest expansion Eyes: PERRL Musculoskeletal: Flexion and extension of lumbar [spine] somewhat guarded secondary to pain, [antalgic gait noted] Neurological: Speech clear, no gross sensory deficit Has patient had previous pain injection?: No Conservative treatment options previously tried: Home exercise plan Length of treatment: Longer than 12 weeks Meds Home Medications and Allergies Home Medications ?Medication ?Instructions ?Recorded ?Confirmed ?Type buspirone 10 mg tablet 10 mg PO BID Anxiety 03/02/18 05/03/25 History atorvastatin 40 mg tablet 40 mg PO HS Cholesterol 07/17/20 05/03/25 History diltiazem HCl 120 mg 120 mg PO BID ##60 10/13/20 05/03/25 Rx capsule,extended release 24 hr ascorbic acid (vitamin C) 500 mg 500 mg PO DAILY 04/13/24 05/03/25 History tablet bumetanide 2 mg tablet 2 mg PO DAILY 04/13/24 05/03/25 History potassium chloride 20 mEq 40 meq PO DAILY 04/13/24 05/03/25 History tablet,extended release apixaban 5 mg tablet (Eliquis) 5 mg PO BID #180 tabs 05/23/24 05/03/25 Rx levothyroxine 112 mcg tablet 112 mcg PO DAILY 02/15/25 05/03/25 History prasterone (DHEA) 50 mg tablet 50 mg PO DAILY 02/15/25 05/03/25 History (DHEA) sildenafil 100 mg tablet 50 - 100 mg PO NEEDED PRN 02/15/25 05/03/25 History Erectile Dysfunction tamsulosin 0.4 mg capsule 0.8 mg PO DAILY 02/15/25 05/03/25 History allopurinol 100 mg tablet 300 mg (3 x 100 mg) PO DAILY #180 02/16/25 05/03/25 Rx tabs trazodone 50 mg tablet 50 mg PO HSP PRN insomnia 02/16/25 05/03/25 History colchicine 0.6 mg tablet 0.6 mg PO .COMPLEX #20 tabs 02/20/25 05/03/25 Rx lansoprazole 30 mg capsule,delayed See Rx Instructions .Route 03/10/25 05/03/25 Rx release .COMPLEX #90 caps cyclobenzaprine 5 mg tablet 5 mg PO TIDP PRN muscle spasm #60 04/12/25 05/03/25 Rx tabs oxycodone-acetaminophen 5 mg-325 1 tab PO Q8HP PRN Moderate Pain 04/25/25 05/03/25 Rx mg tablet (Scale Score 5-6) #20 tabs prednisone 10 mg tablet 10 mg PO DIRECTED #32 tabs 04/27/25 05/03/25 Rx New Prescriptions to Start Prescriptions: Allergies Allergy/AdvReac Type Severity Reaction Status Date / Time metoclopramide (From Reglan) Allergy Intermediate Anxiety Verified 04/26/25 11:42 Penicillins Allergy Intermediate Anxiety Verified 04/26/25 11:42 amantadine (AMANTADINE) Allergy Mild SEIZURE Verified 04/26/25 11:42 codeine (CODEINE) Allergy Mild I-RASH Verified 04/26/25 11:42 cephalexin (From Keflex) Allergy Anxiety Verified 04/26/25 11:42 terbinafine AdvReac Mild Confusion Verified 04/26/25 11:42 Assessment and Plan *Assessment and plan (1) Chronic pain syndrome: Status: Acute Category: Medical Code(s): G89.4 - Chronic pain syndrome Plan I did review over with the patient that he did pass his psychological evaluation and he was deemed an appropriate candidate for this device/trial. I did answer his questions regarding pump placement as well as how the trial is performed and by Dr. Marvin. Patient has not yet heard from the referral to Dr. Jhony vega for evaluation of surgical intervention. We will follow-up with him after his SI injections and hopefully at that time he will of already saw neurosurgery. Once we do have a report back from this specialist we can proceed forward with submitting to insurance for the pump trial. Patient agrees with this plan of care. Patient has been instructed to contact the clinic with any concerns before the next appointment. Dr. Marvin has reviewed this note and agrees with this plan of care. This note was dictated using voice recognition software and make contain errors or omissions. All injections are used with Lidocaine, Bupivacaine and dexamethasone. Occasionally urine drug screen is needed to verify patient's compliance with our office pain contract. This is ordered based off specific treatments related to chronic pain with the potential to abuse certain medications.
== END 2025-05-03 23:59 | disposition home or self-care (01) ==
LOC: SC.PAIN 09:55
PROVIDERS: PCP Internal Medicine; Visit Provider Nurse Practitioner Family
DX: M54.50 Low back pain, unspecified (principal); G89.4 Chronic pain syndrome
CPT/HCPCS: 99212; G0463

== ENCOUNTER 2025-05-20 13:38 | Emergency (ER) | payer MEDICARE, SELFPAY ==
--- OUTSIDE RECORDS SUMMARY | 2025-03-24 10:40 | XMS_ITS | Encounter Summary ---
Author Organization [facility] Address [address] [place] [address] Care Team Providers Care Aluminizer Name Role Phone Derrell West MD Primary Care Provider [phone] Reason for Visit * Reason Comments Chronic [...] Description 03/24/2025 10:40 AM EDT Office Visit [facility] [address] [place] [address] Vernon Medina MD [address] [place] [id number] Stage 3 chronic kidney disease, unspecified whether [...] not included. Nephrology Outpatient Clinic Progress Note [facility] Patient: Aden Cheung Primary Care Provider: Derrell [...] Insecurity: No Food Insecurity (11/20/2023) Received from [employer] Food Insecurity : Not on file : Not on file Transportation Needs: Not on file Physical Activity: Not on file Stress: Not on file Social Connections: Low Risk (11/20/2023) Received from [facility] [employer] Family and Community Support Help with Day to Day Activities: Not on file Feeling Lonely or Isolated: Not on file Intimate Partner Violence: Unknown (08/19/2023) [facility] Abuse Screen Unsafe at Home or Work/School: Not on file Feels Threatened by Someone?: Not on file Does Anyone Keep You from Contacting Others or Doint Things Outside the Home?: Not on file Physical Sign of Abuse Present: Not on file Housing Stability: Low Risk (11/20/2023) Received from [employer] Housing Stability Living situation today: Not on file Living situation problems: Not on file Allergies Allergen Reactions Amantadines Other - please document in the comment field seizure; confirmed by patient's daughter - per pharmacy retail support specialist Seizures, only time pt has ever had a seizure Penicillins Hives, Itching, Rash and Swelling confirmed by patient's daughter - per pharmacy retail support specialist Codeine Hives confirmed by patient's daughter - per pharmacy retail support specialist Metoclopramide Other - please document in the [...] , CAUR , CALCIUMUR , PHOSUR , [id number] , [id number] , CREATUR MBD: No results found for: [...] , LH , PROLACTIN , TSH , [id number] , FREET4 , CORTISOL 09/06/24 labs CBC: [...] may tolerate it. Recommended he discuss with guest room attendant for benefit #HTN in CKD - controlled [...] is supratherapeutic RTC in 1 year Vernon eMdina MD Division of Nephrology [facility] Counseling Documentation: The patient was counseled regarding COUNSELING TOPICS: diagnostic results, prognosis, risks and benefit of treatment options, risk factor reductions, instructions for management, patient and family education, medication changes, diagnostic impressions, Heart healthy diet, regular physical activity and weight control, Avoidance of NSAIDs and other nephrotoxins, and keno terminal operator nature of condition. Education provided was verbal counseling.Additional time was spent in care coordination including medical record review. ORDERS PLACED THIS ENCOUNTER Orders Placed This Encounter Procedures CBC W/O Differential Standing Status: Future Expected Date: 03/24/2026 Expiration Date: 04/28/2026 Release to patient in [facility]: Immediate Urinalysis with reflex microscopic (Culture NOT Included) Standing Status: Future Expected Date: 03/24/2026 Expiration Date: 04/28/2026 Release to patient in [facility]: Immediate Vitamin D 25 Hydroxy Standing Status: Future Expected Date: 03/24/2026 Expiration Date: 04/28/2026 Release to patient in [facility]: Immediate PTH Intact Total Standing Status: Future Expected Date: 03/24/2026 Expiration Date: 04/28/2026 Release to patient in [facility]: Immediate Albumin-creatinine ratio, urine, random Standing Status: Future Expected Date: 03/24/2026 Expiration Date: 04/28/2026 [facility] Protein, Random, Urine with Creatinine Standing Status: Future Expected Date: 03/24/2026 Expiration Date: 04/28/2026 [facility]: Immediate Renal Function Panel, Plasma Standing Status: Future Expected Date: 03/24/2026 Expiration Date: 04/28/2026 [facility]: Immediate Problem List Items Addressed This Visit [...] stage 3a or 3b CKD ([facility]) - Primary Relevant Orders CBC W/O Differential [...] stage 3a or 3b CKD ([facility]) Expected: 03/24/2026 (Approximate), Expires: 04/28/2026 Vitamin D 25 Hydroxy Lab Routine Stage 3 chronic kidney disease, unspecified whether stage 3a or 3b CKD ([facility]) Expected: 03/24/2026 (Approximate), Expires: 04/28/2026 PTH Intact Total Lab Routine Stage 3 chronic kidney disease, unspecified whether stage 3a or 3b CKD ([facility]) Expected: 03/24/2026 (Approximate), Expires: 04/28/2026 Albumin-creatinine ratio, urine, random Lab Routine Stage 3 chronic kidney disease, unspecified whether stage 3a or 3b CKD ([facility]) Expected: 03/24/2026 (Approximate), Expires: 04/28/2026 Protein, Random, Urine with Creatinine Lab Routine Stage 3 chronic kidney disease, unspecified whether stage 3a or 3b CKD ([facility]) Expected: 03/24/2026 (Approximate), Expires: 04/28/2026 Renal Function Panel, Plasma Lab Routine Stage 3 chronic kidney disease, unspecified whether stage 3a or 3b CKD ([facility]) Expected: 03/24/2026 (Approximate), Expires: 04/28/2026 documented as of this encounter Visit Diagnoses Diagnosis Stage 3 chronic kidney disease, unspecified whether stage 3a or 3b CKD ([facility])- Primary Hypertensive chronic kidney disease with stage [...] documented as of this encounter Care Teams Aluminizer Relationship Specialty Start Date End Date Derrell West MD [address] [place] [address] [address] [place] [address] PCP - General 10/21/22 documented as of this encounter
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
--- OUTSIDE RECORDS SUMMARY | 2025-05-20 13:42 | XMS_ITS | Clinical Summary ---
Author Organization [facility] ([place], [place], [place], [place]) Address [address] [place] [address] Care Team Providers Care Sports Equipment Racker Name Role Phone DottieJennifer Primary Care Provider [phone] Allergies Active Allergy Reactions Criticality Noted Date [...] Type Department Care Team Description 02/22/2025 Travel from Last 3 Months Immunizations Name Administration Dates Next Due Influenza, High Dose 09/13/2024 Pneumococcal Conjugate Vaccine (20-Valent) IM RESPIRATORY SYNCYTIAL VIRUS (RSV) VACCINE - (AREXVY- Disrupt6) ([id number]) 10/06/2023 Family History Medical History Relation Name [...] = 0.6 oz pur e alcohol) wknds [facility] - Mental Health Answer Date Recorde d Little interest or pleasure in doing things Not at all 12/29/2024 Feeling down, depressed, or hopeless Not at all 12/29/2024 Feeling of Stress Not on file 12/29/2024 Family and Community Support Answer Miles e Recorded Help with Day to Day Activities Not on file 11/20/2023 Feeling Lonely or Isolated Not on file 11/20 Educational Attainment Answer Date Jm rded Speak language other than Swedish at home Not on file 11/20/2023 Want help with school or training Not on file 11/20/2023 Substance Use Answer Date Recorded Used [...] Initial AWV [id number] 05/10/2021 COVID-19 VACCINE ( season) 2024 08/26/2021, 02/12/2021, 01/22/2021 Falls Risk Screening 11/09/2024 Influenza Vaccine (#1) 2025 09/13/2024 Depression Screening (12+) 12/29/2025 12/29/2024 Tobacco Cessation Counseling and Screening (12+) 12/29/2025 12/29/2024 Pneumococcal 50+ years Completed 10/06/2023 Respiratory Syncytial Virus (RSV) Adult or Completed 10/06/2023 Medical Devices Implanted Type Area Commutator Presser Device Identifier Shelf Expiration Date Model / Serial / Lot Mesh Phasix [id number] - [id number] Implanted:Qt y: 1 on 11/12/2022 by Jair Nunez MD at [facility] IMPLANTS N/A: Abdomen CR BARD:DAVOL [id number] 02/04/2024 [id number] / / [id number] Insurance [employer] MEDICARE HMO Advance Directives For more information, please contact: [phone] * Full Code (Latest Code Status on File) Date Activated Date Inactivated Comments 11/12/2022 5:57 PM 11/24/2022 2:01 PM Care Teams Sports Equipment Racker Relationship Specialty Start Date End Date Jennifer Sinclair DO [address] [place] [address] PCP - General Family Medicine 11/10/24
--- OUTSIDE RECORDS SUMMARY | 2025-05-20 13:42 | XMS_ITS | Referral Summary ---
Author Organization [facility] ([place], [place], [place], [place]) Address [address] [place] [address] Care Team Providers Care Commercial Specialist Name Role Phone DottieJennifer Primary Care Provider [phone] Encounters Date Type Department Care Team Description 02/22/2025 Travel from Last 3 Months Allergies Active Allergy [...] RESPIRATORY SYNCYTIAL VIRUS (RSV) VACCINE - (AREXVY- [facility]) ([id number]) 10/06/2023 Social History Tobacco Use Types Packs/Day Years Used Date Smoking Tobacco: Former Cigarettes Q uit: 11/12/2014 Smokeless Tobacco: Never Tobacco Cessation:Counseling Given: Not Answered Alcohol Use Standard Drinks/Week Comments Yes 9 (1 standard drink = 0.6 oz pur e alcohol) wknds [facility] - [facility] Answer Date Recorde [...] Date Jm rded Speak language other than [place] Islander at home Not on file 11/20/2023 Want [...] on file Medical Devices Implanted Type Area Cosmetic Sales Device Identifier Shelf Expiration Date Model / Serial / Lot Mesh Phasix [id number] - [id number] Implanted:Qt y: 1 on 11/12/2022 by Jair Nunez MD at [facility] IMPLANTS N/A: Abdomen CR BARD:DAVOL [id number] 02/04/2024 [id number] / / [id number] Insurance [facility] MEDICARE HMO Advance Directives For more information, please contact: [phone] * Full Code (Latest Code Status on File) Date Activated Date Inactivated Comments 11/12/2022 5:57 PM 11/24/2022 2:01 PM Care Teams Commercial Specialist Relationship Specialty Start Date End Date Jennifer Sinclair DO [address] [place] [address] PCP - General Family Medicine 11/10/24
--- OUTSIDE RECORDS SUMMARY | 2025-05-20 13:42 | XMS_ITS | Clinical Summary ---
Author Organization [facility] Address [address] [place] [address] Care Team Providers Care American Sign Language Teacher Name Role Phone Derrell West MD Primary Care Provider [phone] Allergies Active Allergy Reactions Criticality Noted Date Comments Amantadines Other - please document in the comment field High 08/07/2010 seizure; confirmed by patient's daughter - per pharmacy technician assistant Seizures, only time pt has ever had a seizure Codeine Hives Medium 08/07/2010 confirmed by patient's daughter - per pharmacy technician assistant Hydrochlorothiazide Rash Low 06/23/2022 Metoclopramide Other - please document in the comment field Medium 06/25/2022 Caused depression Penicillins Hives,Itching,Rash,S w elling High 08/07/2010 confirmed by patient's daughter - per pharmacy technician assistant Medications bumetanide (Bumex) 2 MG tablet Take [...] Department Care Team Description 03/28/2025 Orders Only [facility] [address] [id number] AnkitAmy guadalupe Leela 03/24/2025 10:40 AM EDT Office Visit [facility] [address] [id number] Vernon Medina MD [...] Months Immunizations Immunization Administration Dates Next Due [employer] COVID-19 Vac cine (Purple Cap) 12+ 08/26/2021,02/12/2021,01/22/2021 [...] 2005 [facility]-Abdominal Aortic Aneurysm (AAA) Screening 2020 EGL-BYCGR-14 Vaccine ( season) 2024 08/26/2021, 02/12/2021, 01/22/2021 [facility]-Influenza Vaccine (#1) 2025 09/13/2024 [facility]-Pneumococcal Vaccine: 50+ Years Completed 10/06/2023 [facility]-RSV Vaccine: 60+ Years or Completed 10/06/2023 [facility]-Obesity Intervention Completed 025, 09/09/2024, 01/14/2024, Additional [...] patient's age to complete this topic Insurance [facility] MEDICARE Care Teams American Sign Language Teacher Relationship Specialty Start Date End Date Derrell West MD [address] [facility] [address] [place] [address] PCP - General 10/21/22
--- OUTSIDE RECORDS SUMMARY | 2025-05-20 13:42 | XMS_ITS | Encounter Summary ---
Author Organization Healthcare Address [address] [place] [address] Care Team Providers Care Plugman Name Role Phone Derrell West MD Primary Care Provider [phone] Encounter Details Date Type Department Care Team [...] documented as of this encounter Care Teams Plugman Relationship Specialty Start Date End Date Derrell West MD [address] [place] [address] PCP - General 10/21/22 documented as of this encounter
--- OUTSIDE RECORDS SUMMARY | 2025-05-20 13:42 | XMS_ITS | Encounter Summary ---
Author Organization Healthcare Address [address] [place] [address] Care Team Providers Care Community Living Specialist Name Role Phone Derrell West MD Primary Care Provider [phone] Encounter Details Date Type Department Care Team [...] documented as of this encounter Care Teams Community Living Specialist Relationship Specialty Start Date End Date Derrell West MD [address] [address] [place] [address] PCP - General 10/21/22 documented as of this encounter
--- OUTSIDE RECORDS SUMMARY | 2025-05-20 13:42 | XMS_ITS | Data Portability ---
Author Organization ANGI bauer, MEGHA BISMARCK CLOSED Address [address] [facility] [address] [place] [address] Care Team Providers Care Deputy Sheriff Civil [employer] Name Role Phone DERRELL WEST Primary Care Provider HEMANTH BROOKS JR General Surgeon Assessment Encounter Date Assessment Date Assessment LastModified by Organization Details LastModified Time 05/14/2023 05/14/2023 Status post repair of large incisional hernia. No sign of recurrence. Follow-up as needed. Not available 05/14/2023 12:24:38 Plan of Treatment [...] pelvi s, w/o contr ast [place] wu [facility] [address] [place] [address] Fabiola t Name: RODGER marroquin : 955 Patiramy t Orderi ng Provid [...] Belle MD on 022 5:27 PM [email or web address] [facility] Radiology [address] , [place], [address], 10/21/2022 09:38:56 Result Notes Documentation Provider Name and Address Organization Details Recorded Time Ct, Abdomen + Pelvis, W/o Contrast : [address] [place] [address] Patient Name: ADEN CHEUNG Patient : 1955 Patient Ordering Provider: Rich BROOKS EXAM DATE: 10/13/2022 EXAM: CT ABD/PELVIS WITHOUT CONTRAST CLINICAL INFORMATION: Umbilical bulge. TECHNIQUE: Multiple axial CT images of the abdomen and pelvis were obtained without injection of IV contrast. No oral contrast or water was administered to the patient. In the area of palpable abnormality, a marker was placed which is seen best on image # 40, and 61 of series # 201. Scanning was performed during Valsalva maneuver. COMPARISON: None FINDINGS ON CT ABDOMEN: LOWER THORAX: Lung bases are clear. Pericardial calcifications are seen. UPPER ABDOMINAL ORGANS: Gallbladder is surgically absent. There is a 1 cm simple cyst in the left lobe of the liver. Spleen, pancreas, adrenals and both kidneys are normal. BOWEL AND MESENTERY: Stomach, small bowel and colon are normal. No mesenteric lymphadenopathy or peritoneal free fluid. RETROPERITONEUM:Limited evaluation due to absence of IV contrast. Aorta shows atherosclerotic calcifications with normal aortic caliber. IVC and branches are normal. No retroperitoneal lymphadenopathy. BODY WALL AND MUSCULOSKELETAL STRUCTURES: Degenerative changes of the lumbar spine are noted. Diastasis of the rectus muscle is seen with bulging of the linea alba. Underlying the markers, fascial defects are seen through which, small hernias are seen to protrude containing omental fat. These defects are seen best in image 39 of series 201 and range in size between 1.2-1.7 cm, and in image 57 of series 201 where it measures 1.[address] PELVIS: PELVIC CAVITY: Urinary bladder and rectosigmoid are normal. Prostate gland is normal in size. No pelvic or inguinal lymphadenopathy, mass or fluid. MUSCULOSKELETAL STRUCTURES: Normal. COMBINED IMPRESSION: 1. Diastasis of rectus muscles with bulging of the linea alba. 2. Fascial defects around the umbilicus through which small hernias are seen to protrude. Interpreted By: Aaron Belle MD Nina Pinon [facility] 10/21/2022 09:38:56 Problems Name Problem SNOMED Code Status Onset Date Resolution Date Notes Provider Name and Address Organization Details Recorded Time Incisiona l hernia 037793879 Active 2021 HEMANTH BROOKS JR, MD [address] [place] [address], [id number] [facility] 17:00:25 Abdominal pain 08751321 Active 2015 From Automated Load;Provi evie: Soraya Shah;Sta tus: Active Not Available [facility] 06:38:04 Problem Notes None recorded. Procedures Surgical History Date Name Laterality Status Provider Name and Address Organization Details Recorded Time cholecystectomy completed [facility] 10/07/2022 15:39:08 hernia repair completed [facility] 10/07/2022 15:39:18 Colectomy completed [facility] 10/07/2022 15:40:23 Appendectomy completed [facility] 10/07/2022 15:40:31 Xcapsl ctrc rmvl cplx wo ecp completed [facility] 10/07/2022 15:40:42 Cardioversion electric ext completed [facility] 10/07/2022 15:41:11 operation on testis completed [facility] 10/07/2022 15:41:40 Imaging Results None recorded. Procedure Notes None recorded. Medical Equipment None Reported. Allergies Allergen ID Allergen Name Allergen Category Reaction Reaction Severity Criticality Documentation Date Start Date Code Code System Note Provider Name and Address Organization Details Recorded Time 251970 amantadin e hydrochlo ride medicatio n other Not available Not available 10/02/20162009 58668 5 RxNorm React ion: OTHER ; Comme nt: seizu res;C reate d By: Gribb ins Sandr a;Cre ated Date: 2009 9:00: 37 AM; Not Available [facility] 11:56:47 615250 Product containin g penicilli n (product) medicatio n hives Not available Not available 10/03/20162009 20969 8001 SNOMED React ion: HIVES ; Comme nt: Creat ed By: Gribb ins Sandr a;Cre ated Date: 2009 8:59: 55 AM; Not Available [facility] 05:40:36 373503 codeine medicatio n hives Not available Not available 10/03/20162009 2670 RxNorm React ion: HIVES ; Comme nt: Creat ed By: Gribb ins Sandr a;Cre ated Date: 2009 8:59: 37 AM; Not Available [facility] 6 08:37:12 540046 Reglan medicatio n Not available Not available Not available 10/07/2022 9230 RxNorm Arely No [facility] 2 15:29:04 710551 dexametha sone medicatio n Not available Not available Not available 10/07/2022 3264 RxNorm Arely No [facility] 2 15:30:08 Medications Name Sig Start [...] index (BMI) Body weight Heart rate Systolic And Diastolic Provider Name and Address Organization Details Last Updated DateTime 12/04/2022 180.34 cm 28.6 kg/m2 76645.44 g 52 /min 106/75 mm[Hg] [facility] 12/04/2022 09:50:13 Date Recorded Body height Body mass index (BMI) Body weight Heart rate Systolic And Diastolic Provider Name and Address Organization Details Last Updated DateTime 05/14/2023 180.34 cm 27.9 kg/m2 88796.47 g 68 /min 108/69 mm[Hg] [facility] 05/14/2023 12:04:34 Date Recorded Body height Body mass index (BMI) Body weight Heart rate Systolic And Diastolic Provider Name and Address Organization Details Last Updated DateTime 10/07/2022 180.34 cm 31.4 kg/m2 663336.2 8 g 69 /min 126/84 mm[Hg] Arely No [facility] 10/07/2022 15:30:29 Social History None recorded. Functional Status [...] 2021 15:38:15 Medical History Condition Response Other Heart Disease Y Thyroid Disease Y Stroke Y Asthma Y Past Encounters Encounter ID Performer Location Encounter Start Date Encounter Closed Date Diagnosis/Indication Diagnosis SNOMED-CT Code Diagnosis ICD10 Code Diagnosis Note [id number] HEMANTH BROOKS JR, MD GENERAL SURGERY [address] [place] [address] 10/07/2022 15:15:02 10/08/2022 12:13:02 Abdominal pain 24922648 R10.9 Incisional hernia 817399 000 K43.2 His abdominal pain is most likely from the incisional hernias. Check CT scan abdomen pelvis to confirm this and for operative planning. Dr[facility] found him low risk for cardiac complicati [...] smaller meshes. Await records from before deciding. [id number] HEMANTH BROOKS JR, MD GENERAL SURGERY [address] [address] 12/04/2022 09:38:32 12/05/2022 04:23:39 Abdominal pain 13495404 R10.9 Incisional hernia 246229 000 K43.2 Status post open repair of large incisional hernia requiring transversu s abdominis release on 11/12/2022 [id number] HEMANTH BROOKS JR, MD GENERAL SURGERY [address] [address] 05/14/2023 11:57:03 05/18/2023 09:31:01 Health Concerns [...] PLUS (MEDICARE REPLACEMENT/ ADVANTAGE - HMO) Aden Mchughster [id number] Aden Mchughster 12/03/2022 1 [place]ICARE[place] Aden Mchughster [id number] Aden Pickardmaster 12/04/2022 2 [employer] (MEDICARE SUPPLEMENT) Aden Cheung [id number] Aden Cheung 12/04/2022 [employer] (MEDICARE SUPPLEMENT) Aden Cheung [id number] Aden Cheung 01/14/2019 1 *SELF PAY* [...] for hydrocele, cardioversion. HEMANTH BROOKS JR, MD [address] [place] [address], [phone], [facility] 10/30/2022 10:21:20 12/04/2022 text/html 10/07/2022 I am [...] in a store without shortness of breath. Knox Dale removed today. He is back on Eliquis for atrial fibrillation. I will see him in 6 months time. He will avoid heavy lifting until early January. HEMANTH BROOKS JR, MD [address] [place] [address], [phone], [facility] 12/04/2022 10:25:13 05/14/2023 text/html He had open repa ir of large incisional hernia requiring right-sided transversus abdominis release with 25 x 30 cm piece of phasix mesh November 2022. He had postop ileus and pneumonia requiring 12-day hospitalization. He states that since then he has had stress of his dying. He is lost 40 pounds. He feels great. HEMANTH BROOKS JR, MD [address] [place] [address] [place], [address], [facility] 05/14/2023 12:25:00
--- OUTSIDE RECORDS SUMMARY | 2025-05-20 13:42 | XMS_ITS | Encounter Summary ---
Author Organization Healthcare Address [address] [place] [address] Care Team Providers Care Date Night Caregiver Name Role Phone Derrell West MD Primary Care Provider [phone] Encounter Details Date Type Department Care Team (Late st Contact Info) Description 03/28/2025 Orders Only [address] [place] [address] Amy Pham Social History Tobacco [...] documented as of this encounter Care Teams Date Night Caregiver Relationship Specialty Start Date End Date Derrell West MD [address] [place] [address] PCP - General 10/21/22 documented as of this encounter
--- NOTE | 2025-05-20 13:48 | XR_ITS ---
PROCEDURE INFORMATION: Exam: XR Right Tibia and Fibula Exam date and time: 05/20/2025 1:54 PM Age: 69 years old Clinical indication: Injury or trauma; Other: Scraped skin mid tib/fib, anterior; Additional info: Mid anterior tibial trauma TECHNIQUE: Imaging protocol: Radiologic exam of the right tibia and fibula. Views: 2 views. COMPARISON: No relevant prior studies available. FINDINGS: Bones/joints: There is no evidence of acute fracture.There is no evidence of malalignment or dislocation. Degenerative changes in the medial and lateral malleolus Soft tissues: Soft tissue swelling of the ankle IMPRESSION: There is no evidence of acute fracture.There is no evidence of malalignment or dislocation.
[2025-05-20 13:51] VITALS: BP 118/77; PULSE 86; O2SAT 95
[2025-05-20 13:52] VITALS: BP 118/77; PULSE 87; RESP 16; TEMP 36.9; O2SAT 94; BMI 32.8
[2025-05-20 14:01] LABS: Hematocrit 43.8 % (42.0-52.0); Hemoglobin 15.3 g/dL (14.1-18.0); Immature Granulocytes % 0.3 %; Mean Corpuscular HGB Conc 34.9 g/dL (31.8-35.4); Mean Corpuscular Hemoglobin 31.3 pg (27.0-31.2); Mean Corpuscular Volume 89.6 fl (80-94); Nucleated Red Blood Cells % 0 %; Platelet Count 187 K/mm3 (142-424); Red Blood Count 4.89 M/mm3 (4.60-6.20); Red Cell Distribution Width-SD 45.1 fL; White Blood Count 6.0 K/mm3 (4.8-10.8)
[2025-05-20 14:10] LABS: Alanine Aminotransferase 30 U/L (12-78); Albumin Level 4.1 g/dl (3.5-5.0); Albumin/Globulin Ratio 1.6 (1.1-1.8); Alkaline Phosphatase 82 U/L (38-126); Anion Gap 16.1 mEq/L (5-15); Aspartate Amino Transferase 43 U/L (17-59); Bilirubin,Total 1.3 mg/dl (0.2-1.3); Blood Urea Nitrogen 11 mg/dl (9-20); Calcium 8.5 mg/dl (8.4-10.2); Carbon Dioxide 29 mmol/L (22.0-30.0); Chloride 94 mmol/L (98-107); Creatinine Clearance Estimated 70 mL/min (50-200); Creatinine,Serum 1.50 mg/dl (0.66-1.25); Estimated Glomerular Filt Rate 46 ml/min (>60); GFR (African American) 56 ML/MIN (>60); Globulin 2.5 g/dL (1.3-3.2); Glucose 88 mg/dl (74-100); Potassium 3.1 mmoL/L (3.5-5.1); Sodium 136 mmol/L (136-145); Total Protein,Serum 6.6 g/dl (6.3-8.2)
[2025-05-20] MEDS: DALBAVANCIN HCL 1,500 MG in DEXTROSE 5 % IN WATER 250 ML 500 MG IV (14:22)
[2025-05-20 14:27] LABS: Procalcitonin 0.063 ng/mL (0.0-2.0)
[2025-05-20 15:18] VITALS: BP 140/80; PULSE 70; RESP 20; TEMP 36.8; O2SAT 98
== END 2025-05-20 15:18 | disposition home or self-care (01) ==
PROVIDERS: Physician Assistant; Emergency Provider Emergency Medicine; PCP Internal Medicine
DX: L03.115 Cellulitis of right lower limb (principal); E87.6 Hypokalemia
CPT/HCPCS: 73590; 80053; 84145; 85025; 87040; 96374; 99284; J0875; J7060

== ENCOUNTER 2025-05-23 09:02 | Day surgery (SDC) | payer MEDICARE, SELFPAY ==
[2025-05-23 09:09] VITALS: BP 120/62; PULSE 83; RESP 18; O2SAT 96; BMI 33.3
[2025-05-23 09:33] VITALS: BP 115/72; PULSE 86; RESP 18; O2SAT 93
[2025-05-23] MEDS: BUPIVACAINE 0.25% 10ML INJ 25 MG IJ (09:33)
[2025-05-23] MEDS: DEXAMETHASONE 10MG/ML 1ML VIAL 10 MG (09:33)
[2025-05-23] MEDS: LIDOCAINE 1% 5ML PF VIAL 5 ML (09:33)
[2025-05-23 09:36] VITALS: BP 115/72; PULSE 86; RESP 18; O2SAT 93
--- NOTE | 2025-05-23 09:40 | P.PCN_ITS ---
Procedure Date: 05/23/25 Time: 09:30 Anesthesiologist:: Chris Doherty CRNA Complications:: None Pre-procedure Diagnosis:: Bilateral sacroiliitis Post-procedure Diagnosis:: Same Indications for Procedure:: Patient is very pleasant 70-year-old male who comes our clinic today for bilateral sacroiliac joint injections cortisone local anesthetic. Patient describes low lumbar back pain off the midline bilaterally. Bilateral posterior hip pain. Difficulty transitioning from sitting to standing. Difficulty with ambulation. He rates his pain 7/10. Procedure Details:: Procedure: Bilateral sacroiliac joint injections under fluoroscopy Informed consent was obtained and the risks and benefits of the procedure were explained to the patient.~ The patient was taken to the procedure room and noninvasive monitors were placed including a noninvasive blood pressure cuff and pulse oximeter.~ The patient was placed prone on the procedure table. Both hips were cleansed using Betadine as a cleansing solution. C-arm fluoroscopy was used to view the right sacroiliac joint.~ The skin and subcutaneous tissues were anesthetized using lidocaine 1.5% and a 25-gauge needle.~ After this, a 22-gauge spinal needle was inserted under fluoroscopic guidance into the inferior aspect of the right sacroiliac joint.~ Omnipaque dye was injected and good spread was seen throughout the joint.~ After this, approximately 5 mL of bupivacaine, 0.25% and dexamethasone 5 mg was incrementally injected into the right sacroiliac joint. We then moved to the left sacroiliac joint.~ The skin and subcutaneous tissues were anesthetized using lidocaine 1.5% and a 25-gauge needle.~ After this, a 22- gauge spinal needle was inserted under fluoroscopic guidance into the inferior aspect of the left sacroiliac joint.~ Omnipaque dye was injected and good spread was seen throughout the joint. After this, approximately 5 mL of bupivacaine, 0.25% and dexamethasone 5 mg was incrementally injected into the left sacroiliac joint.~ The patient tolerated the procedure well with no complications. The patient was observed in the Pain Clinic and then was discharged home neurologically intact. Plan and Disposition:: Patient was discharged without incident.
[2025-05-23 09:41] VITALS: BP 114/70; PULSE 75; RESP 18; O2SAT 93
== END 2025-05-23 09:41 | disposition home or self-care (01) ==
PROVIDERS: PCP Internal Medicine; Visit Provider Nurse Anesthetist, Certified Registered
DX: M46.1 Sacroiliitis, not elsewhere classified (principal); J44.9 Chronic obstructive pulmonary disease, unspecified; I50.32 Chronic diastolic (congestive) heart failure; F41.9 Anxiety disorder, unspecified; I11.0 Hypertensive heart disease with heart failure; Z86.16 Personal history of COVID-19; E78.5 Hyperlipidemia, unspecified; E03.9 Hypothyroidism, unspecified; F32.9 Major depressive disorder, single episode, unspecified; G47.33 Obstructive sleep apnea (adult) (pediatric); Z87.891 Personal history of nicotine dependence; Z88.5 Allergy status to narcotic agent; Z88.0 Allergy status to penicillin; Z88.8 Allergy status to other drugs, medicaments and biological substances; Z79.01 Long term (current) use of anticoagulants; Z79.891 Long term (current) use of opiate analgesic; Z79.899 Other long term (current) drug therapy
CPT/HCPCS: 27096; J0665; J1100; J2003

== ENCOUNTER 2025-06-03 15:30 | Emergency (ER) | payer MEDICARE, SELFPAY ==
--- OUTSIDE RECORDS SUMMARY | 2025-04-14 12:00 | XMS_ITS | Encounter Summary ---
Author Organization [facility] Address [address] [place] [id number] Care Team Providers Care Food And Beverage Lead Name Role Phone Derrell West MD Primary Care Provider [phone] Reason for Referral * Cardiac Stress Testing (Routine) - Closed Specialty Diagnoses / Procedures Referred By Contac t Referred To Contact Diagnoses AF (paroxysmal atrial fibrillation) Paroxysmal atrial fibrillation Chronic diastolic congestive heart failure Procedures PYP Imaging for Cardiac Amyloidosis Thanh Guy MD [address] [facility] [address] [place] [address] Phone: tel: fax: [facility] [address] [place] [phone] Phone: tel: Referral ID Status Reason Start Date Expiration Date Visits Re quested Visits Authorized [id number] Closed 03/29/2025 06/28/2026 1 1 Reason for Visit * Cardiac Stress Testing (Routine) - Closed Specialty Diagnoses / Procedures Referred By Contac t Referred To Contact Diagnoses AF (paroxysmal atrial fibrillation) Paroxysmal atrial fibrillation Chronic diastolic congestive heart failure Procedures PYP Imaging for Cardiac Amyloidosis Thanh Guy MD [address] [place] [address] Phone: tel: fax: [facility] [address] [place] [address] Phone: tel: Referral ID Status Reason Start Date Expiration Date Visits Re quested Visits Authorized [id number] Closed 03/29/2025 06/28/2026 1 1 Encounter Details Date Type Department Care Team (Late st Contact Info) Description 04/14/2025 12:00 PM EDT - 04/14/2025 11:59 PM EDT Hospital Encounter [facility] [address] [facility] 3rd [place] [address] Thanh Guy MD [address] [facility] [address] [place] [address] AF (paroxysmal atrial fibrillation); Paroxysmal atrial fibrillation; [...] Description 06/20/2025 2:00 PM EDT Office Visit [facility] CARDIOLOG[facility] [address] [facility] [address] [place] [address] Maury Clarke MD [address] [facility] [address] [place] [address] 06/21/2025 2:15 PM EDT Office Visit [facility] CARDIOLOG[facility] [address] [facility] [address] Alfreda Ritchie APRN [address] [place], [place] [id number] 06/27/2025 7:45 PM EDT Appointment [facility] SLEEP LAB [address] [place] [phone] documented as of this encounter Procedures Procedure [...] dose documented in this encounter Care Teams Food And Beverage Lead Relationship Specialty Start Date End Date Derrell West MD [facility] [address] [facility] [address] PCP - General Internal Medicine 06/23/22 documented as of this encounter
--- OUTSIDE RECORDS SUMMARY | 2025-05-04 14:00 | XMS_ITS | Encounter Summary ---
[facility] Organization [facility] Address [address] [place] [id number] Care Team Providers Care Surgical Assistant Certified Name Role Phone Derrell West MD Primary Care Provider [phone] Reason for Referral * Hospital - Outpatient (Routine) - Authorized Specialty Diagnoses / Procedures Referred By Karly marroquin Referred To Contact Sleep Medicine Diagnoses Obstructive sleep apnea Difficulty with BiPAP use Snoring Procedures Polysomnography 4 or More Parameters Kenneth Hernandez MD [address] [place] [address] Phone: tel: fax: [facility] [address] [address] Phone: tel: fax: Referral ID Status Reason [...] Sleep Medicine Diagnoses Obstructive sleep apnea Procedures [place] OFFICE/OUTPATIENT NEW MODERATE MDM 45 MINUTES Ximena Veliz, RADHA [address] [place] [address] [place] [address] Phone: tel: fax: Kenneth Hernandez MD 3000 [facility] [address] [place] [address] Phone: tel: fax: Referral ID Status Reason Start Date Expiration Date Visits Requested Visits Authorized [id number] Closed Patient Preference 01/26/2025 04/27/2026 1 1 Encounter Details Date Type Department Care Team (Late st Contact Info) Description 05/04/2025 2:00 PM EDT Office Visit [facility] SLEEP MEDICINE [address] [facility] [address] [place] [address] Kenneth Hernandez MD [address] [place] [address] Obstructive sleep apnea (Primary Dx); Difficulty with [...] cared for primarily by Dr. Reynaga in [place] and subsequently Ms. Obrien in [facility] cardiology and sleep office there. He has [...] chest of heart failure and atrial fibrillation. [place] Scale is: 16/24 The patient's relevant past medical, surgical, family, and social history reviewed and updated in [facility] as appropriate. Current medications are: [...] Description 06/20/2025 2:00 PM EDT Office Visit [facility] CARDIOLOGY 1720 [facility] [address] [place] [address] Maury Clarke MD 1720 [facility] [address] [place], [place] [id number] 06/21/2025 2:15 PM EDT Office Visit [facility] CARDIOLOGY [address] [place] [address] Alfreda Ritchie APRN [address] [facility] [address] [place] [address] 06/27/2025 7:45 PM EDT Appointment [facility] [address] [facility] [address] [place] [phone] Scheduled Orders Name Type Priority Associated Diagnoses Orde r Schedule Polysomnography 4 or More Parameters Sleep Center Routine Obstructive sleep apnea Difficulty with BiPAP use Snoring Expected: 05/09/2025, Expires: 05/04/2026 documented as of this encounter Visit Diagnoses Diagnosis Obstructive sleep apnea- Primary Obstructive sleep apnea (adult) (pediatric) Difficulty with BiPAP use Snoring Other dyspnea and respiratory abnormality documented in this encounter Care Teams Surgical Assistant Certified Relationship Specialty Start Date End Date Derrell West MD 1210 [facility] [address] [place] [address] PCP - General Internal Medicine 06/23/22 documented as of this encounter
--- NOTE | 2025-06-03 15:46 | XR_ITS ---
PROCEDURE INFORMATION: Exam: XR Chest Exam date and time: 06/03/2025 4:00 PM Age: 70 years old Clinical indication: Shortness of breath and other: Cp; Additional info: SOA and cp TECHNIQUE: Imaging protocol: Radiologic exam of the chest. Views: 1 view. COMPARISON: CR XR CHEST PORTABLE 02/15/2025 7:10 PM FINDINGS: Lungs: No focal consolidation or pulmonary nodules. No pulmonary edema. Pleural spaces: Normal. Heart/Mediastinum: Normal. Bones/joints: Multilevel thoracic spine degenerative disc space narrowing and osteophyte formation. IMPRESSION: No acute cardiopulmonary abnormality.
--- NOTE | 2025-06-03 15:47 | ED_ITS ---
<Statement entered by Aleida Sanabria DO - 06/03/25 22:04> I was consulted by the CLAU, and we discussed the complexity of the problems being addressed. I approved the treatment and management plan for this patient's care in the emergency department, thus performing a substantive portion of the medical decision making. Aleida Sanabria DO Discharge Plan Disposition Patient Disposition: Home, Self-Care Condition: Good Prescriptions Prescriptions: No Action doxycycline hyclate 100 mg capsule 100 mg PO BID Qty: 20 1RF allopurinol 100 mg tablet 300 mg PO DAILY Qty: 180 1RF ascorbic acid (vitamin C) 500 mg tablet 500 mg PO DAILY Qty: 90 1RF bumetanide 2 mg tablet 4 mg PO DAILY buspirone 10 mg tablet 10 mg PO BID Qty: 90 1RF colchicine 0.6 mg tablet 0.6 mg PO .COMPLEX Qty: 20 2RF Rx Instructions: 2 tablets p.o. at first signs of gout, repeat 1 tablet 1 hour later. The following day take 1 tablet daily until acute gout attack subsides. diltiazem HCl 120 mg capsule,extended release 24hr 120 mg PO BID Qty: 180 1RF lansoprazole 30 mg capsule,delayed release(DR/EC) See Rx Instructions .ROUTE .COMPLEX Qty: 90 1RF Dose Instruction: TAKE 1 CAPSULE EVERY DAY FOR ACID REFLUX Rx Instructions: TAKE 1 CAPSULE EVERY DAY FOR ACID REFLUX levothyroxine 112 mcg tablet 112 mcg PO DAILY Qty: 90 1RF sildenafil 100 mg tablet 50 - 100 mg PO NEEDED PRN (Reason: Erectile Dysfunction) Qty: 10 5RF Rx Instructions: TAKE 1/2 OR 1 TABLET NEEDED tamsulosin 0.4 mg capsule 0.8 mg PO DAILY Qty: 90 1RF trazodone 50 mg tablet 50 mg PO HSP PRN (Reason: insomnia) Qty: 90 1RF cyclobenzaprine 5 mg tablet 5 mg PO TIDP PRN (Reason: muscle spasm) Qty: 60 1RF potassium chloride 20 mEq tablet extended release 40 meq PO DAILY Qty: 90 1RF Eliquis 5 mg tablet 5 mg PO BID Qty: 180 1RF oxycodone-acetaminophen 5-325 mg tablet 1 tab PO Q8HP PRN (Reason: Moderate Pain (Scale Score 5-6)) Qty: 30 0RF atorvastatin 40 MG tablet 40 mg PO HS Referrals Follow up/Referrals: Derrell West MD [Primary Care Provider, Medical] - See instructions Activity Restrictions/Add. Instructions Additional Instructions/Restrictions: Please return to the emergency department with any worsening signs or symptoms. Please follow-up with your PCP in the upcoming days, continue take all your medication as prescribed. We will call you with the full report of your x-ray if any notable findings. If no call your x-ray was normal as discussed in the emergency department. Clinical Impressions Clinical Impression: Hypokalemia, Fatigue Instructions Patient Instructions: DI for Fatigue, DI for Hypokalemia Print Language Print Language: Chadian Discharge ED Provider: Aleida Sanabria General Adult HPI <LACHELLE Gan - Last Filed: 06/03/25 17:13> General Chief complaint: Weakness Stated complaint: body aches, nauseau, just doesn't feel good Time Seen by Provider: 06/03/25 15:37 Mode of Arrival: Ambulatory Source of Information: Patient and Significant Other Limitations: No Limitations History of Present Illness HPI narrative: 70-year-old male presents the emergency department with generalized fatigue weakness nausea but no vomiting, no abdominal pain, for the last week and intermittent chest pain for the last 2 to 3 days patient was seen in the emergency department on 05/20/2025 for a right lower extremity cellulitis that he states is improved, was given Dalvance infusion with improvement of his symptomatology, no evidence of any wound dehiscence or drainage, no other redness or swelling of the patient's right lower extremity, patient denies any diarrhea, constipation, no urinary type otology, no melena no hematochezia no hematemesis no hemoptysis, admits to chronic cough, some phlegm , admits to subjective fever and chills with no recorded Tmax, patient is a former smoker, admits to occasional alcohol use several beers on weekends, denies any other drug use. Initial triage vitals are unremarkable. Other past medical history consistent with focal spondylosis, pain syndrome, CKD, CHF, atrial fibrillation, gout, degenerative disc disease, GERD/Gonzalez's esophagus, hyperlipidemia, hypothyroidism, Onset (ago): day(s) Related Data Home Medications ?Medication ?Instructions ?Recorded ?Confirmed atorvastatin 40 mg tablet 40 mg PO HS Cholesterol 06/2806/03/25 bumetanide 2 mg tablet 4 mg PO DAILY 05/22/2506/03 Previous Rx's ?Medication ?Instructions ?Recorded apixaban 5 mg tablet (Eliquis) 5 mg PO BID #180 tabs 0 05/23/24 cyclobenzaprine 5 mg tablet 5 mg PO TIDP PRN muscle sp asm #60 04/12/25 tabs oxycodone-acetaminophen 5 mg-325 1 tab PO Q8HP PRN Mod erate Pain 05/16/25 mg tablet (Scale Score 5-6) #30 tabs doxycycline hyclate 100 mg capsule 100 mg PO BID #20 c aps 05/17/25 allopurinol 100 mg tablet 300 mg (3 x 100 mg) PO DAILY #180 05/22/25 tabs ascorbic acid (vitamin C) 500 mg 500 mg PO DAILY #90 t abs 05/22/25 tablet buspirone 10 mg tablet 10 mg PO BID Anxiety #90 tab s 05/22/25 colchicine 0.6 mg tablet 0.6 mg PO .COMPLEX #20 tabs 05/22/25 diltiazem HCl 120 mg 120 mg PO BID #180 caps 05/09 03/03 capsule,extended release 24 hr lansoprazole 30 mg capsule,delayed See Rx Instructions .Route 05/22/25 release .COMPLEX #90 caps levothyroxine 112 mcg tablet 112 mcg PO DAILY #90 tabs 05/22/25 sildenafil 100 mg tablet 50 - 100 mg (0.5 - 1 x 100 m g) PO 05/22/25 NEEDED PRN Erectile Dysfunction #10 tabs tamsulosin 0.4 mg capsule 0.8 mg (2 x 0.4 mg) PO DAILY #90 05/22/25 caps trazodone 50 mg tablet 50 mg PO HSP PRN insomnia #9 0 tabs 05/22/25 potassium chloride 20 mEq 40 meq (2 x 20 mEq) PO DAILY #90 05/29/25 tablet,extended release tabs Allergies Allergy/AdvReac Type Severity Reaction Status Date / Time metoclopramide (From Reglan) Allergy Intermediate Anxiety Verified 06/03/25 15:58 Penicillins Allergy Intermediate Anxiety Verified 06/03/25 15:58 amantadine (AMANTADINE) Allergy Mild SEIZURE Verified 06/03/25 15:58 codeine (CODEINE) Allergy Mild I-RASH Verified 06/03/25 15:58 cephalexin (From Keflex) Allergy Anxiety Verified 06/03/25 15:58 terbinafine AdvReac Mild Confusion Verified 06/03/25 15:58 [facility] <LACHELLE Gan - Last Filed: 06/03/25 17:13> [facility] Disclaimer: The information contained in this section may have been updated after the patient was seen, as this information can be updated by other users. Medical History Hypervolemia Leukocytosis Pleural effusion Acute on chronic diastolic (congestive) heart failure COVID-19 Polycythemia Atrial fibrillation with rapid ventricular response Severe sepsis with acute organ dysfunction Acute exacerbation of chronic obstructive airways disease Dyspnea due to COVID-19 Viral respiratory infection Febrile illness Acute bronchitis Acute gout of left foot Moderate major depression Benign essential HTN Hyperlipidemia LDL goal <100 Obstructive sleep apnea (adult) (pediatric) Anxiety disorder, unspecified Hypothyroidism, unspecified Family History Other No significant family history Unknown family medical history Social History Smoking Status: Former smoker tobacco type: cigarettes packs per day: 1 second hand exposure: Yes alcohol intake: current alcohol intake frequency: a few times a week (7 beers over the course of 2 nights.) substance use type: prescription drug (States he is prescribed Percocet once or twice daily.) current occupational status: other Travel in the last 8 weeks?: None household members: significant other housing: house number of children: 2 current occupational exposures/hazards: No caffeine: Yes Have you lived/traveled outside US in past 30 days?: No Contact w/someone who lives/traveled outside US past 30 days?: No Exposure to someone with infectious disease in past 14 days?: No Do you have a fever (greater than 100.4 F or 38 C)?: No Have you tested positive for COVID-19?: No Exposed to someone with COVID-19 in past 14 days?: No Do you have a sore throat?: No Do you have a cough?: No Do you have any weakness?: No Do you have any diarrhea?: No Are you experiencing any unusual bleeding?: No Do you have any muscle aches/pain?: No Do you have any abdominal pain?: No Are you experiencing loss of taste or smell?: No Other Medical History Have you received the Flu Vaccine for this season: No Have you received the Pneumonia Vaccine: Yes <LACHELLE Gan - Last Filed: 06/03/25 17:13> ROS Obtained: Yes All systems reviewed & no additional complaints except as documented Physical Exam <LACHELLE Gan - Last Filed: 06/03/25 17:13> General General appearance: alert and in no apparent distress Head Head exam: atraumatic and normocephalic Eye Eye exam: Present PERRL and EOMI ENT ENT exam: Present mucous membranes moist Neck Neck exam: Present normal inspection Chest Chest inspection: Present normal inspection and symmetric chest wall rise Respiratory Respiratory exam: Present normal lung sounds bilaterally; Absent respiratory distress Cardiovascular Cardiovascular exam: Present regular rate and normal rhythm Abdominal Exam Abdominal exam: Present soft; Absent tenderness, guarding, rebound or rigidity Extremities Exam Extremities exam: Present normal inspection Neurological Exam Neurological exam: Present alert and oriented X3 Psychiatric Psychiatric exam: Present normal affect Skin Skin exam: Present warm, dry and other (Review of area of cellulitis is improved, no erythema, no evidence of what he has or drainage, area of previous cellulitis was documented looks well improved. Otherwise neurovascular intact); Absent erythema Medical Decision Making <LACHELLE Gan - Last Filed: 06/03/25 17:13> Medical Records Medical records reviewed: Yes I reviewed the patient's medical records. Screening: Per USPSTF and CDC recommendations, given the prevalence of disease in our region, it is our hospital?s policy to screen for HIV and viral Hepatitis for all patients aged 18 and over and those with ongoing risk factors. Frank Inquiry Pt receiving controlled substance: No Frank was queried for this patient: No Vital Signs: 06/03/25 15:48 06/03/25 15:48 06/03/25 16:00 Temperature 98.6 F 98.6 F Temperature Source Oral Oral Pulse Rate 92 H 82 Pulse Rate [Right Radial] 92 H Respiratory Rate 20 20 18 Blood Pressure 117/81 105/71 L Blood Pressure [Right Arm] 117/81 Blood Pressure Mean 82 Blood Pressure Mean [Right Arm] 93 Blood Pressure Source [Right Arm] Automatic Cuff Blood Pressure Position [Right Arm] Sitting 02 Sat by Pulse Oximetry 96 96 97 Oxygen Delivery Method Room Air Room Air 06/03/25 16:30 Temperature Temperature Source Pulse Rate 80 Pulse Rate [Right Radial] Respiratory Rate Blood Pressure 106/68 L Blood Pressure [Right Arm] Blood Pressure Mean Blood Pressure Mean [Right Arm] Blood Pressure Source [Right Arm] Blood Pressure Position [Right Arm] 02 Sat by Pulse Oximetry 95 Oxygen Delivery Method Room Air Lab Data Lab results reviewed: Yes I reviewed the patient's lab results. Lab Results 06/03/25 16:00: WBC 8.1, RBC 4.88, Hgb 15.4, Hct 43.7, MCV 89.5, MCH 31.6 H, MCHC 35.2, RDW 14.0, Plt Count 202, MPV 9.9, Neut % (Auto) 69.9, Lymph % (Auto) 16.9, Davie % (Auto) 9.9 H, Eos % (Auto) 1.9, Baso % (Auto) 1.0, Neut # (Auto) 5.6, Lymph # (Auto) 1.4, Davie # (Auto) 0.8, Eos # (Auto) 0.2, Baso # (Auto) 0.1, PT 12.4, INR 1.13 H, Sodium 134 L, Potassium 3.0 L, Chloride 97 L, Carbon Dioxide 30, Anion Gap 10.0, BUN 14, Creatinine 1.40 H, Estimated Creat Clear 75, Estimated GFR 50 L, Est GFR ( Amer) 61, Glucose 125 H, Calcium 9.0, M agnesium 1.4 L, Total Bilirubin 1.5 H, AST 33, ALT 26, Alkaline Phosphatase 92, Troponin I < 0.01, NT-Pro-B Natriuret Pep 331 H, Total Protein 7.1, Albumin 4.2, Globulin 2.9, Albumin/Globulin Ratio 1.4, Lipase 79 06/03/25 16:05: SARS-CoV-2 (PCR) Not detected, Influenza A Untype (PCR) Not detected, Influenza Type B (PCR) Not detected 06/03/25 16:00 06/03/25 16:00 Orders (Tests/Meds): ED MEDICATIONS Discontinued Medications Generic Name Dose Route Start Last Admin Trade Name Freq PRN Reason Stop Dose Admin Ondansetron HCl 4 mg 06/03/25 15:46 06/03/25 16:03 Ondansetron 4mg/2ml Vial IV 06/03/25 15:47 4 mg ONCE ONE Administration Potassium Chloride 60 meq 06/03/25 16:48 06/03/25 16:54 Potassium Chloride 20meq Tab PO 06/03/25 16:49 60 meq ONCE ONE Administration ORDERS Category Date Time Status XR chest portable Stat Exams 06/03/25 15:46 Taken Complete Blood Count Auto Diff Stat Lab 06/03/25 16:00 Completed Comprehensive Metabolic Panel Stat Lab 06/03/25 16:00 Completed Lipase Stat Lab 06/03/25 16:00 Completed Magnesium Stat Lab 06/03/25 16:00 Completed NT Pro Brain Natriuretic Pep. Stat Lab 06/03/25 16:00 Completed PT INR [Prothrombin Time INR] Stat Lab 06/03/25 16:00 Completed Rapid PCR Covid and Flu A/B Stat Lab 06/03/25 16:05 Completed Troponin I Q3H Lab 06/03/25 19:00 Ordered Troponin I Q3H Lab 06/03/25 22:00 Ordered Troponin I Stat Lab 06/03/25 16:00 Completed Medical Decision Narrative: 70-year-old male presents the emergency department with fatigue weakness intermittent chest pains, differential diagnosis include but not limited to ACS, cardiac arrhythmia, electrolyte disturbance, costochondritis, anxiety reaction, gastritis, GERD, pneumonia, panic attack, acute bronchitis, viral URI, hypovolemia, acute kidney injury among others. I discussed the patient's case with the attending physician Dr. Sanabria Will obtain basic laboratory studies, CXR, EKG, troponin, proBNP, magnesium level lipase level, rapid PCR COVID and flu, coags, will give 4 mg IV Zofran for nausea. CBC unremarkable PTT within normals, INR is 1.13 CMP is notable for mild hyponatremia at 134, mild hypokalemia at 3, mild creatinine elevation 1.4, total bilirubin is mildly elevated at 1.5, museum level is decreased at 1.4, troponin is less than 0.01 opponent is mildly elevated at 331. Will replace patient's potassium with 60 mill equivalents p.o. potassium. COVID 19 is negative, influenza A negative influenza B negative. Reexamination of the patient the bedside approximately 5 PM, patient states his symptomatology is improved, he is able to tolerate p.o. intake, nausea has improved. Patient states that he has been out of his potassium and magnesium , supplements, just got them in the mail today, took what sounds a 40 mill, 2 potassium today prior to arrival for which he forgot to tell me on initial bedside consultation. Believe that some of the patient symptomatology could be from hypokalemia, due to the setting of CKD versus GI losses./Poor p.o. intake. I reviewed and independently interpreted the patient's chest x-ray along with the attending physician, no acute findings, discussed this with the patient, at the bedside, they would like to be discharged home to self-care, call the patient with full radiology report, shared decision-making was utilized. Patient family voiced understanding and agreed with current treatment plan/discharge plan. Patient was given strict ED return precautions. <Aleida Sanabria, DO - Last Filed: 06/03/25 16:36> Vital Signs: 06/03/25 15:48 06/03/25 15:48 06/03/25 16:00 Temperature 98.6 F 98.6 F Temperature Source Oral Oral Pulse Rate 92 H 82 Pulse Rate [Right Radial] 92 H Respiratory Rate 20 20 18 Blood Pressure 117/81 105/71 L Blood Pressure [Right Arm] 117/81 Blood Pressure Mean 82 Blood Pressure Mean [Right Arm] 93 Blood Pressure Source [Right Arm] Automatic Cuff Blood Pressure Position [Right Arm] Sitting 02 Sat by Pulse Oximetry 96 96 97 Oxygen Delivery Method Room Air Room Air 06/03/25 16:30 Temperature Temperature Source Pulse Rate 80 Pulse Rate [Right Radial] Respiratory Rate Blood Pressure 106/68 L Blood Pressure [Right Arm] Blood Pressure Mean Blood Pressure Mean [Right Arm] Blood Pressure Source [Right Arm] Blood Pressure Position [Right Arm] 02 Sat by Pulse Oximetry 95 Oxygen Delivery Method Room Air Lab Data Lab Results 06/03/25 16:00: WBC 8.1, RBC 4.88, Hgb 15.4, Hct 43.7, MCV 89.5, MCH 31.6 H, MCHC 35.2, RDW 14.0, Plt Count 202, MPV 9.9, Neut % (Auto) 69.9, Lymph % (Auto) 16.9, Davie % (Auto) 9.9 H, Eos % (Auto) 1.9, Baso % (Auto) 1.0, Neut # (Auto) 5.6, Lymph # (Auto) 1.4, Davie # (Auto) 0.8, Eos # (Auto) 0.2, Baso # (Auto) 0.1, PT 12.4, INR 1.13 H, Sodium 134 L, Potassium 3.0 L, Chloride 97 L, Carbon Dioxide 30, Anion Gap 10.0, BUN 14, Creatinine 1.40 H, Estimated Creat Clear 75, Estimated GFR 50 L, Est GFR ( Amer) 61, Glucose 125 H, Calcium 9.0, M agnesium 1.4 L, Total Bilirubin 1.5 H, AST 33, ALT 26, Alkaline Phosphatase 92, Troponin I < 0.01, NT-Pro-B Natriuret Pep 331 H, Total Protein 7.1, Albumin 4.2, Globulin 2.9, Albumin/Globulin Ratio 1.4, Lipase 79 06/03/25 16:05: SARS-CoV-2 (PCR) Not detected, Influenza A Untype (PCR) Not detected, Influenza Type B (PCR) Not detected Orders (Tests/Meds): ED MEDICATIONS Discontinued Medications Generic Name Dose Route Start Last Admin Trade Name Freq PRN Reason Stop Dose Admin Ondansetron HCl 4 mg 06/03/25 15:46 06/03/25 16:03 Ondansetron 4mg/2ml Vial IV 06/03/25 15:47 4 mg ONCE ONE Administration Potassium Chloride 60 meq 06/03/25 16:48 06/03/25 16:54 Potassium Chloride 20meq Tab PO 06/03/25 16:49 60 meq ONCE ONE Administration ORDERS Category Date Time Status XR chest portable Stat Exams 06/03/25 15:46 Taken Complete Blood Count Auto Diff Stat Lab 06/03/25 16:00 Completed Comprehensive Metabolic Panel Stat Lab 06/03/25 16:00 Completed Lipase Stat Lab 06/03/25 16:00 Completed Magnesium Stat Lab 06/03/25 16:00 Completed NT Pro Brain Natriuretic Pep. Stat Lab 06/03/25 16:00 Completed PT INR [Prothrombin Time INR] Stat Lab 06/03/25 16:00 Completed Rapid PCR Covid and Flu A/B Stat Lab 06/03/25 16:05 Completed Troponin I Q3H Lab 06/03/25 19:00 Ordered Troponin I Q3H Lab 06/03/25 22:00 Ordered Troponin I Stat Lab 06/03/25 16:00 Completed ECG Data Tracing #1: I reviewed this ECG and interpreted as documented below: Sinus rhythm with a ventricular rate of [address]/T wave changes without acute STEMI. Normal intervals. No significant change from prior EKG. ECG initial impression date: 06/03/25 ECG initial impression time: 16:14 Critical Care <LACHELLE Gan - Last Filed: 06/03/25 17:13> Critical Care Time Critical Care Time: No
[2025-06-03 15:48] VITALS: BP 117/81; PULSE 92; RESP 20; TEMP 37; O2SAT 96; BMI 33.3
[2025-06-03 16:00] VITALS: BP 105/71; PULSE 82; RESP 18; O2SAT 97
[2025-06-03] MEDS: ONDANSETRON 4MG/2ML VIAL 4 MG IV (16:03)
[2025-06-03 16:05] LABS: Hematocrit 43.7 % (42.0-52.0); Hemoglobin 15.4 g/dL (14.1-18.0); Immature Granulocytes % 0.4 %; Mean Corpuscular HGB Conc 35.2 g/dL (31.8-35.4); Mean Corpuscular Hemoglobin 31.6 pg (27.0-31.2); Mean Corpuscular Volume 89.5 fl (80-94); Nucleated Red Blood Cells % 0 %; Platelet Count 202 K/mm3 (142-424); Red Blood Count 4.88 M/mm3 (4.60-6.20); Red Cell Distribution Width-SD 44.6 fL; White Blood Count 8.1 K/mm3 (4.8-10.8)
--- NOTE | 2025-06-03 16:05 | ECG_ITS ---
APPROVED REPORT Exam: Resting ECG HR:80 bpm ECG Measurements Heart Rate 80 AXES NH 133 P 41 QRSd 98 QRS 22 QT 363 T 133 QTc 399 Conclusion SINUS RHYTHM WITH OCCASIONAL SUPRAVENTRICULAR PREMATURE COMPLEXES LOW QRS VOLTAGE IN PRECORDIAL LEADS [QRS DEFLECTION < 1.0 mV IN CHEST LEADS] ST DEVIATION AND MODERATE T-WAVE ABNORMALITY, CONSIDER ANTERIOR ISCHEMIA [-0.1+ mV T-WAVE IN V3/V4] ABNORMAL ECG Electronically signed by : BETTY LEMON, 06/04/2025 07:26:37
--- OUTSIDE RECORDS SUMMARY | 2025-06-03 16:06 | XMS_ITS | Clinical Summary ---
Author Organization [employer] ([place], [place], [place], [place]) Address [address] [place] [address] Care Team Providers Care Fitness Instructor Name Role Phone DottieJennifer Primary Care Provider [phone] Allergies Active Allergy Reactions Criticality Noted Date [...] RESPIRATORY SYNCYTIAL VIRUS (RSV) VACCINE - ([facility]EX[facility]Y- [facility]) ([id number]) 10/06/2023 Family History Medical History Relation Name [...] = 0.6 oz pur e alcohol) wknds [facility] - Mental Health Answer Date Recorde [...] Date Jm rded Speak language other than Icelandic at home Not on file 11/20/2023 Want [...] Completed 10/06/2023 Medical Devices Implanted Type Area Crna Device Identifier Shelf Expiration Date Model / Serial / Lot Mesh Phasix [id number] - [id number] Implanted:Qt y: 1 on 11/12/2022 by Jair Nunez MD at [facility] IMPLANTS N/A: Abdomen CR BARD:DAVOL [id number] 02/04/2024 [id number] / / [id number] Insurance [employer] MEDICARE HMO Advance Directives For more information, please contact: [phone] * Full Code (Latest Code Status on File) Date Activated Date Inactivated Comments 11/12/2022 5:57 PM 11/24/2022 2:01 PM Care Teams Fitness Instructor Relationship Specialty Start Date End Date Jennifer Sinclair DO [address] [place] [address] PCP - General Family Medicine 11/10/24
--- OUTSIDE RECORDS SUMMARY | 2025-06-03 16:06 | XMS_ITS | Clinical Summary ---
Author Organization [facility] Address [address] [place] [address] Care Team Providers Care Continuity Tester Name Role Phone Derrell West MD Primary Care Provider [phone] Allergies Active Allergy Reactions Criticality Noted Date Comments Amantadines Other - please document in the comment field High 08/07/2010 seizure; confirmed by patient's daughter - per pharmacy technician infusion Seizures, only time pt has ever had a seizure Codeine Hives Medium 08/07/2010 confirmed by patient's daughter - per pharmacy technician infusion Hydrochlorothiazide Rash Low 06/23/2022 Metoclopramide Other - please document in the comment field Medium 06/25/2022 Caused depression Penicillins Hives,Itching,Rash,S w elling High 08/07/2010 confirmed by patient's daughter - per pharmacy technician infusion Medications bumetanide (Bumex) 2 MG tablet Take [...] Department Care Team Description 03/28/2025 Orders Only [facility] [address] [id number] AnkitAmy guadalupe Leela 03/24/2025 10:40 AM EDT Office Visit [facility] [address] [id number] [place] [...] Months Immunizations Immunization Administration Dates Next Due [facility] COVID-19 Vac cine (Purple Cap) 12+ 08/26/2021,02/12/2021,01/22/2021 [...] 2005 UKY-Abdominal Aortic Aneurysm (AAA) Screening 2020 [id number] Vaccine ( season) 2024 08/26/2021, 02/12/2021, 01/22/2021 [...] patient's age to complete this topic Insurance [facility] MEDICARE Care Teams Continuity Tester Relationship Specialty Start Date End Date Derrell West MD [address] [facility] [address] [place] [address] PCP - General 10/21/22
--- OUTSIDE RECORDS SUMMARY | 2025-06-03 16:06 | XMS_ITS | Encounter Summary ---
[facility] Organization [facility] Address [address] [place] [address] Care Team Providers Care Clam Dredger Name Role Phone Derrell West MD Primary Care Provider [phone] Encounter Details Date Type Department Care Team (Latest Contact Info) Description 04/14/2025 Travel Social History Tobacco Use Types Packs/Day [...] Description 06/20/2025 2:00 PM EDT Office Visit [facility] [address] [place] [address] Maury Clarke MD [address] [facility] [address] [place] [address] 06/21/2025 2:15 PM EDT Office Visit [facility] [address] [place] [address] Alfreda Ritchie APRN [address] [place] [address] 06/27/2025 7:45 PM EDT Appointment [facility] [address] [place] [id number] documented as of this encounter Visit Diagnoses Not on filedocumented in this encounter Care Teams Clam Dredger Relationship Specialty Start Date End Date Derrell West MD [address] [facility] [address] [place] [address] PCP - General Internal Medicine 06/23/22 documented as of this encounter
--- OUTSIDE RECORDS SUMMARY | 2025-06-03 16:06 | XMS_ITS | Data Portability ---
Author Organization ANGI bauer, MEGHA SPENCER CLOSED Address [address] [place] [address] Care Team Providers Care Student Ministry Pastor Name Role Phone DERRELL WEST Primary Care Provider HEMANTH BROOKS JR General Surgeon Assessment Encounter Date Assessment Date Assessment LastModified by Organization Details LastModified Time 05/14/2023 05/14/2023 Status post repair of large incisional hernia. No sign of recurrence. Follow-up as needed. [email or web address] Not available 05/14/2023 12:24:38 Plan of Treatment [...] pelvi s, w/o contr ast [place] [facility] [address] [place] [address] Fabiola t Name: RODGER marroquin : 955 [...] Belle MD on 022 5:27 PM [email or web address] [facility] Radiology [address] , [place], [address], 10/21/2022 09:38:56 Result Notes Documentation Provider Name and Address Organization Details Recorded Time Ct, Abdomen + Pelvis, W/o Contrast : [address] [place] [address] Patient Name: ADEN CHEUNG Patient : 1955 [...] Interpreted By: Aaron Belle MD Nina Pinon [facility] 10/21/2022 09:38:56 Problems Name Problem SNOMED Code Status Onset Date Resolution Date Notes Provider Name and Address Organization Details Recorded Time Abdominal pain 78447159 Active 2015 From Automated Load;Provi evie: Soraya Shah;Sta tus: Active Not Available [facility] 6 06:38:04 Incisiona l hernia 638164310 Active 2021 HEMANTH BROOKS JR, MD [address] [place] [address], [phone] [facility] 17:00:25 Problem Notes None recorded. Procedures Surgical History Date Name Laterality Status Provider Name and Address Organization Details Recorded Time cholecystectomy completed [facility] 10/07/2022 15:39:08 hernia repair completed [facility] 10/07/2022 15:39:18 Colectomy completed [facility] 10/07/2022 15:40:23 Appendectomy completed [facility] 10/07/2022 15:40:31 Xcapsl ctrc rmvl cplx wo ecp completed [facility] 10/07/2022 15:40:42 Cardioversion electric ext completed [facility] 10/07/2022 15:41:11 operation on testis completed [facility] 10/07/2022 15:41:40 Imaging Results None recorded. Procedure Notes None recorded. Medical Equipment None Reported. Allergies Allergen ID Allergen Name Allergen Category Reaction Reaction Severity Criticality Documentation Date Start Date Code Code System Note Provider Name and Address Organization Details Recorded Time 434198 amantadin e hydrochlo ride medicatio n other Not available Not available 10/02/20162009 05213 5 RxNorm React ion: OTHER ; Comme nt: seizu res;C reate d By: Gribb ins Sandr a;Cre ated Date: 2009 9:00: 37 AM; Not Available [facility] 6 11:56:47 182776 Product containin g penicilli n (product) medicatio n hives Not available Not available 10/03/20162009 87024 8001 SNOMED React ion: HIVES ; Comme nt: Creat ed By: Gribb ins Sandr a;Cre ated Date: 2009 8:59: 55 AM; Not Available [facility] 6 05:40:36 040055 codeine medicatio n hives Not available Not available 10/03/20162009 2670 RxNorm React ion: HIVES ; Comme nt: Creat ed By: Gribb ins Sandr a;Cre ated Date: 2009 8:59: 37 AM; Not Available [facility] 6 08:37:12 033243 Reglan medicatio n Not available Not available Not available 10/07/2022 9230 RxNorm Arely No [facility] 2 15:29:04 631305 dexametha sone medicatio n Not available Not available Not available 10/07/2022 3264 RxNorm Arely oN [facility] 2 15:30:08 Medications Name Sig Start [...] Updated DateTime 12/04/2022 180.34 cm 28.6 kg/m2 83216.44 g 52 /min 106/75 mm[Hg] [facility] 12/04/2022 09:50:13 Date Recorded Body height Body mass index (BMI) Body weight Heart rate Systolic And Diastolic Provider Name and Address Organization Details Last Updated DateTime 05/14/2023 180.34 cm 27.9 kg/m2 81863.47 g 68 /min 108/69 mm[Hg] [facility] 05/14/2023 12:04:34 Date Recorded Body height Body mass index (BMI) Body weight Heart rate Systolic And Diastolic Provider Name and Address Organization Details Last Updated DateTime 10/07/2022 180.34 cm 31.4 kg/m2 000281.2 8 g 69 /min 126/84 mm[Hg] Arely No [facility] 10/07/2022 15:30:29 Social History None recorded. Functional [...] SNOMED-CT Code Diagnosis ICD10 Code Diagnosis Note [id number] HEMANTH BROOKS JR, MD GENERAL SURGERY [address] [place] [address] 10/07/2022 15:15:02 10/08/2022 12:13:02 Abdominal pain 39790143 R10.9 Incisional hernia 038459 000 K43.2 His abdominal pain is most likely from the incisional hernias. Check CT scan abdomen pelvis to confirm this and for operative planning. Dr. [facility] found him low risk for [...] smaller meshes. Await records from before deciding. [id number] HEMANTH BROOKS JR, MD GENERAL SURGERY [address] [address] 12/04/2022 09:38:32 12/05/2022 04:23:39 Abdominal pain 37361979 R10.9 Incisional hernia 209003 000 K43.2 Status post open repair of large incisional hernia requiring transversu s abdominis release on 11/12/2022 [id number] HEMANTH BROOKS JR, MD GENERAL SURGERY [address] [address] 05/14/2023 11:57:03 05/18/2023 09:31:01 Health Concerns [...] (MEDICARE REPLACEMENT/ ADVANTAGE - HMO) Aden Mchughster [id number] Aden Mchughster 12/03/2022 1 [place] Aden Mchughster [id number] Aden Pickardmaster 12/04/2022 2 [employer] (MEDICARE SUPPLEMENT) Aden Cheung [id number] Aden Cheung 12/04/2022 [employer] (MEDICARE SUPPLEMENT) Aden Cheung [id number] Aden Cheung 01/14/2019 1 *SELF PAY* [facility] shyann Cheung Notes Date Note Type Note Provider Name and Address Organization Details Recorded Time 10/07/2022 text/html ROS as noted in the HPI I am seeing Mr. Cheung in consultation [...] for hydrocele, cardioversion. HEMANTH BROOKS JR, MD [address] [place] [address], [phone], [facility] 10/30/2022 10:21:20 12/04/2022 text/html ROS as noted in the HPI 10/07/2022 I am seeing Mr. Cheung in [...] until early January. HEMANTH BROOKS JR, MD [address] [place] [address], [phone], [facility] 12/04/2022 10:25:13 05/14/2023 text/html He had open repair of large incisional hernia requiring right-sided transversus abdominis release with 25 x 30 cm piece of phasix mesh November 2022. He had postop ileus and pneumonia requiring 12-day hospitalization. He states that since then he has had stress of his dying. He is lost 40 pounds. He feels great. HEMANTH BROOKS JR, MD [facility] [place], [address], [facility] 05/14/2023 12:25:00
--- OUTSIDE RECORDS SUMMARY | 2025-06-03 16:06 | XMS_ITS | Clinical Summary ---
Author Organization [facility] Address [address] [place] [id number] Care Team Providers Care Mechanic Chief Name Role Phone Derrell West MD Primary Care Provider [phone] Allergies Active Allergy Reactions Criticality Noted Date Comments Amantadines Rash,Other (See Comments),Seizure High 08/07/2010 Seizures, only time pt has ever had a seizure seizure; confirmed by patient's daughter - per pharmacy tech customer service Seizures, only time pt has ever had a seizure Codeine Hives,Rash Medium 08/07/2010 confirmed by patient's daughter - per pharmacy tech customer service Dexamethasone Other (See Comments),Unknown - Low Severity Low 10/28/2022 Could not sleep for days Could not sleep for days Pt states when had dr. YANIV Prescribed decadron and pt could not sleep for 3 days Pt states when had dr. YANIV Prescribed decadron and pt could not sleep for 3 days Hydrochlorothiazide Rash Low 06/23/2022 Metoclopramide Other (See Comments),Unknown - Low Severity Medium 06/25/2022 Caused depression Penicillins Hives,Itching,Rash,S w elling High 08/07/2010 confirmed by patient's daughter - per pharmacy tech customer service Medications busPIRone (BUSPAR) 10 MG tablet Take 1 tablet by mouth Daily. 07/15/2017 Active tamsulosin (FLOMAX) 0.4 MG capsule 24 hr capsule Take 2 capsules by mouth Daily. 08/10/2017 Active Cyanocobalamin (B-12 PO) Take 500 mg by mouth Daily. Active meclizine (ANTIVERT) 25 MG tablet Take 1 tablet by mouth 3 (Three) Times a Day As Needed for Dizziness. Active potassium chloride ER (K-TAB) 20 MEQ tablet controlled-rele ase ER tablet Take 1 tablet by mouth Daily. 06/06/2022 Active Eliquis 5 MG tablet tablet Take 1 tablet by mouth 2 (Two) Times a Day. 06/07/2022 Active lansoprazole (PREVACID) 30 MG capsule Take 1 capsule by mouth Daily. 03/30/2022 Active levothyroxine (SYNTHROID, LEVOTHROID) 75 MCG tablet Take 1 tablet by mouth Daily. 04/18/2022 Active ondansetron (ZOFRAN) 4 MG tablet Take 1 tablet by mouth Every 8 (Eight) Hours As Needed. 03/25/2022 Active bumetanide (BUMEX) 2 MG tablet Take 1 tablet by mouth Daily. 08/21/2023 Active atorvastatin (LIPITOR) 20 MG tablet 01/05/2024 Active sildenafil (VIAGRA) 100 MG tablet 01/05/2024 Active traZODone (DESYREL) 50 MG tablet Take 1 tablet by mouth Every Night. 12/22/2024 Active cyclobenzaprine (FLEXERIL) 5 MG tablet Take 1 tablet by mouth 3 (Three) Times a Day As Needed. 01/13/2025 Active tiZANidine (ZANAFLEX) 2 MG tablet Take 1-2 tablets by mouth Every 8 (Eight) Hours As Needed. 10/04/2024 Active oxyCODONE-aceta minophen (PERCOCET) 5-325 MG per tablet Take 1 tablet by mouth Every 8 (Eight) Hours As Needed. 01/19/2025 Active allopurinol (ZYLOPRIM) 100 MG tablet Take 2 tablets by mouth Daily. Active potassium chloride (KLOR-CON M20) 20 MEQ CR tablet Take 1 tablet by mouth Daily. Active dilTIAZem CD (CARDIZEM CD) 120 MG 24 hr capsule Take 1 capsule by mouth Daily. Active colchicine 0.6 MG tablet Take 1 tablet by mouth. 02/20/2025 Active Active Problems Problem Noted Date Diagnosed Date Hypothyroidism 05/04/2025 Preoperative cardiovascular examination 10/01/20 Chronic diastolic congestive heart failure 09/30 Frequent PVCs 09/30/2022 AF (paroxysmal atrial fibrillation) 06/25/2022 Hypertension 06/25/2022 Assessment & Plan (04/25/2024 4:07 PM EDT): Hypertension is stable and controlled Continue current treatment regimen. Dietary sodium restriction. Regular aerobic exercise. Blood pressure will be reassessed in 6 months. Obstructive sleep apnea 06/25/2022 Assessment & Plan (01/26/2025 12:28 PM EDT): Patient has a baseline AHI 17 on a PSG in 2018. Patient would like to restart BiPAP therapy. He states he would really like to be referred to see if he would qualify for the Inspire device. Patient to be referred to pulmonary sleep at [facility] Dr. Hernandez for further evaluation of inspire. Prescription sent to DME of patient choice for bipap supplies. Assessment & Plan (04/25/2024 4:06 PM EDT): Patient would like to restart BiPAP therapy. He quit using it over a year ago while caring for an ill family member. He reports excessive daytime sleepiness and fatigue. We discussed recent FDA warning regarding the possibility that the replacement DreamStation devices may overheat. He has not had any issues with his and does not want to replace it at this time. - Restart BiPAP therapy at current settings - Follow-up in 2 months to reassess download CKD (chronic kidney disease) stage 2, GFR 60-89 ml/min 06/25/2022 Simple chronic bronchitis 06/25/2022 Trochanteric bursitis of both hips 09/28/2017 Encounters Date Type Department Care Team Description 05/04/2025 2:00 PM EDT Office Visit [facility] SLEEP MEDICINE [address] [facility] [address] [place] [address] Kenneth Hernandez MD Obstructive sleep apnea (Primary Dx); Difficulty with BiPAP use; Snoring 05/04/2025 Travel 05/03/2025 Telephone [facility] SLEEP MEDICINE [address] [facility] [address] [place] [address] Kenneth Hernandez MD RECORDS/APPT 04/14/2025 12:00 PM EDT - 04/14/2025 11:59 PM EDT Hospital Encounter [facility] CARDIOVASCULAR LAB [address] [place] [address] Thanh Guy MD AF (paroxysmal atrial fibrillation); Paroxysmal atrial fibrillation; Chronic diastolic congestive heart failure Discharge Disposition: Home or Self Care 04/14/2025 Results Follow-Up [facility] CARDIOLOGY [address] [place] [address] Thanh Guy MD 04/14/2025 Travel 03/29/2025 11:45 AM EDT Office Visit [facility] CARDIOLOGY [address] [place] [address] Thanh Guy MD AF (paroxysmal atrial fibrillation) (Primary Dx); Chronic diastolic congestive heart failure 03/29/2025 Travel from Last 3 Months Immunizations Immunization Administration Dates Next Due Arexvy (RSV, Adults 60+ yrs) 10/06/2023 Fluzone High-Dose 65+YRS 09/13/2024 Influenza, Unspecified 09/27/2024 Pneumococcal Conjugate 20-Valent (PCV20) 023 Family History Medical History Relation Name Comments Atrial fibrillation Brother Cancer Father Heart attack Father Heart attack Mother Hypertension Mother Relation Name Status Comments Brother Alive Father Mother Social History Tobacco Use Types [...] Mass Index 33.33 05/04/2025 1:19 PM EDT Plan of Treatment Upcoming Encounters Date Type Department Care Team (Late st Contact Info) Description 06/20/2025 2:00 PM EDT Office Visit [facility] CARDIOLOGY [address] [facility] [address] [place] [phone] aMury Clarke MD [address] [facility] [address] [place], [place] [id number] 06/21/2025 2:15 PM EDT Office Visit [facility] CARDIOLOGY [address] [place] [address] Alfreda Ritchie APRN [address] [facility] [address] [place], [place] [id number] 06/27/2025 7:45 PM EDT Appointment [facility] SLEEP LAB [address] [facility] [address] [place] [address] Health Maintenance Due Date Last Done Comments TDAP/TD VACCINES (1 - Tdap) 1974 COLOGUARD 2000 COLON CANCER SCREENING 5 YEA R SIGMOIDOSCOPY 2000 COLONOSCOPY 2000 [address] CANCER SCREENING 2000 CT COLONOGRAPHY 2000 FECAL OCCULT BLOOD TEST 2000 FIT Testing (1 year) 2000 LUNG CANCER SCREENING 2005 ZOSTER VACCINE (1 of 2) 2005 ANNUAL WELLNESS VISIT 09/22/2017 HEPATITIS C SCREENING 09/22/2017 COVID-19 Vaccine ( season) 2024 08/26/2021, 02/12/2021, 01/22/2021 INFLUENZA VACCINE 08/09/2025 09/27/2024, 09/13/2024 AAA SCREEN ONCE Completed 10/13/2022 Pneumococcal Vaccine 50+ Completed 10/06/2023 Procedures Procedure Name Priority Date/Time Associated Diagnosis Comments PYP IMAGING FOR CARDIAC AMYLOIDOSIS Routine 04/14/2025 2:52 PM EDT AF (paroxysmal atrial fibrillation) Paroxysmal atrial fibrillation Chronic diastolic congestive heart failure from Last 3 Months Results * PYP Imaging for Cardiac Amyloidosis [...] MD CV STRESS ORDERABLES Final Res ult from Last 3 Months [facility] [id number] [employer] MEDICARE ADVANTAGE PPO Care Teams Mechanic Chief Relationship Specialty Start Date End Date Derrell West MD [address] [facility] [address] [place] [address] PCP - General Internal Medicine 06/23/22
--- OUTSIDE RECORDS SUMMARY | 2025-06-03 16:07 | XMS_ITS | Encounter Summary ---
Author Organization [facility] Address [address] [place] [address] Care Team Providers Care Student Specialist Name Role Phone Derrell West MD Primary Care Provider [phone] Encounter Details Date Type Department Care Team (Latest Contact Info) Description 05/04/2025 Travel Social History Tobacco Use Types Packs/Day [...] Description 06/20/2025 2:00 PM EDT Office Visit [facility] CARDIOLOGY [address] [facility] [address] [place] [address] Maury Clarke MD [address] [facility] [address] [place] [address] 06/21/2025 2:15 PM EDT Office Visit [facility] CARDIOLOGY [address] [place] [address] Alfreda Ritchie APRN [address] [place] [address] 06/27/2025 7:45 PM EDT Appointment [facility] SLEEP LAB [address] [place] [address] documented as of this encounter Visit Diagnoses Not on filedocumented in this encounter Care Teams Student Specialist Relationship Specialty Start Date End Date Derrell West MD [address] [facility] [address] [place] [address] PCP - General Internal Medicine 06/23/22 documented as of this encounter
--- OUTSIDE RECORDS SUMMARY | 2025-06-03 16:07 | XMS_ITS | Encounter Summary ---
[facility] Organization [facility] Address [address] [place] [address] Care Team Providers Care Baked And Graphite Inspector Name Role Phone Derrell West MD Primary Care Provider [phone] Encounter Details Date Type Department Care Team (Late Contact Info) Description 04/14/2025 Results Follow-Up [facility] CARDIOLOGY [address] [facility] [address] [place] [phone] Thanh Guy MD [address] [facility] [address] [place] [id number] Social History Tobacco Use Types Packs/Day Years [...] Encounters Date Type Department Care Team (Late Contact Info) Description 06/20/2025 2:00 PM EDT Office Visit [facility] CARDIOLOGY [address] [facility] [address] [place] [address] Maury Clarke MD [address] [facility] [address] [place] [phone] 06/21/2025 2:15 PM EDT Office Visit [facility] CARDIOLOGY [address] [place] [address] Alfreda Ritchie APRN [address] [place] [address] 06/27/2025 7:45 PM EDT Appointment [facility] SLEEP LAB [address] [place] [address] documented as of this encounter Visit Diagnoses Not on filedocumented in this encounter Care Teams Baked And Graphite Inspector Relationship Specialty Start Date End Date Derrell West MD [address] [facility] [address] [place] [address] PCP - General Internal Medicine 06/23/22 documented as of this encounter
--- OUTSIDE RECORDS SUMMARY | 2025-06-03 16:07 | XMS_ITS | Referral Summary ---
Author Organization [employer] ([place], [place], [place], [place]) Address [address] [place] [address] Care Team Providers Care Trimmer Hand Name Role Phone DottieJennifer Primary Care Provider Allergies Active Allergy Reactions Criticality Noted Date [...] RESPIRATORY SYNCYTIAL VIRUS (RSV) VACCINE - (AREXVY- [employer]) ([id number]) 10/06/2023 Social History Tobacco Use Types Packs/Day Years Used Date Smoking Tobacco: Former Cigarettes Q uit: 11/12/2014 Smokeless Tobacco: Never Tobacco Cessation:Counseling Given: Not Answered Alcohol Use Standard Drinks/Week Comments Yes 9 (1 standard drink = 0.6 oz pur e alcohol) wknds [facility] - Mental Health Answer Date Recorde d [...] Date Jm rded Speak language other than Turkmen at home Not on file 11/20/2023 Want [...] on file Medical Devices Implanted Type Area Branch Administrator Device Identifier Shelf Expiration Date Model / Serial / Lot Mesh Phasix [id number] - [id number] Implanted:Qt y: 1 on 11/12/2022 by Jair Nunez MD at [facility] IMPLANTS N/A: Abdomen CR BARD:DAVOL [id number] 02/04/2024 [id number] / / [id number] Insurance [employer] MEDICARE HMO Advance Directives For more information, please contact: [phone] * Full Code (Latest Code Status on File) Date Activated Date Inactivated Comments 11/12/2022 5:57 PM 11/24/2022 2:01 PM Care Teams Trimmer Hand Relationship Specialty Start Date End Date Jennifer Sinclair DO [address] [place] [address] PCP - General Family Medicine 11/10/24
--- OUTSIDE RECORDS SUMMARY | 2025-06-03 16:07 | XMS_ITS | Encounter Summary ---
[facility] Organization [facility] Address [address] [place] [address] Care Team Providers Care Material Clerk Name Role Phone Derrell West MD Primary Care Provider [phone] Reason for Visit * Reason Onset Date Comments RECORDS/APPT 05/03/2025 Encounter Details Date Type Department Care Team (Late st Contact Info) Description 05/03/2025 Telephone [facility] SLEEP MEDICINE [address] [address] Kenneth Hernandez MD [address] [place] [address] RECORDS/APPT Social History Tobacco Use Types Packs/Day Years [...] on file documented as of this encounter Miscellaneous Notes * Telephone Encounter - Su Cordova MA - 05/03/2025 1:55 PM EDT I called patient to inquire about his current PAP therapy. He states that he is wearing it sometimes. He will bring his chip. I gave him instructions how to get here, and he and is arriving early for the NPPW. documented in this encounter Plan of Treatment Upcoming Encounters Date Type Department Care Team (Late st Contact Info) Description 06/20/2025 2:00 PM EDT Office Visit [facility] CARDIOLOGY [address] [facility] [address] [place] [address] Maury Clarke MD [address] [facility] [address] [place] [address] 06/21/2025 2:15 PM EDT Office Visit [facility] CARDIOLOGY [address] [place] [address] Alfreda Ritchie APRN [address] [facility] [place], [place] [address] 06/27/2025 7:45 PM EDT Appointment [facility] SLEEP LAB [address] [facility] [address] [place] [address] documented as of this encounter Visit Diagnoses Not on filedocumented in this encounter Care Teams Material Clerk Relationship Specialty Start Date End Date Derrell West MD [address] [facility] [address] [place] [address] PCP - General Internal Medicine 06/23/22 documented as of this encounter
[2025-06-03 16:10] LABS: Albumin Level 4.2 g/dl (3.5-5.0); Chloride 97 mmol/L (98-107); Sodium 134 mmol/L (136-145)
[2025-06-03 16:12] LABS: Alanine Aminotransferase 26 U/L (12-78); Anion Gap 10.0 mEq/L (5-15); Aspartate Amino Transferase 33 U/L (17-59); Blood Urea Nitrogen 14 mg/dl (9-20); Carbon Dioxide 30 mmol/L (22.0-30.0); Creatinine Clearance Estimated 75 mL/min (50-200); Creatinine,Serum 1.40 mg/dl (0.66-1.25); Estimated Glomerular Filt Rate 50 ml/min (>60); GFR (African American) 61 ML/MIN (>60)
[2025-06-03 16:13] LABS: Albumin/Globulin Ratio 1.4 (1.1-1.8); Alkaline Phosphatase 92 U/L (38-126); Bilirubin,Total 1.5 mg/dl (0.2-1.3); Calcium 9.0 mg/dl (8.4-10.2); Globulin 2.9 g/dL (1.3-3.2); Glucose 125 mg/dl (74-100); Lipase 79 U/L (23-300); Magnesium 1.4 mg/dl (1.6-2.3); Total Protein,Serum 7.1 g/dl (6.3-8.2)
[2025-06-03 16:14] LABS: INR 1.13 (0.9-1.1); Potassium 3.0 mmoL/L (3.5-5.1); Prothrombin Time 12.4 seconds (10.1-12.5)
[2025-06-03 16:17] LABS: Coronavirus 19, PCR Not Detected (NotDetected); Influenza A, PCR Not Detected (NotDetected); Influenza B, PCR Not Detected (NotDetected)
[2025-06-03 16:22] LABS: NT Pro Brain Natriuretic Pep. 331 pg/mL (0-125)
[2025-06-03 16:30] VITALS: BP 106/68; PULSE 80; O2SAT 95
[2025-06-03 16:32] LABS: Troponin I < 0.01 ng/ml (0.00-0.034)
[2025-06-03] MEDS: POTASSIUM CHLORIDE 20MEQ TAB 60 MEQ PO (16:54)
[2025-06-03 17:25] VITALS: BP 98/74; PULSE 80; RESP 17; TEMP 36.8; O2SAT 98
[2025-06-03 17:28] VITALS: BP 98/74; PULSE 78; RESP 16; TEMP 36.6; O2SAT 97
== END 2025-06-03 17:29 | disposition home or self-care (01) ==
PROVIDERS: Physician Assistant; Emergency Provider Emergency Medicine; PCP Internal Medicine
DX: E87.6 Hypokalemia (principal); R53.81 Other malaise; R53.83 Other fatigue; R11.0 Nausea; I11.0 Hypertensive heart disease with heart failure; I50.33 Acute on chronic diastolic (congestive) heart failure; E78.5 Hyperlipidemia, unspecified; Z87.891 Personal history of nicotine dependence
CPT/HCPCS: 71045; 80053; 83690; 83735; 83880; 84484; 85025; 85610; 87636; 93005; 96374; 99284; J2405

== ENCOUNTER 2025-06-05 14:55 | Outpatient (CLI) | payer MEDICARE, SELFPAY ==
--- OUTSIDE RECORDS SUMMARY | 2025-04-14 12:00 | XMS_ITS | Encounter Summary ---
Author Organization [facility] Address [address] [place] [id number] Care Team Providers Care Regulatory Affairs Analyst Name Role Phone Derrell West MD Primary Care Provider [phone] Reason for Referral * Cardiac Stress Testing (Routine) - Closed Specialty Diagnoses / Procedures Referred By Contac t Referred To Contact Diagnoses AF (paroxysmal atrial fibrillation) Paroxysmal atrial fibrillation Chronic diastolic congestive heart failure Procedures PYP Imaging for Cardiac Amyloidosis Thanh Guy MD [address] [facility] [address] [place] [address] Phone: tel: fax: [facility] [address] [place] [phone] Phone: tel: Referral ID Status Reason Start Date Expiration Date Visits Re quested Visits Authorized [id number] Closed 03/29/2025 06/28/2026 1 1 Reason for Visit * Cardiac Stress Testing (Routine) - Closed Specialty Diagnoses / Procedures Referred By Contac t Referred To Contact Diagnoses AF (paroxysmal atrial fibrillation) Paroxysmal atrial fibrillation Chronic diastolic congestive heart failure Procedures PYP Imaging for Cardiac Amyloidosis Thanh Guy MD [address] [place] [address] Phone: tel: fax: [facility] [address] [place] [address] Phone: tel: Referral ID Status Reason Start Date Expiration Date Visits Re quested Visits Authorized [id number] Closed 03/29/2025 06/28/2026 1 1 Encounter Details Date Type Department Care Team (Late st Contact Info) Description 04/14/2025 12:00 PM EDT - 04/14/2025 11:59 PM EDT Hospital Encounter [facility] [address] [facility] [address] [place] [address] Thanh Guy MD [address] [facility] [address] [place] [address] AF (paroxysmal atrial fibrillation); Paroxysmal atrial fibrillation; [...] Description 06/20/2025 2:00 PM EDT Office Visit [facility] CARDIOLOG[facility] [address] [facility] [address] [place] [address] Maury Clarke MD [address] [facility] [address] [place] [address] 06/21/2025 2:15 PM EDT Office Visit [facility] C[facility]IOLOG[facility] [address] [facility] [place] [address] Alfreda Ritchie APRN [address] [place], [place] [address] 06/27/2025 7:45 PM EDT Appointment [facility] SLEEP LAB [address] [place] [address] documented as of this encounter Procedures Procedure [...] dose documented in this encounter Care Teams Regulatory Affairs Analyst Relationship Specialty Start Date End Date Derrell West MD [facility] [address] [facility] [address] PCP - General Internal Medicine 06/23/22 documented as of this encounter
--- OUTSIDE RECORDS SUMMARY | 2025-05-04 14:00 | XMS_ITS | Encounter Summary ---
[facility] Address [address] [place] [id number] Care Team Providers Care Production Expert Name Role Phone Derrell West MD Primary Care Provider [phone] Reason for Referral * Hospital - Outpatient (Routine) - Authorized Specialty Diagnoses / Procedures Referred By Karly marroquin Referred To Contact Sleep Medicine Diagnoses Obstructive sleep apnea Difficulty with BiPAP use Snoring Procedures Polysomnography 4 or More Parameters Kenneth Hernandez MD [address] [place] [address] Phone: tel: fax: [facility] [address] [address] Phone: tel: fax: Referral ID Status Reason [...] Sleep Medicine Diagnoses Obstructive sleep apnea Procedures [place] OFFICE/OUTPATIENT NEW MODERATE MDM 45 MINUTES Ximena Veliz, RADHA [address] [place] [address] [place] [address] Phone: tel: fax: Kenneth Hernandez MD [address] [facility] [address] [place] [address] Phone: tel: fax: Referral ID Status Reason Start Date Expiration Date Visits Requested Visits Authorized [id number] Closed Patient Preference 01/26/2025 04/27/2026 1 1 Encounter Details Date Type Department Care Team (Late st Contact Info) Description 05/04/2025 2:00 PM EDT Office Visit [facility] [address] [facility] [address] [place] [address] Kenneth Hernandez MD [address] [place] [address] Obstructive sleep apnea (Primary Dx); Difficulty with [...] cared for primarily by Dr. Reynaga in [place] and subsequently Ms. Obrien in [facility] cardiology and sleep office there. He has [...] chest of heart failure and atrial fibrillation. [place] Scale is: 16/24 The patient's relevant past medical, surgical, family, and social history reviewed and updated in [facility] as appropriate. Current medications are: Current Outpatient [...] Description 06/20/2025 2:00 PM EDT Office Visit [facility] [address] [facility] [address] [place] [address] Muary Clarke MD [address] [facility] [address] [place], [place] [id number] 06/21/2025 2:15 PM EDT Office Visit [facility] [address] [place] [address] Alfreda Ritchie APRN [address] [facility] [address] [place] [address] 06/27/2025 7:45 PM EDT Appointment [facility] [address] [facility] [address] [place] [phone] Scheduled Orders Name Type Priority Associated Diagnoses Orde r Schedule Polysomnography 4 or More Parameters Sleep Center Routine Obstructive sleep apnea Difficulty with BiPAP use Snoring Expected: 05/09/2025, Expires: 05/04/2026 documented as of this encounter Visit Diagnoses Diagnosis Obstructive sleep apnea- Primary Obstructive sleep apnea (adult) (pediatric) Difficulty with BiPAP use Snoring Other dyspnea and respiratory abnormality documented in this encounter Care Teams Production Expert Relationship Specialty Start Date End Date Derrell West MD [address] [facility] [address] [place] [address] PCP - General Internal Medicine 06/23/22 documented as of this encounter
[2025-06-05 18:54] LABS: Amylase 64 U/L (30-110); Anion Gap 13.7 mEq/L (5-15); Blood Urea Nitrogen 13 mg/dl (9-20); Calcium 9.1 mg/dl (8.4-10.2); Carbon Dioxide 30 mmol/L (22.0-30.0); Chloride 97 mmol/L (98-107); Creatinine,Serum 1.40 mg/dl (0.66-1.25); Estimated Glomerular Filt Rate 50 ml/min (>60); GFR (African American) 61 ML/MIN (>60); Glucose 94 mg/dl (74-100); Magnesium 1.4 mg/dl (1.6-2.3); Potassium 3.7 mmoL/L (3.5-5.1); Sodium 137 mmol/L (136-145)
--- OUTSIDE RECORDS SUMMARY | 2025-06-06 12:36 | XMS_ITS | Encounter Summary ---
Author Organization [facility] Address [address] [place] [address] Care Team Providers Care Drafter Patent Name Role Phone Derrell West MD Primary Care Provider [phone] Encounter Details Date Type Department Care Team [...] Description 06/20/2025 2:00 PM EDT Office Visit [facility] CARDIOLOGY [address] [facility] [address] [place] [address] Maury Clarke MD [address] [facility] [address] [place] [address] 06/21/2025 2:15 PM EDT Office Visit [facility] CARDIOLOGY [address] [place] [address] Alfreda Ritchie APRN [address] [place] [address] 06/27/2025 7:45 PM EDT Appointment [facility] SLEEP LAB [address] [place] [address] documented as of this encounter Visit Diagnoses Not on filedocumented in this encounter Care Teams Drafter Patent Relationship Specialty Start Date End Date Derrell West MD [address] [facility] [address] [place] [address] PCP - General Internal Medicine 06/23/22 documented as of this encounter
--- OUTSIDE RECORDS SUMMARY | 2025-06-06 12:36 | XMS_ITS | Clinical Summary ---
Author Organization [facility] Address [address] [place] [id number] Care Team Providers Care Pool Lifeguard Name Role Phone Derrell West MD Primary Care Provider [phone] Allergies Active Allergy Reactions Criticality Noted Date Comments Amantadines Rash,Other (See Comments),Seizure High 08/07/2010 Seizures, only time pt has ever had a seizure seizure; confirmed by patient's daughter - per pharmacy operations manager Seizures, only time pt has ever had a seizure Codeine Hives,Rash Medium 08/07/2010 confirmed by patient's daughter - per pharmacy operations manager Dexamethasone Other (See Comments),Unknown - Low Severity [...] confirmed by patient's daughter - per pharmacy operations manager Medications busPIRone (BUSPAR) 10 MG tablet Take [...] to be referred to pulmonary sleep at [facility] Dr. Hernandez for further evaluation of inspire. [...] Description 05/04/2025 2:00 PM EDT Office Visit [facility] SLEEP MEDICINE [address] [facility] [address] [place] [address] Kenneth Hernandez MD Obstructive sleep apnea (Primary Dx); Difficulty with BiPAP use; Snoring 05/04/2025 Travel 05/03/[address] [facility] SLEEP MEDICINE [address] [facility] [address] [place] [address] Kenneth Hernandez MD RECORDS/APPT 04/14/2025 12:00 PM EDT - 04/14/2025 11:59 PM EDT Hospital Encounter [facility] [address] [place] [address] Thanh Guy MD AF (paroxysmal atrial fibrillation); Paroxysmal atrial fibrillation; Chronic diastolic congestive heart failure Discharge Disposition: Home or Self Care 04/14/2025 Results Follow-Up [facility] [address] [place] [address] Thanh Guy MD 04/14/2025 Travel 03/29/2025 11:45 AM EDT Office Visit [facility] CARDIOLOGY [address] [place] [address] Thanh Guy MD AF (paroxysmal atrial fibrillation) [...] Visit [facility]ARDIOLOG[facility] [address] [facility] [address] [place] [address] Maury Clarke MD [address] [facility] [address] [place], [place] [address] 06/21/2025 2:15 PM EDT Office Visit [facility] CARDIOLOGY [address] [place] [address] Alfreda Ritchie APRN [address] [facility] [address] [place], [place] [address] 06/27/2025 7:45 PM EDT Appointment [facility] SLEEP LAB [address] [facility] [address] [place] [address] Health Maintenance Due Date Last [...] ult from Last 3 Months Insurance [facility] [place] [id number] HUMANA MEDICARE ADVANTAGE PPO Care Teams Pool Lifeguard Relationship Specialty Start Date End Date Derrell West MD [address] [facility] [address] [place] [address] PCP - General Internal Medicine 06/23/22
--- OUTSIDE RECORDS SUMMARY | 2025-06-06 12:36 | XMS_ITS | Clinical Summary ---
Author Organization [employer] ([place], [place], [place], [place]) Address [address] [place] [address] Care Team Providers Care Beater Machine Operator Name Role Phone DottieJennifer Primary Care Provider [phone] Allergies Active Allergy Reactions Criticality Noted Date [...] RESPIRATORY SYNCYTIAL VIRUS (RSV) VACCINE - (AREXVY- [employer]) ([id number]) 10/06/2023 Family History Medical History Relation Name [...] = 0.6 oz pur e alcohol) wknds [facility] - Mental Health Answer Date [...] Date Jm rded Speak language other than Italian at home Not on file 11/20/2023 Want [...] Completed 10/06/2023 Medical Devices Implanted Type Area Housing Case Manager Device Identifier Shelf Expiration Date Model / Serial / Lot Mesh Phasix [id number] - [id number] Implanted:Qt y: 1 on 11/12/2022 by Jair Nunez MD at [facility] IMPLANTS N/A: Abdomen CR BARD:DAVOL [id number] 02/04/2024 [id number] / / [id number] Insurance HUMANA MEDICARE HMO Advance Directives For more information, please contact: [phone] * Full Code (Latest Code Status on File) Date Activated Date Inactivated Comments 11/12/2022 5:57 PM 11/24/2022 2:01 PM Care Teams Beater Machine Operator Relationship Specialty Start Date End Date Jennifer Sinclair DO [address] [place] [address] PCP - General Family Medicine 11/10/24
--- OUTSIDE RECORDS SUMMARY | 2025-06-06 12:36 | XMS_ITS | Encounter Summary ---
[facility] Organization [facility] Address [address] [place] [address] Care Team Providers Care Computer Education Professor Name Role Phone Derrell West MD Primary Care Provider [phone] Encounter Details Date Type Department Care Team [...] Description 06/20/2025 2:00 PM EDT Office Visit [facility] CARDIOLOG[facility] [address] [facility] [address] [place] [address] Maury Clarke MD [address] [facility] [address] [place] [address] 06/21/2025 2:15 PM EDT Office Visit [facility] CARDI[facility] [address] [place] [address] Alfreda Ritchie APRN [address] [place] [address] 06/27/2025 7:45 PM EDT Appointment [facility] SLEEP LAB [address] [place] [address] documented as of this encounter Visit Diagnoses Not on filedocumented in this encounter Care Teams Computer Education Professor Relationship Specialty Start Date End Date Derrell West MD [address] [facility] [address] [place] [address] PCP - General Internal Medicine 06/23/22 documented as of this encounter
--- OUTSIDE RECORDS SUMMARY | 2025-06-06 12:36 | XMS_ITS | Encounter Summary ---
[facility] Address [address] [place] [address] Care Team Providers Care Fiberglass Boat Finisher Name Role Phone Derrell West MD Primary Care Provider [phone] Encounter Details Date Type Department Care Team (Late Contact Info) Description 04/14/2025 Results Follow-Up [facility] CARDIOLOG[facility] [address] [facility] [address] [place] [phone] Thanh Guy MD [address] [facility] [address] [place] [id number] Social History Tobacco Use Types Packs/Day Years [...] 2:00 PM EDT Office Visit [facility] CARDIOLOG[facility] [address] [facility] [address] [place] [address] Maury Clarke MD [address] [facility] [address] [place] [id number] 06/21/2025 2:15 PM EDT Office Visit [facility] CARDIOLOG[facility] [address] [place] [address] Alfreda Ritchie APRN [address] [place] [address] 06/27/2025 7:45 PM EDT Appointment [facility] SLEEP LAB [address] [place] [address] documented as of this encounter Visit Diagnoses Not on filedocumented in this encounter Care Teams Fiberglass Boat Finisher Relationship Specialty Start Date End Date Derrell West MD [address] [facility] [address] [place] [address] PCP - General Internal Medicine 06/23/22 documented as of this encounter
--- OUTSIDE RECORDS SUMMARY | 2025-06-06 12:36 | XMS_ITS | Encounter Summary ---
[facility] Address [address] [place] [address] Care Team Providers Care Therapist'S Assistant Name Role Phone Derrell West MD Primary Care Provider [phone] Reason for Visit * Reason Onset Date Comments RECORDS/APPT 05/03/2025 Encounter Details Date Type Department Care Team (Late st Contact Info) Description 05/03/2025 Telephone [facility] SLEEP MEDICINE [address] [address] Kenneth Hernandez MD [address] [place] [address] RECORDS/APPT Social History Tobacco Use Types Packs/Day [...] 06/20/2025 2:00 PM EDT Office Visit [facility] CARDIOLOG[facility] [address] [facility] [address] [place] [address] Maury Clarke MD [address] [facility] [address] [place] [address] 06/21/2025 2:15 PM EDT Office Visit [facility] CARDIOLOG[facility] [address] [place] [address] Alfreda Ritchie APRN [address] [facility] [address] [place], [place] [address] 06/27/2025 7:45 PM EDT Appointment [facility] SLEEP LAB [address] [facility] [address] [place] [address] documented as of this encounter Visit Diagnoses Not on filedocumented in this encounter Care Teams Therapist'S Assistant Relationship Specialty Start Date End Date Derrell West MD [address] [facility] [address] [place] [address] PCP - General Internal Medicine 06/23/22 documented as of this encounter
--- OUTSIDE RECORDS SUMMARY | 2025-06-06 12:36 | XMS_ITS | Referral Summary ---
Author Organization [employer] ([place], [place], [place], [place]) Address [address] [place] [address] Care Team Providers Care Imaging Clerk Name Role Phone DottieJennifer Primary Care Provider [phone] Allergies Active Allergy Reactions Criticality Noted Date [...] RESPIRATORY SYNCYTIAL VIRUS (RSV) VACCINE - (AREXVY- [employer]) ([id number]) 10/06/2023 Social History Tobacco Use Types Packs/Day Years Used Date Smoking Tobacco: Former Cigarettes Q uit: 11/12/2014 Smokeless Tobacco: Never Tobacco Cessation:Counseling Given: Not Answered Alcohol Use Standard Drinks/Week Comments Yes 9 (1 standard drink = 0.6 oz pur e alcohol) wknds [facility] - Mental Health Answer Date Recorde d [...] Date Jm rded Speak language other than Belgian at home Not on file 11/20/2023 Want [...] on file Medical Devices Implanted Type Area High Speed Printer Operator Device Identifier Shelf Expiration Date Model / Serial / Lot Mesh Phasix [id number] - [id number] Implanted:Qt y: 1 on 11/12/2022 by Jair Nunez MD at [facility] IMPLANTS N/A: Abdomen CR BARD:DAVOL [id number] 02/04/2024 [id number] / / [id number] Insurance HU[employer]NA MEDICARE HMO Advance Directives For more information, please contact: [phone] * Full Code (Latest Code Status on File) Date Activated Date Inactivated Comments 11/12/2022 5:57 PM 11/24/2022 2:01 PM Care Teams Imaging Clerk Relationship Specialty Start Date End Date Jennifer Sinclair DO [address] [place] [address] PCP - General Family Medicine 11/10/24
--- OUTSIDE RECORDS SUMMARY | 2025-06-06 12:36 | XMS_ITS | Clinical Summary ---
Author Organization [facility] Address [address] [place] [address] Care Team Providers Care Machine Records Units Supervisor Name Role Phone Derrell West MD Primary Care Provider [phone] Allergies Active Allergy Reactions Criticality Noted Date Comments Amantadines Other - please document in the comment field High 08/07/2010 seizure; confirmed by patient's daughter - per student life dean Seizures, only time pt has ever had a seizure Codeine Hives Medium 08/07/2010 confirmed by patient's daughter - per student life dean Hydrochlorothiazide Rash Low 06/23/2022 Metoclopramide Other - please document in the comment field Medium 06/25/2022 Caused depression Penicillins Hives,Itching,Rash,S w elling High 08/07/2010 confirmed by patient's daughter - per student life dean Medications bumetanide (Bumex) 2 MG tablet Take [...] Department Care Team Description 03/28/2025 Orders Only [facility] [address] [address] AnkitAmy guadalupe [place] 03/24/2025 10:40 AM EDT Office Visit [facility] [address] [address] Vernon Medina MD [...] Months Immunizations Immunization Administration Dates Next Due Language Systems COVID-19 Vac cine (Purple Cap) 12+ 08/26/2021,02/12/2021,01/22/2021 [...] 2005 UKY-Abdominal Aortic Aneurysm (AAA) Screening 2020 [id number] Vaccine ( season) 2024 08/26/2021, 02/12/2021, 01/22/2021 [...] patient's age to complete this topic Insurance [facility] MEDICARE Care Teams Machine Records Units Supervisor Relationship Specialty Start Date End Date Derrell West MD [address] [facility] [address] [place] [address] PCP - General 10/21/22
== END 2025-06-05 23:59 | disposition home or self-care (01) ==
LOC: LAB.DROPOF 06-06 12:35
PROVIDERS: PCP Internal Medicine; Visit Provider Internal Medicine
DX: E87.6 Hypokalemia (principal); E83.42 Hypomagnesemia; R63.0 Anorexia; R10.9 Unspecified abdominal pain
CPT/HCPCS: 80048; 82150; 83735

== ENCOUNTER 2025-06-07 11:53 | Outpatient (POV) | payer MEDICARE, SELFPAY ==
--- OUTSIDE RECORDS SUMMARY | 2025-04-14 12:00 | XMS_ITS | Encounter Summary ---
Author Organization [facility] Address [address] [place] [id number] Care Team Providers Care Switchboard Clerk Name Role Phone Derrell West MD Primary Care Provider [phone] Reason for Referral * Cardiac Stress Testing (Routine) - Closed Specialty Diagnoses / Procedures Referred By Contac t Referred To Contact Diagnoses AF (paroxysmal atrial fibrillation) Paroxysmal atrial fibrillation Chronic diastolic congestive heart failure Procedures PYP Imaging for Cardiac Amyloidosis Thanh Guy MD [address] [facility] [address] [place] [address] Phone: tel: fax: [facility] [address] [place] [phone] Phone: tel: Referral ID Status Reason Start Date Expiration Date Visits Re quested Visits Authorized [id number] Closed 03/29/2025 06/28/2026 1 1 Reason for Visit * Cardiac Stress Testing (Routine) - Closed Specialty Diagnoses / Procedures Referred By Contac t Referred To Contact Diagnoses AF (paroxysmal atrial fibrillation) Paroxysmal atrial fibrillation Chronic diastolic congestive heart failure Procedures PYP Imaging for Cardiac Amyloidosis Thanh Guy MD [address] [place] [address] Phone: tel: fax: [facility] [address] [place] [address] Phone: tel: Referral ID Status Reason Start Date Expiration Date Visits Re quested Visits Authorized [id number] Closed 03/29/2025 06/28/2026 1 1 Encounter Details Date Type Department Care Team (Late st Contact Info) Description 04/14/2025 12:00 PM EDT - 04/14/2025 11:59 PM EDT Hospital Encounter [facility] CARDIOVASCULAR LAB [address] [facility] [address]rd [place] [address] Thanh Guy MD [address] [facility] [address] [place] [address] AF (paroxysmal atrial fibrillation); Paroxysmal atrial fibrillation; Chronic diastolic congestive heart failure Discharge Disposition: Home or Self Care Social History Tobacco Use Types Packs/Day Years Used Date Smoking Tobacco: Former Cigarettes 1 44 1 971 - 2015 Passive Smoke Exposure: Past Smokeless Tobacco: Never Alcohol Use Standard Drinks/Week Comments Yes 6 (1 standard drink = 0.6 oz pur e alcohol) occasional Sex and Gender Information Value Date Recorded Sex Assigned at Not on file Legal Sex Male 2:28 PM EDT Gender Identity Not on file Sexual Orientation Not on file documented as of this encounter Medications at Time of Discharge allopurinol (ZYLOPRIM) 100 MG tablet Take 2 tablets by mouth Daily. atorvastatin (LIPITOR) 20 MG tablet 01/05/2024 bumetanide (BUMEX) 2 MG tablet Take 1 tablet by mouth Daily. 08/21/2023 busPIRone (BUSPAR) 10 MG tablet Take 1 tablet by mouth Daily. 07/15/2017 colchicine 0.6 MG tablet Take 1 tablet by mouth. 02/20/2025 Cyanocobalamin (B-12 PO) Take 500 mg by mouth Daily. cyclobenzaprine (FLEXERIL) 5 MG tablet Take 1 tablet by mouth 3 (Three) Times a Day As Needed. 01/13/2025 dilTIAZem CD (CARDIZEM CD) 120 MG 24 hr capsule Take 1 capsule by mouth Daily. Eliquis 5 MG tablet tablet Take 1 tablet by mouth 2 (Two) Times a Day. 06/07/2022 lansoprazole (PREVACID) 30 MG capsule Take 1 capsule by mouth Daily. 03/30/2022 levothyroxine (SYNTHROID, LEVOTHROID) 75 MCG tablet Take 1 tablet by mouth Daily. 04/18/2022 meclizine (ANTIVERT) 25 MG tablet Take 1 tablet by mouth 3 (Three) Times a Day As Needed for Dizziness. ondansetron (ZOFRAN) 4 MG tablet Take 1 tablet by mouth Every 8 (Eight) Hours As Needed. 03/25/2022 oxyCODONE-acetami nophen (PERCOCET) 5-325 MG per tablet Take 1 tablet by mouth Every 8 (Eight) Hours As Needed. 01/19/2025 potassium chloride (KLOR-CON M20) 20 MEQ CR tablet Take 1 tablet by mouth Daily. potassium chloride ER (K-TAB) 20 MEQ tablet controlled-releas e ER tablet Take 1 tablet by mouth Daily. 06/06/2022 sildenafil (VIAGRA) 100 MG tablet 01/05/2024 tamsulosin (FLOMAX) 0.4 MG capsule 24 hr capsule Take 2 capsules by mouth Daily. 08/10/2017 tiZANidine (ZANAFLEX) 2 MG tablet Take 1-2 tablets by mouth Every 8 (Eight) Hours As Needed. 10/04/2024 traZODone (DESYREL) 50 MG tablet Take 1 tablet by mouth Every Night. 12/22/2024 documented as of this encounter Plan of Treatment Upcoming Encounters Date Type Department Care Team (Late st Contact Info) Description 06/20/2025 2:00 PM EDT Office Visit [facility] CARDIOLOG[facility] [address] [facility] [address] [place] [address] Muary Clarke MD [address] [facility] [address] [place] [address] 06/21/2025 2:15 PM EDT Office Visit [facility] [address] [facility] [address] Alfreda Ritchie APRN [address] [place], [place] [id number] 06/27/2025 7:45 PM EDT Appointment [facility] SLEEP LAB [address] [place] [phone] documented as of this encounter Procedures Procedure Name Priority Date/Time Associated Diagnosis Comments PYP IMAGING FOR CARDIAC AMYLOIDOSIS Routine 04/14/2025 2:52 PM EDT AF (paroxysmal atrial fibrillation) Paroxysmal atrial fibrillation Chronic diastolic congestive heart failure documented in this encounter Results * PYP Imaging for Cardiac Amyloidosis (04/14/2025 2:52 PM EDT) Anatomical Region Laterality Modality Nuclear Medicine Narrative 04/14/2025 3:09 PM EDT Semi-quantitative visual grading of myocardial uptake by comparison to rib uptake was grade 0 (no cardiac uptake and normal bone uptake). Quantitative analysis of heart/lung ratio was normal. The study is not suggestive of ATTR cardiac amyloidosis. PYP Technical Details Rest imaging was performed approximately two hour(s) following the intravenous injection of 21 mCi of Technetium-99m HDP administered on 04/14/2025 at 12:10 EDT in the right hand. Planar and SPECT acquisition was performed. PYP Findings The image quality of the study was excellent. No excess blood pool activity present. Myocardial 99mTc-PYP uptake patterns are absent. Semi-quantitative visual grading of myocardial uptake by comparison to rib uptake was grade 0 (no cardiac uptake and normal bone uptake). . Quantitative analysis of heart/lung ratio was normal. PYP Conclusion The study is not suggestive of ATTR cardiac amyloidosis. Please note that AL amylodosis should be excluded using appropriate serum and urine tests prior to final diagnosis of ATTR amyloidosis. PYP scan does not differentiate between wild-type and hereditary ATTR amyloidosis, and very rare instances of false positive or negative PYP scans can occur. Consider formal Cardiology/Heart Failure Clinic referral if clinically indicated. Thanh Guy MD CV STRESS ORDERABLES Final Res ult documented in this encounter Visit Diagnoses Diagnosis AF (paroxysmal atrial fibrillation) Atrial fibrillation Paroxysmal atrial fibrillation Atrial fibrillation Chronic diastolic congestive heart failure documented in this encounter Administered Medications Inactive Administered Medications - up to 3 most recent administrations Medication Order MAR Action Action Date Dose Rate Site technetium oxidronate (TechneScan HDP) injection 1 dose 1 dose, Intravenous, Once in Imaging, On Thu04/14/25 at 1213, For 1 dose, Millicuries: 21 Given 04/14/2025 12:10 PM EDT 1 dose documented in this encounter Care Teams Switchboard Clerk Relationship Specialty Start Date End Date Derrell West MD [facility] [address] [facility] [id number] PCP - General Internal Medicine 06/23/22 documented as of this encounter
--- OUTSIDE RECORDS SUMMARY | 2025-05-04 14:00 | XMS_ITS | Encounter Summary ---
Author Organization [facility] Address [address] [place] [id number] Care Team Providers Care Pipe Organ Mechanic Apprentice Name Role Phone Derrell West MD Primary Care Provider [phone] Reason for Referral * Hospital - Outpatient (Routine) - Authorized Specialty Diagnoses / Procedures Referred By Karly marroquin Referred To Contact Sleep Medicine Diagnoses Obstructive sleep apnea Difficulty with BiPAP use Snoring Procedures Polysomnography 4 or More Parameters Kenneth Hernandez MD [address] [place] [address] Phone: tel: fax: [facility] [address] [address] Phone: tel: fax: Referral ID Status Reason [...] Sleep Medicine Diagnoses Obstructive sleep apnea Procedures [place] OFFICE/OUTPATIENT NEW MODERATE MDM 45 MINUTES Ximena Veliz, RADHA [address] [place] [address] Phone: tel: fax: Kenneth Hernandez MD 3000 [facility] [address] [place] [address] Phone: tel: fax: Referral ID Status Reason Start Date Expiration Date Visits Requested Visits Authorized [id number] Closed Patient Preference 01/26/2025 04/27/2026 1 1 Encounter Details Date Type Department Care Team (Late st Contact Info) Description 05/04/2025 2:00 PM EDT Office Visit [facility] SLEEP MEDICINE [address] [facility] [address] [place] [address] Kenneth Hernandez MD [address] [place] [address] Obstructive sleep apnea (Primary Dx); Difficulty with [...] cared for primarily by Dr. Reynaga in [place] and subsequently Ms. Obrien in [facility] cardiology and sleep office there. He has [...] chest of heart failure and atrial fibrillation. [place] Scale is: 16/24 The patient's relevant past medical, surgical, family, and social history reviewed and updated in [facility] as appropriate. Current medications are: Current [...] Description 06/20/2025 2:00 PM EDT Office Visit [facility] CARDIOLOGY [address] [facility] [address] [place] [address] Maury Clarke MD [address]20 [facility] [address] [place], [place] [id number] 06/21/2025 2:15 PM EDT Office Visit [facility] C[facility] [address] [place] [address] Alfreda Ritchie APRN [address] ON LICENSE OF [facility] [address] [place] [address] 06/27/2025 7:45 PM EDT Appointment [facility] [address] ON LICENSE OF [facility] [address] [place] [phone] Scheduled Orders Name Type Priority Associated Diagnoses Orde r Schedule Polysomnography 4 or More Parameters Sleep Center Routine Obstructive sleep apnea Difficulty with BiPAP use Snoring Expected: 05/09/2025, Expires: 05/04/2026 documented as of this encounter Visit Diagnoses Diagnosis Obstructive sleep apnea- Primary Obstructive sleep apnea (adult) (pediatric) Difficulty with BiPAP use Snoring Other dyspnea and respiratory abnormality documented in this encounter Care Teams Pipe Organ Mechanic Apprentice Relationship Specialty Start Date End Date Derrell West MD [address] [facility] [address] [place] [address] PCP - General Internal Medicine 06/23/22 documented as of this encounter
--- OUTSIDE RECORDS SUMMARY | 2025-06-07 11:56 | XMS_ITS | Encounter Summary ---
[facility] Address [address] [place] [address] Care Team Providers Care Board Turner Name Role Phone Derrell West MD Primary Care Provider [phone] Encounter Details Date Type Department Care Team [...] Visit [facility] C[facility]IOLOGY [address] [facility] [address] [place] [address] Maury Clarke MD [address] [facility] [address] [place] [address] 06/21/2025 2:15 PM EDT Office Visit [facility] CARDIOLOGY [address] [place] [address] Alfreda Ritchie APRN [address] [place] [address] 06/27/2025 7:45 PM EDT Appointment [facility] SLEEP LAB [address] [place] [address] documented as of this encounter Visit Diagnoses Not on filedocumented in this encounter Care Teams Board Turner Relationship Specialty Start Date End Date Derrell West MD [address] [facility] [address] [place] [address] PCP - General Internal Medicine 06/23/22 documented as of this encounter
--- OUTSIDE RECORDS SUMMARY | 2025-06-07 11:56 | XMS_ITS | Encounter Summary ---
Author Organization [facility] Address [address] [place] [address] Care Team Providers Care Web Marketing Specialist Name Role Phone Derrell West MD Primary Care Provider [phone] Encounter Details Date Type Department Care Team [...] Description 06/20/2025 2:00 PM EDT Office Visit [facility] CARDIOLOG[facility] [address] [facility] [address] [place] [address] Maury Clarke MD 17[address] [facility] [address] [place] [address] 06/21/2025 2:15 PM EDT Office Visit [facility] CARDIOLOGY [address] [place] [address] Alfreda Ritchie APRN [address] [place] [address] 06/27/2025 7:45 PM EDT Appointment [facility] SLEEP LAB [address] [place] [address] documented as of this encounter Visit Diagnoses Not on filedocumented in this encounter Care Teams Web Marketing Specialist Relationship Specialty Start Date End Date Derrell West MD [address] [facility] [address] [place] [address] PCP - General Internal Medicine 06/23/22 documented as of this encounter
--- OUTSIDE RECORDS SUMMARY | 2025-06-07 11:56 | XMS_ITS | Clinical Summary ---
Author Organization [facility] Address [address] [place] [id number] Care Team Providers Care Jail Keeper Name Role Phone Derrell West MD Primary Care Provider [phone] Allergies Active Allergy Reactions Criticality Noted Date Comments Amantadines Rash,Other (See Comments),Seizure High 08/07/2010 Seizures, only time pt has ever had a seizure seizure; confirmed by patient's daughter - per on call pharmacy technician Seizures, only time pt has ever had a seizure Codeine Hives,Rash Medium 08/07/2010 confirmed by patient's daughter - per on call pharmacy technician Dexamethasone Other (See Comments),Unknown - Low Severity [...] 08/07/2010 confirmed by patient's daughter - per on call pharmacy technician Medications busPIRone (BUSPAR) 10 MG tablet Take [...] to be referred to pulmonary sleep at [facility] Dr. Hernandez for further evaluation of inspire. [...] Description 05/04/2025 2:00 PM EDT Office Visit [facility] SLEEP MEDICINE [address] [facility] [address] [place] [address] Kenneth Hernandez MD Obstructive sleep apnea (Primary Dx); Difficulty with BiPAP use; Snoring 05/04/2025 Travel 05/03/2025 Telephone [facility] SLEEP MEDICINE [address] [facility] [address] [place] [address] Kenneth Hernandez MD RECORDS/APPT 04/14/2025 12:00 PM EDT - 04/14/2025 11:59 PM EDT Hospital Encounter [facility] [address] [place] [address] Thanh Guy MD AF (paroxysmal atrial fibrillation); Paroxysmal atrial fibrillation; Chronic diastolic congestive heart failure Discharge Disposition: Home or Self Care 04/14/2025 Results Follow-Up [facility] [address] [place] [address] Thanh Guy MD 04/14/2025 Travel 03/29/2025 11:45 AM EDT Office Visit [facility] CARDIOLOGY [address] [place] [address] Thanh Guy MD AF (paroxysmal atrial fibrillation) [...] Description 06/20/2025 2:00 PM EDT Office Visit [facility] CARDIOLOGY [address] [facility] [address] [place] [address] Maury Clarke MD [address] [facility] [address] [place], [place] [address] 06/21/2025 2:15 PM EDT Office Visit [facility] CARDIOLOGY [address] [place] [address] Alfreda Ritchie APRN [address] [facility] [address] [place], [place] [address] 06/27/2025 7:45 PM EDT Appointment [facility] SLEEP LAB [address] [facility] [address] [place] [address] Health Maintenance Due Date Last [...] ult from Last 3 Months Insurance [facility] [place] [id number] HU[employer]NA MEDICARE ADVANTAGE PPO Care Teams Jail Keeper Relationship Specialty Start Date End Date Derrell West MD [address] [facility] [address] [place] [address] PCP - General Internal Medicine 06/23/22
--- OUTSIDE RECORDS SUMMARY | 2025-06-07 11:56 | XMS_ITS | Clinical Summary ---
Author Organization [employer] ([place], [place]) Address [address] [place] [address] Care Team Providers Care Retail Marketing Specialist Name Role Phone DottieJennifer Primary Care Provider [phone] Allergies Active Allergy Reactions Criticality Noted Date [...] RESPIRATORY SYNCYTIAL VIRUS (RSV) VACCINE - (AREXVY- Clip) ([id number]) 10/06/2023 Family History Medical History Relation Name [...] = 0.6 oz pur e alcohol) wknds [facility] - Mental Health Answer Date [...] Completed 10/06/2023 Medical Devices Implanted Type Area Chief Building Inspector Device Identifier Shelf Expiration Date Model / Serial / Lot Mesh Phasix [id number] - [id number] Implanted:Qt y: 1 on 11/12/2022 by Jair Nunez MD at [facility] IMPLANTS N/A: Abdomen CR BARD:DAVOL [id number] 02/04/2024 [id number] / / [id number] Insurance [employer] MEDICARE HMO Advance Directives For more information, please contact: [phone] * Full Code (Latest Code Status on File) Date Activated Date Inactivated Comments 11/12/2022 5:57 PM 11/24/2022 2:01 PM Care Teams Retail Marketing Specialist Relationship Specialty Start Date End Date Jennifer Sinclair DO [address] [place] [address] PCP - General Family Medicine 11/10/24
--- OUTSIDE RECORDS SUMMARY | 2025-06-07 11:56 | XMS_ITS | Clinical Summary ---
Author Organization [facility] Address [address] [place] [address] Care Team Providers Care Packaging Manager Name Role Phone Derrell West MD Primary Care Provider [phone] Allergies Active Allergy Reactions Criticality Noted Date Comments Amantadines Other - please document in the comment field High 08/07/2010 seizure; confirmed by patient's daughter - per graduate student instructor Seizures, only time pt has ever had a seizure Codeine Hives Medium 08/07/2010 confirmed by patient's daughter - per graduate student instructor Hydrochlorothiazide Rash Low 06/23/2022 Metoclopramide Other - please document in the comment field Medium 06/25/2022 Caused depression Penicillins Hives,Itching,Rash,S w elling High 08/07/2010 confirmed by patient's daughter - per graduate student instructor Medications bumetanide (Bumex) 2 MG tablet Take [...] Department Care Team Description 03/28/2025 Orders Only [facility] [address] [address] AnkitAmy guadalupe Leela 03/24/2025 10:40 AM EDT Office Visit [facility] [address] [address] Vernon Medina MD Stage [...] Months Immunizations Immunization Administration Dates Next Due KeyCAPTCHA COVID-19 Vac cine (Purple Cap) 12+ 08/26/2021,02/12/2021,01/22/2021 [...] 2005 UKY-Abdominal Aortic Aneurysm (AAA) Screening 2020 [id number] Vaccine ( season) 2024 08/26/2021, 02/12/2021, 01/22/2021 [...] patient's age to complete this topic Insurance [facility] MEDICARE Care Teams Packaging Manager Relationship Specialty Start Date End Date Derrell West MD [address] [facility] [address] [place] [address] PCP - General 10/21/22
--- OUTSIDE RECORDS SUMMARY | 2025-06-07 11:56 | XMS_ITS | Encounter Summary ---
[facility] Address [address] [place] [address] Care Team Providers Care Painter Tumbling Barrel Name Role Phone Derrell West MD Primary Care Provider [phone] Reason for Visit * Reason Onset Date Comments RECORDS/APPT 05/03/2025 Encounter Details Date Type Department Care Team (Late st Contact Info) Description 05/03/2025 Telephone [facility] SLEEP MEDICINE [address] [address] Kenneth Hernandez MD [address] [place] [address] RECORDS/APPT Social History Tobacco Use Types Packs/Day [...] Description 06/20/2025 2:00 PM EDT Office Visit [facility] CARDIOLOGY [address] [facility] [address] [place] [address] Maury Clarke MD [address] [facility] [address] [place] [address] 06/21/2025 2:15 PM EDT Office Visit [facility] CARDIOLOG[facility] [address] [place] [address] Alfreda Ritchie APRN [address] [facility] [address] [place], [place] [address] 06/27/2025 7:45 PM EDT Appointment [facility] SLEEP LAB [address] [facility] [address] [place] [address] documented as of this encounter Visit Diagnoses Not on filedocumented in this encounter Care Teams Painter Tumbling Barrel Relationship Specialty Start Date End Date Derrell West MD 1210 [facility] [address] [place] [address] PCP - General Internal Medicine 06/23/22 documented as of this encounter
--- OUTSIDE RECORDS SUMMARY | 2025-06-07 11:56 | XMS_ITS | Referral Summary ---
Author Organization [employer] ([place], [place], [place], [place]) Address [address] [place] [address] Care Team Providers Care Horse Trekking Guide Name Role Phone DottieJennifer Primary Care Provider [...] RESPIRATORY SYNCYTIAL VIRUS (RSV) VACCINE - (AREXVY- [employer]) ([id number]) 10/06/2023 Social History Tobacco Use Types Packs/Day Years Used Date Smoking Tobacco: Former Cigarettes Q uit: 11/12/2014 Smokeless Tobacco: Never Tobacco Cessation:Counseling Given: Not Answered Alcohol Use Standard Drinks/Week Comments Yes 9 (1 standard drink = 0.6 oz pur e alcohol) wknds [facility] - Mental Health Answer Date [...] Date Jm rded Speak language other than [place]alander at home Not on file 11/20/2023 Want [...] on file Medical Devices Implanted Type Area Oven Operator Automatic Device Identifier Shelf Expiration Date Model / Serial / Lot Mesh Phasix [id number] - [id number] Implanted:Qt y: 1 on 11/12/2022 by Jair Nunez MD at [facility] IMPLANTS N/A: Abdomen CR BARD:DAVOL [id number] 02/04/2024 [id number] / / [id number] Insurance HUMANA MEDICARE HMO Advance Directives For more information, please contact: [phone] * Full Code (Latest Code Status on File) Date Activated Date Inactivated Comments 11/12/2022 5:57 PM 11/24/2022 2:01 PM Care Teams Horse Trekking Guide Relationship Specialty Start Date End Date Jennifer Sinclair DO [address] [place] [address] PCP - General Family Medicine 11/10/24
--- OUTSIDE RECORDS SUMMARY | 2025-06-07 11:56 | XMS_ITS | Encounter Summary ---
[facility] Address [address] [place] [address] Care Team Providers Care Information Systems Technician Name Role Phone Derrell West MD Primary Care Provider [phone] Encounter Details Date Type Department Care Team (Late Contact Info) Description 04/14/2025 Results Follow-Up [facility] [address] [facility] [address] [place] [id number] Thanh Guy MD [address] [facility] [address] [place] [id number] Social History Tobacco Use Types Packs/Day Years [...] Visit [facility] [address] [facility] [address] [place] [address] Maury Clarke MD [address] [facility] [address] [place] [id number] 06/21/2025 2:15 PM EDT Office Visit [facility] C[facility] [address] [place] [address] Alfreda Ritchie APRN [address] [place] [address] 06/27/2025 7:45 PM EDT Appointment [facility] [address] [place] [address] documented as of this encounter Visit Diagnoses Not on filedocumented in this encounter Care Teams Information Systems Technician Relationship Specialty Start Date End Date Derrell West MD [address] [facility] [address] [place] [address] PCP - General Internal Medicine 06/23/22 documented as of this encounter
--- NOTE | 2025-06-07 12:18 | EXP.PAIN.SOA ---
[facility] Disclaimer: The information contained in this section may have been updated after the patient was seen, as this information can be updated by other users. Medical History Hypervolemia Leukocytosis Pleural effusion Acute on chronic diastolic (congestive) heart failure COVID-19 Polycythemia Atrial fibrillation with rapid ventricular response Severe sepsis with acute organ dysfunction Acute exacerbation of chronic obstructive airways disease Dyspnea due to COVID-19 Viral respiratory infection Febrile illness Acute bronchitis Acute gout of left foot Moderate major depression Benign essential HTN Hyperlipidemia LDL goal <100 Obstructive sleep apnea (adult) (pediatric) Anxiety disorder, unspecified Hypothyroidism, unspecified Family History Other No significant family history Unknown family medical history Social History Smoking Status: Former smoker tobacco type: cigarettes packs per day: 1 second hand exposure: Yes alcohol intake: current alcohol intake frequency: a few times a week (7 beers over the course of 2 nights.) substance use type: prescription drug (States he is prescribed Percocet once or twice daily.) current occupational status: other Travel in the last 8 weeks?: None household members: significant other housing: house number of children: 2 current occupational exposures/hazards: No caffeine: Yes Have you lived/traveled outside US in past 30 days?: No Contact w/someone who lives/traveled outside US past 30 days?: No Exposure to someone with infectious disease in past 14 days?: No Do you have a fever (greater than 100.4 F or 38 C)?: No Have you tested positive for COVID-19?: No Exposed to someone with COVID-19 in past 14 days?: No Do you have a sore throat?: No Do you have a cough?: No Do you have any weakness?: No Do you have any diarrhea?: No Are you experiencing any unusual bleeding?: No Do you have any muscle aches/pain?: No Do you have any abdominal pain?: No Are you experiencing loss of taste or smell?: No PM Subjective & Objective Subjective Subjective:: Patient is a pleasant 70-year-old male who presents today for follow-up of his bilateral SI injections on 05/23/2025. Today he rates his pain a 6 out of 10. He does state the date of this injection he had 100% relief however by day 2 it did drop back down to probably 40% improvement. Now he does make mention today that it has seemed better just starting today. He states that he normally has a lot of pain even just getting out of the shower however today seems much more manageable. Patient is in the process of being seen by neurosurgery and does state that that appointment is on July 31. He does state he is still interested in proceeding forward with the pump trial in future. Patient is prescribed compounded cream from our office. He denies any side effects. His Frank has been reviewed and is appropriate. Review of Systems: General: No recent weight changes, no fever, no sleep disturbances Respiratory: No cough, no shortness of air, no recurring pulmonary infections Cardiovascular/peripheral vascular: No chest pain, no palpitations, no edema, no shortness of breath Gastrointestinal: No new onset incontinence, normal bowel movements reported Genitourinary: No new onset incontinence Musculoskeletal: Chronic back pain Psychiatric: [Normal mood/affect] Neurological: [Denies weakness in extremities], [denies balance issues] Pain at rest (0-10 scale): 6 Objective Objective:: Physical Exam: General: Alert and oriented x3, no acute distress, pleasant and cooperative Lungs: Respirations even and unlabored, symmetrical chest expansion Eyes: PERRL Musculoskeletal: Flexion and extension of lumbar [spine] somewhat guarded secondary to pain, [antalgic gait noted] Neurological: Speech clear, no gross sensory deficit Has patient had previous pain injection?: Yes Percent improvement in pain since last injection: 100% Conservative treatment options previously tried: Home exercise plan Length of treatment: Longer than 12 weeks Meds Home Medications and Allergies Home Medications ?Medication ?Instructions ?Recorded ?Confirmed ?Type atorvastatin 40 mg tablet 40 mg PO HS Cholesterol 07/17/20 06/06/25 History apixaban 5 mg tablet (Eliquis) 5 mg PO BID #180 tabs 05/23/24 06/06/25 Rx cyclobenzaprine 5 mg tablet 5 mg PO TIDP PRN muscle spasm #60 04/12/25 06/06/25 Rx tabs oxycodone-acetaminophen 5 mg-325 1 tab PO Q8HP PRN Moderate Pain 05/16/25 06/06/25 Rx mg tablet (Scale Score 5-6) #30 tabs doxycycline hyclate 100 mg capsule 100 mg PO BID #20 caps 05/17/25 06/06/25 Rx allopurinol 100 mg tablet 300 mg (3 x 100 mg) PO DAILY #180 05/22/25 06/06/25 Rx tabs ascorbic acid (vitamin C) 500 mg 500 mg PO DAILY #90 tabs 05/22/25 06/06/25 Rx tablet bumetanide 2 mg tablet 4 mg PO DAILY 05/22/25 06/06/25 History buspirone 10 mg tablet 10 mg PO BID Anxiety #90 tabs 05/22/25 06/06/25 Rx colchicine 0.6 mg tablet 0.6 mg PO .COMPLEX #20 tabs 05/22/25 06/06/25 Rx diltiazem HCl 120 mg 120 mg PO BID #180 caps 05/22/25 06/06/25 Rx capsule,extended release 24 hr lansoprazole 30 mg capsule,delayed See Rx Instructions .Route 05/22/25 06/06/25 Rx release .COMPLEX #90 caps levothyroxine 112 mcg tablet 112 mcg PO DAILY #90 tabs 05/22/25 06/06/25 Rx sildenafil 100 mg tablet 50 - 100 mg (0.5 - 1 x 100 mg) PO 05/22/25 06/06/25 Rx NEEDED PRN Erectile Dysfunction #10 tabs tamsulosin 0.4 mg capsule 0.8 mg (2 x 0.4 mg) PO DAILY #90 05/22/25 06/06/25 Rx caps trazodone 50 mg tablet 50 mg PO HSP PRN insomnia #90 tabs 05/22/25 06/06/25 Rx potassium chloride 20 mEq 40 meq (2 x 20 mEq) PO DAILY #90 05/29/25 06/06/25 Rx tablet,extended release tabs New Prescriptions to Start Prescriptions: Allergies Allergy/AdvReac Type Severity Reaction Status Date / Time metoclopramide (From Reglan) Allergy Intermediate Anxiety Verified 06/05/25 14:25 Penicillins Allergy Intermediate Anxiety Verified 06/05/25 14:25 amantadine (AMANTADINE) Allergy Mild SEIZURE Verified 06/05/25 14:25 codeine (CODEINE) Allergy Mild I-RASH Verified 06/05/25 14:25 cephalexin (From Keflex) Allergy Anxiety Verified 06/05/25 14:25 terbinafine AdvReac Mild Confusion Verified 06/05/25 14:25 Assessment and Plan *Assessment and plan (1) Chronic pain syndrome: Status: Acute Category: Medical Code(s): G89.4 - Chronic pain syndrome (2) Bilateral sacroiliitis: Status: Acute Category: Medical Code(s): M46.1 - Sacroiliitis, not elsewhere classified (3) Degenerative disc disease: Status: Acute Category: Medical Plan I did review over with the patient that he may be having just delayed improvement with the SI injections and that it may be better from today on. We will see how he does over the next several weeks. We did review over again regarding the intrathecal pump trial and we will follow-up with him after his appointment with neurosurgery. Patient agrees with this plan of care. Patient has been instructed to contact the clinic with any concerns before the next appointment. Dr. Marvin has reviewed this note and agrees with this plan of care. This note was dictated using voice recognition software and make contain errors or omissions. All injections are used with Lidocaine, Bupivacaine and dexamethasone. Occasionally urine drug screen is needed to verify patient's compliance with our office pain contract. This is ordered based off specific treatments related to chronic pain with the potential to abuse certain medications.
[2025-06-07 13:12] VITALS: BP 123/70; PULSE 85; RESP 14; O2SAT 96; BMI 32.1
== END 2025-06-07 23:59 | disposition home or self-care (01) ==
LOC: SC.PAIN 11:54
PROVIDERS: PCP Internal Medicine; Visit Provider Nurse Practitioner Family
DX: M46.1 Sacroiliitis, not elsewhere classified (principal); G89.4 Chronic pain syndrome
CPT/HCPCS: 99212; G0463

== ENCOUNTER 2025-06-09 07:28 | Outpatient (CLI) | payer MEDICARE, SELFPAY ==
--- OUTSIDE RECORDS SUMMARY | 2025-04-14 12:00 | XMS_ITS | Encounter Summary ---
Author Organization [facility] Address [address] [place] [phone] Care Team Providers Care Managing Manager Name Role Phone Derrell West MD Primary Care Provider [phone] Reason for Referral * Cardiac Stress Testing (Routine) - Closed Specialty Diagnoses / Procedures Referred By Contac t Referred To Contact Diagnoses AF (paroxysmal atrial fibrillation) Paroxysmal atrial fibrillation Chronic diastolic congestive heart failure Procedures PYP Imaging for Cardiac Amyloidosis Thanh Guy MD [address] [facility] [address] [place] [address] Phone: tel: fax: [facility] [address] [place] [phone] Phone: tel: Referral ID Status Reason Start Date Expiration Date Visits Re quested Visits Authorized [id number] Closed 03/29/2025 06/28/2026 1 1 Reason for Visit * Cardiac Stress Testing (Routine) - Closed Specialty Diagnoses / Procedures Referred By Contac t Referred To Contact Diagnoses AF (paroxysmal atrial fibrillation) Paroxysmal atrial fibrillation Chronic diastolic congestive heart failure Procedures PYP Imaging for Cardiac Amyloidosis Thanh Guy MD [address] [place] [address] Phone: tel: fax: [facility] [address] [place] [address] Phone: tel: Referral ID Status Reason Start Date Expiration Date Visits Re quested Visits Authorized [id number] Closed 03/29/2025 06/28/2026 1 1 Encounter Details Date Type Department Care Team (Late st Contact Info) Description 04/14/2025 12:00 PM EDT - 04/14/2025 11:59 PM EDT Hospital Encounter [facility] C[facility]IOVASCULAR LAB [address] [facility] [address]rd [place] [address] Thanh Guy MD [address] [facility] [address] [place] [address] AF (paroxysmal atrial fibrillation); Paroxysmal atrial fibrillation; [...] Description 06/20/2025 2:00 PM EDT Office Visit [facility] CARDIOLOGY [address] [facility] [address] [place] [address] Maury Clarke MD [address] [facility] [address] [place] [address] 06/21/2025 2:15 PM EDT Office Visit [facility] CARDIOLOGY [address] [place] [address] Alfreda Ritchie APRN [address] [place], [place] [id number] 06/27/2025 7:45 PM EDT Appointment [facility] SLEEP LAB [address] [place] [address] documented as of this encounter Procedures Procedure [...] dose documented in this encounter Care Teams Managing Manager Relationship Specialty Start Date End Date Derrell West MD [facility] [address] [facility] [address] PCP - General Internal Medicine 06/23/22 documented as of this encounter
--- OUTSIDE RECORDS SUMMARY | 2025-05-04 14:00 | XMS_ITS | Encounter Summary ---
[facility] Organization [facility] Address [address] [place] [id number] Care Team Providers Care Driver License Agent Name Role Phone Derrell West MD Primary Care Provider [phone] Reason for Referral * Hospital - Outpatient (Routine) - Authorized Specialty Diagnoses / Procedures Referred By Karly marroquin Referred To Contact Sleep Medicine Diagnoses Obstructive sleep apnea Difficulty with BiPAP use Snoring Procedures Polysomnography 4 or More Parameters Kenneth Hernandez MD [address] [place] [address] Phone: tel: fax: [facility] [address] [address] Phone: tel: fax: Referral ID Status Reason Start Date Expiration Date V isits Requested Visits Authorized Authorized 05/04/2025 08/19/2025 1 1 Reason for Visit * Reason Comments Witnessed Apnea Snoring Daytime Sleepiness Frequent Awakenings Non-restorative Sleep Dry Mouth Unable To Stay Asleep * Consultation (Routine) - Closed Specialty Diagnoses / Procedures Referred By Karly marroquin Referred To Contact Pulmonary Disease / Sleep Medicine Diagnoses Obstructive sleep apnea Procedures [place] OFFICE/OUTPATIENT NEW MODERATE MDM 45 MINUTES Ximena eVliz, RADHA [address] [place] [address] [place] [address] Phone: tel: fax: Kenneth Hernandez MD [address] [facility] [address] [place] [address] Phone: tel: fax: Referral ID Status Reason Start Date Expiration Date Visits Requested Visits Authorized [id number] Closed Patient Preference 01/26/2025 04/27/2026 1 1 Encounter Details Date Type Department Care Team (Late st Contact Info) Description 05/04/2025 2:00 PM EDT Office Visit [facility] [address] [facility] [address] [place] [address] Kenneth Hernandez MD [address] [place] [address] Obstructive sleep apnea (Primary Dx); Difficulty with BiPAP use; Snoring Social History Tobacco Use Types Packs/Day Years Used Date Smoking Tobacco: Former Cigarettes 1 44 1 971 - 2015 Passive Smoke Exposure: Past Smokeless Tobacco: Never Tobacco Cessation:Counseling Given: Not Answered Alcohol Use Standard Drinks/Week Comments Yes 6 (1 standard drink = 0.6 oz pur e alcohol) occasional Sex and Gender Information Value Date Recorded Sex Assigned at Not on file Legal Sex Male 2:28 PM EDT Gender Identity Not on file Sexual Orientation Not on file documented as of this encounter Last Filed Vital Signs Vital Sign Reading Time Taken Comments Blood Pressure 118/70 05/04/2025 1:19 PM EDT Pulse 85 05/04/2025 1:19 PM EDT Temperature 36.4 C (97.5 F) 05/04/2025 1:19 PM EDT Respiratory Rate - - Oxygen Saturation 94% 05/04/2025 1:19 PM EDT Inhaled Oxygen Concentration - - Weight 108 kg (239 lb) 05/04/2025 1:19 PM EDT Height 180.3 cm (5' 11 ) 05/04/2025 1:19 PM EDT Body Mass Index 33.33 05/04/2025 1:19 PM EDT documented in this encounter Progress Notes * Kenneth Hernandez MD - 05/04/2025 2:00 PM EDT Aden Cheung is a 69 y.o. male. Chief Complaint Patient presents with Witnessed Apnea Snoring Daytime Sleepiness Frequent Awakenings Non-restorative Sleep Dry Mouth Unable To Stay Asleep HPI 69 y.o. male seen in consultation at the request of Ximena Veliz APRN for evaluation of the above. He has a longstanding history of obstructive sleep apnea. I believe his most recent diagnosis was in April 2018 at which time he had an AHI of 17. I do not have these records. He had a titration in 2020 per report and was placed on BiPAP therapy at that time. His current BiPAP machine is a Respironics replacement device. He says that his original diagnosis of sleep apnea was in the . He was cared for primarily by Dr. Reynaga in [place] and subsequently Ms. Obrien in [facility] cardiology and sleep office there. He has always struggled with PAP therapy. Initially it was CPAP and subsequently BiPAP but he has never had a very good response to therapy. He has never acclimated well. His latest download reflectsthis. He has used it on 3 nights over the last month. He says he will often use it for several nights but then does not sleep as well and stops using it. He often sleeps in a recliner to help with his breathing at night. He has ongoing problems with daytime somnolence and poor sleep quality. He naps during the day. He has been observed by his to snore and have apneas. Cardiac comorbidities include chronic diastolic chest of heart failure and atrial fibrillation. [place] Scale is: 16/24 The patient's relevant past medical, surgical, family, and social history reviewed and updated in [facility] as appropriate. Current medications are: Current Outpatient Medications: allopurinol (ZYLOPRIM) 100 MG tablet, Take 2 tablets by mouth Daily. (Patient taking differently: Take 3 tablets by mouth Daily.), Disp: , Rfl: atorvastatin (LIPITOR) 20 MG tablet, , Disp: , Rfl: bumetanide (BUMEX) 2 MG tablet, Take 1 tablet by mouth Daily., Disp: , Rfl: busPIRone (BUSPAR) 10 MG tablet, Take 1 tablet by mouth Daily., Disp: , Rfl: colchicine 0.6 MG tablet, Take 1 tablet by mouth., Disp: , Rfl: Cyanocobalamin (B-12 PO), Take 500 mg by mouth Daily., Disp: , Rfl: cyclobenzaprine (FLEXERIL) 5 MG tablet, Take 1 tablet by mouth 3 (Three) Times a Day As Needed., Disp: , Rfl: dilTIAZem CD (CARDIZEM CD) 120 MG 24 hr capsule, Take 1 capsule by mouth Daily., Disp: , Rfl: Eliquis 5 MG tablet tablet, Take 1 tablet by mouth 2 (Two) Times a Day., Disp: , Rfl: lansoprazole (PREVACID) 30 MG capsule, Take 1 capsule by mouth Daily., Disp: , Rfl: levothyroxine (SYNTHROID, LEVOTHROID) 75 MCG tablet, Take 1 tablet by mouth Daily., Disp: , Rfl: meclizine (ANTIVERT) 25 MG tablet, Take 1 tablet by mouth 3 (Three) Times a Day As Needed for Dizziness., Disp: , Rfl: ondansetron (ZOFRAN) 4 MG tablet, Take 1 tablet by mouth Every 8 (Eight) Hours As Needed., Disp: , Rfl: oxyCODONE-acetaminophen (PERCOCET) 5-325 MG per tablet, Take 1 tablet by mouth Every 8 (Eight) Hours As Needed., Disp: , Rfl: potassium chloride (KLOR-CON M20) 20 MEQ CR tablet, Take 1 tablet by mouth Daily., Disp: , Rfl: potassium chloride ER (K-TAB) 20 MEQ tablet controlled-release ER tablet, Take 1 tablet by mouth Daily., Disp: , Rfl: sildenafil (VIAGRA) 100 MG tablet, , Disp: , Rfl: tamsulosin (FLOMAX) 0.4 MG capsule 24 hr capsule, Take 2 capsules by mouth Daily., Disp: , Rfl: tiZANidine (ZANAFLEX) 2 MG tablet, Take 1-2 tablets by mouth Every 8 (Eight) Hours As Needed., Disp: , Rfl: traZODone (DESYREL) 50 MG tablet, Take 1 tablet by mouth Every Night. (Patient taking differently: Take 1 tablet by mouth Every Night. rarely), Disp: , Rfl: . Review of Systems Review of Systems ROS documented in patient questionnaire ??14 systems. Otherwise negative except as noted in HPI. Physical Exam Blood pressure 118/70, pulse 85, temperature 97.5 ??F (36.4 ??C), temperature source Infrared, height 180.3 cm (71 ), weight 108 kg (239 lb), SpO2 94%. Body mass index is 33.33 kg/m??. Physical Exam Vitals and nursing note reviewed. Constitutional: Appearance: Normal appearance. He is well-developed. HENT: Head: Normocephalic and atraumatic. Nose: Nose normal. Mouth/Throat: Mouth: Mucous membranes are moist. Pharynx: Oropharynx is clear. No oropharyngeal exudate. Comments: Class IV airway Edentulous Eyes: General: No scleral icterus. Conjunctiva/sclera: Conjunctivae normal. Neck: Thyroid: No thyromegaly. Trachea: No tracheal deviation. Cardiovascular: Rate and Rhythm: Normal rate and regular rhythm. Heart sounds: No murmur heard. No friction rub. No gallop. Pulmonary: Effort: Pulmonary effort is normal. No respiratory distress. Breath sounds: No wheezing or rales. Musculoskeletal: General: No deformity. Normal range of motion. Skin: General: Skin is warm and dry. Findings: No rash. Neurological: Mental Status: He is alert and oriented to person, place, and time. Psychiatric: Behavior: Behavior normal. Thought Content: Thought content normal. DATA: Reviewed his current download from his BiPAP machine as described above. On the nights he did use it his AHI was 1.1 with a large mask leak of 42 minutes per night. He only used her on 3 nights in the last month. Reviewed 01/26/2025 office note from Ximena Veliz APRN ASSESSMENT: Problem List Items Addressed This Visit Pulmonary Problems Obstructive sleep apnea - Primary Relevant Orders Polysomnography 4 or More Parameters Other Visit Diagnoses Difficulty with BiPAP use Relevant Orders Polysomnography 4 or More Parameters Snoring Relevant Orders Polysomnography 4 or More Parameters 69-year-old male with longstanding obstructive sleep apnea and poor PAP tolerance. He has tried multiple masks and has been on both CPAP and BiPAP through the years. He simply does not benefit from it and as a result his compliance is low. He is interested in the possibility of an inspire hypoglossal nerve stimulator. He would appear to meet initial qualifications but he will need a new sleep study and I would prefer this be an in lab study to get a better and more accurate assessment of his actual AHI and numbers of central events. I have spent a fair amount of time discussing the nature of the inspire hypoglossal nerve stimulator with the patient. I went over some aspects of the implantation as well as the adjustment process. I was clear that PAP therapy remains the gold standard of treatment for obstructive sleep apnea but, particular in his case, I would agree that he is not benefiting from PAP therapy and would be a good potential candidate for an inspire device. PLAN: In-lab PSG If he qualifies for inspire device based upon the parameters on his sleep study I will refer him for further evaluation to ENT I have reviewed the results of my evaluation and impression and discussed my recommendations in detail with the patient. Signed by Kenneth Hernandez MD May 04, 2025 CC: Derrell West MD Seivers, Lori W, APRN documented in this encounter Plan of Treatment Upcoming Encounters Date Type Department Care Team (Late st Contact Info) Description 06/20/2025 2:00 PM EDT Office Visit [facility] [address] [facility] [address] [place] [address] Maury Clarke MD [address] [facility] [address] [place], [place] [id number] 06/21/2025 2:15 PM EDT Office Visit [facility] [address] [place] [address] Alfreda Ritchie APRN [address] [facility] [address] [place] [address] 06/27/2025 7:45 PM EDT Appointment [facility] [address] [facility] [address] [place] [id number] Scheduled Orders Name Type Priority Associated Diagnoses Orde r Schedule Polysomnography 4 or More Parameters Sleep Center Routine Obstructive sleep apnea Difficulty with BiPAP use Snoring Expected: 05/09/2025, Expires: 05/04/2026 documented as of this encounter Visit Diagnoses Diagnosis Obstructive sleep apnea- Primary Obstructive sleep apnea (adult) (pediatric) Difficulty with BiPAP use Snoring Other dyspnea and respiratory abnormality documented in this encounter Care Teams Driver License Agent Relationship Specialty Start Date End Date Derrell West MD [address] [facility] [address] [place] [id number] PCP - General Internal Medicine 06/23/22 documented as of this encounter
--- NOTE | 2025-06-09 07:30 | CT_ITS ---
FINAL REPORT TECHNIQUE: Thin section axial images were obtained from the lung bases to the pubic symphysis without IV contrast. Coronal reconstruction images were obtained from the axial data. Exam was performed using dose reduction technique. CLINICAL HISTORY: Mid abdominal pain, anorexia COMPARISON: 03/28/2022 FINDINGS: There are no renal or ureteral stones. There is no hydronephrosis or perinephric stranding. The gallbladder is absent. There is a stable cyst in the dome of the liver. The spleen, adrenal glands, and pancreas are without acute abnormality. There are fluid-filled small bowel loops in the mid abdomen and right abdomen. Surgical anastomosis is noted in the right upper quadrant. No transition point is identified. The appendix is not seen but there are no secondary signs of acute appendicitis. There is diverticulosis without evidence of diverticulitis. The prostate is unremarkable. There is wall thickening of the urinary bladder, cystitis or changes of chronic outlet obstruction are not excluded. There is no lymphadenopathy or ascites. No acute osseous abnormality is identified. IMPRESSION: Fluid-filled mildly prominent small bowel loops could represent enteritis. Overall pattern is not obstructive. No acute abnormality. Reviewed, Interpreted and Dictated by Rika Ennis MD Transcribed by Tyra Johnson Authenticated and [facility]
--- OUTSIDE RECORDS SUMMARY | 2025-06-09 07:30 | XMS_ITS | Encounter Summary ---
[facility] Address [address] [place] [address] Care Team Providers Care Registered Nurse Cardiovascular Icu Name Role Phone Derrell West MD Primary Care Provider [phone] Encounter Details Date Type Department Care Team [...] Description 06/20/2025 2:00 PM EDT Office Visit [facility] [address] [facility] [address] [place] [address] Maury Clarke MD [address] [facility] [address] [place] [address] 06/21/2025 2:15 PM EDT Office Visit [facility] [address] [place] [address] Alfreda Ritchie APRN [address] [place] [address] 06/27/2025 7:45 PM EDT Appointment [facility] [address] [place] [address] documented as of this encounter Visit Diagnoses Not on filedocumented in this encounter Care Teams Registered Nurse Cardiovascular Icu Relationship Specialty Start Date End Date Derrell West MD [address] [facility] [address] [place] [address] PCP - General Internal Medicine 06/23/22 documented as of this encounter
--- OUTSIDE RECORDS SUMMARY | 2025-06-09 07:30 | XMS_ITS | Clinical Summary ---
Author Organization [facility] Address [address] [place] [id number] Care Team Providers Care Supervisor Airplane Flight Attendant Name Role Phone Derrell West MD Primary Care Provider [phone] Allergies Active Allergy Reactions Criticality Noted Date Comments Amantadines Rash,Other (See Comments),Seizure High 08/07/2010 Seizures, only time pt has ever had a seizure seizure; confirmed by patient's daughter - per pharmacy resource tech Seizures, only time pt has ever had a seizure Codeine Hives,Rash Medium 08/07/2010 confirmed by patient's daughter - per pharmacy resource tech Dexamethasone Other (See Comments),Unknown - Low Severity [...] confirmed by patient's daughter - per pharmacy resource tech Medications busPIRone (BUSPAR) 10 MG tablet Take [...] to be referred to pulmonary sleep at [facility] Dr. Hernandez for further evaluation of inspire. [...] Description 05/04/2025 2:00 PM EDT Office Visit [facility]EP [facility] [address] [facility] [address] [place] [address] Kenneth Hernandez MD Obstructive sleep apnea (Primary Dx); Difficulty with BiPAP use; Snoring 05/04/2025 Travel 05/03/2025 Telephone [facility] [address] [facility] [address] [place] [address] Kenneth Hernandez MD RECORDS/APPT 04/14/2025 12:00 PM EDT - 04/14/2025 11:59 PM EDT Hospital Encounter [facility] [address] [place] [address] Thanh Guy MD AF (paroxysmal atrial fibrillation); Paroxysmal atrial fibrillation; Chronic diastolic congestive heart failure Discharge Disposition: Home or Self Care 04/14/2025 Results Follow-Up [facility] [address] [place] [address] Thanh Guy MD 04/14/2025 Travel 03/29/2025 11:45 AM EDT Office Visit [facility] [address] [place] [address] Thanh Guy MD AF (paroxysmal atrial fibrillation) [...] Visit [facility] [address] [facility] [address] [place] [address] Maury Clarke MD [address] [facility] [address] [place], [place] [id number] 06/21/2025 2:15 PM EDT Office Visit [facility] [address] [place] [address] Alfreda Ritchie APRN [address] [facility] [address] [place], [place] [id number] 06/27/2025 7:45 PM EDT Appointment [facility] [address] [facility] [address] [place] [address] Health Maintenance Due Date Last [...] ult from Last 3 Months [facility] [id number] HUMANA MEDICARE ADVANTAGE PPO Care Teams Supervisor Airplane Flight Attendant Relationship Specialty Start Date End Date Derrell West MD [address] [facility] [address] [place] [address] PCP - General Internal Medicine 06/23/22
--- OUTSIDE RECORDS SUMMARY | 2025-06-09 07:30 | XMS_ITS | Clinical Summary ---
Author Organization [employer] ([place], [place], [place], [place]) Address [address] [place] [address] Care Team Providers Care Gas Worker Name Role Phone DottieJennifer Primary Care Provider [phone] Allergies Active Allergy Reactions Criticality Noted Date [...] RESPIRATORY SYNCYTIAL VIRUS (RSV) VACCINE - (AREXVY- [employer])) ([id number]) 10/06/2023 Family History Medical History Relation Name [...] = 0.6 oz pur e alcohol) wknds [facility] - Mental Health Answer Date [...] Date Jm rded Speak language other than [place]an at home Not on file 11/20/2023 Want [...] Completed 10/06/2023 Medical Devices Implanted Type Area Clay Maker Device Identifier Shelf Expiration Date Model / Serial / Lot Mesh Phasix [id number] - [id number] Implanted:Qt y: 1 on 11/12/2022 by Jair Nunez MD at [facility] IMPLANTS N/A: Abdomen CR BARD:DAVOL [id number] 02/04/2024 [id number] / / [id number] Insurance HU[employer]NA MEDICARE HMO Advance Directives For more information, please contact: [phone] * Full Code (Latest Code Status on File) Date Activated Date Inactivated Comments 11/12/2022 5:57 PM 11/24/2022 2:01 PM Care Teams Gas Worker Relationship Specialty Start Date End Date Jennifer Sinclair DO [address] [place] [address] PCP - General Family Medicine 11/10/24
--- OUTSIDE RECORDS SUMMARY | 2025-06-09 07:30 | XMS_ITS | Encounter Summary ---
Author Organization [facility] Address [address] [place] [id number] Care Team Providers Care Teacher Of The Deaf Name Role Phone Derrell West MD Primary Care Provider [phone] Encounter Details Date Type Department Care Team (Late Contact Info) Description 04/14/2025 Results Follow-Up [facility] [address] [facility] [address] [place] [id number] Thanh Guy MD [address] [facility] [place] [address] Social History Tobacco Use Types Packs/Day Years [...] 2:00 PM EDT Office Visit [facility] [address] [facility] [address] [place] [address] Maury Clarke MD [address] [facility] [address] [place] [address] 06/21/2025 2:15 PM EDT Office Visit [facility] [address] [place] [address] Alfreda Ritchie APRN [address] [place] [address] 06/27/2025 7:45 PM EDT Appointment [facility] [address] [place] [address] documented as of this encounter Visit Diagnoses Not on filedocumented in this encounter Care Teams Teacher Of The Deaf Relationship Specialty Start Date End Date Derrell West MD [address] [facility] [address] [place] [address] PCP - General Internal Medicine 06/23/22 documented as of this encounter
--- OUTSIDE RECORDS SUMMARY | 2025-06-09 07:30 | XMS_ITS | Encounter Summary ---
[facility] Address [address] [place] [address] Care Team Providers Care Tin Pot Operator Name Role Phone Derrell West MD Primary Care Provider [phone] Encounter Details Date Type Department Care Team [...] Description 06/20/2025 2:00 PM EDT Office Visit [facility] [address] [facility] [address] [place] [address] Maury Clarke MD [address] [facility] [address] [place] [address] 06/21/2025 2:15 PM EDT Office Visit [facility] C[facility] [address] [place] [address] Alfreda Ritchie APRN [address] [place] [address] 06/27/2025 7:45 PM EDT Appointment [facility] [address] [place] [address] documented as of this encounter Visit Diagnoses Not on filedocumented in this encounter Care Teams Tin Pot Operator Relationship Specialty Start Date End Date Derrell West MD [address] [facility] [address] [place] [address] PCP - General Internal Medicine 06/23/22 documented as of this encounter
--- OUTSIDE RECORDS SUMMARY | 2025-06-09 07:30 | XMS_ITS | Referral Summary ---
Author Organization [employer] ([place], [place], [place], [place]) Address [address] [place] [address] Care Team Providers Care Director Field Services Name Role Phone DottieJennifer Primary Care Provider [phone] Allergies Active Allergy Reactions Criticality Noted Date [...] RESPIRATORY SYNCYTIAL VIRUS (RSV) VACCINE - (AREXVY- [employer]) ([id number]) 10/06/2023 Social History Tobacco Use Types Packs/Day Years Used Date Smoking Tobacco: Former Cigarettes Q uit: 11/12/2014 Smokeless Tobacco: Never Tobacco Cessation:Counseling Given: Not Answered Alcohol Use Standard Drinks/Week Comments Yes 9 (1 standard drink = 0.6 oz pur e alcohol) wknds [facility] - Mental Health Answer Date Recorde d [...] Date Jm rded Speak language other than Kittitian at home Not on file 11/20/2023 Want [...] on file Medical Devices Implanted Type Area Electric Golf Cart Repairers Device Identifier Shelf Expiration Date Model / Serial / Lot Mesh Phasix [id number] - [id number] Implanted:Qt y: 1 on 11/12/2022 by Jair Nunez MD at [facility] IMPLANTS N/A: Abdomen CR BARD:DAVOL [id number] 02/04/2024 [id number] / / [id number] Insurance HUMANA MEDICARE HMO Advance Directives For more information, please contact: [phone] * Full Code (Latest Code Status on File) Date Activated Date Inactivated Comments 11/12/2022 5:57 PM 11/24/2022 2:01 PM Care Teams Director Field Services Relationship Specialty Start Date End Date Jennifer Sinclair DO [address] [place] [address] PCP - General Family Medicine 11/10/24
--- OUTSIDE RECORDS SUMMARY | 2025-06-09 07:30 | XMS_ITS | Encounter Summary ---
[facility] Address [address] [place] [address] Care Team Providers Care Urban Designer Name Role Phone Derrell West MD Primary Care Provider [phone] Reason for Visit * Reason Onset Date Comments RECORDS/APPT 05/03/2025 Encounter Details Date Type Department Care Team (Late st Contact Info) Description 05/03/2025 Telephone [facility] SLEEP [facility]ICINE [address] [address] Kenneth Hernandez MD [address] [place] [address] RECORDS/APPT Social History Tobacco Use Types Packs/Day [...] 2:00 PM EDT Office Visit [facility] [address] [facility] [address] [place] [address] Maury Clarke MD [address] [facility] [address] [place] [address] 06/21/2025 2:15 PM EDT Office Visit [facility] [address] [place] [address] Alfreda Ritchie APRN [address] [facility] [address] [place], [place] [address] 06/27/2025 7:45 PM EDT Appointment [facility] [address] [facility] [address] [place] [address] documented as of this encounter Visit Diagnoses Not on filedocumented in this encounter Care Teams Urban Designer Relationship Specialty Start Date End Date Derrell West MD [address] [facility] [address] [place] [address] PCP - General Internal Medicine 06/23/22 documented as of this encounter
--- OUTSIDE RECORDS SUMMARY | 2025-06-09 07:30 | XMS_ITS | Clinical Summary ---
Author Organization [facility] Address [address] [place] [address] Care Team Providers Care Motocross Racer Name Role Phone Derrell West MD Primary Care Provider Allergies Active Allergy Reactions Criticality Noted Date Comments Amantadines Other - please document in the comment field High 08/07/2010 seizure; confirmed by patient's daughter - per retail pharmacy technician Seizures, only time pt has ever had a seizure Codeine Hives Medium 08/07/2010 confirmed by patient's daughter - per retail pharmacy technician Hydrochlorothiazide Rash Low 06/23/2022 Metoclopramide Other - please document in the comment field Medium 06/25/2022 Caused depression Penicillins Hives,Itching,Rash,S w elling High 08/07/2010 confirmed by patient's daughter - per retail pharmacy technician Medications bumetanide (Bumex) 2 MG tablet Take [...] Department Care Team Description 03/28/2025 Orders Only [facility] [address] [address] AnkitAmy guadalupe Leela 03/24/2025 10:40 AM EDT Office Visit [facility] [address] [id number] [place] [...] Months Immunizations Immunization Administration Dates Next Due PNMsoft COVID-19 Vac cine (Purple Cap) 12+ 08/26/2021,02/12/2021,01/22/2021 [...] Screening 1955 [facility]-Medicare Annual Wellness (AWV) 1955 [facility]-/Child/Adol SDOH Screenings 1955 [facility]- SDOH Screenings 1973 [facility]-Adult SDOH Screenings 1973 [facility]-DTaP,Tdap,and Td Vaccines (1 - Tdap) 1974 CT Colonography 2000 Colonoscopy 2000 FIT-DNA 2000 FIT 2000 FOBT 2000 Sigmoidoscopy 2000 [facility]-Colorectal Cancer Screening 2000 [facility]-Zoster Vaccines (1 of 2) 2005 [facility]-Abdominal Aortic Aneurysm (AAA) Screening 2020 HYC-THAUS-60 Vaccine ( season) 2024 08/26/2021, 02/12/2021, 01/22/2021 [...] patient's age to complete this topic Insurance [facility] MEDICARE Care Teams Motocross Racer Relationship Specialty Start Date End Date Derrell West MD [address] [facility] [address] [address] PCP - General 10/21/22
== END 2025-06-09 23:59 | disposition home or self-care (01) ==
LOC: RAD 07:28
PROVIDERS: PCP Internal Medicine; Visit Provider Internal Medicine
DX: R93.3 Abnormal findings on diagnostic imaging of other parts of digestive tract (principal); R10.9 Unspecified abdominal pain; R63.0 Anorexia
CPT/HCPCS: 74176

== ENCOUNTER 2025-06-29 11:02 | Outpatient (CLI) | payer MEDICARE, SELFPAY ==
--- OUTSIDE RECORDS SUMMARY | 2025-05-04 14:00 | XMS_ITS | Encounter Summary ---
Author Organization [facility] Address [address] [place] [address] Care Team Providers Care Special Event Assistant Name Role Phone Derrell West MD Primary Care Provider [phone] Reason for Referral * Hospital - Outpatient (Routine) - Closed Specialty Diagnoses / Procedures Referred By Karly marroquin Referred To Contact Sleep Medicine Diagnoses Obstructive sleep apnea Difficulty with BiPAP use Snoring Procedures Polysomnography 4 or More Parameters Kenneth Hernandez MD [address] [place] [address] Phone: tel: fax: [facility] [address] [address] Phone: tel: fax: Referral ID Status Reason Start Date Expiration Date Visits Re quested Visits Authorized [id number] Closed 05/04/2025 08/19/2025 1 1 Reason for Visit * Reason Comments Witnessed Apnea Snoring Daytime Sleepiness Frequent Awakenings Non-restorative Sleep Dry Mouth Unable To Stay Asleep * Consultation (Routine) - Closed Specialty Diagnoses / Procedures Referred By Karly marroquin Referred To Contact Pulmonary Disease / Sleep Medicine Diagnoses Obstructive sleep apnea Procedures [place] OFFICE/OUTPATIENT NEW MODERATE MDM 45 MINUTES Ximena Veliz APRN [address] [place] [address] [place] [address] Phone: tel: fax: Kenneth Hernandez MD 3000 [facility] [address] [place] [address] Phone: tel: fax: Referral ID Status Reason Start Date Expiration Date Visits Requested Visits Authorized [id number] Closed Patient Preference 01/26/2025 04/27/2026 1 1 Encounter Details Date Type Department Care Team (Late st Contact Info) Description 05/04/2025 2:00 PM EDT Office Visit [facility] SLEEP MEDICINE 3000 [facility] [address] [place] [address] Kenneth Hernandez MD [address] [place] [address] Obstructive sleep apnea (Primary Dx); Difficulty with [...] cared for primarily by Dr. Reynaga in [place] and subsequently Ms. Obrien in [facility] cardiology and sleep office there. He [...] chest of heart failure and atrial fibrillation. [place] Scale is: 16/24 The patient's relevant past medical, surgical, family, and social history reviewed and updated in [facility] as appropriate. Current medications are: Current Outpatient [...] Care Team (Late st Contact Info) Description 08/28/2025 Hospital Encounter [facility] [address] [place] [address] Maury Clarke MD [address] [address] 01/02/2026 4:15 PM EST Office Visit [facility] CARDIOLOG[facility] [address] [phone] Maury Clarke MD [address] [address] Scheduled Procedures Name Priority Associated Diagnoses Date/Ti me LEFT ATRIAL APPENDAGE OCCLUSION AF (paroxysmal atrial fibrillation) Patient noncompliant with anticoagulant medication documented as of this encounter Results * NPSG (06/28/2025 5:48 AM EDT) Narrative SLEEP MEDICINE - 06/28/2025 5:42 PM EDT Table formatting from the original result was not included. Polysomnography Report Patient Name: Aden Cheung Interpreting Physician: Kenneth Hernandez MD Date of : 1955 Referring Provider: Kenneth Hernandez,* Primary Care Provider: Derrell West MD Date of Study: 06/27/2025 Clinical Information 70-year-old male with longstanding obstructive sleep apnea and [...] actual AHI and numbers of central events. Methods used for Diagnostic Study: Subject was monitored in the sleep laboratory. Electroencephalogram (C3/M2, C4/M1, F3/M2, F4/M1, 01/M2, O2/M1), EOG, EKG, and EMG (chin and bilateral anterior tibialis) were monitored by surface electrodes and recorded utilizing a computerized polygraph. Airflow was recorded by a thermistor and pressure transducer at the nose and mouth and oxygen saturation was recorded by a pulse oximeter. Thoracic and abdominal respiratory movements were recorded on 2 separate channels by respiratory inductive plethysmograph. Sleep stages were scored by standard techniques and abnormal respiratory events, cardiac arrhythmias, and leg movements were analyzed. Polysomnography Results - Normal sleep efficiency - All sleep stages were present - AHI elevated at 15.2. 6.1% of the events were central in nature. - AHI higher during REM sleep - AHI higher in supine position - Normal PLM index - Oxygen saturations averaged 91% with saturations less than 89% for a total of 46 minutes in total throughout the night - Cardiac rhythm predominantly atrial fibrillation - Snoring was noted - Impression: - moderate obstructive sleep apnea is present. - Oxygen desaturations are present. - Snoring is present. Recommendations: Based upon the above the patient would appear to meet criteria for an inspire hypoglossal nerve stimulator implantation and I will therefore refer the patient to ENT for further evaluation. Follow-up: Sleep Center Electronically signed by: Kenneth Hernandez MD 06/28/25 17:34 EDT us Kenneth Hernandez MD SLEEP CENTER ORDERABLE S Final Result SLEEP MEDICINE documented in this encounter Visit Diagnoses Diagnosis Obstructive sleep apnea- Primary Obstructive sleep apnea (adult) (pediatric) Difficulty with BiPAP use Snoring Other dyspnea and respiratory abnormality Obstructive sleep apnea Obstructive sleep apnea (adult) (pediatric) Difficulty with BiPAP use Snoring Other dyspnea and respiratory abnormality documented in this encounter Care Teams Special Event Assistant Relationship Specialty Start Date End Date Derrell West MD 1210 [facility] [address] [place] [address] PCP - General Internal Medicine 06/23/22 documented as of this encounter
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
--- OUTSIDE RECORDS SUMMARY | 2025-06-27 19:45 | XMS_ITS | Encounter Summary ---
Author Organization [facility] Address [address] [place] [address] Care Team Providers Care Stud Sheep Farmer Name Role Phone Derrell West MD Primary Care Provider [phone] Reason for Referral * Hospital - Outpatient (Routine) - Closed Specialty Diagnoses / Procedures Referred By Karly marroquin Referred To Contact Sleep Medicine Diagnoses Obstructive sleep apnea Difficulty with BiPAP use Snoring Procedures Polysomnography 4 or More Parameters Kenneth Hernandez MD [address] [place] [address] Phone: tel: fax: [facility] [address] [address] Phone: tel: fax: Referral ID Status Reason Start Date Expiration Date Visits Re quested Visits Authorized [id number] Closed 05/04/2025 08/19/2025 1 1 Reason for Visit * Hospital - Outpatient (Routine) - Closed Specialty Diagnoses / Procedures Referred By Karly marrqouin Referred To Contact Sleep Medicine Diagnoses Obstructive sleep apnea Difficulty with BiPAP use Snoring Procedures Polysomnography 4 or More Parameters Kenneth Heranndez MD [address] [place] [address] Phone: tel: fax: [facility] [address] [facility] [address] [place] [address] Phone: tel: fax: Referral ID Status Reason Start Date Expiration Date Visits Re quested Visits Authorized [id number] Closed 05/04/2025 08/19/2025 1 1 Encounter Details Date Type Department Care Team (Latest Contact Info) Description 06/27/2025 7:45 PM EDT Hospital Encounter [facility] [address] [facility] [address] [place] [address] Obstructive sleep apnea; Difficulty with BiPAP use; [...] st Contact Info) Description 08/28/2025 Hospital Encounter [facility] EP LAB [address] [place] [address] Maury Clarke MD [address] [facility] [address] [place] [address] 01/02/2026 4:15 PM EST Office Visit [facility] [address] [facility] [address] [place] [address] Maury Clarke MD [address] [facility] [address] [place] [address] Scheduled Procedures Name Priority Associated Diagnoses Date/Ti [...] not included. Polysomnography Report [facility]: [facility] Interpreting Physician: Kenneth Hernandez MD Date of [...] abnormality documented in this encounter Care Teams Stud Sheep Farmer Relationship Specialty Start Date End Date Derrell West MD 1210 [facility] [address] [place] [address] PCP - General Internal Medicine 06/23/22 documented as of this encounter
[2025-06-29 11:06] LABS: Adenovirus F 40/41, stool Not Detected (NotDetected); Clostridium Difficile A/B, PCR Not Detected (NotDetected); Cyclospora Cayetanesis Not Detected (NotDetected); Plesimonas Shigalloides, PCR Not Detected (NotDetected); Salmonella, PCR Not Detected (NotDetected); Shiga-like toxin E coli Not Detected (NotDetected); Shigella Enterovasive E coli Not Detected (NotDetected); Vibrio, PCR Not Detected (NotDetected); Yersinia Entercolitica, PCR Not Detected (NotDetected)
--- OUTSIDE RECORDS SUMMARY | 2025-06-29 11:06 | XMS_ITS | Clinical Summary ---
Author Organization [facility] Address [address] [place] [address] Care Team Providers Care Java Developer Analyst Name Role Phone Derrell West MD Primary Care Provider [phone] Allergies Active Allergy Reactions Criticality Noted Date Comments Amantadines Rash,Other (See Comments),Seizure High 08/07/2010 Seizures, only time pt has ever had a seizure seizure; confirmed by patient's daughter - per pharmacy clinical specialist Seizures, only time pt has ever had a seizure Codeine Hives,Rash Medium 08/07/2010 confirmed by patient's daughter - per pharmacy clinical specialist Dexamethasone Other (See Comments),Unknown - Low Severity [...] confirmed by patient's daughter - per pharmacy clinical specialist Medications busPIRone (BUSPAR) 10 MG tablet Take [...] Take 1 tablet by mouth. 02/20/2025 Active vitamin C (ASCORBIC ACID) 500 MG tablet 05/23/2025 Activ e empagliflozin (Jardiance) 10 MG tablet tablet Take 1 tablet by mouth Daily. 30 tablet 11 06/21/2025 Active Active Problems Problem Noted Date Diagnosed Date Patient noncompliant with anticoagulant medicati on 06/22/2025 Hypothyroidism 05/04/2025 Preoperative cardiovascular examination 10/01/20 Chronic [...] to be referred to pulmonary sleep at [facility] [place], operated by [facility] Dr. Hernandez for further evaluation of inspire. [...] Encounters Date Type Department Care Team Description 06/27/2025 7:45 PM EDT Hospital Encounter [facility] [address] [facility] [address] [place] [phone] Obstructive sleep apnea; Difficulty with BiPAP use; Snoring 06/27/2025 Travel 06/22/2025 Telephone [facility] [address] [place] [address] Maury Clarke MD 06/21/2025 2:30 PM EDT Office Visit [facility] [address] [place] [address] Thanh Guy MD Chronic diastolic congestive heart failure (Primary Dx); AF (paroxysmal atrial fibrillation) 06/20/2025 2:00 PM EDT Office Visit [facility] [address] [place] [address] Maury Clarke MD AF (paroxysmal atrial fibrillation) (Primary Dx); Primary hypertension; Frequent PVCs 06/20/2025 Travel 06/19/2025 Telephone [facility] [address] [facility] [place] [address] Alfreda Ritchie APRN 05/04/2025 2:00 PM EDT Office Visit [facility] [address] [facility] [address] [place] [address] Kenneth Hernandez MD Obstructive sleep apnea (Primary Dx); Difficulty with BiPAP use; Snoring 05/04/2025 Travel 05/03/2025 Telephone [facility] [address] [facility] [address] [place] [address] Kenneth Hernandez MD RECORDS/APPT 04/14/2025 12:00 PM EDT - 04/14/2025 11:59 PM EDT Hospital Encounter [facility] CARDI[facility]ULAR LAB [address] [facility] 3rd [place] [address] Thanh Guy MD AF (paroxysmal atrial fibrillation); Paroxysmal atrial fibrillation; Chronic diastolic congestive heart failure Discharge Disposition: Home or Self Care 04/14/2025 Results Follow-Up [facility] [address] [place] [address] Thanh Guy MD 04/14/2025 Travel 03/29/2025 11:45 AM EDT Office Visit [facility] [address] [place] [address] Thanh Guy MD AF (paroxysmal atrial fibrillation) (Primary Dx); Chronic diastolic congestive heart failure 03/29/2025 Travel from Last 3 Months Immunizations Immunization Administration Dates Next Due Arexvy (RSV, Adults 60+ yrs) 10/06/2023 Fluzone High-Dose 65+YRS 09/13/2024 Influenza, Unspecified 09/27/2024 Pneumococcal Conjugate 20-Valent (PCV20) 023 Family History Medical History Relation Name Comments Atrial fibrillation Brother Cancer Father Destiny Heart attack Father Destiny Heart attack Mother Lesvia Heart disease Mother Lesvia Hypertension Mother Lesvia Relation Name Status Comments Brother Alive Father Destiny Mother Lesvia Social History Tobacco Use Types Packs/Day Years [...] Pulse 52 06/27/2025 8:12 PM EDT Temperature 36.4 C (97.5 F) 05/04/2025 1:19 PM EDT Respiratory Rate - - Oxygen Saturation 92% 06/27/2025 8:12 PM EDT Inhaled Oxygen Concentration - - Weight 102 kg (224 lb) 06/27/2025 8:12 PM EDT Height 180.3 cm (5' 10.98 ) 06/27/2025 8:12 PM E DT Body Mass Index 31.26 06/27/2025 8:12 PM EDT Plan of Treatment Upcoming Encounters Date Type Department Care Team (Late st Contact Info) Description 08/28/2025 Hospital Encounter [facility] EP LAB [address] [place] [address] Maury Clarke MD [address] [place] [id number] 01/02/2026 4:15 PM EST Office Visit [facility] [address] [facility] [address] [place] [address] Maury Clarke MD [address] [facility] [address] [place] [address] Scheduled Procedures Name Priority Associated Diagnoses Date/Ti me LEFT ATRIAL APPENDAGE OCCLUSION AF (paroxysmal atrial fibrillation) Patient noncompliant with anticoagulant medication Health Maintenance Due Date Last Done Comments [...] sleep apnea Difficulty with BiPAP use Snoring SCANNED EKG 06/20/2025 [facility] IMAGING FOR CARDIAC AMYLOIDOSIS Routine 04/14/2025 2:52 PM EDT AF (paroxysmal atrial fibrillation) Paroxysmal atrial fibrillation Chronic diastolic congestive heart failure from Last 3 Months Results * NPSG (06/28/2025 5:48 AM EDT) [...] by: Kenneth Hernandez MD 06/28/25 17:34 EDT Kenneth Hernandez MD SLEEP CENTER ORDERABLE S Final Result SLEEP MEDICINE * ECG Scan (06/20/2025) Maury Clarke MD ECG ORDERABLES Final Result * [facility] Imaging for Cardiac Amyloidosis (04/14/2025 [...] Res ult from Last 3 Months Insurance [facility] MEDICARE ADVANTAGE PPO Care Teams Java Developer Analyst Relationship Specialty Start Date End Date Derrell West MD [address] [facility] [address] [place] [address] PCP - General Internal Medicine 06/23/22
--- OUTSIDE RECORDS SUMMARY | 2025-06-29 11:06 | XMS_ITS | Encounter Summary ---
[facility] Address [address] [place] [address] Care Team Providers Care Fermenting Cellar Dropper Name Role Phone Derrell West MD Primary Care Provider [phone] Reason for Visit * Reason Onset Date Comments RECORDS/APPT 05/03/2025 Encounter Details Date Type Department Care Team (Late st Contact Info) Description 05/03/2025 Telephone [facility] SLEEP [facility]ICINE [address] [phone] Kenneth Hernandez MD [address] [place] [address] RECORDS/APPT Social History Tobacco Use Types Packs/Day [...] Contact Info) Description 08/28/2025 Hospital Encounter [facility] EP LAB [address] [facility] [address] [facility] [id number] Maury Clarke MD 1720 [facility] 400 [place], [place] [id number] 01/02/2026 4:15 PM EST Office Visit [facility] [address] [facility] 400 [place] [address] Maury Clarke MD 1720 [facility] [address] [place], [place] [phone] Scheduled Procedures Name Priority Associated Diagnoses Date/Ti me LEFT ATRIAL APPENDAGE OCCLUSION AF (paroxysmal atrial fibrillation) Patient noncompliant with anticoagulant medication documented as of this encounter Visit Diagnoses Not on filedocumented in this encounter Care Teams Fermenting Cellar Dropper Relationship Specialty Start Date End Date Derrell West MD 1210 [facility] [address] [place] [address] PCP - General Internal Medicine 06/23/22 documented as of this encounter
--- OUTSIDE RECORDS SUMMARY | 2025-06-29 11:06 | XMS_ITS | Encounter Summary ---
Author Organization [facility] Address [address] [place] [id number] Care Team Providers Care Inspector Publications Name Role Phone Derrell West MD Primary Care Provider [phone] Encounter Details Date Type Department Care Team (Latest Contact Info) Description 06/20/2025 Travel Social History Tobacco Use Types Packs/Day [...] [facility] [address] [facility] [place] [address] Maury Clarke MD 1720 [facility] 400 [place] [id number] 01/02/2026 4:15 PM EST Office Visit [facility] 1720 [facility] 400 [place] [address] Maury Clarke MD 1720 [facility] [address] [place] [id number] Scheduled Procedures Name Priority Associated Diagnoses Date/Ti me LEFT ATRIAL APPENDAGE OCCLUSION AF (paroxysmal atrial fibrillation) Patient noncompliant with anticoagulant medication documented as of this encounter Visit Diagnoses Not on filedocumented in this encounter Care Teams Inspector Publications Relationship Specialty Start Date End Date Derrell West MD [facility] [place] [address] [address] [facility] [address] PCP - General Internal Medicine 06/23/22 documented as of this encounter
--- OUTSIDE RECORDS SUMMARY | 2025-06-29 11:06 | XMS_ITS | Encounter Summary ---
[facility] Organization [facility] Address [address] [place] [address] Care Team Providers Care Rare/Endangered Species Specialist Name Role Phone Derrell West MD Primary Care Provider [phone] Encounter Details Date Type Department Care Team (Late st Contact Info) Description 04/14/2025 Results Follow-Up [facility] [address] [facility] [address] [place] [address] Thanh Guy MD [address] [facility] [address] [place], [place] [id number] Social History Tobacco Use Types Packs/Day Years [...] Department Care Team (Late Contact Info) Description 08/28/2025 Hospital Encounter [facility] EP LAB [address]40 [place] [address] Maury Clarke MD [address] [facility] [address] [place] [address] 01/02/2026 4:15 PM EST Office Visit [facility] [address] [facility] [address] [place] [address] Maury Clarke MD 1720 [facility] [address] [place] [id number] Scheduled Procedures Name Priority Associated Diagnoses Date/Ti me LEFT ATRIAL APPENDAGE OCCLUSION AF (paroxysmal atrial fibrillation) Patient noncompliant with anticoagulant medication documented as of this encounter Visit Diagnoses Not on filedocumented in this encounter Care Teams Rare/Endangered Species Specialist Relationship Specialty Start Date End Date Derrell West MD 1210 [facility] [address] [facility] [address] [place] [address] PCP - General Internal Medicine 06/23/22 documented as of this encounter
--- OUTSIDE RECORDS SUMMARY | 2025-06-29 11:06 | XMS_ITS | Encounter Summary ---
[facility] Organization [facility] Address [address] [place] [address] Care Team Providers Care Venture Capital Analyst Name Role Phone Derrell West MD Primary Care Provider [phone] Encounter Details Date Type Department Care Team (Late st Contact Info) Description 06/19/2025 Telephone [facility] [address] [place] [address] Padmini Ritchie, RADHA [address] [facility] [address] [address] [place] [address] Social History Tobacco Use Types Packs/Day Years [...] encounter Miscellaneous Notes * Telephone Encounter - Jose Farris RegSched Rep - 06/19/2025 11:48 AM EDT LVM REGARDING NEW APPT TIME AND DATE WITH PADMINI LIMA documented in this encounter Plan of Treatment Upcoming Encounters Date Type Department Care Team (Late st Contact Info) Description 08/28/2025 Hospital Encounter [facility] EP LAB [address] [facility] [place] [phone] Maury Clarke MD 1720 [place] [address] 01/02/2026 4:15 PM EST Office Visit [facility] 1720 [facility] 400 [place] [address] Maury Clarke MD [address] [address] Scheduled Procedures Name Priority Associated Diagnoses Date/Ti me LEFT ATRIAL APPENDAGE OCCLUSION AF (paroxysmal atrial fibrillation) Patient noncompliant with anticoagulant medication documented as of this encounter Visit Diagnoses Not on filedocumented in this encounter Care Teams Venture Capital Analyst Relationship Specialty Start Date End Date Derrell West MD 1210 [facility] [address] [place] [address] PCP - General Internal Medicine 06/23/22 documented as of this encounter
--- OUTSIDE RECORDS SUMMARY | 2025-06-29 11:06 | XMS_ITS | Encounter Summary ---
Author Organization [facility] Address [address] [place] [phone] Care Team Providers Care Glassine Machine Tender Name Role Phone Derrell West MD Primary Care Provider [phone] Encounter Details Date Type Department Care Team (Latest Contact Info) Description 06/27/2025 Travel Social History Tobacco Use Types Packs/Day [...] st Contact Info) Description 08/28/2025 Hospital Encounter [facility] EP LAB [address] [place] [address] Maury Clarke MD 1720 [facility] 400 [place] [id number] 01/02/2026 4:15 PM EST Office Visit [facility] [address] [facility] [address] [place] [address] Maury Clarke MD [address] [facility] [address] [place] [phone] Scheduled Procedures Name Priority Associated Diagnoses Date/Ti me LEFT ATRIAL APPENDAGE OCCLUSION AF (paroxysmal atrial fibrillation) Patient noncompliant with anticoagulant medication documented as of this encounter Visit Diagnoses Not on filedocumented in this encounter Care Teams Glassine Machine Tender Relationship Specialty Start Date End Date Derrell West MD [facility] [place] [address] [address] [facility] [address] PCP - General Internal Medicine 06/23/22 documented as of this encounter
--- OUTSIDE RECORDS SUMMARY | 2025-06-29 11:06 | XMS_ITS | Clinical Summary ---
Author Organization [employer] ([place], [place], [place], [place]) Address [address] [place] [address] Care Team Providers Care Reflexologist Name Role Phone DottieJennifer Primary Care Provider [phone] Allergies Active Allergy Reactions Criticality Noted Date [...] RESPIRATORY SYNCYTIAL VIRUS (RSV) VACCINE - (AREXVY- JUNIQE) ([id number]) 10/06/2023 Family History Medical History Relation Name [...] = 0.6 oz pur e alcohol) wknds [facility] - Mental Health Answer Date Recorde [...] Date Jm rded Speak language other than Iraqi at home Not on file 11/20/2023 Want [...] Completed 10/06/2023 Medical Devices Implanted Type Area Kettle Cleaner Device Identifier Shelf Expiration Date Model / Serial / Lot Mesh Phasix [id number] - [id number] Implanted:Qt y: 1 on 11/12/2022 by Jair Nunez MD at [facility] IMPLANTS N/A: Abdomen CR BARD:DAVOL [id number] 02/04/2024 [id number] / / [id number] Insurance [employer] MEDICARE HMO Advance Directives For more information, please contact: [phone] * Full Code (Latest Code Status on File) Date Activated Date Inactivated Comments 11/12/2022 5:57 PM 11/24/2022 2:01 PM Care Teams Reflexologist Relationship Specialty Start Date End Date Jennifer Sinclair DO [address] [place] [address] PCP - General Family Medicine 11/10/24
--- OUTSIDE RECORDS SUMMARY | 2025-06-29 11:06 | XMS_ITS | Referral Summary ---
Author Organization [employer] ([place], [place], [place], [place]) Address [address] [place] [address] Care Team Providers Care Laborer Wood Preserving Plant Name Role Phone DottieJennifer Primary Care Provider [phone] Allergies Active Allergy Reactions Criticality Noted Date [...] RESPIRATORY SYNCYTIAL VIRUS (RSV) VACCINE - (AREXVY- Travel Appeal) ([id number]) 10/06/2023 Social History Tobacco Use Types Packs/Day Years Used Date Smoking Tobacco: Former Cigarettes Q uit: 11/12/2014 Smokeless Tobacco: Never Tobacco Cessation:Counseling Given: Not Answered Alcohol Use Standard Drinks/Week Comments Yes 9 (1 standard drink = 0.6 oz pur e alcohol) wknds [facility] - Mental Health Answer Date Recorde [...] Date Jm rded Speak language other than [place]ome[place] at home Not on file 11/20/2023 Want [...] on file Medical Devices Implanted Type Area Title Abstractor Device Identifier Shelf Expiration Date Model / Serial / Lot Mesh Phasix [id number] - [id number] Implanted:Qt y: 1 on 11/12/2022 by Jair Nunez MD at [facility] IMPLANTS N/A: Abdomen CR BARD:DAVOL [id number] 02/04/2024 [id number] / / [id number] Insurance [employer] MEDICARE HMO Advance Directives For more information, please contact: [phone] * Full Code (Latest Code Status on File) Date Activated Date Inactivated Comments 11/12/2022 5:57 PM 11/24/2022 2:01 PM Care Teams Laborer Wood Preserving Plant Relationship Specialty Start Date End Date Jennifer Sinclair DO [address] [place] [address] PCP - General Family Medicine 11/10/24
--- OUTSIDE RECORDS SUMMARY | 2025-06-29 11:06 | XMS_ITS | Encounter Summary ---
Author Organization [facility] Address [address] [place] [phone] Care Team Providers Care Fender Repairer Name Role Phone Derrell West MD Primary Care Provider [phone] Reason for Referral * Diagnostic Imaging (Routine) - Pending Review Specialty Diagnoses / Procedures Referred By Contac t Referred To Contact Diagnoses AF (paroxysmal atrial fibrillation) Patient noncompliant with anticoagulant medication Procedures Intra-Op Structural Heart YAA (Cardiology Read) Maury Clarke MD [address] [place] [address] Phone: tel: fax: Referral ID Status Reason Start Date Expiration Date V isits Requested Visits Authorized Pending Review 06/23/2025 09/22/2026 1 1 * MRI/CAT/PET Scan (Routine) - Pending Review Specialty Diagnoses / Procedures Referred By Contac t Referred To Contact Radiology Diagnoses AF (paroxysmal atrial fibrillation) Preop examination Patient noncompliant with anticoagulant medication Procedures CT Angiogram Chest Maury Clarke MD [address] [place] [address] Phone: tel: fax: Referral ID Status Reason Start Date Expiration Date V isits Requested Visits Authorized Pending Review 06/23/2025 09/22/2026 1 1 Encounter Details Date Type Department Care Team (Late st Contact Info) Description 06/22/2025 Telephone [facility] 1720 [facility] 400 [place] [phone] Maury Clarke MD 1720 [place] [address] Social History Tobacco Use Types Packs/Day Years [...] encounter Miscellaneous Notes * Telephone Encounter - Aline Rodgers RN - 06/22/2025 3:31 PM EDT ----- Message from Gosia Shah sent at 06/21/2025 3:51 PM EDT ----- Regarding: watchman Pt called today and stated he would like to go ahead with the watchman procedure. documented in this encounter Plan of Treatment Upcoming Encounters Date Type Department Care Team (Late st Contact Info) Description 08/28/2025 Hospital Encounter EP LAB 1740 [place] [address] Maury Clarke MD [address] [address] 01/02/2026 4:15 PM EST Office Visit [facility] 1720 [facility] 400 [place] [address] Maury Clarke MD [address] [address] Scheduled Orders Name Type Priority Associated Diagnoses Orde r Schedule CT Angiogram Chest Imaging Routine AF (paroxysmal atrial fibrillation) Preop examination Patient noncompliant with anticoagulant medication Expected: 08/21/2025, Expires: 06/22/2026 Intra-Op Structural Heart YAA (Cardiology Read) Echocardiography Routine AF (paroxysmal atrial fibrillation) Patient noncompliant with anticoagulant medication Expected: 06/27/2025, Expires: 06/22/2026 Scheduled Procedures Name Priority Associated Diagnoses Date/Ti me LEFT ATRIAL APPENDAGE OCCLUSION AF (paroxysmal atrial fibrillation) Patient noncompliant with anticoagulant medication documented as of this encounter Visit Diagnoses Diagnosis AF (paroxysmal atrial fibrillation)- Primary Atrial fibrillation Preop examination Unspecified pre-operative examination Patient noncompliant with anticoagulant medication Patient noncompliant with anticoagulant medication- Primary AF (paroxysmal atrial fibrillation) Atrial fibrillation documented in this encounter Care Teams Fender Repairer Relationship Specialty Start Date End Date Derrell West MD [facility] [address] [place] [address] PCP - General Internal Medicine 06/23/22 documented as of this encounter
--- OUTSIDE RECORDS SUMMARY | 2025-06-29 11:06 | XMS_ITS | Clinical Summary ---
Author Organization [facility] Address [address] [place] [address] Care Team Providers Care Wire Stockkeeper Name Role Phone Derrell West MD Primary Care Provider [phone] Allergies Active Allergy Reactions Criticality Noted Date Comments Amantadines Other - please document in the comment field High 08/07/2010 seizure; confirmed by patient's daughter - per pharmacy grad intern Seizures, only time pt has ever had a seizure Codeine Hives Medium 08/07/2010 confirmed by patient's daughter - per pharmacy grad intern Hydrochlorothiazide Rash Low 06/23/2022 Metoclopramide Other - please document in the comment field Medium 06/25/2022 Caused depression Penicillins Hives,Itching,Rash,S w elling High 08/07/2010 confirmed by patient's daughter - per pharmacy grad intern Medications bumetanide (Bumex) 2 MG tablet [...] stage 2, GFR 60-89 ml/min 06/25/2022 07/09/2023 Immunizations Immunization Administration Dates Next Due Pfizer-BioNTech COVID-19 Vac cine (Purple Cap) 12+ 08/26/2021,02/12/2021,01/22/2021 [...] [facility]-Depression Screening 1955 [facility]-Hepatitis C Screening 1955 [facility]-Medicare Annual Wellness (AWV) 1955 [facility]-/Child/Adol SDOH Screenings 1955 [facility]- SDOH Screenings 1973 [facility]-Adult SDOH Screenings 1973 [facility]-DTaP,Tdap,and Td Vaccines (1 - Tdap) 1974 CT Colonography 2000 Colonoscopy 2000 FIT-DNA 2000 FIT 2000 FOBT 2000 Sigmoidoscopy 2000 [facility]-Colorectal Cancer Screening 2000 [facility]-Zoster Vaccines (1 of 2) 2005 [facility]-Abdominal Aortic Aneurysm (AAA) Screening 2020 BWI-LBAQO-01 Vaccine ( season) 2024 08/26/2021, 02/12/2021, 01/22/2021 [...] patient's age to complete this topic Insurance [employer] MEDIC[employer] Care Teams Wire Stockkeeper Relationship Specialty Start Date End Date Derrell West MD [address] [place] [id number] PCP - General 10/21/22
--- OUTSIDE RECORDS SUMMARY | 2025-06-29 11:06 | XMS_ITS | Encounter Summary ---
Author Organization [facility] Address [address] [place] [address] Care Team Providers Care Broke Beater Operator Name Role Phone Derrell West MD Primary Care Provider [phone] Encounter Details Date Type Department Care Team [...] Contact Info) Description 08/28/2025 Hospital Encounter [facility] EP LAB [address]40 [place] [address] Maury Clarke MD 1720 [facility] 400 [place] [address] 01/02/2026 4:15 PM EST Office Visit [facility] CARD[facility] 1720 [facility] 400 [place] [address] Maury Clarke MD 1720 [facility] 400 [place] [address] Scheduled Procedures Name Priority Associated Diagnoses Date/Ti me LEFT ATRIAL APPENDAGE OCCLUSION AF (paroxysmal atrial fibrillation) Patient noncompliant with anticoagulant medication documented as of this encounter Visit Diagnoses Not on filedocumented in this encounter Care Teams Broke Beater Operator Relationship Specialty Start Date End Date Dererll West MD [address] [place] [address] PCP - General Internal Medicine 06/23/22 documented as of this encounter
== END 2025-06-29 23:59 | disposition home or self-care (01) ==
LOC: LAB 11:03
PROVIDERS: PCP Internal Medicine; Visit Provider Internal Medicine Gastroenterology
DX: R19.7 Diarrhea, unspecified (principal); R63.4 Abnormal weight loss
CPT/HCPCS: 87506

== ENCOUNTER 2025-07-03 09:06 | Day surgery (SDC) | payer MEDICARE, SELFPAY ==
[2025-06-28 10:18] VITALS: BMI 31.4
[2025-06-30 09:16] VITALS: BMI 31.2
[2025-07-03] MEDS: LACTATED RINGERS 1000ML 1,000 ML 50 ML IV (09:27)
[2025-07-03 09:28] VITALS: BP 117/71; PULSE 71; RESP 16; TEMP 36.3; O2SAT 97
--- NOTE | 2025-07-03 09:40 | P.HP_ITS ---
History of Present Illness *Admission Date: 07/03/25 *Reason for visit:: Loss of appetite fullness and weight loss *History of present illness: Mr. Cheung is a 70-year-old gentleman who is here for diagnostic upper endoscopy secondary to nausea, loss of appetite, weight loss and history of Gonzalez's esophagus. The examination is deemed medically necessary for diagnostic EGD. The patient has been seen, interviewed and examined prior to the procedure by both myself and the anesthesia provider. [facility] Disclaimer: The information contained in this section may have been updated after the patient was seen, as this information can be updated by other users. Medical History (Updated 07/03/25 @ 09:42 by Cash Neville II, MD) Hernia of abdominal wall Cholecystectomy planned Hypervolemia Leukocytosis Pleural effusion Acute on chronic diastolic (congestive) heart failure COVID-19 Polycythemia Atrial fibrillation with rapid ventricular response Severe sepsis with acute organ dysfunction Acute exacerbation of chronic obstructive airways disease Dyspnea due to COVID-19 Viral respiratory infection Febrile illness Acute bronchitis Acute gout of left foot Moderate major depression Benign essential HTN Hyperlipidemia LDL goal <100 Obstructive sleep apnea (adult) (pediatric) Anxiety disorder, unspecified Hypothyroidism, unspecified Surgical History H/O resection of large bowel Hx of appendectomy Family History Other Atrial fibrillation Family history of myocardial infarction Lung cancer Social History Smoking Status: Former smoker tobacco type: cigarettes packs per day: 1 second hand exposure: Yes alcohol intake: current alcohol intake frequency: a few times a week (7 beers over the course of 2 nights.) substance use type: prescription drug (States he is prescribed Percocet once or twice daily.) current occupational status: retired and other Travel in the last 8 weeks?: None household members: significant other housing: house number of children: 2 current occupational exposures/hazards: No caffeine: No Have you lived/traveled outside US in past 30 days?: No Contact w/someone who lives/traveled outside US past 30 days?: No Exposure to someone with infectious disease in past 14 days?: No Do you have a fever (greater than 100.4 F or 38 C)?: No Have you tested positive for COVID-19?: No Exposed to someone with COVID-19 in past 14 days?: No Do you have a sore throat?: No Do you have a cough?: No Do you have any weakness?: No Do you have any diarrhea?: No Are you experiencing any unusual bleeding?: No Do you have any muscle aches/pain?: No Do you have any abdominal pain?: No Are you experiencing loss of taste or smell?: No Other Medical History Have you received the Flu Vaccine for this season: Yes Have you received the Pneumonia Vaccine: Yes Review of Systems Review of Systems Review of systems (narrative): Negative *Cardiovascular Comments: Negative *Gastrointestinal Comments: Negative *Genitourinary Comments: Negative *Musculoskeletal Comments: Negative *Neurologic Comments: Negative Meds Home Medications and Allergies Home Medications ?Medication ?Instructions ?Recorded ?Confirmed ?Type apixaban 5 mg tablet (Eliquis) 5 mg PO BID #180 tabs 0 05/23/24 07/03/25 Rx cyclobenzaprine 5 mg tablet 5 mg PO TIDP PRN muscle sp asm #60 04/12/25 07/03/25 Rx tabs oxycodone-acetaminophen 5 mg-325 1 tab PO Q8HP PRN Mod erate Pain 05/16/25 07/03/25 Rx mg tablet (Scale Score 5-6) #30 tabs allopurinol 100 mg tablet 300 mg (3 x 100 mg) PO DAILY #180 05/22/25 07/03/25 Rx tabs ascorbic acid (vitamin C) 500 mg 500 mg PO DAILY #90 t abs 05/22/25 07/03/25 Rx tablet bumetanide 2 mg tablet 4 mg PO DAILY 05/22/2507/03 History buspirone 10 mg tablet 10 mg PO BID Anxiety #90 tab s 05/22/25 07/03/25 Rx colchicine 0.6 mg tablet 0.6 mg PO .COMPLEX #20 tabs 05/22/25 07/03/25 Rx diltiazem HCl 120 mg 120 mg PO BID #180 caps 05/0907/03/25 Rx capsule,extended release 24 hr lansoprazole 30 mg capsule,delayed See Rx Instructions .Route 05/22/25 07/03/25 Rx release .COMPLEX #90 caps levothyroxine 112 mcg tablet 112 mcg PO DAILY #90 tabs 05/22/25 07/03/25 Rx sildenafil 100 mg tablet 50 - 100 mg (0.5 - 1 x 100 m g) PO 05/22/25 07/03/25 Rx NEEDED PRN Erectile Dysfunction #10 tabs tamsulosin 0.4 mg capsule 0.8 mg (2 x 0.4 mg) PO DAILY #90 05/22/25 07/03/25 Rx caps trazodone 50 mg tablet 50 mg PO HSP PRN insomnia #9 0 tabs 05/22/25 07/03/25 Rx potassium chloride 20 mEq 40 meq (2 x 20 mEq) PO DAILY #90 05/29/25 07/03/25 Rx tablet,extended release tabs tizanidine 2 mg tablet 2 mg PO NEEDED PRN Pain 0 06/19/25 07/03/25 History atorvastatin 40 mg tablet 40 mg PO DAILY Cholesterol # 90 tabs 06/22/25 07/03/25 Rx New Prescriptions to Start Prescriptions: Allergies Allergy/AdvReac Type Severity Reaction Status Date / Time metoclopramide (From Reglan) Allergy Intermediate Anxiety Verified 06/30/25 08:56 Penicillins Allergy Intermediate Anxiety Verified 06/30/25 08:56 amantadine (AMANTADINE) Allergy Mild SEIZURE Verified 06/30/25 08:56 codeine (CODEINE) Allergy Mild I-RASH Verified 06/30/25 08:56 cephalexin (From Keflex) Allergy Anxiety Verified 06/30/25 08:56 terbinafine AdvReac Mild Confusion Verified 06/30/25 08:56 Exam Data for Last 24 hours Vital signs and Labs for Last 24 Hours: Temp Pulse Resp BP Pulse Ox O2 Del Method 97.3 F L 71 16 117/71 97 Room Air 07/03/25 09:28 07/03/25 09:28 07/03/25 09:28 07/03/25 09:28 07/03/25 09:28 07/03/25 09:28 I & O for Last 24 hours: Intake & Output 06/30/25 07/01/25 07/02/25 07/03/25 23:59 23:59 23:59 23:59 Weight 224 lb *Routine HEENT Exam Head: Present normocephalic Eye: Present EOMI and PERRL ENT: Present mucous membranes moist *Routine Neck Exam Neck: Present supple *Routine Respiratory Exam Respiratory: Present CTA bilaterally *Routine Cardiovascular Exam Cardiovascular: Present RRR *Routine Abdominal Exam Abdominal: Present soft and normoactive bowel sounds; Absent tenderness *Routine Rectal Exam Rectal:: deferred *Routine Genitalia Exam Genitalia:: deferred *Routine Extremities Exam Extremities: Absent cyanosis, clubbing or edema *Routine Skin Exam Skin: Present warm; Absent rash *Routine Neurological Exam Neurological: Present alert and oriented X3 Assessment and Plan *Assessment and plan (1) Nausea: Problem Comment: This is better after the patient restarted BuSpar. Status: Chronic Category: Medical Code(s): R11.0 - Nausea (2) Weight loss: Status: Acute Category: Medical Code(s): R63.4 - Abnormal weight loss (3) Abdominal pain: Status: Acute Category: Medical Code(s): R10.9 - Unspecified abdominal pain (4) Diarrhea: Status: Acute Category: Medical Code(s): R19.7 - Diarrhea, unspecified (5) Anorexia: Problem Comment: This is better after the patient restarted BuSpar. Status: Resolved Category: Medical Code(s): R63.0 - Anorexia (6) Barretts esophagus: Status: Acute Category: Medical Code(s): K22.70 - Gonzalez's esophagus without dysplasia Plan A/P: 1. Nausea, weight loss, loss of appetite/anorexia and abdominal pain is the preprocedural diagnosis. The patient does have a history of Gonzalez's esophagus. The patient will be anesthetized/sedated using MAC sedation. The patient has been seen and examined. Cardiac and lung assessment prior to the examination is stable. Proceed with planned diagnostic EGD.
--- NOTE | 2025-07-03 09:58 | P.PNANES_ITS ---
[facility] Disclaimer: The information contained in this section may have been updated after the patient was seen, as this information can be updated by other users. Medical History (Updated 07/03/25 @ 09:42 by Cash Neville II, MD) Hernia of abdominal wall Cholecystectomy planned Hypervolemia Leukocytosis Pleural effusion Acute on chronic diastolic (congestive) heart failure COVID-19 Polycythemia Atrial fibrillation with rapid ventricular response Severe sepsis with acute organ dysfunction Acute exacerbation of chronic obstructive airways disease Dyspnea due to COVID-19 Viral respiratory infection Febrile illness Acute bronchitis Acute gout of left foot Moderate major depression Benign essential HTN Hyperlipidemia LDL goal <100 Obstructive sleep apnea (adult) (pediatric) Anxiety disorder, unspecified Hypothyroidism, unspecified Surgical History H/O resection of large bowel Hx of appendectomy Family History Other Atrial fibrillation Family history of myocardial infarction Lung cancer Social History Smoking Status: Former smoker tobacco type: cigarettes packs per day: 1 second hand exposure: Yes alcohol intake: current alcohol intake frequency: a few times a week (7 beers over the course of 2 nights.) substance use type: prescription drug (States he is prescribed Percocet once or twice daily.) current occupational status: retired and other Travel in the last 8 weeks?: None household members: significant other housing: house number of children: 2 current occupational exposures/hazards: No caffeine: No Have you lived/traveled outside US in past 30 days?: No Contact w/someone who lives/traveled outside US past 30 days?: No Exposure to someone with infectious disease in past 14 days?: No Do you have a fever (greater than 100.4 F or 38 C)?: No Have you tested positive for COVID-19?: No Exposed to someone with COVID-19 in past 14 days?: No Do you have a sore throat?: No Do you have a cough?: No Do you have any weakness?: No Do you have any diarrhea?: No Are you experiencing any unusual bleeding?: No Do you have any muscle aches/pain?: No Do you have any abdominal pain?: No Are you experiencing loss of taste or smell?: No [facility] Anesthesia Checklist Patient Identification Patient Identification: Arm Band Structural Data Admitted From: Home Planned Operative Procedure/s: EGD Consent for Planned Operative Procedure(s) Verified: Yes Verified Documents: Surgical Consent and History and Physical NPO Status Verified Time NPO: 00:00 Additional verifications Anesthesia Reactions: No Hx Blood Transfusions: No Blood Transfusion Reaction: No Airway Assessment Mallampati Score:: Class II C-Spine Mobility Assessed: Yes TMJ Mobility Assessed: Yes Dentition: Good Dentition Neurological Assessment Level of Consciousness: Awake, Alert and Appropriate Anesthesia Plan Anesthesia Risk discussed: Yes Anesthesia Plan: Verified ASA Class: III Anesthesia Type: MAC
--- NOTE | 2025-07-03 10:50 | P.PCN_ITS ---
[facility] Procedure Note Date: 07/03/25 Time: 11:00 Procedure Note:: Upper Endoscopy Procedure Report: Esophagogastroduodenoscopy with cold biopsies Endoscopost: Cash Neville II, MD Referring Physician: Derrell West MD Date of Procedure: July 03, 2025 Equipment: Olympus GIF-1100 standard upper endoscope Sedation: MAC sedation Indications: Mr. Cheung is a 70-year-old gentleman who began to have digestive issues over the last couple of months with loss of appetite and weight loss of 26 pounds. He reports fullness/early satiety and some nausea. He reports no bloating or belching but does have some gassiness. He also reports some epigastric abdominal discomfort. His bowel movements are regular. He did go to the ED and had a CAT scan that showed some fluid-filled loops of small bowel but no transition point. He was having some diarrhea but now states that his bowel movements are more regulated. He does have a history of chronic constipation and had been on hydrocodone occasionally. He has had more gassiness since this started and his abdominal exam has felt some tightness/gaseous distention. He does have a history of Gonzalez's esophagus. His EGD in July 2020 showed no Gonzalez's. Procedure: Prior to the procedure, a history and physical exam was performed, and patient's medications and allergies were reviewed. The risks, benefits and alternatives of the sedation and procedure were discussed with the patient. All questions were answered and informed consent was obtained. The patient was brought to the procedure room. Patient identification and proposed procedure were verified by the physician and the nurse. The patient was placed in a left lateral decubitus position and the scope was passed under direct vision. Throughout the procedure, the patient's blood pressure, pulse, and oxygen saturations were monitored continuously. The upper GI endoscopy was accomplished without difficulty. The patient tolerated the procedure well. Findings: The scope was passed directly into the upper esophagus and advanced to the third portion of the duodenum. A cold biopsy was taken from the second portion of the duodenum for the disaccharidase assay. The post bulbar duodenum, ampulla and duodenal bulb were normal with normal mucosa and conniventes. The scope was withdrawn through a normal duodenal bulb and pylorus into the stomach. There was bile reflux with mild linear antral gastropathy. The body and fundus of the stomach were normal. Upon retroflexion there was no hiatal hernia. Cold biopsies were taken from the antrum and lesser curvature. The scope was then withdrawn into the esophagus. There was no evidence of reflux esophagitis or Gonzalez's. The remainder of the esophageal mucosa was normal. Impression: 1. Bile reflux with mild linear antral gastropathy Plan: I do feel that the patient's nausea, fullness, lack of appetite and weight loss is probably multifactorial and is related to his obstipation and gas pressure gradients. We will discuss treatment options today. I will follow-up the biopsies.
[2025-07-03 11:00] VITALS: BP 93/56; PULSE 67; RESP 16; TEMP 36.4; O2SAT 94
[2025-07-03 11:10] VITALS: BP 99/63; PULSE 76; RESP 17; TEMP 36.4; O2SAT 92
[2025-07-03 11:20] VITALS: BP 118/70; PULSE 68; RESP 17; TEMP 36.4; O2SAT 95
[2025-07-03 11:30] VITALS: BP 101/75; PULSE 63; RESP 18; TEMP 36.4; O2SAT 95
[2025-07-06 15:12] LABS: Interpretation Notes (.); Lactase 68.75 (>/= 14.0); Maltase 294.14 (>/= 110.0); Palatinase 19.38 (>/= 8.5); Reference Notes (.); Sucrase 66.16 (>/= 25.0)
== END 2025-07-03 11:45 | disposition home or self-care (01) ==
PROVIDERS: PCP Internal Medicine; Visit Provider Internal Medicine Gastroenterology
PROC: 0DJ08ZZ Inspection of Upper Intestinal Tract, Via Natural or Artificial Opening Endoscopic (ICD-10-PCS; CPT 43239; principal; 2025-07-03 10:30)
DX: K29.50 Unspecified chronic gastritis without bleeding (principal); E78.5 Hyperlipidemia, unspecified; E03.9 Hypothyroidism, unspecified; I10 Essential (primary) hypertension; Z87.891 Personal history of nicotine dependence; Z88.1 Allergy status to other antibiotic agents; Z88.8 Allergy status to other drugs, medicaments and biological substances; Z79.899 Other long term (current) drug therapy; Z79.890 Hormone replacement therapy
CPT/HCPCS: 43239; 82657; J2003; J2704; J7120

== ENCOUNTER 2025-08-08 11:45 | Outpatient (CLI) | payer MEDICARE, SELFPAY ==
--- OUTSIDE RECORDS SUMMARY | 2025-06-20 14:00 | XMS_ITS | Encounter Summary ---
Author Organization [facility] Address [address] [place] [address] Care Team Providers Care Toll Line Repairer Name Role Phone Derrell West MD Primary Care Provider [phone] Reason for Visit * Reason Comments AF (paroxysmal atrial fibrillation) * Consultation (Routine) - Pending Review Specialty Diagnoses / Procedures Referred By Contact Referred To Contact Cardiac Electrophysiology / Cardiology Diagnoses AF (paroxysmal atrial fibrillation) Paroxysmal atrial fibrillation Chronic diastolic congestive heart failure Procedures RI OFFICE/OUTPATIENT NEW MODERATE MDM 45 MINUTES Thanh Guy MD [address] [facility] [address] [address] Phone: tel: fax: Maury Clarke MD [address] [address] Phone: tel: fax: Referral ID Status Reason Start Date Expiration Date Visits Requested Visits Authorized [id number] Pending Review Specialty Services Required 03/29/2025 06/28/2026 1 1 Encounter Details Date Type Department Care Team (Late st Contact Info) Description 06/20/2025 2:00 PM EDT Office Visit [facility] CARDIOLOGY [address] [facility] [address] [place] [phone] Maury Clarke MD [address] [place] [address] AF (paroxysmal atrial fibrillation) (Primary Dx); Primary [...] were not included. Cardiac Electrophysiology Outpatient Note [facility] Office Visit Aden Cheung [id number] 06/20/2025 Primary Care Physician: Derrell West MD Referred By: Thanh Guy MD Subjective Chief Complaint Patient presents with AF (paroxysmal atrial fibrillation) Atrial fibrillation CHADSVASC = 4, Eliquis Negative [place] 02/2018- data deficit (addendum: Cath note 03/03/2018 [...] seizure; confirmed by patient's daughter - per cert pharmacy tech Seizures, only time pt has ever had a seizure Penicillins Hives, Itching, Rash and Swelling confirmed by patient's daughter - per cert pharmacy tech Codeine Hives and Rash confirmed by patient's daughter - per cert pharmacy tech Metoclopramide Other (See Comments) and Unknown - [...] PROTIME No results found for: TSH , F9JCKVJ , T1HSIHF , THYROIDAB Results for orders placed during [...] has had decreased compliance. He has a ZHT9AQ1-EFWl score of 5. He was referred for [...] questions or concerns. Maury Clarke M.D. Cardiac Shopping Inspector [facility] documented in this encounter Plan of Treatment Upcoming Encounters Date Type Department Care Team (Late st Contact Info) Description 08/28/2025 Hospital Encounter [facility] EP LAB [address] [place] [address] Maury Clarke MD [address] [facility] [address] [place] [address] 12/20/2025 1:45 PM EST Office Visit [facility] C[facility] [address] [place] [address] Thanh Guy MD [address] [facility] [address] [place], [place] [id number] 01/02/2026 4:15 PM EST Office Visit [facility] [address] [facility] [address] [place] [address] Maury Clarke MD [address] [address] Scheduled Procedures Name Priority Associated Diagnoses Date/Ti me LEFT ATRIAL APPENDAGE OCCLUSION AF (paroxysmal atrial fibrillation) Patient noncompliant with anticoagulant medication documented as of this encounter Visit Diagnoses Diagnosis AF (paroxysmal atrial fibrillation)- Primary Atrial fibrillation Primary hypertension Unspecified essential hypertension Frequent PVCs documented in this encounter Care Teams Toll Line Repairer Relationship Specialty Start Date End Date Derrell West MD [address] [place] [facility] [address] [place] [address] PCP - General Internal Medicine 06/23/22 documented as of this encounter
--- OUTSIDE RECORDS SUMMARY | 2025-06-21 14:30 | XMS_ITS | Encounter Summary ---
Author Organization [facility] Address [address] [place] [address] Care Team Providers Care Construction Cost Estimator Name Role Phone Derrell West MD Primary Care Provider [phone] Reason for Visit * Reason Comments Follow-up 3 month Encounter Details Date Type Department Care Team (Late st Contact Info) Description 06/21/2025 2:30 PM EDT Office Visit [facility] C[facility]IOLOG[facility] [address] [facility] [place] [address] Thanh Guy MD [address] [facility] [address] [place] [address] Chronic diastolic congestive heart failure (Primary Dx); [...] Atrial fibrillation CHADSVASC = 4, Eliquis Negative [facility] 02/2018- data deficit (addendum: Cath note 03/03/2018 [...] mmHg Diastolic heart failure Elevated LVEDP on [facility] in 2018 per patient report- data deficit. Heart failure admission, [facility], 03/03 Amyloid study negative Normal stress test [...] Swelling confirmed by patient's daughter - per clinical pharmacy coordinator Codeine Hives and Rash confirmed by patient's daughter - per clinical pharmacy coordinator Metoclopramide Other (See Comments) and Unknown - [...] copy requested. Thanh Guy MD Dictated utilizing Dragon dictation documented in this encounter Plan of Treatment Upcoming Encounters Date Type Department Care Team (Late st Contact Info) Description 08/28/2025 Hospital Encounter PSYCHIATRIC EP LAB [address] [place] [address] Maury Clarke MD [address] [facility] [address] [place] [address] 12/20/2025 1:45 PM EST Office Visit [facility] C[facility] [address] [place] [address] Thanh Guy MD [address] [facility] [address] [address] [place], [place] [id number] 01/02/2026 4:15 PM EST Office Visit [facility] [address] [facility] [address] [place] [address] Maury Clarke MD [address] [facility] [address] [place] [address] Scheduled Procedures Name Priority Associated Diagnoses Date/Ti me LEFT ATRIAL APPENDAGE OCCLUSION AF (paroxysmal atrial fibrillation) Patient noncompliant with anticoagulant medication documented as of this encounter Visit Diagnoses Diagnosis Chronic diastolic congestive heart failure- Primary AF (paroxysmal atrial fibrillation) Atrial fibrillation documented in this encounter Care Teams Construction Cost Estimator Relationship Specialty Start Date End Date Derrell West MD [address] [facility] [address] [place] [address] PCP - General Internal Medicine 06/23/22 documented as of this encounter
--- OUTSIDE RECORDS SUMMARY | 2025-06-27 19:45 | XMS_ITS | Encounter Summary ---
Author Organization [facility] Address [address] [place] [address] Care Team Providers Care Merchandise Processor Name Role Phone Derrell West MD Primary Care Provider [phone] Reason for Referral * Hospital - Outpatient (Routine) - Closed Specialty Diagnoses / Procedures Referred By Karly marroquin Referred To Contact Sleep Medicine Diagnoses Obstructive sleep apnea Difficulty with BiPAP use Snoring Procedures Polysomnography 4 or More Parameters Kenneth Hernandez MD [address] [place] [address] Phone: tel: fax: [facility] [address] [address] Phone: tel: fax: Referral ID Status Reason Start Date Expiration Date Visits Re quested Visits Authorized [id number] Closed 05/04/2025 08/19/2025 1 1 Reason for Visit * Hospital - Outpatient (Routine) - Closed Specialty Diagnoses / Procedures Referred By Karly marroquin Referred To Contact Sleep Medicine Diagnoses Obstructive sleep apnea Difficulty with BiPAP use Snoring Procedures Polysomnography 4 or More Parameters Kenneth Hernandez MD [address] [place] [address] Phone: tel: fax: [facility] [address] [facility] [address] [place] [address] Phone: tel: fax: Referral ID Status Reason Start Date Expiration Date Visits Re quested Visits Authorized [id number] Closed 05/04/2025 08/19/2025 1 1 Encounter Details Date Type Department Care Team (Late st Contact Info) Description 06/27/2025 7:45 PM EDT Hospital Encounter [facility]EP [facility] [address] [facility] [address] [place] [phone] Kenneth Hernandez MD [address] [place] [phone] Obstructive sleep apnea; Difficulty with BiPAP use; [...] 8:12 PM EDT documented in this encounter Plan of Treatment Upcoming Encounters Date Type Department Care Team (Late st Contact Info) Description 08/28/2025 Hospital Encounter [facility] EP LAB [address] [place] [address] Maury Clarke MD [address] [facility] [address] [place], [place] [id number] 12/20/2025 1:45 PM EST Office Visit [facility] CARDIOLOGY [address] [place] [address] Thanh Guy MD [address] [facility] [address] [address] [place], [place] [address] 01/02/2026 4:15 PM EST Office Visit [facility] C[facility] [address] [facility] [address] [place] [address] Maury Clarke MD [address] [facility] [address] [place], [place] [id number] Scheduled Procedures Name Priority Associated Diagnoses Date/Ti me LEFT ATRIAL APPENDAGE OCCLUSION AF (paroxysmal atrial fibrillation) Patient noncompliant with anticoagulant medication documented as of this encounter Procedures Procedure Name Priority Date/Time Associated Diagnosis Comments NPSG Routine 06/28/2025 5:48 AM EDT Obstructive sleep apnea Difficulty with BiPAP use Snoring documented in this encounter Results * NPSG (06/28/2025 5:48 AM EDT) Narrative SLEEP MEDICINE - 06/28/2025 5:42 PM EDT Table formatting from the original result was not included. Polysomnography Report Patient Name: Aden Mchughstbrett Interpreting Physician: Kenneth Hernandez MD Date of [...] documented in this encounter Visit Diagnoses Diagnosis Patient noncompliant with anticoagulant medication- Primary AF (paroxysmal atrial fibrillation) Atrial fibrillation Obstructive sleep apnea Obstructive sleep apnea (adult) (pediatric) Difficulty with BiPAP use Snoring Other dyspnea and respiratory abnormality documented in this encounter Care Teams Merchandise Processor Relationship Specialty Start Date End Date Derrell West MD [address] [facility] [address] [place] [address] PCP - General Internal Medicine 06/23/22 documented as of this encounter
[2025-08-08 15:36] LABS: Anion Gap 15.6 mEq/L (5-15); Blood Urea Nitrogen 13 mg/dl (9-20); Calcium 8.9 mg/dl (8.4-10.2); Carbon Dioxide 29 mmol/L (22.0-30.0); Chloride 99 mmol/L (98-107); Creatinine,Serum 1.50 mg/dl (0.66-1.25); Estimated Glomerular Filt Rate 46 ml/min (>60); GFR (African American) 56 ML/MIN (>60); Glucose 74 mg/dl (74-100); Potassium 3.6 mmoL/L (3.5-5.1); Sodium 140 mmol/L (136-145)
--- OUTSIDE RECORDS SUMMARY | 2025-08-09 10:25 | XMS_ITS | Clinical Summary ---
Author Organization [facility] ([place], [place], [place], [place]) Address [address] [place] [address] Care Team Providers Care Tannery Worker Name Role Phone DottieJennifer Primary Care Provider [phone] Allergies Active Allergy Reactions Criticality Noted Date [...] 09/09/2024 11/14/2024 Incisional hernia 10/07/2022 11/10/2024 Immunizations Immunization Administration Dates Next Due Influenza, High Dose 09/13/2024 Pneumococcal Conjugate Vaccine (20-Valent) IM RESPIRATORY SYNCYTIAL VIRUS (RSV) VACCINE - (AREXVY- [place]) ([id number]) 10/06/2023 Family History Medical History Relation Name [...] = 0.6 oz pur e alcohol) wknds Family and Community Support Answer Miles e Recorded Help with Day to Day Activities Not on file 11/20/2023 Feeling Lonely or Isolated Not on file 11/20 Educational Attainment Answer Date Jm rded Speak language other than [place] at home Not on file 11/20/2023 Want [...] Screen 2020 Medicare Initial AWV [id number] 05/10/2021 Falls Risk Screening 11/09/2024 COVID-19 VACCINE ( season) 2025 08/26/2021, 02/12/2021, 01/22/2021 Influenza Vaccine (#1) 2025 09/13/2024 Depression Screening (12+) 12/29/2025 12/29/2024 Tobacco Cessation Counseling and Screening (12+) 12/29/2025 12/29/2024 Pneumococcal 50+ years Completed 10/06/2023 Respiratory Syncytial Virus (RSV) Adult or Completed 10/06/2023 Medical Devices Implanted Type Area Crt Device Identifier Shelf Expiration Date Model / Serial / Lot Mesh Phasix [id number] - [id number] Implanted:Qt y: 1 on 11/12/2022 by Jair Nunez MD at [facility] IMPLANTS N/A: Abdomen CR BARD:DAVOL [id number] 02/04/2024 [id number] / / [id number] Insurance [employer] MEDICARE HMO Advance Directives For more information, please contact: [phone] * Full Code (Latest Code Status on File) Date Activated Date Inactivated Comments 11/12/2022 5:57 PM 11/24/2022 2:01 PM Care Teams Tannery Worker Relationship Specialty Start Date End Date Jennifer Sinclair DO [address] [place] [address] PCP - General Family Medicine 11/10/24
--- OUTSIDE RECORDS SUMMARY | 2025-08-09 10:25 | XMS_ITS | Clinical Summary ---
Author Organization [facility] Address [address] [place] [address] Care Team Providers Care Sagger Maker Name Role Phone Derrell West MD Primary Care Provider [phone] Allergies Active Allergy Reactions Criticality Noted Date Comments Amantadines Rash,Other (See Comments),Seizure High 08/07/2010 Seizures, only time pt has ever had a seizure seizure; confirmed by patient's daughter - per pharmacy data analyst Seizures, only time pt has ever had a seizure Codeine Hives,Rash Medium 08/07/2010 confirmed by patient's daughter - per pharmacy data analyst Dexamethasone Other (See Comments),Unknown - Low Severity [...] confirmed by patient's daughter - per pharmacy data analyst Medications busPIRone (BUSPAR) 10 MG tablet Take [...] to be referred to pulmonary sleep at [facility] [place] Dr. Hernandez for further evaluation of inspire. [...] Encounters Date Type Department Care Team Description 07/13/2025 Telephone [facility] [address] [facility] [address] [place] [address] Thanh Guy MD 06/27/2025 7:45 PM EDT Hospital Encounter [facility] SLEEP LAB [address] [facility] [address] [place] [id number] Kenneth Hernandez MD Obstructive sleep apnea; Difficulty with BiPAP use; Snoring 06/27/2025 Travel 06/22/[address] [facility] CARDIOLOG[facility] [address] [facility] [address] [place] [address] Maury Clarke MD 06/21/2025 2:30 PM EDT Office [facility] [address] [facility] [place] [address] Thanh Guy MD Chronic diastolic congestive heart failure (Primary Dx); AF (paroxysmal atrial fibrillation) 06/20/2025 2:00 PM EDT Office Visit [facility] [address] [facility] [address] [place] [address] Maury Clarke MD AF (paroxysmal atrial fibrillation) (Primary Dx); Primary hypertension; Frequent PVCs 06/20/2025 Travel 06/19/[address] [facility] [address] [facility] [place] [address] Alfreda Ritchie APRN from Last 3 Months Immunizations Immunization Administration [...] st Contact Info) Description 08/28/2025 Hospital Encounter [facility] EP LAB [address] [place] [address] Maury Clarke MD [address] [address] 12/20/2025 1:45 PM EST Office Visit [facility] CARDIOLOG[facility] [address] [facility] [address] Thanh Guy MD [address] [facility] [address] [id number] 01/02/2026 4:15 PM EST Office Visit [facility] CARD[facility] [address] [facility] [address] [place] [address] Maury Clarke MD [address] [address] Scheduled Procedures Name Priority Associated [...] WELLNESS VISIT 09/22/2017 HEPATITIS C SCREENING 09/22/2017 INFLUENZA VACCINE 06/09/2025 09/27/2024, 09/13/2024 COVID-19 Vaccine ( season) 2025 08/26/2021, 02/12/2021, 01/22/2021 AAA SCREEN ONCE Completed 10/13/2022 Pneumococcal Vaccine 50+ Completed 10/06/2023 Procedures Procedure Name Priority Date/Time Associated Diagnosis Comments NPSG Routine 06/28/2025 5:48 AM EDT Obstructive sleep apnea Difficulty with BiPAP use Snoring SCANNED EKG 06/20/2025 from Last 3 Months Results * NPSG [...] Result SLEEP MEDICINE * ECG Scan (06/20/2025) us Maury Clarke MD ECG ORDERABLES Final Result from Last 3 Months Insurance [employer] MEDICARE ADVANTAGE PPO Care Teams Sagger Maker Relationship Specialty Start Date End Date Derrell West MD [facility] [place] [address] [address] [facility] [place] [address] PCP - General Internal Medicine 06/23/22
--- OUTSIDE RECORDS SUMMARY | 2025-08-09 10:25 | XMS_ITS | Encounter Summary ---
[facility] Organization [facility] Address [address] [place] [address] Care Team Providers Care Wood Shingle Roofer Name Role Phone Derrell West MD Primary Care Provider [phone] Encounter Details Date Type Department Care Team (Late st Contact Info) Description 07/13/2025 Telephone [facility] CARDIOLOGY [address] [place] [address] Thanh Guy MD [address] [facility] [address] [place] [address] Social History Tobacco Use Types Packs/Day Years [...] encounter Miscellaneous Notes * Telephone Encounter - Dunia Harris RN - 07/13/2025 9:54 AM EDT Requesting pre op/procedure risk assessment for drug induced endoscopy/inspire implant with Dr. Cooper scheduled for 10-02-25. On Eliquis and asa 81. Risk assessment given for EGD with Dr. Neville at last appt on 06/21/25, same rec's for ENT? 1. HFpEF. Functional class I-II. Does however [...] in 6 months or as needed symptoms documented in this encounter Plan of Treatment Upcoming Encounters Date Type Department Care Team (Late st Contact Info) Description 08/28/2025 Hospital Encounter PSYCHIATRIC EP LAB [address] [place] [address] Maury Clarke MD [address] [facility] [address] [place] [address] 12/20/2025 1:45 PM EST Office Visit [facility] CARDIOLOGY [address] [place] [address] Thanh Guy MD [address] [facility] [address] [place] [address] 01/02/2026 4:15 PM EST Office Visit [facility] [address] [facility] [address] [place] [address] Maury Clarke MD [address] [facility] [address] [place], [place] [id number] Scheduled Procedures Name Priority Associated Diagnoses Date/Ti me LEFT ATRIAL APPENDAGE OCCLUSION AF (paroxysmal atrial fibrillation) Patient noncompliant with anticoagulant medication documented as of this encounter Visit Diagnoses Not on filedocumented in this encounter Care Teams Wood Shingle Roofer Relationship Specialty Start Date End Date Derrell West MD [address] [facility] [address] [place] [address] PCP - General Internal Medicine 06/23/22 documented as of this encounter
--- OUTSIDE RECORDS SUMMARY | 2025-08-09 10:26 | XMS_ITS | Encounter Summary ---
[facility] Address [address] [place] [address] Care Team Providers Care Radiology Assistant Name Role Phone Derrell West MD Primary Care Provider [phone] Encounter Details Date Type Department Care Team (Late st Contact Info) Description 04/14/2025 Results Follow-Up [facility] CARDIOLOGY [address] [facility] [address] [place] [address] Thanh Guy MD [address] [facility] [address] [place], [place] [id number] Social History Tobacco Use Types Packs/Day Years [...] (Late Contact Info) Description 08/28/2025 Hospital Encounter [facility] EP LAB [address] [place] [address] Maury Clarke MD [address] [facility] [address] [place] [address] 12/20/2025 1:45 PM EST Office Visit [facility] CARDIOLOGY [address] [place] [address] Thanh Guy MD [address] [facility] [address] [place] [address] 01/02/2026 4:15 PM EST Office Visit [facility] CARDIOLOG[facility] [address] [facility] [address] [place] [address] Maury Clarke MD [address] [facility] [address] [place] [address] Scheduled Procedures Name Priority Associated Diagnoses Date/Ti me LEFT ATRIAL APPENDAGE OCCLUSION AF (paroxysmal atrial fibrillation) Patient noncompliant with anticoagulant medication documented as of this encounter Visit Diagnoses Not on filedocumented in this encounter Care Teams Radiology Assistant Relationship Specialty Start Date End Date Derrell West MD [address] [facility] [address] [place] [address] PCP - General Internal Medicine 06/23/22 documented as of this encounter
--- OUTSIDE RECORDS SUMMARY | 2025-08-09 10:26 | XMS_ITS | Clinical Summary ---
Author Organization [facility] Address [address] [place] [address] Care Team Providers Care Personal Shopper Name Role Phone Derrell West MD Primary Care Provider [phone] Allergies Active Allergy Reactions Criticality Noted Date Comments Amantadines Other - please document in the comment field High 08/07/2010 seizure; confirmed by patient's daughter - per clinical pharmacy technician Seizures, only time pt has ever had a seizure Codeine Hives Medium 08/07/2010 confirmed by patient's daughter - per clinical pharmacy technician Hydrochlorothiazide Rash Low 06/23/2022 Metoclopramide Other - please document in the comment field Medium 06/25/2022 Caused depression Penicillins Hives,Itching,Rash,S w elling High 08/07/2010 confirmed by patient's daughter - per clinical pharmacy technician Medications bumetanide (Bumex) 2 MG [...] 2005 [facility]-Abdominal Aortic Aneurysm (AAA) Screening 2020 RIP-[id number]-76 Vaccine ( season) 2025 08/26/2021, 02/12/2021, 01/22/2021 [facility]-Influenza Vaccine (#1) 2025 [...] patient's age to complete this topic Insurance [facility] MEDICARE Care Teams Personal Shopper Relationship Specialty Start Date End Date Derrell West MD [address] [place] [id number] PCP - General 10/21/22
--- OUTSIDE RECORDS SUMMARY | 2025-08-09 10:26 | XMS_ITS | Encounter Summary ---
Author Organization [facility] Address [address] [place] [address] Care Team Providers Care Program Rep Name Role Phone Derrell West MD Primary Care Provider [phone] Encounter Details Date Type Department Care Team [...] st Contact Info) Description 08/28/2025 Hospital Encounter [facility] [address] [place] [id number] Maury Clarke MD [address] [facility] [address] [place] [address] 12/20/2025 1:45 PM EST Office Visit [facility] CARDIOLOGY [address] [place] [address] Thanh Guy MD [address] [facility] [address] [place], [place] [id number] 01/02/2026 4:15 PM EST Office Visit [facility] [address] [facility] [address] [place] [address] Maury Clarke MD [address]20 [facility] [address] [place] [address] Scheduled Procedures Name Priority Associated Diagnoses Date/Ti me LEFT ATRIAL APPENDAGE OCCLUSION AF (paroxysmal atrial fibrillation) Patient noncompliant with anticoagulant medication documented as of this encounter Visit Diagnoses Not on filedocumented in this encounter Care Teams Program Rep Relationship Specialty Start Date End Date Derrell West MD 12[address] [facility] [address] [facility] [address] [place] [address] PCP - General Internal Medicine 06/23/22 documented as of this encounter
--- OUTSIDE RECORDS SUMMARY | 2025-08-09 10:26 | XMS_ITS | Encounter Summary ---
Author Organization [facility] Address [address] [place] [address] Care Team Providers Care Biology Specimen Technician Name Role Phone Derrell West MD Primary Care Provider [phone] Encounter Details Date Type Department Care Team (Late st Contact Info) Description 06/19/2025 Telephone [facility] CARDIOLOG[facility] [address] [place] [address] Padmini Ritchie, RADHA [address] [facility] [address] [place] [address] Social History Tobacco Use Types Packs/Day Years [...] st Contact Info) Description 08/28/2025 Hospital Encounter [facility] EP LAB [address] [place] [id number] Maury Clarke MD [address]20 [facility] [address] [place] [address] 12/20/2025 1:45 PM EST Office Visit [facility] CARD[facility] [address] [place] [address] Thanh Guy MD [address] [facility] [address] [place] [address] 01/02/2026 4:15 PM EST Office Visit [facility] [address] [facility] [address] [place] [address] Maury Clarke MD 1720 [facility] [address] [place], [place] [id number] Scheduled Procedures Name Priority Associated Diagnoses Date/Ti me LEFT ATRIAL APPENDAGE OCCLUSION AF (paroxysmal atrial fibrillation) Patient noncompliant with anticoagulant medication documented as of this encounter Visit Diagnoses Not on filedocumented in this encounter Care Teams Biology Specimen Technician Relationship Specialty Start Date End Date Derrell West MD 12[address] [facility] [address] [place] [address] PCP - General Internal Medicine 06/23/22 documented as of this encounter
--- OUTSIDE RECORDS SUMMARY | 2025-08-09 10:26 | XMS_ITS | Encounter Summary ---
Author Organization [facility] Address [address] [place] [address] Care Team Providers Care Banking Specialist Name Role Phone Derrell West MD Primary Care Provider [phone] Encounter Details Date Type Department Care Team [...] Info) Description 08/28/2025 Hospital Encounter [facility] EP LAB [address] [place] [phone] Maury Clarke MD [facility] [facility] [address] [place] [address] 12/20/2025 1:45 PM EST Office Visit [facility] CARDIOLOGY [address] [place] [address] Thanh Guy MD [address] [facility] [address] [place], [place] [id number] 01/02/2026 4:15 PM EST Office Visit [facility]ARDI[facility] [address] [facility] [address] [place] [address] Maury Clarke MD [address]20 [facility] [address] [place] [address] Scheduled Procedures Name Priority Associated Diagnoses Date/Ti me LEFT ATRIAL APPENDAGE OCCLUSION AF (paroxysmal atrial fibrillation) Patient noncompliant with anticoagulant medication documented as of this encounter Visit Diagnoses Not on filedocumented in this encounter Care Teams Banking Specialist Relationship Specialty Start Date End Date Derrell West MD 1210 [facility] [address] [facility] [address] [place] [address] PCP - General Internal Medicine 06/23/22 documented as of this encounter
--- OUTSIDE RECORDS SUMMARY | 2025-08-09 10:26 | XMS_ITS | Referral Summary ---
Author Organization [facility] ([place], [place], [place], [place]) Address [address] [place] [address] Care Team Providers Care Knitting Teacher Name Role Phone DottieJennifer Primary Care Provider [phone] Allergies Active Allergy Reactions Criticality Noted Date [...] RESPIRATORY SYNCYTIAL VIRUS (RSV) VACCINE - (AREXVY- [employer]) (CMN620) 10/06/2023 Social History Tobacco Use Types Packs/Day [...] Date Jm rded Speak language other than Maldivian at home Not on file 11/20/2023 Want [...] on file Medical Devices Implanted Type Area Front Desk Supervisor Device Identifier Shelf Expiration Date Model / Serial / Lot Mesh [employer]ix [id number] - [id number] Implanted:Qt y: 1 on 11/12/2022 by Jair Nunez MD at [facility] IMPLANTS N/A: Abdomen CR BARD:DAVOL [id number] 02/04/2024 [id number] / / [id number] Insurance [employer] MEDICARE HMO Advance Directives For more information, please contact: [phone] * Full Code (Latest Code Status on File) Date Activated Date Inactivated Comments 11/12/2022 5:57 PM 11/24/2022 2:01 PM Care Teams Knitting Teacher Relationship Specialty Start Date End Date Jennifer Sinclair DO [address] [place] [address] PCP - General Family Medicine 11/10/24
--- OUTSIDE RECORDS SUMMARY | 2025-08-09 10:26 | XMS_ITS | Encounter Summary ---
Author Organization [facility] Address [address] [place] [id number] Care Team Providers Care Principal Network Engineer Name Role Phone Derrell West MD Primary Care Provider [phone] Reason for Referral * Diagnostic Imaging (Routine) - Pending Review Specialty Diagnoses / Procedures Referred By Contac t Referred To Contact Diagnoses AF (paroxysmal atrial fibrillation) Patient noncompliant with anticoagulant medication Procedures Intra-Op Structural Heart YAA (Cardiology Read) Maury Clarke MD [address] [place] [address] Phone: tel: fax: Referral ID Status Reason Start Date Expiration Date V isits Requested Visits Authorized Pending Review 06/23/2025 09/22/2026 1 1 * MRI/CAT/PET Scan (Routine) - Pending Review Specialty Diagnoses / Procedures Referred By Contac t Referred To Contact Radiology Diagnoses AF (paroxysmal atrial fibrillation) Preop examination Patient noncompliant with anticoagulant medication Procedures CT Angiogram Chest Maury Clarke MD [address] [place] [address] Phone: tel: fax: Referral ID Status Reason Start Date Expiration Date V isits Requested Visits Authorized Pending Review 06/23/2025 09/22/2026 1 1 Encounter Details Date Type Department Care Team (Late st Contact Info) Description 06/22/2025 Telephone [facility] C[facility] [address] [facility] [address] [place] [address] Maury Clarke MD 1720 [facility] [address] [place] [address] Social History Tobacco Use Types Packs/Day Years [...] (Late Contact Info) Description 08/28/2025 Hospital Encounter [facility] EP LAB [address] [place] [address] Maury Clarke MD 1720 [facility] [address] [place], [place] [id number] 12/20/2025 1:45 PM EST Office Visit [facility] CARD[facility] [address] [place] [address] Thanh Guy MD 1720 [facility] [address] [place] [address] 01/02/2026 4:15 PM EST Office Visit [facility] C[facility] [address] [facility] [address] [place] [address] Maury Clarke MD [address] [facility] [address] [place], [place] [id number] Scheduled Orders Name Type Priority Associated Diagnoses [...] fibrillation documented in this encounter Care Teams Principal Network Engineer Relationship Specialty Start Date End Date Derrell West MD [address]10 [facility] [address] [place] [address] PCP - General Internal Medicine 06/23/22 documented as of this encounter
== END 2025-08-08 23:59 ==
LOC: LAB.DROPOF 08-09 09:52
PROVIDERS: PCP Internal Medicine; Visit Provider Internal Medicine
DX: I50.32 Chronic diastolic (congestive) heart failure (principal); N18.9 Chronic kidney disease, unspecified
CPT/HCPCS: 80048

== ENCOUNTER 2025-09-21 11:25 | Outpatient (CLI) | payer MEDICARE, SELFPAY ==
[2025-09-21 18:24] LABS: Anion Gap 13.2 mEq/L (5-15); Blood Urea Nitrogen 18 mg/dl (9-20); Calcium 9.3 mg/dl (8.4-10.2); Carbon Dioxide 29 mmol/L (22.0-30.0); Chloride 95 mmol/L (98-107); Creatinine,Serum 1.50 mg/dl (0.66-1.25); Estimated Glomerular Filt Rate 46 ml/min (>60); GFR (African American) 56 ML/MIN (>60); Glucose 83 mg/dl (74-100); Potassium 3.2 mmoL/L (3.5-5.1); Sodium 134 mmol/L (136-145); Uric Acid 8.4 mg/dl (3.5-8.5)
== END 2025-09-21 23:59 ==
LOC: LAB.DROPOF 09-25 09:10
PROVIDERS: PCP Internal Medicine; Visit Provider Internal Medicine
DX: I13.0 Hypertensive heart and chronic kidney disease with heart failure and stage 1 through stage 4 chronic kidney disease, or unspecified chronic kidney disease (principal); N18.9 Chronic kidney disease, unspecified; I50.32 Chronic diastolic (congestive) heart failure; M10.9 Gout, unspecified
CPT/HCPCS: 80048; 84550

== ENCOUNTER 2025-10-23 14:45 | Outpatient (CLI) | payer MEDICARE, SELFPAY ==
--- OUTSIDE RECORDS SUMMARY | 2025-06-27 18:45 | XMS_ITS | Encounter Summary ---
Author Organization [facility] Address [address] [place] [id number] Care Team Providers Care Erp Developer Name Role Phone Derrell West MD Primary Care Provider [phone] Reason for Referral * Hospital - Outpatient (Routine) - Closed Specialty Diagnoses / Procedures Referred By Karly marroquin Referred To Contact Sleep Medicine Diagnoses Obstructive sleep apnea Difficulty with BiPAP use Snoring Procedures Polysomnography 4 or More Parameters Kenneth Hernandez MD [address] [address] Phone: tel: fax: [facility] SLEEP [facility] [address] [address] Phone: tel: fax: Referral ID Status Reason Start Date Expiration Date Visits Re quested Visits Authorized Closed 05/04/2025 08/19/2025 1 1 Reason for Visit * Hospital - Outpatient (Routine) - Closed Specialty Diagnoses / Procedures Referred By Karly marroquin Referred To Contact Sleep Medicine Diagnoses Obstructive sleep apnea Difficulty with BiPAP use Snoring Procedures Polysomnography 4 or More Parameters Kenneth Hernandez MD [address] [address] Phone: tel: fax: [facility] [address] [place] [address] Phone: tel: fax: Referral ID Status Reason Start Date Expiration Date Visits Re quested Visits Authorized [id number] Closed 05/04/2025 08/19/2025 1 1 Encounter Details Date Type Department Care Team (Late st Contact Info) Description 06/27/2025 7:45 PM EDT Hospital Encounter [facility]EP [facility] [address] [place] [address] Kenneth Hernandez MD [address] [place] [id number] Obstructive sleep apnea; Difficulty with BiPAP use; Snoring Social History Tobacco Use Types Packs/Day Years Used Date Smoking Tobacco: Former Cigarettes 1 44 0 [birth year]/09/1970 - 2014 Passive Smoke Exposure: Past Smokeless Tobacco: Never Alcohol Use Standard Drinks/Week Comments Yes 6 (1 standard drink = 0.6 oz pur e alcohol) occasional AUDIT-C Answer Date Recorded Q1: How often do you have a drink containing alc ohol? Monthly or less 08/28/2025 Q2: How many drinks containi ng alcohol do you have on a typical day when you are drinking? 1 or 2 08/28/2025 Q3: How often do you have si x or more drinks on one occasion? Never 08/28/2025 Abuse Screen Answer Date Recorded Feels Unsafe at Home or Work/School no 08/28/2025 Feels Threatened by Someone no 08/10 Does Anyone Try to Keep You From Having Contact with Others or Doing Things Outside Your Home? no 08/28/2025 Physical Signs of Abuse Present no 08/28/2025 Housing Stability Answer Date Recorded Current Living Arrangements home 08/10 Potentially Unsafe Housing Conditions Not on saeed e 08/28/2025 Disabilities Answer Date Recorded Difficulty Concentrating, Remembering or Making Decisions no 08/28/2025 Difficulty Managing Errands Independently no 08/28/2025 Education Answer Date Recorded Help with school or training? Not on file Preferred Language Anguillan 08/21/2025 Sex and Gender Information Value Date Recorded Sex Assigned at Male 08/20/2025 3:51 PM EDT Legal Sex Male 2:28 PM EDT Gender Identity Not on file Sexual Orientation Straight 08/20/2025 3: 51 PM EDT documented as of this encounter Last Filed Vital Signs Vital Sign Reading Time Taken Comments Blood Pressure 111/74 06/27/2025 8:12 PM EDT Pulse 52 06/27/2025 8:12 PM EDT Temperature - - Respiratory Rate - - Oxygen Saturation 92% 06/27/2025 8:12 PM EDT Inhaled Oxygen Concentration - - Weight 102 kg (224 lb) 06/27/2025 8:12 PM EDT Height 180.3 cm (5' 10.98 ) 06/27/2025 8:12 PM E DT Body Mass Index 31.26 06/27/2025 8:12 PM EDT documented in this encounter Functional Status * Question Answer Date of Assessment Author 1. Wish to be (Past 1 Month) No 025 7:00 AM EDT Coral Frazier RN 2. Non-Specific Active Suici jamia Thoughts (Past 1 Month) No 08/28/2025 7:00 AM EDT Marty Frazier RN * Calculated C-SSRS Risk Score (Lifetime/Recent) Answer Date of Assessment Author No Risk Indicated 08/28/2025 7:00 AM EDT Coral Boogie RN * Canmer Suicide Severity Rating Scale (Screener/Recent Self-Report) Question Answer Date of Assessment Author 6. Suicidal Behavior (Lifetime) No 7:00 AM EDT Coral Frazier RN documented as of this encounter Plan of Treatment Upcoming Encounters Date Type Department Care Team (Late st Contact Info) Description 12/05/2025 11:15 AM EST Office Visit [facility] CARDIOLOGY [address] [place] [address] Harley Mendoza PA [address] [facility] [address] [place] [address] 12/20/2025 1:45 PM EST Office Visit [facility] CARDI[facility] [address] [place] [address] Thanh Guy MD [address] [facility] [address] [address] [place], [place] [id number] 03/02/2026 12:30 PM EDT Telemedicine [facility] [address] [facility] [address] [place] [phone] Griffin Connelly APRN [address] [facility] [address] [place] [address] documented as of this encounter Procedures Procedure Name Priority Date/Time Associated Diagnosis Comments NPSG Routine 06/28/2025 5:48 AM EDT Obstructive sleep apnea Difficulty with BiPAP use Snoring documented in this encounter Results * NPSG (06/28/2025 5:48 [...] this encounter Visit Diagnoses Diagnosis Obstructive sleep apnea Obstructive sleep apnea (adult) (pediatric) Difficulty with BiPAP use Snoring Other dyspnea and respiratory abnormality documented in this encounter Care Teams Erp Developer Relationship Specialty Start Date End Date Derrell West MD [address] [place] [address] [place] [address] PCP - General Internal Medicine 06/23/22 documented as of this encounter
--- OUTSIDE RECORDS SUMMARY | 2025-08-28 05:36 | XMS_ITS | Encounter Summary ---
Author Organization [facility] Address [address] [place] [id number] Care Team Providers Care Trust Manager Assistant Name Role Phone Derrell West MD Primary Care Provider Reason for Referral * Diagnostic Imaging (Routine) - Pending Review Specialty Diagnoses / Procedures Referred By Contac t Referred To Contact Diagnoses AF (paroxysmal atrial fibrillation) Patient noncompliant with anticoagulant medication Procedures Intra-Op Structural Heart YAA (Cardiology Read) Maury Clarke MD [address] [place] [address] Phone: tel: fax: Referral ID Status Reason Start Date Expiration Date V isits Requested Visits Authorized [id number] Pending Review 06/23/2025 09/22/2026 1 1 * Invasive Procedures (Routine) - Pending Review Specialty Diagnoses / Procedures Referred By Contac t Referred To Contact Diagnoses AF (paroxysmal atrial fibrillation) Patient noncompliant with anticoagulant medication Procedures EP/CRM Study Maury Clarke MD [address] [place] [id number] Phone: tel: fax: Referral ID Status Reason Start Date Expiration Date V isits Requested Visits Authorized [id number] Pending Review 08/11/2025 11/10/2026 1 1 Reason for Visit * Auth/Cert Specialty Diagnoses / Procedures Referred By Contac t Referred To Contact Diagnoses AF (paroxysmal atrial fibrillation) Patient noncompliant with anticoagulant medication Atrial Fibrillation Procedures SC PERQ CLSR TCAT L ATR APNDGE W/ENDOCARDIAL IMPLNT Atrial Appendage Occlusion, CTA, DNS Eliquis Referral ID Status Reason Start Date Expiration Date Visits Re quested Visits Authorized 1 1 Encounter Details Date Type Department Care Team (Late st Contact Info) Description 08/28/2025 6:36 AM EDT - 08/28/2025 12:20 PM EDT Hospital Encounter [facility] [address] [place] [address] Maury Clarke MD [address] [facility] [address] [place] [address] AF (paroxysmal atrial fibrillation); Patient noncompliant with anticoagulant medication Discharge Disposition: Home or Self Care Social [...] or training? Not on file Preferred Language American 08/21/2025 Sex and Gender Information Value Date Recorded Sex Assigned at Male 08/20/2025 3:51 PM EDT Legal Sex Male 2:28 PM EDT Gender Identity Not on file Sexual Orientation Straight 08/20/2025 3: 51 PM EDT documented as of this encounter Last Filed Vital Signs Vital Sign Reading Time Taken Comments Blood Pressure 107/76 08/28/2025 11:15 AM EDT post ambulation Pulse 62 08/28/2025 11:00 AM EDT Temperature 36.4 C (97.6 F) 08/28/2025 9:16 AM EDT Respiratory Rate 18 08/28/2025 9:16 AM EDT Oxygen Saturation 92% 08/28/2025 11: 00 AM EDT Inhaled Oxygen Concentration - - Weight 99.8 kg (220 lb) 08/28/2025 9:19 AM EDT Height 180.3 cm (5' 10.98 ) 08/28/2025 9:19 AM EDT Body Mass Index 30.7 08/28/2025 9:19 AM EDT documented in this encounter Functional Status [...] 7:00 AM EDT Coral Boogie RN * Roann Suicide Severity Rating Scale (Screener/Recent Self-Report) Question Answer Date of Assessment Author 6. Suicidal Behavior (Lifetime) No 7:00 AM EDT Coral Frazier RN documented as of this encounter Discharge Summaries * Maury Clarke MD - 08/28/2025 12:20 PM EDT Patient presented as an inpatient for watchman implantation. Procedure went well without complications and patient was ultimately discharged home. documented in this encounter Discharge Instructions * Attachments The following attachments cannot be sent through Care Everywhere. * Left Atrial Appendage Closure Device Implantation (American) * Left Atrial Appendage Closure Device Implantation Care After (American) * Femoral Site Care (American) * General Anesthesia Adult Care After (American) * Apixaban Tablets (American) documented in this encounter Medications at Time of Discharge allopurinol (ZYLOPRIM) 100 MG tablet Take 2 tablets by mouth Daily. aspirin 81 MG chewable tablet Chew 1 tablet Daily. atorvastatin (LIPITOR) 20 MG tablet Take 1 tablet by mouth Daily. 01/05/2024 busPIRone (BUSPAR) 10 MG tablet Take 1 tablet by mouth Daily. 07/15/2017 colchicine 0.6 MG tablet Take 1 tablet by mouth Daily As Needed for Muscle / Joint Pain (GOUT flare up). 02/20/2025 Cyanocobalamin (B-12 PO) Take 500 mg by mouth Daily. cyclobenzaprine (FLEXERIL) 5 MG tablet Take 1 tablet by mouth 3 (Three) Times a Day As Needed for Muscle Spasms. 01/13/2025 dilTIAZem CD (CARDIZEM CD) 120 MG 24 hr capsule Take 1 capsule by mouth Daily. empagliflozin (Jardiance) 10 MG tablet tablet Take 1 tablet by mouth Daily. 30 tablet 11 06/21/2025 lansoprazole (PREVACID) 30 MG capsule Take 1 capsule by mouth Daily. 03/30/2022 Levothyroxine Sodium 112 MCG/ML solution Take 112 mcg by mouth Daily. 04/18/2022 meclizine (ANTIVERT) 25 MG tablet Take 1 tablet by mouth 3 (Three) Times a Day As Needed for Dizziness. ondansetron (ZOFRAN) 4 MG tablet Take 1 tablet by mouth Every 8 (Eight) Hours As Needed for Nausea or Vomiting. 03/25/2022 oxyCODONE-acetam inophen (PERCOCET) 5-325 MG per tablet Take 1 tablet by mouth Every 8 (Eight) Hours As Needed for Moderate Pain. potassium chloride (KLOR-CON M20) 20 MEQ CR tablet Take 1 tablet by mouth Daily. sildenafil (VIAGRA) 100 MG tablet Take 1 tablet by mouth As Needed for Erectile Dysfunction. 01/05/2024 tamsulosin (FLOMAX) 0.4 MG capsule 24 hr capsule Take 2 capsules by mouth Daily. 08/10/2017 tiZANidine (ZANAFLEX) 2 MG tablet Take 1-2 tablets by mouth Every 8 (Eight) Hours As Needed for Muscle Spasms. 10/04/2024 torsemide (DEMADEX) 20 MG tablet Take 4 tablets by mouth Daily. traZODone (DESYREL) 50 MG tablet Take 1 tablet by mouth Every Night. 12/22/2024 vitamin C (ASCORBIC ACID) 500 MG tablet Take 1 tablet by mouth Daily. 05/23/2025 Eliquis 5 MG tablet tablet Take 1 tablet by mouth 2 (Two) Times a Day. 06/07/2022 10/09/2025 documented as of this encounter H&P Notes * Taina Oglesby, RADHA - 08/28/2025 7:31 AM EDT [facility] HISTORY AND PHYSICAL Aden Cheung : 1955 Date of Admission:08/28/2025 PCP: Derrell West MD Chief Complaint: AF, medication noncompliance PROBLEM LIST: Atrial fibrillation CHADSVASC = 4, Eliquis Negative [facility] 02/2018- data deficit (addendum: Cath note [...] mmHg Diastolic heart failure Elevated LVEDP on [facility] in 2018 per patient report- data [...] accident APPY Hernia repair, ventral Cataract surgery ALLERGIES: Allergies[1] HOME MEDICINES: Prior to Admission Medications Prescriptions Last Dose Informant Patient Reported? Taking? allopurinol (ZYLOPRIM) 100 MG tablet 08/27/2025 Self Yes Yes Take 2 tablets by mouth Daily. Patient taking differently: Take 3 tablets by mouth Daily. aspirin 81 MG chewable tablet 08/27/2025 Yes Yes Chew 1 tablet Daily. atorvastatin (LIPITOR) 20 MG tablet 08/27/2025 Self Yes Yes Take 1 tablet by mouth Daily. busPIRone (BUSPAR) 10 MG tablet 08/28/2025 Self Yes Yes Take 1 tablet by mouth Daily. colchicine 0.6 MG tablet Past Month Self Yes Yes Take 1 tablet by mouth Daily As Needed for Muscle / Joint Pain (GOUT flare up). Cyanocobalamin (B-12 PO) 08/27/2025 Self Yes Yes Take 500 mg by mouth Daily. cyclobenzaprine (FLEXERIL) 5 MG tablet Past Month Self Yes Yes Take 1 tablet by mouth 3 (Three) Times a Day As Needed for Muscle Spasms. dilTIAZem CD (CARDIZEM CD) 120 MG 24 hr capsule 08/28/2025 Self Yes Yes Take 1 capsule by mouth Daily. Eliquis 5 MG tablet tablet 08/28/2025 Self Yes Yes Take 1 tablet by mouth 2 (Two) Times a Day. lansoprazole (PREVACID) 30 MG capsule 08/27/2025 Self Yes Yes Take 1 capsule by mouth Daily. Levothyroxine Sodium 112 MCG/ML solution 08/28/2025 Self Yes Yes Take 112 mcg by mouth Daily. oxyCODONE-acetaminophen (PERCOCET) 5-325 MG per tablet Past Week Self Yes Yes Take 1 tablet by mouth Every 8 (Eight) Hours As Needed for Moderate Pain. potassium chloride (KLOR-CON M20) 20 MEQ CR tablet 08/28/2025 Self Yes Yes Take 1 tablet by mouth Daily. Patient taking differently: Take 2 tablets by mouth Daily. tamsulosin (FLOMAX) 0.4 MG capsule 24 hr capsule 08/28/2025 Self Yes Yes Take 2 capsules by mouth Daily. torsemide (DEMADEX) 20 MG tablet 08/27/2025 Yes Yes Take 4 tablets by mouth Daily. vitamin C (ASCORBIC ACID) 500 MG tablet 08/27/2025 Self Yes Yes Take 1 tablet by mouth Daily. empagliflozin (Jardiance) 10 MG tablet tablet Self No No Take 1 tablet by mouth Daily. meclizine (ANTIVERT) 25 MG tablet Self Yes No Take 1 tablet by mouth 3 (Three) Times a Day As Needed for Dizziness. ondansetron (ZOFRAN) 4 MG tablet Self Yes No Take 1 tablet by mouth Every 8 (Eight) Hours As Needed for Nausea or Vomiting. sildenafil (VIAGRA) 100 MG tablet More than a month Self Yes No Take 1 tablet by mouth As Needed for Erectile Dysfunction. tiZANidine (ZANAFLEX) 2 MG tablet More than a month Self Yes No Take 1-2 tablets by mouth Every 8 (Eight) Hours As Needed for Muscle Spasms. traZODone (DESYREL) 50 MG tablet More than a month Self Yes No Take 1 tablet by mouth Every Night. Patient taking differently: Take 1 tablet by mouth At Night As Needed for Sleep. rarely Subjective HPI: Aden Cheung is a 70 y.o. malewith a past medical history listed above presents to [facility] today for LAAO device implant with general anesthesia. Patient was originally diagnosed with atrial fibrillation in 2019. He has been anticoagulated with Eliquis but has unable tocompliant due to financial concerns. Patient denies chest pain, shortness of breath, palpitations, LH, and syncope. ROS: All systems have been reviewed and are negative with the exception of those mentioned in the HPI and problem list above. Past Medical History: Past Medical History: Diagnosis Date Asthma Atrial fibrillation Bursitis, hip CHF (congestive heart failure) 2019 Chronic kidney disease 2021 COPD (chronic obstructive pulmonary disease) Gout Mini stroke 2018 DANNY (obstructive sleep apnea) rarely wears cpap Osteoarthritis Peroneal tendinitis Reflux esophagitis Skin cancer Stroke 05/2020 no deficits Thyroid disorder Trochanteric bursitis Surgical History: Past Surgical History: Procedure Laterality Date APPENDECTOMY CARDIAC CATHETERIZATION 2015 CARDIOVERSION 2019 CATARACT EXTRACTION Right CHOLECYSTECTOMY COLON RESECTION COLONOSCOPY HERNIA REPAIR TESTICLE SURGERY Left Social History: Social History[2] Family History: Family History Problem Relation Age of Onset Hypertension Mother Heart attack Mother Heart disease Mother Cancer Father Heart attack Father Atrial fibrillation Brother Objective BP 126/68 (BP Location: Left arm) Pulse 80 Temp 98.7 ??F (37.1 ??C) (Temporal) Resp 14 Ht 180.3 cm (71 ) Wt 100 kg (220 lb 9.6 oz) SpO2 93% BMI 30.77 kg/m?? No intake or output data in the 24 hours ending 08/28/25 0731 PHYSICAL EXAM: CONSTITUTIONAL: Well nourished, cooperative, in no acute distress HEENT: Normocephalic, atraumatic, PERRLA, no JVD CARDIOVASCULAR: Regular rhythm and normal rate, no murmur, gallop, rub. RESPIRATORY: Clear to auscultation, normal respiratory effort, no wheezing, rales or ronchi, on RA EXTREMITIES: No gross deformities, no edema. Peripheral pulses are present and equal bilaterally SKIN: Warm, dry. No bleeding, bruising or rash NEUROLOGICAL: No focal deficits PSYCHIATRIC: Normal mood and affect. Behavior is normal Labs/Diagnostic Data Results from last 7 days Lab Units 08/28/25 0653 08/21/25 1456 SODIUM mmol/L -- 138 POTASSIUM mmol/L 3.2* 3.1* CHLORIDE mmol/L -- 98 CO2 mmol/L -- 29.4* BUN mg/dL -- 17.3 CREATININE mg/dL -- 1.48* GLUCOSE mg/dL -- 89 CALCIUM mg/dL -- 8.9 Results from last 7 days Lab Units 08/21/25 1456 WBC 10*3/mm3 8.42 HEMOGLOBIN g/dL 15.7 HEMATOCRIT % 46.1 PLATELETS 10*3/mm3 214 Results from last 7 days Lab Units 08/21/25 1456 MAGNESIUM mg/dL 2.0 EKG/Telemetry: SR Radiology Data: No radiology results for the last day Results for orders placed during the hospital encounter of 08/12/22 Adult Transthoracic Echo Complete W/ Cont if Necessary Per Protocol 08/12/2022 6:04 PM Interpretation Summary ?? Estimated left ventricular EF = 55% Left ventricular systolic function is normal. ?? The left ventricular cavity is borderline dilated. ?? Left ventricular diastolic function was normal. ?? Trace mitral regurgitation. Current Medications: ceFAZolin, 2 g, Intravenous, Once famotidine, 20 mg, Intravenous, Once sodium chloride, 10 mL, Intravenous, Q12H sodium chloride, 3 mL, Intravenous, Q12H [START ON 08/29/2025] lactated ringers, 9 mL/hr Assessment: Atrial fibrillation [id number] 5, anticoagulated with eliquis Patient is not a good candidate for long-term anticoagulation due to medication noncompliance due to financial concerns. Normal EF Medication noncompliance due to financial reasons Hypertension Frequent PVCs. Plan: Patient is here today for LAAO device implant with general anesthesia. Patient will receive 2 g Ancef for surgical prophylaxis. Procedure, risks, and alternatives have been discussed with the patientand they are agreeable to proceed. Further recommendations to follow. Electronically signed by Taina Oglesby APRN, 08/28/25, 7:31 AM EDT. Please note that portions of this note were dictated utilizing [employer] dictation. [1] Allergies Allergen Reactions Amantadines Rash, Other (See Comments) and Seizure Seizures, only time pt has ever had a seizure seizure; confirmed by patient's daughter - per investment director Seizures, only time pt has ever had a seizure Penicillins Hives, Itching, Rash and Swelling confirmed by patient's daughter - per investment director Codeine Hives and Rash confirmed by patient's daughter - per investment director Metoclopramide Other (See Comments) and Unknown - Low Severity Caused depression Hctz [Hydrochlorothiazide] Rash [2] Social History Socioeconomic History Marital status: Tobacco Use Smoking status: Former Current packs/day: 0.00 Average packs/day: 1 pack/day for 44.0 years (44.0 ttl pk-yrs) Types: Cigarettes Start date: 11/09/1970 Quit date: 2015 Years since quittin.8 Passive exposure: Past Smokeless tobacco: Never Vaping Use Vaping status: Never Used Substance and Sexual Activity Alcohol use: Yes Alcohol/week: 6.0 standard drinks of alcohol Types: 6 Cans of beer per week Comment: occasional Drug use: No Sexual activity: Yes Partners: Female control/protection: None, Vasectomy, Hysterectomy Cosigned by Maury Clarke MD at 08/28/2025 11:10 AM EDT Associated attestation - Maury Clarke MD - 08/28/2025 11:10 AM EDT I have reviewed this documentation and agree. documented in this encounter Nursing Notes * Aline Rodgers RN - 08/28/2025 9:56 AM EDT LAAO Procedure Information Aden Jonatan 1955 [address] [facility] [place] [address] (home) MARQUIS Orifice Maximal Width: 12 mm Cumulative Air Kerma: 370 mGy Contrast Volume: 100 mL Dose Area Product: 1977.07 ?Gy-M2 * Aline Rodgers RN - 08/22/2025 9:57 AM EDT PRE-LAAO HISTORY Aden Jonatan 1955 [address] [facility] [place] [address] There are no phone numbers on file. Referring MD: Thanh Guy MD Information obtained from: [x] Medical record review [x] Patient report Scheduled for: LAAO implant on August 28, [address] Clarke SDM Visit: Thanh Guy MD CHADS-VASc Risk Assessment Score Rules 5 Total Score 1 CHF 1 Hypertension 2 PRIOR STROKE/TIA/THROMBO 1 Age 65-74 Criteria that do not apply: Age >/= 75 DM Vascular Disease Sex: Female History & Risk Factors (prior to LAAO implant) [id number] Risk Factors: Congestive HF [] No [x] Yes-I LV Dysfunction [] No [x] Yes Hypertension [] No [x] Yes Diabetes [x] No [] Yes Stroke [x] No [] Yes TIA [] No [x] Yes Thromboembolism [x] No [] Yes Vascular Disease [x] No [] Yes If Yes, Type [] Prior OH [] PAD [] Aortic Plaque Statin if indicated [] No [x] Yes-Lipitor (CAD, CVA/TIA, PVA, DM) HAS-BLED Risk Factors: HTN (uncontrolled) [] No [x] Yes Abnormal Renal Fxn [] No [x] Yes Abnormal Liver Fxn [x] No [] Yes Stroke [] No [x] Yes Bleeding event [x] No [] Yes Labile INR [x] No [] Yes Alcohol [] No [x] Yes-Weekends Antiplatelets [] No [x] Yes-81 mg ASA NSAIDS [x] No [] Yes Additional Stroke & Bleeding Risk Factors: Increased Fall Risk [] No [x] Yes Bleeding Event [x] No [] Yes If Yes, Type [] Intracranial [] Epistaxis [] GI [] Other Rhythm History: AFIBTYPE: paroxysmal Valvular AFib [x] No [] Yes If Yes, Rheum Valve Disease [] No [] Yes If Yes, Mitral Valve Replacement [] No [] Yes If Yes, Mechanical? [] No [] Yes If Yes, Mitral Valve Repair [] No [] Yes Attempt at AFib Termination: [] No [x] Yes If Yes, pharmacologic CV [x] No [] Yes If Yes, DC cardioversion [] No [x] Yes If Yes, catheter ablation [x] No [] Yes If Yes, Date of most recent: Atrial Flutter [x] No [] Yes If Yes, attempt at termination [] No [] Yes If Yes, pharmacologic cardioversion [] No [] Yes If Yes, DC cardioversion [] No [] Yes If Yes, catheter ablation [] No [] Yes If Yes, Date of most recent: MARQUIS Intervention [x] No [] Yes Additional History & Risk Factors: Cardiomyopathy [x] No [] Yes Chronic Lung Disease [] No [x] Yes Coronary Artery Disease [x] No [] Yes Sleep Apnea [] No [x] Yes If Yes, compliant with treatment [x] No [] Yes-BiPAP Epicardial Approach Considered [x] No [] Yes Diagnostic Studies: Last Echo: [x] TTE Date: 08/12/2022 EF: 55% LA: 4.5 cm VHD: The mitral valve is structurally normal with no significant stenosis present. Trace mitral valve regurgitation is present. Ramiro, arb arni for EF < 40% Pre-procedure blood thinner medications: continue uninterrupted Eliquis and ASA. Discussed pre procedure workup, procedure, recovery and follow up appointments along with medication options. 08/22/25 09:57 EDT LMPREWATCHMAN Revised 12/03/2023 Cosigned by Maury Clarke MD at 08/22/2025 11:13 AM EDT Associated attestation - Maury Clarke MD - 08/22/2025 11:13 AM EDT I have reviewed this documentation and agree. documented in this encounter Plan of Treatment Upcoming Encounters Date Type Department Care Team (Late st Contact Info) Description 12/05/2025 11:15 AM EST Office Visit [facility] [address] [facility] [address] [place] [address] Harley Mendoza PA [address] [facility] [address] [place] [address] 12/20/2025 1:45 PM EST Office Visit [facility] [address] [place] [address] Thanh Guy MD [address] [facility] [address] [place] [address] 03/02/2026 12:30 PM EDT Telemedicine [facility] [address] [facility] [address] [place] [address] Griffin Connelly APRN [address] [facility] [address] [place] [address] documented as of this encounter Procedures Procedure Name Priority Date/Time Associated Diagnosis Comments EP STUDY Routine 08/28/2025 9:05 AM EDT AF (paroxysmal atrial fibrillation) Patient noncompliant with anticoagulant medication POCT ACTIVATED CLOTTING TIME Routine 08/28/2025 9:04 AM EDT POCT ACTIVATED CLOTTING TIME Routine 08/28/2025 8:38 AM EDT INTRA-OP STRUCTURAL HEART YAA (CARDIOLOGY READ) Routine 08/28/2025 7:59 AM EDT AF (paroxysmal atrial fibrillation) Patient noncompliant with anticoagulant medication POTASSIUM STAT 08/28/2025 6:53 AM EDT documented in this encounter Results * ATRIAL APPENDAGE OCCLUSION - CAR (08/28/2025 9:05 AM EDT) Anatomical Region Laterality Modality X-Ray Angiograph y Narrative 08/28/2025 9:23 AM EDT 20 mm Watchman FLX Pro implanted with all trabeculae covered and no beti-device leak Procedure Narrative LEFT ATRIAL APPENDAGE CLOSURE (LAAC) Watchman Implant PROCEDURES PERFORMED: Left atrial appendage closure with 20 mm Watchman FLX Pro device with intracardiac echocardiography. Patient was admitted to the hospital for this procedure. This is an inpatient procedure. PREPROCEDURAL DIAGNOSES: 1. Persistent atrial fibrillation POST PROCEDURE DIANGOSES: As above. INDICATION FOR PROCEDURE: Briefly, patient is a pleasant 70-year-old with a history of persistent atrial fibrillation. He has a difficulty with compliance with anticoagulation. After discussion of options he had elected to proceed with left atrial appendage occlusion. PROCEDURE NARRATIVE: The patient was able to give written informed consent after revisiting the zelaya portions of the risk versus benefit profile of the procedure. This discussion was framed by our lengthy conversations (please see our detailed notes). Patient verbalized strong understanding of this discussion and a strong desire to proceed with the procedure. Please note that this detailed informed consent process utilized mutual and shared decision making process between all parties involved, principally the physician and patient, but also potentially with input from the patient's selected family and friends. Please also note that the patient was seen and examined prior to this procedure by a non implanting physician who agreed that this patient would benefit from left atrial appendage closure as an alternative to long-term anticoagulation. Please see this physician separate attestation. The patient was brought to the EP Lab in the post absorptive state. The patient was then prepared and draped in a routing sterile fashion. Seldinger access was obtained at the bilateral common femoral veins with a single venipuncture on each side utilizing ultrasound probe guided vascular access. A J tip wire was advanced into the vascular space. A pair of sheaths were placed into the inferior vena cava. The patient was anticoagulated with unfractionated heparin in bolus and then continuous infusion to maintain an ACT of between 300-400 seconds. A phased array intracardiac echocardiography probe was placed into the right atrium, right ventricle and after transseptal puncture also into the left atrium and left ventricle. This was used for visualization of critical cardiac structures such as the fossa ovalis interatrial septum left atrial appendage left superior pulmonary vein mitral valve annulus and pericardial space. This aspect of the procedure is a separate and independent part of the procedure which was critical for implantation of the Watchman. Transesophageal echocardiogram was also used to guide implantation. We performed transseptal puncture with a combination of fluoroscopic and echocardiographic guidance using the [employer] cross wire. The Watchman delivery sheath was then placed in the left atrium under echocardiographic and fluoroscopic guidance safely. Left atrial appendage was then cannulated with a 10 mm angled pigtail catheter. This was again performed with a combination of echocardiographic and fluoroscopic guidance. Contrast injection was also performed. The Watchman delivery sheath was then placed into optimal position within left atrial appendage. The left atrial appendage diameter was viewed in multiple projections on echocardiography as well as fluoroscopy with contrast injection into the left atrial appendage. A 20 mm device was selected and delivered with the supplied delivery tools to the left atrial appendage safely. Of note, it was quite difficult to get the device in position. The appendage was very small and had an anterior lobe that was directed very superiorly. It was difficult to get enough purchase of the device. Eventually we were able to get the nose of the device deep enough into the anterior lead to get a satisfactory position. PASS criteria were then evaluated and confirmed. The device was then safely released. Catheters and sheaths were withdrawn from the left atrium and then the body. Hemostasis at the site of venous accesses was achieved after withdrawing the sheath from the body with a Vascade closure devices and manual pressure. Intracardiac echocardiogram demonstrated no pericardial effusion. Protamine was given to reverse anticoagulation. The patient was transferred to recovery in stable condition. COMPLICATIONS: None apparent EBL: minimal ZELAYA PROCEDURAL FINDINGS: 20 mm Watchman FLX Pro implanted with all trabeculae covered and no beti-device leak POST PROCEDURAL PLAN: Uninterrupted anticoagulation for not less than 45 days unless specially instructed otherwise by myself or another member of our EP physician team. The patient will also be taking 81 mg of aspirin. An imaging ( YAA or CT scan ) will be obtained to assess for appropriate closure of the left atrial appendage occlusion device at 45 days post implant. Please note that this patient was admitted specifically for this elective inpatient procedure. This is an inpatient procedure. us Maury Clarke MD CV ELECTROPHYSIOLOGY ORDERABLES Final Result * (ABNORMAL) POC Activated Clotting Time (08/28/2025 9:04 AM EDT) Activated Clotting Time 412(H) 82 - 152 Seconds 08/28/2025 11:34 AM EDT [facility] Comment:Serial Number: [id number]: [id number] Blood 08/28/2025 9:04 AM EDT 08/28/2025 11:34 AM EDT us Maury Clarke MD POINT OF CARE TEST ORDERABLES Fi nal Result Performing Organization Address [facility] Co de Phone Number [facility]
[address] [place] [address], * (ABNORMAL) POC Activated Clotting Time (08/28/2025 8:38 AM EDT) Activated Clotting Time 544(H) 82 - 152 Seconds 08/28/2025 11:34 AM EDT [facility] Comment:Serial Number: [id number]: [id number] Blood 08/28/2025 8:38 AM EDT 08/28/2025 11:34 AM EDT us Maury Clarke MD POINT OF CARE TEST ORDERABLES Fi nal Result Performing Organization Address City/[facility] Co de Phone Number [facility]
[address] [place] [address], * Intra-Op Structural Heart YAA (Cardiology Read) (08/28/2025 7:59 AM EDT) CV VAS BP LEFT ARM 105/62 mmHg Ao root diam 3.5 cm Anatomical Region Laterality Modality Ultrasound Narrative 08/28/2025 9:35 AM EDT 20 mm Watchman FLX pro left atrial appendage occlusion device placed under YAA guidance. The device is well-seated with no periprosthetic flow Left ventricular ejection fraction appears to be 56 - 60%. The left atrial cavity is mildly dilated. Small patent foramen ovale present. Mild mitral valve regurgitation is present. Left Ventricle Left ventricular ejection fraction appears to be 56 - 60%. Normal left ventricular cavity size noted. Right Ventricle Normal right ventricular cavity size and systolic function noted. Left Atrium The left atrial cavity is mildly dilated. No evidence of a left atrial appendage thrombus was present. Left atrial appendage occlusion device noted. Small patent foramen ovale present. Right Atrium Normal right atrial cavity size noted. Mitral Valve The mitral valve is structurally normal with no significant stenosis present. Mild mitral valve regurgitation is present. Tricuspid Valve The tricuspid valve is structurally normal with no significant stenosis present. Trace tricuspid valve regurgitation is present. Insufficient TR velocity profile to estimate the right ventricular systolic pressure. Aortic Valve The aortic valve is abnormal in structure. No significant aortic valve regurgitation is present. No hemodynamically significant aortic valve stenosis is present. Pulmonic Valve The pulmonic valve is structurally normal. Pericardium There is no evidence of pericardial effusion. . There is evidence of a fat pad present. Greater Vessels There is mild, (grade 1) plaque in the descending aorta present. YAA Procedure Details A transesophageal echocardiogram was performed for guidance of a transcatheter intracardiac or great vessel(s): MARQUIS Occlusion/Closure. 3D rendering, reconstruction & interpretation was performed under concurrent supervision. The 3D imaging probe was used to image the heart. Acquisitions were captured in real-time 3D and full volume to assess MARQUIS. Informed consent for Transesophageal Echocardiogram, and use of contrast as needed, was obtained prior to the procedure. The procedure was performed in the distillery laborer. Patient was noted to be in a fasting state, with a peripheral IV in place. A bite block was placed for probe protection. Anesthesia monitored sedation was administered by anesthesia staff. Please see notes for documentation. An adult multi-frequency, multiplane transesophageal echocardiographic endoscope was inserted and manipulated in the standard fashion to achieve multiplane views. Transesophageal probe was able to be passed without difficulty. Usual basal, mid-esophageal, transgastric, and aortic views were obtained. YAA probe identification 7. The patient's vital signs, including blood pressure, heart rate, pulse oximetry, and cardiac rhythm were monitored throughout the procedure. Vitals signs remained stable throughout the study. Post-procedural recovery was completed in the metallurgical laboratory assistant, The patient tolerated the procedure without evidence of oropharyngeal or esophageal trauma. us Maury Clarke MD CV ECHO ORDERABLES Final Result * (ABNORMAL) Potassium (08/28/2025 6:53 AM EDT) Potassium 3.2(L) 3.5 - 5.2 mmol/L 08/28/2025 7:28 AM EDT [facility] Blood Line / Unknown 08/28/2025 6: 53 AM EDT 08/28/2025 7:03 AM EDT us Maury Clarke MD LAB BLOOD ORDERABLES Final Resul t [facility]
[address] [place] [address], documented in this encounter Visit Diagnoses Diagnosis Patient noncompliant with anticoagulant medication- Primary AF (paroxysmal atrial fibrillation) Atrial fibrillation A-fib Atrial fibrillation AF (paroxysmal atrial fibrillation) Atrial fibrillation Patient noncompliant with anticoagulant medication documented in this encounter Admitting Diagnoses Diagnosis AF (paroxysmal atrial fibrillation) Atrial fibrillation Patient noncompliant with anticoagulant medication A-fib Atrial fibrillation documented in this encounter Administered Medications Inactive Administered Medications - up to 3 most recent administrations Medication Order MAR Action Action Date Dose Rate Site famotidine (PEPCID) tablet 20 mg 20 mg, Oral, Once, On Thu08/28/25 at 0640, For 1 dose Given 08/28/2025 7:16 AM EDT 20 mg lactated ringers infusion 9 mL/hr, Intravenous, Continuous, Starting on Thu08/29/25 at 0600, For 1 day, May switch to NS IV at KVO if renal / if indicated lidocaine PF 1% (XYLOCAINE) injection 0.5 mL 0.5 mL, Injection, Once As Needed, IV Start, Starting on Thu08/28/25 at 0638, For 1 dose midazolam (VERSED) injection 0.5 mg 0.5 mg, Intravenous, Every 10 Minutes PRN, Anxiety prophylaxis, Pre-op comfort, Starting on Thu08/28/25 at 0638, For 2 doses, May repeat dose in 10 minutes one time then contact provider for additional orders. If given IV Push: give slowly over at least 2 minutes, unless provider at bedside for induction. (NICHOLE) sodium chloride 0.9 % flush 10 mL 10 mL, Intravenous, Every 12 Hours Scheduled, First dose on Thu08/28/25 at 0900 sodium chloride 0.9 % flush 10 mL 10 mL, Intravenous, As Needed, Line Care, Starting on Thu08/28/25 at 0638 documented in this encounter Active and Recently Administered Medications Times are shown in EDT. Scheduled Medication Order 08/26/2025 08/27/2025 08/28/2025 ceFAZolin 2000 mg IVPB in 100 mL NS (MBP) (COMPLETED) 2 g, Intravenous, Administer over 30 Minutes, Once, On Thu08/28/25 at 0733, For 1 dose, Caution: Look alike/sound alike drug alert, Indications: Surgical Prophylaxis 0813 (New Bag - Prov ider: Kiki Yousif, APARNA) famotidine (PEPCID) injection 20 mg 20 mg, Intravenous, Once, On Thu08/28/25 at 0640, For 1 dose, Give IV push over 2 minutes. 0640 (Due) famotidine (PEPCID) tablet 20 mg (COMPLETED) 20 mg, Oral, Once, On Thu08/28/25 at 0640, For 1 dose 0716 (Given - Provid er: Coral Frazier RN) sodium chloride 0.9 % flush 10 mL 10 mL, Intravenous, Every 12 Hours Scheduled, First dose on Thu08/28/25 at 0900 0900 (Due) Continuous Medication Order 08/26/2025 08/27/2025 08/28/2025 lactated ringers infusion 9 mL/hr, Intravenous, Continuous, Starting on Thu08/29/25 at 0600, For 1 day, May switch to NS IV at KVO if renal / if indicated 0750 (Canceled Entry - Provider: Kiki Yousif CRNA) PRN Medication Order 08/26/2025 08/27/2025 08/28/2025 bupivacaine (MARCAINE) 0.5 % injection (CANCELED) Code / Trauma / Sedation Medication, Starting on Thu08/28/25 at 0815 0815 (Given - Provid er: Maury Clarke MD) heparin (porcine) injection (CANCELED) Code / Trauma / Sedation Medication, Starting on Thu08/28/25 at 0824 0824 (Given - Provid er: Savanna Reed, TANIKA) heparin 70838 units/250 mL (100 units/mL) in 0.45 % NaCl infusion (CANCELED) Code / Trauma / Sedation Continuous Med, Starting on Thu08/28/25 at 0824 0824 (New Bag - Prov ider: Savanna Reed, TANIKA)0839 (Stopped - Provider: Savanna Reed, TANIKA) iopamidol (ISOVUE-370) 76 % injection (CANCELED) Code / Trauma / Sedation Medication, Starting on Thu08/28/25 at 0904 0904 (Given - Provid er: Maury Clarke MD - Comment: CONTRAST FROM TABLE) lidocaine (XYLOCAINE) 1 % injection (CANCELED) Code / Trauma / Sedation Medication, Starting on Thu08/28/25 at 0814 0814 (Given - Provid er: Maury Clarke MD) lidocaine PF 1% (XYLOCAINE) injection 0.5 mL 0.5 mL, Injection, Once As Needed, IV Start, Starting on Thu08/28/25 at 0638, For 1 dose midazolam (VERSED) injection 0.5 mg 0.5 mg, Intravenous, Every 10 Minutes PRN, Anxiety prophylaxis, Pre-op comfort, Starting on Thu08/28/25 at 0638, For 2 doses, May repeat dose in 10 minutes one time then contact provider for additional orders. If given IV Push: give slowly over at least 2 minutes, unless provider at bedside for induction. (NICHOLE) protamine injection (CANCELED) Code / Trauma / Sedation Medication, Starting on Thu08/28/25 at 0905 0904 (Given - Provid er: Savanna Reed, TANIKA) sodium chloride 0.9 % flush 10 mL 10 mL, Intravenous, As Needed, Line Care, Starting on Thu08/28/25 at 0638 sodium chloride 0.9 % infusion (COMPLETED) Code / Trauma / Sedation Continuous Med, Starting on Thu08/28/25 at 0759 0750 (New Bag - Prov ider: Kiki Yousif CRNA)0759 (New Bag - Provider: Savanna Reed RN)0910 (Anesthesia Volume Adjustment - Provider: Kiki Yousif CRNA) documented in this encounter Care Teams Trust Manager Assistant Relationship Specialty Start Date End Date Derrell West MD [address] [facility] [address] [place] [id number] PCP - General Internal Medicine 06/23/22 documented as of this encounter
--- OUTSIDE RECORDS SUMMARY | 2025-08-28 06:10 | XMS_ITS | Encounter Summary ---
[facility] Address [address] [place] [address] Care Team Providers Care Chief Load Dispatcher Name Role Phone Derrell West MD Primary Care Provider [phone] Reason for Visit * Auth/Cert Specialty Diagnoses / Procedures Referred By Contac t Referred To Contact Diagnoses AF (paroxysmal atrial fibrillation) Patient noncompliant with anticoagulant medication Atrial Fibrillation Procedures AR PERQ CLSR TCAT L ATR APNDGE W/ENDOCARDIAL IMPLNT Atrial Appendage Occlusion, CTA, DNS Eliquis Referral ID Status Reason Start Date Expiration Date Visits Re quested Visits Authorized 1 1 Encounter Details Date Type Department Care Team (Late st Contact Info) Description 08/28/2025 7:10 AM EDT - 08/28/2025 9:40 AM EDT Surgery [facility] [address] [place] [address] Maury Clarke MD [address] [facility] [address] [place] [address] Atrial Appendage Occlusion, CTA, DNS Eliquis [[id number] (CPT )] Social History Tobacco Use Types Packs/Day Years [...] or training? Not on file Preferred Language North Korean 08/21/2025 Sex and Gender Information Value Date Recorded Sex Assigned at Male 08/20/2025 3:51 PM EDT Legal Sex Male 2:28 PM EDT Gender Identity Not on file Sexual Orientation Straight 08/20/2025 3: 51 PM EDT documented as of this encounter Last Filed Vital Signs Vital Sign Reading Time Taken Comments Blood Pressure 105/46 08/28/2025 9:30 AM EDT Pulse 62 08/28/2025 9:30 AM EDT Temperature 36.4 C (97.6 F) 08/28/2025 9:16 AM EDT Respiratory Rate 18 08/28/2025 9:16 AM EDT Oxygen Saturation 94% 08/28/2025 9:30 AM EDT Inhaled Oxygen Concentration - - Weight 99.8 kg (220 lb) 08/28/2025 9:19 AM EDT Height 180.3 cm (5' 10.98 ) 08/28/2025 9:19 AM E DT Body Mass Index 30.7 08/28/2025 9:19 AM [...] 7:00 AM EDT Coral Boogie RN * [place] Suicide Severity Rating Scale (Screener/Recent Self-Report) Question Answer Date of Assessment Author 6. Suicidal Behavior (Lifetime) No 7:00 AM EDT Coral Frazier RN documented as of this encounter Discharge Summaries * Maury Clarek MD - 08/28/2025 12:20 PM EDT Patient presented as an inpatient for watchman implantation. Procedure went well without complications and patient was ultimately discharged home. documented in this encounter Discharge Instructions * Attachments The following attachments cannot be sent through Care Everywhere. * Left Atrial Appendage Closure Device Implantation (North Korean) * Left Atrial Appendage Closure Device Implantation Care After (North Korean) * Femoral Site Care ([place] Korean) * General Anesthesia Adult Care After ([place] Korean) * Apixaban Tablets ([place] Korean) documented in this encounter Medications at Time [...] of this encounter H&P Notes * Taina Oglesby APRN - 08/28/2025 7:31 AM EDT [facility] HISTORY AND PHYSICAL Aden Cheung : 1955 Date of Admission:08/28/2025 PCP: Derrell West MD Chief Complaint: AF, medication noncompliance PROBLEM LIST: Atrial fibrillation CHADSVASC = 4, Eliquis Negative [facility] 02/2018- data deficit (addendum: Cath note 03/03/2018 [...] mmHg Diastolic heart failure Elevated LVEDP on [facility] in 2018 per patient report- data deficit. [...] past medical history listed above presents to [facility] today for LAAO device implant with [...] lactated ringers, 9 mL/hr Assessment: Atrial fibrillation [id number], anticoagulated with eliquis Patient is not [...] portions of this note were dictated utilizing edeneson dictation. [1] Allergies Allergen Reactions Amantadines Rash, Other (See Comments) and Seizure Seizures, only time pt has ever had a seizure seizure; confirmed by patient's daughter - per pharmacy director Seizures, only time pt has ever had a seizure Penicillins Hives, Itching, Rash and Swelling confirmed by patient's daughter - per pharmacy director Codeine Hives and Rash confirmed by patient's daughter - per pharmacy director Metoclopramide Other (See Comments) and Unknown - Low Severity Caused depression Hctz [Hydrochlorothiazide] Rash [2] Social History Socioeconomic History Marital status: Tobacco Use Smoking status: Former Current packs/day: 0.00 Average packs/day: 1 pack/day for 44.0 years (44.0 ttl pk-yrs) Types: Cigarettes Start date: 11/09/1970 Quit date: 2014 Years since quittin.8 Passive exposure: Past Smokeless [...] Procedure Information Aden Jonatan 1955 [address] [place] [address] (home) MARQUIS Orifice Maximal Width: 12 mm Cumulative Air Kerma: 370 mGy Contrast Volume: 100 mL Dose Area Product: 1977.07 ?Gy-M2 * Aline Rodgers RN - 08/22/2025 9:57 AM EDT PRE-LAAO HISTORY Aden Cheung 1955 [address] [place] [address] There are no phone numbers on file. [...] & Risk Factors (prior to LAAO implant) [id number] Risk Factors: Congestive HF [] No [x] Yes-I LV Dysfunction [] No [x] Yes Hypertension [] No [x] Yes Diabetes [x] No [] Yes Stroke [x] No [] Yes TIA [] No [x] Yes Thromboembolism [x] No [] Yes Vascular Disease [x] No [] Yes If Yes, Type [] Prior [place] [] PAD [] Aortic Plaque Statin if [...] along with medication options. 08/22/25 09:57 EDT [facility] Revised 12/03/2023 Cosigned by Maury Clarke MD at 08/22/2025 11:13 AM EDT Associated attestation - Maury Clarke MD - 08/22/2025 11:13 AM EDT I have reviewed this documentation and agree. documented in this encounter Plan of Treatment Upcoming Encounters Date Type Department Care Team (Late st Contact Info) Description 12/05/2025 11:15 AM EST Office Visit [facility] [address] [place] [address] Harley Mendoza PA [address] [place] [address] 12/20/2025 1:45 PM EST Office Visit [facility] [address] [place] [address] Thanh Guy MD [address] [facility] [address] [place] [address] 03/02/2026 12:30 PM EDT Telemedicine [facility] [address] [place] [address] Griffin Connelly APRN [address] [place] [address] documented as of this encounter Procedures Procedure [...] give written informed consent after revisiting the mclaughlin portions of the risk versus benefit profile [...] of fluoroscopic and echocardiographic guidance using the [id number] cross wire. The Watchman delivery sheath was [...] stable condition. COMPLICATIONS: None apparent EBL: minimal [place] PROCEDURAL FINDINGS: 20 mm Watchman FLX Pro [...] inpatient procedure. This is an inpatient procedure. Maury Clarke MD CV ELECTROPHYSIOLOGY ORDERABLES Final Result * (ABNORMAL) POC Activated Clotting Time (08/28/2025 9:04 AM EDT) [facility] Activated Clotting Time 412(H) 82 - 152 Seconds 08/28/2025 11:34 AM EDT [facility] Comment:Serial Number: [id number] 7Operator: [id number] Blood 08/28/2025 9:04 AM EDT 08/28/2025 11:34 AM EDT Maury Clarke MD POINT OF CARE TEST ORDERABLES Fi nal Result [facility]
[address] [place] [address], [place] [phone] * (ABNORMAL) POC Activated Clotting Time (08/28/2025 8:38 AM EDT) [facility] Activated Clotting Time 544(H) 82 - 152 Seconds 08/28/2025 11:34 AM EDT [facility] Comment:Serial Number: [id number] 7Operator: [id number] Blood 08/28/2025 8:38 AM EDT 08/28/2025 11:34 AM EDT us Maury Clarke MD POINT OF CARE TEST ORDERABLES Fi nal Result [facility]
[address] [place] [address], [place] [phone] * Intra-Op Structural Heart YAA (Cardiology Read) (08/28/2025 7:59 AM EDT) [facility] CV VAS BP LEFT ARM 105/62 mmHg [...] procedure. The procedure was performed in the color laboratory technician. Patient was noted to be in a [...] study. Post-procedural recovery was completed in the mason tender restoration labor, The patient tolerated the procedure without evidence of oropharyngeal or esophageal trauma. us Maury Clarke MD CV ECHO ORDERABLES Final Result * (ABNORMAL) Potassium (08/28/2025 6:53 AM EDT) Potassium 3.2(L) 3.5 - 5.2 mmol/L 08/28/2025 7:28 AM EDT [facility] Blood Line / Unknown 08/28/2025 6: 53 AM EDT 08/28/2025 7:03 AM EDT Maury Clarke MD LAB BLOOD ORDERABLES Final Resul t [facility]
[address] [place] [address], documented in this encounter Visit Diagnoses Diagnosis [...] MAR Action Action Date Dose Rate Site bupivacaine (MARCAINE) 0.5 % injection Code / Trauma / Sedation Medication, Starting on Thu08/28/25 at 0815 Given 08/28/2025 8:15 AM EDT 5 mL Groin Right heparin (porcine) injection Code / Trauma / Sedation Medication, Starting on Thu08/28/25 at 0824 Given 08/28/2025 8:24 AM EDT 18,000 Units heparin 09080 units/250 mL (100 units/mL) in 0.45 % NaCl infusion Code / Trauma / Sedation Continuous Med, Starting on Thu08/28/25 at 0824 New Bag 08/28/2025 8:24 AM EDT 3,000 Units/hr 30 mL/hr iopamidol (ISOVUE-370) 76 % injection Code / Trauma / Sedation Medication, Starting on Thu08/28/25 at 0904 Given 08/28/2025 9:04 AM EDT 100 mL lactated ringers infusion 9 mL/hr, Intravenous, Continuous, Starting on Thu08/29/25 at 0600, For 1 day, May switch to NS IV at KVO if renal / if indicated lidocaine (XYLOCAINE) 1 % injection Code / Trauma / Sedation Medication, Starting on Thu08/28/25 at 0814 Given 08/28/2025 8:14 AM EDT 5 mL Groin Right lidocaine PF 1% (XYLOCAINE) injection 0.5 mL [...] at bedside for induction. (NICHOLE) protamine injection Code / Trauma / Sedation Medication, Starting on Thu08/28/25 at 0905 Given 08/28/2025 9:04 AM EDT 100 mg sodium chloride 0.9 % flush 10 mL 10 mL, Intravenous, Every 12 Hours Scheduled, First dose on Thu08/28/25 at 0900 sodium chloride 0.9 % flush 10 mL 10 mL, Intravenous, As Needed, Line Care, Starting on Thu08/28/25 at 0638 sodium chloride 0.9 % infusion Code / Trauma / Sedation Continuous Med, Starting on Thu08/28/25 at 0759 New Bag 08/28/2025 7:59 AM EDT 1,000 mL New Bag 08/28/2025 7:50 AM EDT documented in this encounter Active and Recently Administered Medications Times are shown in EDT. Scheduled Medication Order 08/26/2025 08/27/2025 08/28/2025 ceFAZolin 2000 mg IVPB in 100 mL NS (MBP) (COMPLETED) 2 g, Intravenous, Administer over 30 Minutes, Once, On Thu08/28/25 at 0733, For 1 dose, Caution: Look alike/sound alike drug alert, Indications: Surgical Prophylaxis 0813 (New Bag - Prov ider: Kiki Yousif, AIRCRAFT SEAT UPHOLSTERER) famotidine (PEPCID) injection 20 mg 20 mg, [...] - Provid er: Savanna Reed, TANIKA) heparin 77581 units/250 mL (100 units/mL) in 0.45 % NaCl infusion (CANCELED) Code / Trauma / Sedation Continuous Med, Starting on Thu08/28/25 at 0824 0824 (New Bag - Prov ider: Savanna Reed, RN)0839 (Stopped - Provider: Savanna Reed RN) iopamidol (ISOVUE-370) 76 % injection (CANCELED) Code [...] CRNA) documented in this encounter Care Teams Chief Load Dispatcher Relationship Specialty Start Date End Date Derrell West MD [address] [facility] [address] [facility] PCP - General Internal Medicine 06/23/22 documented as of this encounter
--- OUTSIDE RECORDS SUMMARY | 2025-08-28 06:46 | XMS_ITS | Encounter Summary ---
[facility] [address] [place] [address] Care Team Providers Care Shank Boner Name Role Phone Derrell West MD Primary Care Provider [phone] Reason for Visit * Auth/Cert Specialty Diagnoses / Procedures Referred By Contac t Referred To Contact Diagnoses AF (paroxysmal atrial fibrillation) Patient noncompliant with anticoagulant medication Atrial Fibrillation Procedures MD PERQ CLSR TCAT L ATR APNDGE W/ENDOCARDIAL IMPLNT Atrial Appendage Occlusion, CTA, DNS [place] Referral ID Status Reason Start Date Expiration Date Visits Re quested Visits Authorized 1 1 Encounter Details Date Type Department Care Team (Late st Contact Info) Description 08/28/2025 7:46 AM EDT Anesthesia Event [facility] [address] [place] [id number] Yuval Montero MD [address] [place] [id number] Anesthesia Record Procedure Summary Procedure Name Responsible Anesthesiologist Anesthesia Start Time Anesthesia Stop Time Atrial Appendage Occlusion, CTA, DNS Yuval Hull MD 08/28/25 0746 08/28/25 0913 Events Date Time Event Comment 08/28/2025 0655 0703 AN Equip Check 0746 An Start The patient was reevaluated immediately before moderate or deep sedation use and before anesthesia induction. 0746 An Start Data 0756 An Induction 0758 An Intubation 0811 AN YAA 0909 An Extubation 0910 an stop data 0912 Handoff to RN The following has been completed: 1. Identification of Patient, mclaughlin family member(s) or patient surrogate 2. Identification of the responsible Practitioner (primary service) 3. Discussion of the pertinent/attainable medical history 4. Discussion of the surgical/procedure course (procedure, reason for surgery, procedure performed) 5. Intraoperative anesthetic management and issue/concerns to include things such as airway, hemodynamics, narcotic, sedation level and paralytic management and intravenous fluids/blood products and urine output during the procedure 6. Expectations/Plans for the early post-procedure period to include things such as anticipated course (anticipatory guidance), complications, need for laboratory or ECG and medication administration 7. Opportunity for questions and acknowledgment of understanding of report from the receiving PACU/ICU team 0913 An Stop Meds Name Total propofol (DIPRIVAN) 10 mg/mL injection 1 50 mg rocuronium (ZEMURON) 50 mg/5 mL injectio n 70 mg sugammadex (BRIDION) 200 mg/2 mL injecti on 200 mg phenylephrine (ULISES-SYNEPHRINE) 50 mg in sodium chloride 0.9 % 250 mL infusion 1.56 mg lidocaine PF (XYLOCAINE) injection 1% 50 mg ondansetron (ZOFRAN) 2 mg/mL 4 mg dexamethasone (DECADRON) 4 mg/mL injecti on 4 mg ceFAZolin 2000 mg IVPB in 100 mL NS (MBP ) 2 g sodium chloride 0.9 % infusion 300 mL * Agents Name O2 N2O Air Sevoflurane Inspired Sevoflurane * Blood No blood administrations on file. Lines, Drains, and Airways Type Details Placement Removal Peripheral IV Placement Date: 08/09 01/31; Placement Time: 1645; Catheter Size: 20 G; Orientation: Anterior, Right; Location: Wrist; Removal Date: 08/28/25; Removal Time: 121708/21/25 1646 by Renee Catherine 08/28/251217 by Myra Rutherford RN Peripheral IV Placement Date: 08/10 ; Placement Time: 726; Catheter Size: 20 G; Orientation: Anterior, Distal, Right, Upper; Location: Arm; Removal Date: 08/28/25; Removal Time: 121708/28/25726 by Coral Frazier RN 08/28/251217 by Myra Rutherford RN Peripheral IV Placement Date: 08/10 ; Placement Time: 726; Catheter Size: 20 G; Orientation: Left; Location: Antecubital; Removal Date: 08/28/25; Removal Time: 121708/28/25726 by Coral Frazier RN 08/28/251217 by Myra Rutherford RN ETT Placement Date: 08/10 ; Placement Time: 757 (created via procedure documentation); Blade Size: 3; Location: Oral; Removal Date: 08/28/25; Removal Time: 90808/28/25 075 by Kiki Yousif CARBON PAPER MACHINE OPERATOR 08/28/25 09 by Kiki Yousif CRNA Venous Sheath 08/28/25; 0820; Yes; 10 Fr.; Right; Femoral; No; JS; Injectable; Chlorhexidine; Yes; PERCLOSE; 08/28/25; 0904; Per protocol/policy; Dressing applied, Pressure applied per protocol (TEGADERM) 08/28/25 0820 by Isha Mcintosh RN 08/28/25 0904 by Isha Mcintosh RN Venous Sheath 08/28/25; 0820; Othe r (Comment) (13F); Right; Femoral; No; JS; Injectable; Chlorhexidine; Yes; PERCLOSE; 08/28/25; 0904; Per protocol/policy; Dressing applied, Pressure applied per protocol (TEGADERM) 08/28/25 0820 by Isha Mcintosh RN 08/28/25 0904 by Isha Mcintosh RN documented in this encounter Social History Tobacco Use Types Packs/Day Years [...] or training? Not on file Preferred Language Burmese 08/21/2025 Sex and Gender Information Value Date Recorded Sex Assigned at Male 08/20/2025 3:51 PM EDT Legal Sex Male 2:28 PM EDT Gender Identity Not on file Sexual Orientation Straight 08/20/2025 3: 51 PM EDT documented as of this encounter Functional Status * Question Answer [...] 7:00 AM EDT Coral Boogie RN * Haines Suicide Severity Rating Scale (Screener/Recent Self-Report) Question Answer Date of Assessment Author 6. Suicidal Behavior (Lifetime) No 7:00 AM EDT Coral Frazier RN documented as of this encounter OR Notes * Anesthesia Postprocedure Evaluation - Kiki Yousif CRNA - 08/28/2025 9:13 AM EDT Patient: Aden Cheung Procedure Summary Date: 08/28/25 Room / Location: [facility] Anesthesia Start: 745 Anesthesia Stop: 0913 Procedure: Atrial Appendage Occlusion, CTA, DNS Eliquis Diagnosis: AF (paroxysmal atrial fibrillation) Patient noncompliant with anticoagulant medication (Atrial Fibrillation) Providers: Maury Clarke MD Provider: Yuval Montero MD Anesthesia Type: general ASA Status: 3 Anesthesia Type: general Vitals Vitals Value Taken Time BP 128/75 08/28/25 09:12 Temp 97.6 ??F (36.4 ??C) 08/28/25 09:12 Pulse 75 08/28/25 09:12 Resp SpO2 98 % 08/28/25 09:12 Post Anesthesia Care and Evaluation Patient location during evaluation: bedside Patient participation: complete - patient participated Level of consciousness: awake and alert Pain management: adequate Airway patency: patent Anesthetic complications: No anesthetic complications PONV Status: none Cardiovascular status: hemodynamically stable and acceptable Respiratory status: nonlabored ventilation, acceptable and nasal cannula Hydration status: acceptable * Anesthesia Procedure Notes - Kiki Yousif CRNA - 08/28/2025 8:09 AM EDT Associated Order(s): Airway Airway Reason: elective Date/Time: 08/28/2025 7:58 AM Airway not difficult General Information and Staff Patient location during procedure: OR CARBON PAPER MACHINE OPERATOR/CAA: Kiki Yousif CRNA Indications and Patient Condition Indications for airway management: airway protection Preoxygenated: yes MILS not maintained throughout Mask difficulty assessment: 2 - vent by mask + OA or adjuvant +/- NMBA Final Airway Details Final airway type: endotracheal airway Successful airway: ETT Cuffed: yes Successful intubation technique: video laryngoscopy Adjuncts used in placement: intubating stylet Endotracheal tube insertion site: oral Blade: Mishra Blade size: 3 ETT size (mm): 7.5 Cormack-Lehane Classification: grade I - full view of glottis Placement verified by: chest auscultation and capnometry Cuff volume (mL): 7 Measured from: lips ETT/EBT to lips (cm): 22 Number of attempts at approach: 1 Assessment: lips, teeth, and gum same as pre-op and atraumatic intubation Additional Comments Negative epigastric sounds, Breath sound equal bilaterally with symmetric chest rise and fall * Anesthesia Preprocedure Evaluation - Yuval Montero MD - 08/28/2025 6:54 AM EDT Anesthesia Evaluation Patient summary reviewed and Nursing notes reviewed Airway Mallampati: II TM distance: >3 FB Neck ROM: full No difficulty expected Comment: GUEVARA Dental - normal exam (+) edentulous Pulmonary - normal exam (+) a smoker Former, COPD, asthma,sleep apnea Cardiovascular - normal exam (+) hypertension, dysrhythmias Atrial Fib, CHF Neuro/Psych (+) TIA, CVA GI/Hepatic/Renal/Endo (+) renal disease- CRI, thyroid problem hypothyroidism Musculoskeletal Abdominal - normal exam Bowel sounds: normal. 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 Plan discussed with CARBON PAPER MACHINE OPERATOR. CODE STATUS: documented in this encounter Plan of Treatment Upcoming Encounters Date Type Department Care Team (Late st Contact Info) Description 12/05/2025 11:15 AM EST Office Visit [facility] [address] [facility] [address] [place] [address] Harley Mendoza PA [address] [facility] [address] [place] [address] 12/20/2025 1:45 PM EST Office Visit [facility] [address] [place] [address] Thanh Guy MD [address] [facility] [address] [place] [address] 03/02/2026 12:30 PM EDT Telemedicine [facility] [address] [facility] [address] [place] [phone] Griffin Connelly APRN [address] [place] [address] documented as of this encounter Procedures Procedure Name Priority Date/Time Associated Diagnosis Comments ANESTHESIA INTUBATION Routine 08/28/2025 8:09 AM EDT documented in this encounter Results * BH AN ETT AIRWAY (08/28/2025 8:09 AM EDT) Narrative Kiki Yousif CRNA - 08/28/2025 8:09 AM EDT Kiki Yousif CRNA 08/28/2025 8:09 AM Airway Reason: elective Date/Time: 08/28/2025 7:58 AM Airway not difficult General Information and Staff Patient location during procedure: OR CARBON PAPER MACHINE OPERATOR/CAA: Kiki Yousif CRNA Indications and Patient Condition Indications for airway management: airway protection Preoxygenated: yes MILS not maintained throughout Mask difficulty assessment: 2 - vent by mask + OA or adjuvant +/- NMBA Final Airway Details Final airway type: endotracheal airway Successful airway: ETT Cuffed: yes Successful intubation technique: video laryngoscopy Adjuncts used in placement: intubating stylet Endotracheal tube insertion site: oral Blade: Mishra Blade size: 3 ETT size (mm): 7.5 Cormack-Lehane Classification: grade I - full view of glottis Placement verified by: chest auscultation and capnometry Cuff volume (mL): 7 Measured from: lips ETT/EBT to lips (cm): 22 Number of attempts at approach: 1 Assessment: lips, teeth, and gum same as pre-op and atraumatic intubation Additional Comments Negative epigastric sounds, Breath sound equal bilaterally with symmetric chest rise and fall us Yuval Montero MD ANESTHESIA ORDERABLES Final Res ult documented in this encounter Visit Diagnoses Not on filedocumented in this encounter Administered Medications Inactive Administered Medications - up to 3 most recent administrations Medication Order MAR Action Action Date Dose Rate Site ceFAZolin 2000 mg IVPB in 100 mL NS (MBP) 2 g, Intravenous, Administer over 30 Minutes, Once, On Thu08/28/25 at 0733, For 1 dose, Caution: Look alike/sound alike drug alert, Indications: Surgical ProphylaxisIndications :Surgical Prophylaxis New Bag 08/28/2025 8:13 AM EDT 2 g dexAMETHasone (DECADRON) injection Intravenous, As Needed, Starting on Thu08/28/25 at 0806 Given 08/28/2025 8:06 AM EDT 4 mg lidocaine PF 1% (XYLOCAINE) injection Intravenous, As Needed, Starting on Thu08/28/25 at 0756 Given 08/28/2025 7:56 AM EDT 50 mg ondansetron (ZOFRAN) injection Intravenous, As Needed, Starting on Thu08/28/25 at 0903 Given 08/28/2025 9:03 AM EDT 4 mg phenylephrine (ULISES-SYNEPHRINE) 50 mg in sodium chloride 0.9 % 250 mL infusion Intravenous, Continuous PRN, Starting on Thu08/28/25 at 0808 Rate/Dose Change 08/28/2025 8:20 AM EDT 0.3 mcg/kg/min 9.009 mL/hr New Bag 08/28/2025 8:08 AM EDT 0.2 mcg/kg/min 6.006 mL/ hr propofol (DIPRIVAN) injection Intravenous, As Needed, Starting on Thu08/28/25 at 0756 Given 08/28/2025 7:56 AM EDT 150 mg rocuronium (ZEMURON) injection Intravenous, As Needed, Starting on Thu08/28/25 at 0756 Given 08/28/2025 7:56 AM EDT 70 mg sodium chloride 0.9 % infusion Code / Trauma / Sedation Continuous Med, Starting on Thu08/28/25 at 0759 New Bag 08/28/2025 7:59 AM EDT 1,000 mL New Bag 08/28/2025 7:50 AM EDT sugammadex (BRIDION) injection Intravenous, As Needed, Starting on Thu08/28/25 at 0905 Given 08/28/2025 9:05 AM EDT 200 mg documented in this encounter Care Teams Shank Boner Relationship Specialty Start Date End Date Derrell West MD [address] [facility] [address] [place] [address] PCP - General Internal Medicine 06/23/22 documented as of this encounter
--- OUTSIDE RECORDS SUMMARY | 2025-10-09 08:09 | XMS_ITS | Encounter Summary ---
[facility] Address [address] [place] [id number] Care Team Providers Care Attraction Worker Name Role Phone Derrell West MD Primary Care Provider [phone] Reason for Visit * Diagnostic Imaging (Routine) - Pending Review Specialty Diagnoses / Procedures Referred By Contac t Referred To Contact Diagnoses Presence of Watchman left atrial appendage closure device Procedures Adult Transesophageal Echo 3D (YAA) W/ Cont If Necessary Per Protocol Adult Transesophageal Echo (YAA) W/ Cont if Necessary Per Protocol TN ECHO TRANSESOPHAG R-T 2D W/PRB IMG YESSICAISMatthew I&R Maury Clarke MD [address] [facility] [address] [place] [address] Phone: tel: fax: [facility] [address] [place] [address] Phone: tel: Referral ID Status Reason Start Date Expiration Date V isits Requested Visits Authorized [id number] Pending Review 08/30/2025 11/29/2026 1 1 Encounter Details Date Type Department Care Team (Late st Contact Info) Description 10/09/2025 8:09 AM EST - 10/09/2025 11:59 PM EST Hospital Encounter [facility] [address] [facility] 3rd [place] [address] Juan Antonio Barrera MD [address] [facility] [address] [place] [address] Presence of Watchman left atrial appendage closure device Discharge Disposition: Home or Self Care Social [...] or training? Not on file Preferred Language Russian 08/21/2025 Sex and Gender Information Value Date Recorded Sex Assigned at Male 08/20/2025 3:51 PM EDT Legal Sex Male 2:28 PM EDT Gender Identity Not on file Sexual Orientation Straight 08/20/2025 3: 51 PM EDT documented as of this encounter Last Filed Vital Signs Vital Sign Reading Time Taken Comments Blood Pressure 91/66 10/09/2025 9:50 AM EST Pulse 63 10/09/2025 9:50 AM EST Temperature - - Respiratory Rate 14 10/09/2025 9:50 AM EST Oxygen Saturation 96% 10/09/2025 9:50 AM EST Inhaled Oxygen Concentration - - Weight - - Height - - Body Mass Index - - documented in this encounter Discharge Instructions * Attachments The following attachments cannot be sent through Care Everywhere. * Moderate Conscious Sedation Adult Care After (Russian) documented in this encounter Medications at Time of Discharge allopurinol (ZYLOPRIM) 100 MG tablet Take 2 tablets by mouth Daily. aspirin 81 MG chewable tablet Chew 1 tablet Daily. atorvastatin (LIPITOR) 20 MG tablet Take 1 tablet by mouth Daily. 01/05/2024 busPIRone (BUSPAR) 10 MG tablet Take 1 tablet by mouth Daily. 07/15/2017 clopidogrel (PLAVIX) 75 MG tablet Take 1 tablet by mouth Daily. 30 tablet 6 10/09/2025 colchicine 0.6 MG tablet Take 1 tablet [...] As Needed for Nausea or Vomiting. 03/25/2022 oxyCODONE-acetami nophen (PERCOCET) 5-325 MG per [...] Take 1 tablet by mouth Daily. 05/23/2025 documented as of this encounter H&P Notes * Juan Antonio Barrera MD - 10/09/2025 9:00 AM EST [facility] Cardiology Consultation History and Physical Aden Díazbrett 1955 PCP: Derrell West MD Admit Date: 10/09/2025 Chief Complaint: No chief complaint on file. Problem List: Proximal atrial fibrillation CHADSVASC = 4, Eliquis Negative [facility] 02/2018- data deficit (addendum: Cath note [...] MR, diastolic dysfunction, RVSP < 35 mmHg 08/28/[address] Clarke Diastolic heart failure Elevated LVEDP on [facility] in 2018 per patient report- data deficit. 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 male with medical history detailed below. He had an LAAO on 08/28/[address] Clarke. He is here today for 45-day YAA. He is currently on aspirin and Eliquis. Currently, patient is calm and in no acute distress. He denies chest pain, palpitations, shortness of breath, lightheadedness, dizziness, syncope, or stroke-like symptoms. Patient Active Problem List Diagnosis Date Noted A-fib 08/28/2025 Patient noncompliant with anticoagulant medication 06/22/2025 Hypothyroidism 05/04/2025 Preoperative cardiovascular examination 10/01/2022 Chronic diastolic congestive heart failure 09/30/2022 Frequent PVCs 09/30/2022 AF (paroxysmal atrial fibrillation) 06/25/2022 Hypertension 06/25/2022 Obstructive sleep apnea 06/25/2022 CKD (chronic kidney disease) stage 2, GFR 60-89 ml/min 06/25/2022 Simple chronic bronchitis 06/25/2022 Trochanteric bursitis of both hips 09/28/2017 Allergies Allergen Reactions Amantadines Rash, Other (See Comments) and Seizure Seizures, only time pt has ever had a seizure seizure; confirmed by patient's daughter - per pharmacy technician infusion Seizures, only time pt has ever had a seizure Penicillins Hives, Itching, Rash and Swelling confirmed by patient's daughter - per pharmacy technician infusion Codeine Hives and Rash confirmed by patient's daughter - per pharmacy technician infusion Metoclopramide Other (See Comments) and Unknown - Low Severity Caused depression Hctz [Hydrochlorothiazide] Rash Social History Socioeconomic History Marital status: Tobacco Use Smoking status: Former Current packs/day: 0.00 Average packs/day: 1 pack/day for 44.0 years (44.0 ttl pk-yrs) Types: Cigarettes Start date: 11/09/1970 Quit date: 2015 Years since quittin.9 Passive exposure: Past Smokeless tobacco: Never Vaping Use Vaping status: Never Used Substance and Sexual Activity Alcohol use: Yes Alcohol/week: 6.0 standard drinks of alcohol Types: 6 Cans of beer per week Comment: occasional Drug use: No Sexual activity: Yes Partners: Female control/protection: None, Vasectomy, Hysterectomy Family History Problem Relation Name Age of Onset Hypertension Mother Lesvia Heart attack Mother Lesvia Heart disease Mother Lesvia Cancer Father Destiny Heart attack Father Destiny Atrial fibrillation Brother Current Medications: Current Outpatient Medications: aspirin 81 MG chewable tablet, Chew 1 tablet Daily., Disp: , Rfl: dilTIAZem CD (CARDIZEM CD) 120 MG 24 hr capsule, Take 1 capsule by mouth Daily., Disp: , Rfl: Eliquis 5 MG tablet tablet, Take 1 tablet by mouth 2 (Two) Times a Day., Disp: , Rfl: torsemide (DEMADEX) 20 MG tablet, Take 4 tablets by mouth Daily., Disp: , Rfl: allopurinol (ZYLOPRIM) 100 MG tablet, Take 2 tablets by mouth Daily. (Patient taking differently: Take 3 tablets by mouth Daily.), Disp: , Rfl: atorvastatin (LIPITOR) 20 MG tablet, Take 1 tablet by mouth Daily., Disp: , Rfl: busPIRone (BUSPAR) 10 MG tablet, Take 1 tablet by mouth Daily., Disp: , Rfl: colchicine 0.6 MG tablet, Take 1 tablet by mouth Daily As Needed for Muscle / Joint Pain (GOUT flare up)., Disp: , Rfl: Cyanocobalamin (B-12 PO), Take 500 mg by mouth Daily., Disp: , Rfl: cyclobenzaprine (FLEXERIL) 5 MG tablet, Take 1 tablet by mouth 3 (Three) Times a Day As Needed for Muscle Spasms., Disp: , Rfl: empagliflozin (Jardiance) 10 MG tablet tablet, Take 1 tablet by mouth Daily., Disp: 30 tablet, Rfl:11 lansoprazole (PREVACID) 30 MG capsule, Take 1 capsule by mouth Daily., Disp: , Rfl: Levothyroxine Sodium 112 MCG/ML solution, Take 112 mcg by mouth Daily., Disp: , Rfl: meclizine (ANTIVERT) 25 MG tablet, Take 1 tablet by mouth 3 (Three) Times a Day As Needed for Dizziness., Disp: , Rfl: ondansetron (ZOFRAN) 4 MG tablet, Take 1 tablet by mouth Every 8 (Eight) Hours As Needed for Nauseaor Vomiting., Disp: , Rfl: oxyCODONE-acetaminophen (PERCOCET) 5-325 MG per tablet, Take 1 tablet by mouth Every 8 (Eight) Hours As Needed for Moderate Pain., Disp: , Rfl: potassium chloride (KLOR-CON M20) 20 MEQ CR tablet, Take 1 tablet by mouth Daily. (Patient taking differently: Take 2 tablets by mouth Daily.), Disp: , Rfl: sildenafil (VIAGRA) 100 MG tablet, Take 1 tablet by mouth As Needed for Erectile Dysfunction., Disp: , Rfl: tamsulosin (FLOMAX) 0.4 MG capsule 24 hr capsule, Take 2 capsules by mouth Daily., Disp: , Rfl: tiZANidine (ZANAFLEX) 2 MG tablet, Take 1-2 tablets by mouth Every 8 (Eight) Hours As Needed for Muscle Spasms., Disp: , Rfl: traZODone (DESYREL) 50 MG tablet, Take 1 tablet by mouth Every Night. (Patient taking differently: Take 1 tablet by mouth At Night As Needed for Sleep. rarely), Disp: , Rfl: vitamin C (ASCORBIC ACID) 500 MG tablet, Take 1 tablet by mouth Daily., Disp: , Rfl: Review of Systems Constitutional: Negative. Cardiovascular: Negative. Respiratory: Negative. OBJECTIVE: There were no vitals filed for this visit. No intake/output data recorded. No intake/output data recorded. Intake & Output (last 3 days) None Physical Exam Cardiovascular: Rate and Rhythm: Normal rate and regular rhythm. Pulses: Normal pulses. Heart sounds: S1 normal and S2 normal. Pulmonary: Breath sounds: Normal breath sounds. Musculoskeletal: Right lower leg: No edema. Left lower leg: No edema. Neurological: Mental Status: He is alert. Diagnostic Data: Lab Results (last 24 hours) No results found for the last 24 hours. ECG/EMG Results (last 24 hours) No results found for the last 24 hours. * No active hospital problems. * Assessment/Plan: Paroxysmal atrial fibrillation Patient had a LAAO on 08/28/[address] Clarke. He is here today for 45-day YAA. Patient educated on risks, benefits, and alternatives to procedure. He is agreeable to proceed. Further recommendations to follow. Electronically signed by Phuong Bowman APRN, 10/09/25, 8:16 AM EST. YAA completed without complications. The Watchman device is well-seated with no device associated thrombus or periprosthetic flow. Eliquis will be discontinued. Plavix 75 mg prescribed. He will continue to take aspirin 81 mg daily. documented in this encounter Plan of Treatment Upcoming Encounters Date Type Department Care Team (Late st Contact Info) Description 12/05/2025 11:15 AM EST Office Visit [facility] [address] [facility] [address] [place] [address] Harley Mendoza PA [address] [facility] [address] [place] [address] 12/20/2025 1:45 PM EST Office Visit [facility] [address] [place] [address] Thanh Guy MD [address] [facility] [address] [place], [place] [id number] 03/02/2026 12:30 PM EDT Telemedicine [facility] [address] [facility] [address] [place] [address] Griffin Connelly APRN [address] [facility] [address] [place] [address] documented as of this encounter Procedures Procedure Name Priority Date/Time Associated Diagnosis Comments YAA W/ COMPLETE DOPPLER, COLOR AND 3D Routine 10/09/2025 9:58 AM EST Presence of Watchman left atrial appendage closure device documented in this encounter Results * YAA W/ COMPLETE DOPPLER, COLOR AND 3D (10/09/2025 9:58 AM EST) Pathologist [facility] CV VAS BP LEFT ARM 106/73 mmHg Anatomical Region Laterality Modality Other Narrative 10/09/2025 4:26 PM EST 20 mm Watchman FLX pro left atrial appendage occlusion device in place. The device is well-seated with no periprosthetic flow. No device associated thrombus Left ventricular ejection fraction appears to be 51 - 55%. The left atrial cavity is mildly dilated. Small patent foramen ovale present. Small residual iatrogenic ASD present with [id number]-[id number] flow I supervised and directed an independent trained observer with the assistance of monitoring the patient's level of consciousness and physiological status throughout the procedure. Intraoperative service time of 15 minutes Left Ventricle Left ventricular ejection fraction appears to be 51 - 55%. Right Ventricle Normal right ventricular cavity size and systolic function noted. Left Atrium The left atrial cavity is mildly dilated. Left atrial appendage occlusion device noted. Small patent foramen ovale present. Right Atrium Normal right atrial cavity size noted. Mitral Valve The mitral valve is structurally normal with no significant stenosis present. Mild mitral valve regurgitation is present. Tricuspid Valve The tricuspid valve is structurally normal with no significant stenosis present. Trace tricuspid valve regurgitation is present. Aortic Valve The aortic valve appears trileaflet. Trace aortic valve regurgitation is present. No aortic valve stenosis is present. Pulmonic Valve The pulmonic valve is structurally normal with no regurgitation or significant stenosis present. Pericardium There is no evidence of pericardial effusion. . Greater Vessels No dilation of the aortic root is present. There is mild, (grade 1) plaque in the descending aorta present. Study Quality The study is technically good for diagnosis. YAA Procedure Details 3D rendering, reconstruction & interpretation was performed under concurrent supervision. The 3D imaging probe was used to image the heart. Acquisitions were captured in real-time 3D and full volume to assess LAAO. Informed consent for Transesophageal Echocardiogram, and use of contrast as needed, was obtained prior to the procedure. The procedure was performed in the echocardiography lab. Patient was noted to be in a fasting state, with a peripheral IV in place. A bite block was placed for probe protection. Cetacaine spray was used as an oropharyngeal topical anesthetic. Moderate sedation was utilized. The following medication(s) were administered during the procedure: 100 mcg of Fentanyl 6 mg of Versed An adult multi-frequency, multiplane transesophageal echocardiographic endoscope was inserted and manipulated in the standard fashion to achieve multiplane views. Transesophageal probe was able to be passed without difficulty. Usual basal, mid-esophageal, transgastric, and aortic views were obtained. YAA probe identification 6. The patient's vital signs, including blood pressure, heart rate, pulse oximetry, and cardiac rhythm were monitored throughout the procedure. Vitals signs remained stable throughout the study. Post-procedural recovery was completed in the Echocardiography lab, The patient tolerated the procedure without evidence of oropharyngeal or esophageal trauma. Maury Clarke MD CV ECHO ORDERABLES Final Result documented in this encounter Visit Diagnoses Diagnosis Presence of Watchman left atrial appendage closure device documented in this encounter Administered Medications Inactive Administered Medications - up to 3 most recent administrations Medication Order MAR Action Action Date Dose Rate Site fentaNYL citrate (PF) (SUBLIMAZE) injection Code / Trauma / Sedation Medication, Starting on Thu10/09/25 at 0908 Given 10/09/2025 9:12 AM EST 50 mcg Given 10/09/2025 9:08 AM EST 50 mcg midazolam (VERSED) injection Code / Trauma / Sedation Medication, Starting on Thu10/09/25 at 0908 Given 10/09/2025 9:14 AM EST 2 mg Given 10/09/2025 9:12 AM EST 2 mg Given 10/09/2025 9:08 AM EST 2 mg documented in this encounter Care Teams Attraction Worker Relationship Specialty Start Date End Date Derrell West MD [address] [facility] [address] [place] [address] PCP - General Internal Medicine 06/23/22 documented as of this encounter
[2025-10-23 14:19] LABS: Alanine Aminotransferase 20 U/L (12-78); Albumin Level 4.0 g/dl (3.5-5.0); Albumin/Globulin Ratio 1.3 (1.1-1.8); Alkaline Phosphatase 143 U/L (38-126); Anion Gap 12.7 mEq/L (5-15); Aspartate Amino Transferase 30 U/L (17-59); Bilirubin,Total 1.0 mg/dl (0.2-1.3); Blood Urea Nitrogen 16 mg/dl (9-20); Calcium 9.3 mg/dl (8.4-10.2); Carbon Dioxide 26 mmol/L (22.0-30.0); Chloride 104 mmol/L (98-107); Cholesterol 125 mg/dl (140-200); Creatinine,Serum 1.40 mg/dl (0.66-1.25); Estimated Glomerular Filt Rate 50 ml/min (>60); GFR (African American) 61 ML/MIN (>60); Globulin 3.1 g/dL (1.3-3.2); Glucose 98 mg/dl (74-100); HDL Cholesterol 53 mg/dl (40-60); Potassium 3.7 mmoL/L (3.5-5.1); Sodium 139 mmol/L (136-145); Total Protein,Serum 7.1 g/dl (6.3-8.2); Triglycerides 99 mg/dl (30-150); Uric Acid 4.9 mg/dl (3.5-8.5)
--- OUTSIDE RECORDS SUMMARY | 2025-10-24 16:52 | XMS_ITS ---
Laboratory report Created on: October 10, 2025 ROSS COWART : 1955 Sex: Male Author Name MIGUEL VALENZUELA Unknown PROBLEMS Problems List Code Description N18.31 D63.1 R53.82 E03.9 G47.33 I10 RESULTS Laboratory Orders Date Order Code Test 2024-11-18 [id number] FOLATE (FOLIC AC ID), SERUM 2024-11-18 [id number] TRIIODOTHYRONINE (T3), FREE 2024-11-18 [id number] FE+TIBC+CHEYANNE 2024-11-18 [id number] TESTOSTERONE, F EQLIB+T LC/MS 2024-11-18 [id number] TSH 2024-11-18 [id number] DHEA-SULFATE 2024-11-18 [id number] MAGNESIUM 2024-11-18 [id number] FREE THYROXINE + T4 2024-11-18 [id number] CORTISOL - AM 2024-11-18 [id number] VITAMIN D, 25-HY DROXY 2024-11-18 [id number] VITAMIN B12 Laboratory Results Date LOINC Test Value Unit Reference Range Interpre tation 2024-11-18 2284-8 FOLATE (FOLIC AC ID), SERUM 7.2 NG/ML >3.0 2024-11-18 3051-0 TRIIODOTHYRONINE (T3), FREE 2.8 PG/ML 2.0-4.4 2024-11-18 2500-7 IRON BINDCAP(TIBC) 335 UG/DL 792-883 9293-01-10 2501-5 UIBC 248 UG/DL 133-773 5307-01-10 2498-4 IRON 87 UG/DL 38-169 2024-11-18 2502-3 IRON SATURATION 26 % 15-55 2024-11-18 2276-4 FERRITIN 105 NG/ML 30-400 2024-11-18 2986-8 TESTOSTERONE, TO LIZA, LC/MS 457.3 NG/DL 264.0-916.0 2024-11-18 2991-8 TESTOSTERONE, FREE 13.44 NG/DL 5.00-21.00 2024-11-18 45434-7 % FREE TESTOSTERONE 2.94 % 1.50-4.20 2024-11-18 93585-6 TSH 23.9 UIU/ML 0.450-4.500 H 2024-11-18 2191-5 DHEA-SULFATE 20.5 UG/DL 30.9-295.6 L 2024-11-18 25720-0 MAGNESIUM 1.8 MG/DL 1.6-2.3 2024-11-18 3024-7 T4,FREE(DIRECT) .84 NG/DL 0.82-1.77 2024-11-18 3026-2 THYROXINE (T4) 7.2 UG/DL 4.5-12.0 2024-11-18 9813-7 CORTISOL - AM 9 UG/DL 6.2-19.4 2024-11-18 18947-5 VITAMIN D, 25-HYDROXY 42.4 NG/ML 30.0-10 0.0 2024-11-18 2132-9 VITAMIN B12 1540 PG/ML 232-1245 H
--- OUTSIDE RECORDS SUMMARY | 2025-10-24 16:52 | XMS_ITS | Clinical Summary ---
Author Organization [facility] Address [address] [place] [address] Care Team Providers Care Controls Designer Name Role Phone Derrell West MD Primary Care Provider [phone] Allergies Active Allergy Reactions Criticality Noted Date Comments Amantadines Other - please document in the comment field High 08/07/2010 seizure; confirmed by patient's daughter - per pharmacy associate Seizures, only time pt has ever had a seizure Codeine Hives Medium 08/07/2010 confirmed by patient's daughter - per pharmacy associate Hydrochlorothiazide Rash Low 06/23/2022 Metoclopramide Other - please document in the comment field Medium 06/25/2022 Caused depression Penicillins Hives,Itching,Rash,S w elling High 08/07/2010 confirmed by patient's daughter - per pharmacy associate Medications bumetanide (Bumex) 2 MG tablet Take [...] Years Used Date Smoking Tobacco: Former Cigarettes 0 Q uit: 11/09/2014 Passive Smoke Exposure: Past [...] Screening 1955 [facility] Annual Wellness (AWV) 1955 [facility]-Infant/Child/Adol SDOH Screenings 1955 [facility]- SDOH Screenings 1973 [facility]-Adult SDOH Screenings 1973 [facility]-DTaP,Tdap,and Td Vaccines (1 - Tdap) 1974 CT Colonography 2000 Colonoscopy 2000 FIT-DNA 2000 FIT 2000 FOBT 2000 Sigmoidoscopy 2000 [facility]-Colorectal Cancer Screening 2000 [facility]-Zoster Vaccines (1 of 2) 2005 [facility]-Abdominal Aortic Aneurysm (AAA) Screening 2020 [id number] Vaccine ( season) 2025 08/26/2021, 02/12/2021, 01/22/2021 [facility]-Influenza Vaccine (#1) 2025 09/13/2024 [facility]-Pneumococcal Vaccine: 50+ Years Completed 10/06/2023 [facility]-RSV Vaccine: 60+ Years or Completed 10/06/2023 [facility]-Obesity Intervention Completed 025, 09/09/2024, 01/14/2024, Additional history exists HPV Vaccines (No Doses Required) Completed [facility]-HIB Vaccines Aged Out No longer e [...] patient's age to complete this topic Insurance [facility] MEDIC[facility] Care Teams Controls Designer Relationship Specialty Start Date End Date Derrell West MD [address] [facility] [address] [place] [id number] [facility] - General 10/21/22
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
--- OUTSIDE RECORDS SUMMARY | 2025-10-24 16:52 | XMS_ITS ---
Laboratory report Created on: October 10, 2025 ROSS COWART : 1955 Sex: Male Author Organization Unknown PROBLEMS Problems List Code Description RESULTS Laboratory Orders Date Order Code Test 2025-07-03 [id number] DISACCHARIDASE D ETER. W/INTERP Laboratory Results Date LOINC Test Value Unit Reference Range Interpre tation 2025-07-03 1942-2 LACTASE 68.75 UMOL/MIN/G PROT >/= 14.0 2025-07-03 1815-0 MALTASE 294.14 UMOL/MIN/G PROT >/= 110.0 2025-07-03 39295-0 PALATINASE 19.38 UMOL/MIN/G PROT >/= 8.5 2025-07-03 45222-6 SUCRASE 66.16 UMOL/MIN/G PROT >/= 25.0 2025-07-03 09628-3 INTERPRETATION NOTES 2025-07-03 25544-0 DISCLAIMER NOTES 2025-07-03 42684-7 REFERENCE NOTES
--- OUTSIDE RECORDS SUMMARY | 2025-10-24 16:52 | XMS_ITS | Clinical Summary ---
Author Organization [facility] Address [address] [place] [id number] Care Team Providers Care Machine Room Engineer Name Role Phone Derrell West MD Primary Care Provider [phone] Allergies Active Allergy Reactions Criticality Noted Date Comments Amantadines Rash,Other (See Comments),Seizure High 08/07/2010 Seizures, only time pt has ever had a seizure seizure; confirmed by patient's daughter - per on call pharmacy technician Seizures, only time pt has ever had a seizure Codeine Hives,Rash Medium 08/07/2010 confirmed by patient's daughter - per on call pharmacy technician Hydrochlorothiazide Rash Low 06/23/2022 Metoclopramide Other (See Comments),Unknown - Low Severity Medium 06/25/2022 Caused depression Penicillins Hives,Itching,Rash,S w elling High 08/07/2010 confirmed by patient's daughter - per on call pharmacy technician Medications busPIRone (BUSPAR) 10 MG tablet Take 1 tablet by mouth Daily. 7 Active tamsulosin (FLOMAX) 0.4 MG capsule 24 hr capsule Take 2 capsules by mouth Daily. 7 Active Cyanocobalamin (B-12 PO) Take 500 mg by mouth Daily. Active meclizine (ANTIVERT) 25 MG tablet Take 1 tablet by mouth 3 (Three) Times a Day As Needed for Dizziness. Active lansoprazole (PREVACID) 30 MG capsule Take 1 capsule by mouth Daily. 2 Active Levothyroxine Sodium 112 MCG/ML solution Take 112 mcg by mouth Daily. 2 Active ondansetron (ZOFRAN) 4 MG tablet Take 1 tablet by mouth Every 8 (Eight) Hours As Needed for Nausea or Vomiting. 2 Active atorvastatin (LIPITOR) 20 MG tablet Take 1 tablet by mouth Daily. 4 Active sildenafil (VIAGRA) 100 MG tablet Take 1 tablet by mouth As Needed for Erectile Dysfunction. 4 Active traZODone (DESYREL) 50 MG tablet Take 1 tablet by mouth Every Night. 5 Active cyclobenzaprine (FLEXERIL) 5 MG tablet Take 1 tablet by mouth 3 (Three) Times a Day As Needed for Muscle Spasms. 5 Active tiZANidine (ZANAFLEX) 2 MG tablet Take 1-2 tablets by mouth Every 8 (Eight) Hours As Needed for Muscle Spasms. 4 Active allopurinol (ZYLOPRIM) 100 MG tablet Take [...] Muscle / Joint Pain (GOUT flare up). 5 Active vitamin C (ASCORBIC ACID) 500 MG tablet Take 1 tablet by mouth Daily. 5 Active empagliflozin (Jardiance) 10 MG tablet tablet Take 1 tablet by mouth Daily. 30 tablet 11 5 Active oxyCODONE-aceta minophen (PERCOCET) 5-325 MG per tablet Take 1 tablet by mouth Every 8 (Eight) Hours As Needed for Moderate Pain. Active torsemide (DEMADEX) 20 MG tablet Take 4 tablets by mouth Daily. Active aspirin 81 MG chewable tablet Chew 1 tablet Daily. Active clopidogrel (PLAVIX) 75 MG tablet Take 1 tablet by mouth Daily. 30 tablet 6 5 Active Eliquis 5 MG tablet tablet Take 1 tablet by mouth 2 (Two) Times a Day. 2 10/09/20 25 Discontinu ed(Alterna te therapy) Active Problems Problem Noted Date Diagnosed Date A-fib 08/28/2025 Patient noncompliant with anticoagulant medicati on 06/22/2025 [...] to be referred to pulmonary sleep at [facility] Dr. Hernandez for further evaluation of [...] Encounters Date Type Department Care Team Description 10/24/2025 Telephone [facility] [address] [place] [address] [address] [place] [phone] Thanh Guy MD 10/09/2025 8:09 AM EST - 10/09/2025 11:59 PM EST Hospital Encounter [facility] [address] [facility] 3[address] [place] [address] Juan Antonio Barrera MD Presence of Watchman left atrial appendage closure device Discharge Disposition: Home or Self Care 10/09/2025 Travel 08/29/2025 Call Center Programs [facility] NURSE CALL C[facility] [address] [place] [phone] Magaly Haywood RN 08/28/2025 7:46 AM EDT Anesthesia Event [facility] EP LAB [address] [place] [address] Yuval Montero MD 08/28/2025 7:10 AM EDT - 08/28/2025 9:40 AM EDT Surgery [facility] EP LAB [address] [place] [address] Maury Clarke MD Atrial Appendage Occlusion, CTA, DNS Eliquis [[id number] (CPT )] 08/28/2025 6:36 AM EDT - 08/28/2025 12:20 PM EDT Hospital Encounter [facility] CVOU [address] [place] [address] Maury Clarke MD AF (paroxysmal atrial fibrillation); Patient noncompliant with anticoagulant medication Discharge Disposition: Home or Self Care 08/28/2025 Travel 08/21/2025 4:30 PM EDT - 08/21/2025 11:59 PM EDT Hospital Encounter [facility] [place] [address] [place] [address] AF (paroxysmal atrial fibrillation); Preop examination; Patient noncompliant with anticoagulant medication Discharge Disposition: Home or Self Care 08/21/2025 2:30 PM EDT Pre-Admission Testing [facility] PREADMISSION T [address] [place] [address] Atrial fibrillation, unspecified type 08/21/2025 Travel 08/18/2025 Prep for Surgery [facility] ORDERS ONLY [address] [place] [address] Madan Guevara PA-C Atrial fibrillation, unspecified type (Primary Dx) from Last 3 Months Immunizations Immunization Administration [...] or training? Not on file Preferred Language Tunisian 08/21/2025 Sex and Gender Information Value Date Recorded Sex Assigned at Male 08/20/2025 3:51 PM EDT Legal Sex Male 2:28 PM EDT Gender Identity Not on file Sexual Orientation Straight 08/20/2025 3: 51 PM EDT Last Filed Vital Signs Vital Sign Reading Time Taken Comments Blood Pressure 91/66 10/09/2025 9:50 AM EST Pulse 63 10/09/2025 9:50 AM EST Temperature 36.4 C (97.6 F) 08/28/2025 9:16 AM EDT Respiratory Rate 14 10/09/2025 9:50 AM EST Oxygen Saturation 96% 10/09/2025 9:50 AM EST Inhaled Oxygen Concentration - - Weight 99.8 kg (220 lb) 08/28/2025 9:19 AM EDT Height 180.3 cm (5' 10.98 ) 08/28/2025 9:19 AM E DT Body Mass Index 30.7 08/28/2025 9:19 AM EDT Plan of Treatment Upcoming Encounters Date Type Department Care Team (Late st Contact Info) Description 12/05/2025 11:15 AM EST Office Visit [facility] [address] [facility] [address] [place] [address] Harley Mendoza PA [address] [facility] [address] [place] [address] 12/20/2025 1:45 PM EST Office Visit [facility] [address] [place] [address] Thanh Guy MD [address] [facility] [address] [place] [address] 03/02/2026 12:30 PM EDT Telemedicine [facility] [address] [facility] [address] [place] [phone] Griffin Connelly APRN [address] [facility] [address] [place] [address] Health Maintenance Due Date Last Done Comments TDAP/TD VACCINES (1 - Tdap) 1974 COLOGUARD 2000 COLON CANCER SCREENING 5 YEA R SIGMOIDOSCOPY 2000 COLONOSCOPY 2000 COLORECTAL CANCER SCREENING 2000 CT COLONOGRAPHY 2000 FECAL OCCULT BLOOD TEST 2000 FIT Testing (1 year) 2000 ZOSTER VACCINE (1 of 2) 2005 ANNUAL WELLNESS VISIT 09/22/2017 HEPATITIS C SCREENING 09/22/2017 COVID-19 Vaccine ( season) 2025 08/26/2021, 02/12/2021, 01/22/2021 LUNG CANCER SCREENING 08/21/2026 08/21/2025 AAA SCREEN ONCE Completed 10/13/2022 Pneumococcal Vaccine 50+ Completed 10/06/2023 INFLUENZA VACCINE Completed 09/21/2025, , 09/13/2024 Medical Devices Implanted Type Area Still Photographer Device Identifier Shelf Expiration Date Model / Serial / Lot Dev Cls Marquis Watchman/Flx /Pro 20mm - [id number] Implanted:Qt y: 1 on 08/28/2025 by Maury Clarke MD at [facility] Implant N/A: Heart [employer] 07/08/2027 [id number] / / [id number] Description:JIMMY Bustillo Sys Watchman Trusteer Access - [id number] Implanted:Qt y: 1 on 08/28/2025 by Maury Clarke MD at [facility] Implant [employer] [id number] / / Cp Watchman Flx Pro Proc - [id number] Implanted:Qt y: 1 on 08/28/2025 by Maury Clarke MD at [facility] Implant [employer] [id number] / / Procedures Procedure Name Priority Date/Time Associated Diagnosis Comments YAA W/ COMPLETE DOPPLER, COLOR AND 3D Routine 10/09/2025 9:58 AM EST Presence of Watchman left atrial appendage closure device EP STUDY Routine 08/28/2025 9:05 AM EDT AF (paroxysmal atrial fibrillation) Patient noncompliant with anticoagulant medication POCT ACTIVATED CLOTTING TIME Routine 08/28/2025 9:04 AM EDT POCT ACTIVATED CLOTTING TIME Routine 08/28/2025 8:38 AM EDT ANESTHESIA INTUBATION Routine 08/28/2025 8:09 AM EDT INTRA-OP STRUCTURAL HEART YAA (CARDIOLOGY READ) Routine 08/28/2025 7:59 AM EDT AF (paroxysmal atrial fibrillation) Patient noncompliant with anticoagulant medication POTASSIUM STAT 08/28/2025 6:[address] ANGIOGRAM CHEST W WO CONTRAST Routine 08/21/2025 5:00 PM EDT AF (paroxysmal atrial fibrillation) Preop examination Patient noncompliant with anticoagulant medication MAGNESIUM Routine 08/21/2025 2:56 PM EDT Atrial fibrillation, unspecified type CBC (NO DIFF) Routine 08/21/2025 2:56 PM EDT Atrial fibrillation, unspecified type BASIC METABOLIC PANEL Routine 08/21/2025 2:56 PM EDT Atrial fibrillation, unspecified type from Last 3 Months Results * YAA W/ COMPLETE DOPPLER, COLOR AND 3D (10/09/2025 9:58 AM EST) [facility] CV VAS BP LEFT ARM 106/73 mmHg [...] present. Small residual iatrogenic ASD present with [id number] flow I supervised and directed an independent [...] MD CV ECHO ORDERABLES Final Result * ATRIAL APPENDAGE OCCLUSION - CAR (08/28/2025 [...] of fluoroscopic and echocardiographic guidance using the [employer] versa cross wire. The Watchman delivery sheath was [...] Activated Clotting Time (08/28/2025 9:04 AM EDT) Only the most recent of2 resultswithin the time period is included. Activated Clotting Time 412(H) 82 - 152 Seconds 08/28/2025 11:34 AM EDT [facility] Comment:Serial Number: [id number] 7Operator: [id number] Blood 08/28/2025 9:04 AM EDT 08/28/2025 11:34 AM EDT us Maury Clarke MD POINT OF CARE TEST ORDERABLES Fi nal Result [facility]
[address] [place] [address], * BH AN ETT AIRWAY (08/28/2025 8:09 AM EDT) Narrative Kiki Yousif CRNA - 08/28/2025 8:09 AM EDT Kiki Yousif CRNA 08/28/2025 8:09 AM Airway Reason: elective Date/Time: 08/28/2025 7:58 AM Airway not difficult General Information and Staff Patient location during procedure: OR LABORER SYRUP MACHINE/CAA: Kiki Yousif CRNA Indications and Patient Condition [...] Montero MD ANESTHESIA ORDERABLES Final Res ult * Intra-Op Structural Heart YAA (Cardiology Read) [...] procedure. The procedure was performed in the lab support technician. Patient was noted to be in [...] study. Post-procedural recovery was completed in the rn labor delivery, The patient tolerated the procedure without evidence of oropharyngeal or esophageal trauma. us Maury Clarke MD CV ECHO ORDERABLES Final Result * (ABNORMAL) Potassium (08/28/2025 6:53 AM EDT) [facility] Signature Potassium 3.2(L) 3.5 - 5.2 mmol/L 08/28/2025 7:28 AM EDT [facility] Blood Line / Unknown 08/28/2025 6: 53 AM EDT 08/28/2025 7:03 AM EDT us Maury Clarke MD LAB BLOOD ORDERABLES Final Resul t [facility]
[address] [place] [address], * CT Angiogram Chest (08/21/2025 5:00 PM EDT) Anatomical Region Laterality Modality Chest, Vascular N/A Computed Tomogra phy 08/22/2025 8:38 AM EDT Impressions 08/22/2025 8:42 AM EDT 1. Cardiac enlargement without pericardial effusion. 2. No anomalous pulmonary venous return. 3. Left atrial appendage well-opacified without significant thrombus burden. 4. Esophagus traverses the chest posterior to the left atrium along the midline. Electronically Signed: Jose Matamoros MD 08/22/2025 8:42 AM EDT Workstation ID: [id number] Narrative 08/22/2025 8:[address] ANGIOGRAM CHEST Date of Exam: 08/21/2025 4:46 PM EDT Indication: Atrial Fibrillation AFib, Watchman. Technique: CTA of the chest was performed before and after the uneventful intravenous administration of 80 mL Isovue-370. Reconstructed coronal and sagittal images were also obtained. In addition, a 3-D volume rendered image was created for interpretation. Automated exposure control and iterative reconstruction methods were used. COMPARISON: None. FINDINGS: Four-chamber cardiac enlargement without pericardial effusion. Patent, nonaneurysmal thoracic aorta. Central pulmonary arteries are grossly patent. No anomalous pulmonary venous return. Left atrial appendage well-opacified without thrombus burden. Central airways are patent. Esophagus courses posterior to the left atrium. Extended lung windows demonstrate mild to moderate emphysema. Procedure Note Harley Matamoros MD - 08/22/2025 CT ANGIOGRAM CHEST Date of Exam: 08/21/2025 4:46 PM EDT Indication: Atrial Fibrillation AFib, Watchman. Technique: CTA of the chest was performed before and after the uneventfulintravenous administration of 80 mL Isovue-370. Reconstructed coronal andsagittal images were also obtained. In addition, a 3-D volume renderedimage was created for interpretation. Automated exposure control and iterative reconstructionmethods were used. COMPARISON: None. FINDINGS: Four-chamber cardiac enlargement without pericardial effusion.Patent, nonaneurysmal thoracic aorta. Central pulmonary arteries aregrossly patent. No anomalous pulmonary venous return. Left atrialappendage well-opacified without thrombus burden. Central airways are patent. Esophagus courses posterior to theleft atrium. Extended lung windows demonstrate mild to moderateemphysema. IMPRESSION: 1. Cardiac enlargement without pericardial effusion. 2. No anomalous pulmonary venous return. 3. Left atrial appendage well-opacified without significant thrombusburden. 4. Esophagus traverses the chest posterior to the left atrium along themidline. Electronically Signed: Jose Matamoros MD 08/22/2025 8:42 AM EDT Workstation ID: [id number] us Maury Clarke MD IMG CT ORDERABLES Final Result * CBC (No Diff) (08/21/2025 2:56 PM EDT) WBC 8.42 3.40 - 10.80 10*3/mm3 08/21/2025 3:44 PM EDT [facility] RBC 5.11 4.14 - 5.80 10*6/mm3 08/21/2025 3:44 PM EDT [facility] Hemoglobin 15.7 13.0 - 17.7 g/dL 08/21/2025 3:44 PM EDT [facility] Hematocrit 46.1 37.5 - 51.0 % 08/21/2025 3:44 PM EDT [facility] MCV 90.2 79.0 - 97.0 fL 08/21/2025 3:44 PM EDT [facility] MCH 30.7 26.6 - 33.0 pg 08/21/2025 3:44 PM EDT [facility] MCHC 34.1 31.5 - 35.7 g/dL 08/21/2025 3:44 PM EDT [facility] RDW 13.2 12.3 - 15.4 % 08/21/2025 3:44 PM EDT [facility] RDW-SD 43.1 37.0 - 54.0 fl 08/21/2025 3:44 PM EDT [facility] MPV 10.2 6.0 - 12.0 fL 08/21/2025 3:44 PM EDT [facility] Platelets 214 140 - 450 10*3/mm3 08/21/2025 3:44 PM EDT [facility] Blood Venipuncture / Unknown 08/21/2025 2:56 PM EDT 08/21/2025 3:36 PM EDT Madan Guevara PA-C LAB BLOOD ORDERABLES Final R esult [facility]
[address] [place] [address], * Magnesium (08/21/2025 2:56 PM EDT) Magnesium 2.0 1.6 - 2.4 mg/dL 08/21/2025 4:07 PM EDT [facility] Blood Venipuncture / Unknown 08/21/2025 2:56 PM EDT 08/21/2025 3:36 PM EDT Madan Guevara PA-C LAB BLOOD ORDERABLES Final R esult [facility]
[address] [place] [address], * (ABNORMAL) Basic Metabolic Panel (08/21/2025 2:56 PM EDT) Glucose 89 65 - 99 mg/dL 08/21/2025 4:07 PM EDT [facility] BUN 17.3 8.0 - 23.0 mg/dL 08/21/2025 4:07 PM EDT [facility] Creatinine 1.48(H) 0.76 - 1.27 mg/dL 08/21/2025 4:07 PM EDT [facility] Sodium 138 136 - 145 mmol/L 08/21/2025 4:07 PM EDT [facility] Potassium 3.1(L) 3.5 - 5.2 mmol/L 08/21/2025 4:07 PM EDT [facility] Comment:Specimen hemolyzed. Result may be falsely elevated. Chloride 98 98 - 107 mmol/L 08/21/2025 4:07 PM EDT [facility] CO2 29.4(H) 22.0 - 29.0 mmol/L 08/21/2025 4:07 PM EDT [facility] Calcium 8.9 8.6 - 10.5 mg/dL 08/21/2025 4:07 PM EDT [facility] BUN/Creatinine Ratio 11.7 7.0 - 25.0 08/21/2025 4:07 PM EDT [facility] Anion Gap 10.6 5.0 - 15.0 mmol/L 08/21/2025 4:07 PM EDT [facility] eGFR 50.6(L) >60.0 mL/min/1.7 3 08/21/2025 4:07 PM EDT [facility] Blood Venipuncture / Unknown 08/21/2025 2:56 PM EDT 08/21/2025 3:36 PM EDT Narrative [facility] - 08/21/2025 4:07 PM EDT GFR Categories in Chronic Kidney Disease (CKD) GFR Category GFR (mL/min/1.73) Interpretation G1 90 or greater Normal or high (1) G2 60-89 Mild decrease (1) G3a 45-59 Mild to moderate decrease G3b 30-44 Moderate to severe decrease G4 15-29 Severe decrease G5 14 or less Kidney failure (1)In the absence of evidence of kidney disease, neither GFR category G1 or G2 fulfill the criteria for CKD. eGFR calculation 2020 CKD-EPI creatinine equation, which does not include race as a factor Madan Guevara PA-C LAB BLOOD ORDERABLES Final R esult [facility]
[address] [place] [address], from Last 3 Months Insurance MEDICARE ADVANTAGE PPO Advance Directives * CPR (Attempt to Resuscitate) (Latest Code Status on File) Date Activated Date Inactivated Comments 08/28/2025 9:18 AM 08/28/2025 3:40 PM Question Answer Comments Code Status (Patient has no pulse and is not breathing): CPR (Attempt to Resuscitate) Medical Interventions (Patie nt has pulse or is breathing): Full Support Care Teams Machine Room Engineer Relationship Specialty Start Date End Date Derrell West MD [address] [facility] [address] [facility] [place] [address] PCP - General Internal Medicine 06/23/22
--- OUTSIDE RECORDS SUMMARY | 2025-10-24 16:52 | XMS_ITS | Continuity of Care Document ---
Author Organization [facility], SURGERY SCHEDULE Address [address] [place] [address] Care Team Providers Care Apparel Manufacture Instructor Name Role Phone NIKKO DAVID Primary Care Provider HEMANTH BROOKS JR General Surgeon JOSE ESTRADA Paper Products Supervisor TANISHA MENDEZ Paper Products Supervisor ALENA CARRILLO Paper Products Supervisor Assessment Encounter Date Assessment Date Assessment LastModified by Organization Details LastModified Time 10/02/2025 10/02/2025 SURGERY DATE: 10/02/2025 PREOPERATIVE DIAGNOSIS: [...] recorded . Patient TargetsNo targets recorded. Patient InstructionsNo instructions recorded. Reason for Referral None Reported. Problems Name Problem SNOMED Code Status Onset Date Resolution Date Notes Provider Name and Address Organization Details Recorded Time Abdominal pain 04766299 Active 2015 From Automated Load;Provi evie: Soraya Shah;Sta tus: Active Not Available [facility] 6 06:38:04 Incisiona l hernia 692358013 Active 2021 HEMANTH BROOKS JR, MD [address] [place] [address], [phone] [facility] 17:00:25 Problem Notes None recorded. Procedures Surgical History Date Name Laterality Status Provider Name and Address Organization Details Recorded Time cholecystectomy completed [facility] 10/07/2022 15:39:08 hernia repair completed [facility] 10/07/2022 15:39:18 Colectomy completed [facility] 10/07/2022 15:40:23 Appendectomy completed [facility] 10/07/2022 15:40:31 Xcapsl ctrc rmvl cplx wo ecp completed [facility] 10/07/2022 15:40:42 Cardioversion electric ext completed [facility] 10/07/2022 15:41:11 operation on testis completed [facility] 10/07/2022 15:41:40 Imaging Results None recorded. Procedure Notes None recorded. Medical Equipment None Reported. Allergies Allergen ID Allergen Name Allergen Category Reaction Reaction Severity Criticality Documentation Date Start Date Code Code System Note Provider Name and Address Organization Details Recorded Time 576308 amantadin e hydrochlo ride medicatio n other Not available Not available 10/02/20162009 02311 5 RxNorm React ion: OTHER ; Comme nt: seizu res;C reate d By: Gribb ins Sandr a;Cre ated Date: 2009 9:00: 37 AM; Not Available [facility] 6 11:56:47 550571 Product containin g penicilli n (product) medicatio n hives Not available Not available 10/03/20162009 46044 8001 SNOMED React ion: HIVES ; Comme nt: Creat ed By: Gribb ins Sandr a;Cre ated Date: 2009 8:59: 55 AM; Not Available [facility] 6 05:40:36 750870 codeine medicatio n hives Not available Not available 10/03/20162009 2670 RxNorm React ion: HIVES ; Comme nt: Creat ed By: Gribb ins Sandr a;Cre ated Date: 2009 8:59: 37 AM; Not Available [facility] 6 08:37:12 240115 Reglan medicatio n Not available Not available Not available 10/07/2022 9230 RxNorm Arely No [facility] 2 15:29:04 558429 dexametha sone medicatio n Not available Not available Not available 10/07/2022 3264 RxNorm Arely No [facility] 2 15:30:08 028114 amantadin e hydrochlo ride medicatio n Not available Not available Not available 07/07/20252009 36717 5 RxNorm Sarai Daisy [facility] 5 11:08:15 572526 hydrochlo rothiazid e medicatio n rash Not available low 09/28/20252021 5487 RxNorm Not Available [facility] - prod 5 15:31:19 392060 metoclopr amide Not available other other Not available Not available high 09/28/20252021 6915 RxNorm Cause d depre ssion Not Available [facility] External [facility] - prod 5 15:31:19 Medications Name Sig Start Date Stop [...] Available Not Available No t Available Vitals None Recorded Social History None recorded. Functional Status None [...] Thyroid Disease Y Stroke Y Asthma Y Immunizations Vaccine Type Date Status Note Provider Romaine coleman and Address Organization Details Recorded Time COVID-19, mRNA, LNP-S, PF, 30 mcg/0.3 mL dose completed Sarai aragon [facility] 07/07/2025 11:08:16 COVID-19, mRNA, LNP-S, PF, 30 mcg/0.3 mL dose 1 completed Sarai Villa [facility] 07/07/2025 11:08:16 COVID-19, mRNA, LNP-S, PF, 30 mcg/0.3 mL dose 1 completed Sarai Villa [facility] 07/07/2025 11:08:16 Pneumococcal conjugate PCV20, polysaccharide [id number] conjugate, adjuvant, PF 3 completed Sarai Villa [facility] 07/07/2025 11:08:16 RSV, recombinant, protein subunit RSVpreF, adjuvant reconstituted, 0.5 mL, PF 3 completed Sarai Villa [facility] 07/07/2025 11:08:16 Influenza, high-dose, trivalent, PF 4 completed Sarai Villa [facility] 07/07/2025 11:08:16 Past Encounters Encounter ID Performer Location Encounter Start Date Encounter Closed Date Diagnosis/Indication Diagnosis SNOMED-CT Code Diagnosis ICD10 Code Diagnosis IMO Codes Diagnosis Note [id number] LUCRETIA COOPER MD SURGERY SCHEDULE [address] [place] [address] 10/02/2025 06:49:12 10/02/2025 06:50:11 Health Concerns Section Related Observation LastModified by Organization Detai ls LastModified Time None Recorded Concern Status LastModified by Organization Details LastModified Time None Recorded Payers Encounter Date Sequence Insurance Name Policy Number Policy Limon Covered Member ID Limon Member ID Guarantor Name 10/02/2025 1 [employer] (MEDICARE REPLACEMENT/ ADVANTAGE - PPO) Aden Cheung [id number] Aden Cheung
--- OUTSIDE RECORDS SUMMARY | 2025-10-24 16:52 | XMS_ITS | Clinical Summary ---
Author Organization [employer] ([place], [place], [place], [place], [place]) Address [address] [place] [address] Care Team Providers Care Banquet Coordinator Name Role Phone Unavailable Primary Care Provider Unavailabl e Allergies Active Allergy Reactions Criticality Noted Date [...] IM RESPIRATORY SYNCYTIAL VIRUS (RSV) VACCINE - ([employer]) ([id number]) 10/06/2023 Family History Medical History Relation Name [...] Date Jm rded Speak language other than Azerbaijani at home Not on file 11/20/2023 Want [...] Completed 10/06/2023 Medical Devices Implanted Type Area Political Director Device Identifier Shelf Expiration Date Model / Serial / Lot Mesh Phasix [id number] - [id number] Implanted:Qt y: 1 on 11/12/2022 by Jair Nunez MD at [facility] IMPLANTS N/A: Abdomen CR BARD:DAVOL [id number] 02/04/2024 [id number] / / [id number] Insurance HU[employer]NA MEDICARE HMO Advance Directives For more information, please contact: [phone] * Full Code (Latest Code Status on File) Date Activated Date Inactivated Comments 11/12/2022 5:57 PM 11/24/2022 2:01 PM
--- OUTSIDE RECORDS SUMMARY | 2025-10-24 16:53 | XMS_ITS | Encounter Summary ---
[facility] Organization [facility] Address [address] [place] [address] Care Team Providers Care Instructor Of Education Name Role Phone Derrell West MD Primary Care Provider [phone] Encounter Details Date Type Department Care Team (Late st Contact Info) Description 04/14/2025 Results Follow-Up [facility] [address] [facility] [address] [place] [address] Thanh Guy MD [address] [facility] [address] [address] [place] [address] Social History Tobacco Use Types Packs/Day Years [...] Description 12/05/2025 11:15 AM EST Office Visit [facility] [address] [place] [address] Harley Mendoza PA [address] [facility] [address] [place] [address] 12/20/2025 1:45 PM EST Office Visit [facility] [address] [place] [address] Thanh Guy MD [address] [facility] [address] [place] [address] 03/02/2026 12:30 PM EDT Telemedicine [facility] [address] [facility] [address] [place] [phone] Griffin Connelly APRN [address] [facility] [address] [place] [address] documented as of this encounter Visit Diagnoses Not on filedocumented in this encounter Care Teams Instructor Of Education Relationship Specialty Start Date End Date Derrell West MD [address] [facility] [address] [place] [address] PCP - General Internal Medicine 06/23/22 documented as of this encounter
--- OUTSIDE RECORDS SUMMARY | 2025-10-24 16:53 | XMS_ITS | Referral Summary ---
Author Organization [employer] ([place], [place], [place], [place], [place]) Address [address] [place] [address] Care Team Providers Care Shrink Pit Operator Name Role Phone Unavailable Primary Care Provider [...] IM RESPIRATORY SYNCYTIAL VIRUS (RSV) VACCINE - (AREXV[employer]ellis[employer]- [employer]) ([id number]) 10/06/2023 Social History Tobacco Use Types Packs/Day [...] Date Jm rded Speak language other than [place] at home Not on file 11/20/2023 Want [...] on file Medical Devices Implanted Type Area Cylinder Press Operator Helper Device Identifier Shelf Expiration Date Model / Serial / Lot Mesh Phasix [id number] - [id number] Implanted:Qt y: 1 on 11/12/2022 by Jair Nunez MD at [facility] IMPLANTS N/A: Abdomen CR BARD:DAVOL [id number] 02/04/2024 [id number] / / [id number] Insurance HUMANA MEDICARE HMO Advance Directives For more information, please contact: [phone] * Full Code (Latest Code Status on File) Date Activated Date Inactivated Comments 11/12/2022 5:57 PM 11/24/2022 2:01 PM
--- OUTSIDE RECORDS SUMMARY | 2025-10-24 16:53 | XMS_ITS | Encounter Summary ---
[facility] Address [address] [place] [address] Care Team Providers Care Loans Consultant Name Role Phone Derrell West MD Primary Care Provider [phone] Reason for Visit * Reason Onset Date Comments PCI/Device 08/29/2025 Encounter Details Date Type Department Care Team (Late st Contact Info) Description 08/29/2025 Call Center Programs [facility] [address] [place] [phone] Magaly Haywood RN Social History Tobacco Use Types Packs/Day Years [...] or training? Not on file Preferred Language Iranian 08/21/2025 Sex and Gender Information Value Date Recorded Sex Assigned at Male 08/20/2025 3:51 PM EDT Legal Sex Male 2:28 PM EDT Gender Identity Not on file Sexual Orientation Straight 08/20/2025 3: 51 PM EDT documented as of this encounter Miscellaneous Notes * Outreach Note - Magaly Haywood RN - 08/29/2025 10:09 AM EDT Images from the original note were not included. PCI/Device Survey Flowsheet Row Responses Facility patient discharged from? [place] Procedure date 08/28/25 Procedure (if device, specify in description) Other [20 mm Watchman FLX Pro implanted, Right femoral per Dr. Clarke] Attempt successful? Yes Call start time 1013 Call end time 1019 Has the patient had any of the following symptoms since discharge? Shortness of breath [pt does have SOA but nothing beyond what is normal for him] Is the patient taking prescribed medications: KEN Galo Nursing intervention Reminded to continue to take prescribed medications Does the patient have any of the following symptoms related to the cath/surgical site? -- [Pt will remove groin dressing either today or tomorrow, no issues with bleeding noted at present time, does have some soreness noted but better today. Pt aware of lifting, activity and site precautions.] Nursing intervention Patient education provided Does the patient have an appointment scheduled with the stem maker? Yes Appointment comments Pt has an in November, reports AVS indicated need for f/u in 45 days--pt will call to determine if an earlier appt is available Did the patient feel prepared to go home on the same day as the procedure? Yes Is the patient satisfied with the same day discharge process? Yes MAGALY Singer - Registered Nurse documented in this encounter Plan of Treatment Upcoming Encounters Date Type Department Care Team (Late st Contact Info) Description 12/05/2025 11:15 AM EST Office Visit [facility] [address] [facility] [address] [phone] Harley Mendoza PA [address] [facility] [phone] 12/20/2025 1:45 PM EST Office Visit [facility] [address] [place] [address] Thanh Guy MD [address] [facility] [phone] 03/02/2026 12:[address] [facility] [address] [facility] [address] [phone] Griffin Connelly APRN [address] [facility] [phone] documented as of this encounter Visit Diagnoses Not on filedocumented in this encounter Care Teams Loans Consultant Relationship Specialty Start Date End Date Derrell West MD [address] [facility] [address] [place] [address] PCP - General Internal Medicine 06/23/22 documented as of this encounter
--- OUTSIDE RECORDS SUMMARY | 2025-10-24 16:53 | XMS_ITS | Encounter Summary ---
Author Organization [facility] Address [address] [place] [address] Care Team Providers Care Legal Manager Name Role Phone Derrell West MD Primary Care Provider [phone] Encounter Details Date Type Department Care Team (Late st Contact Info) Description 10/24/2025 Telephone [facility] [address] [facility] [address] [place] [address] Thanh Guy MD [address] [facility] [address] [address] [place] [address] Social History Tobacco Use Types Packs/Day Years [...] or training? Not on file Preferred Language French 08/21/2025 Sex and Gender Information Value Date Recorded Sex Assigned at Male 08/20/2025 3:51 PM EDT Legal Sex Male 2:28 PM EDT Gender Identity Not on file Sexual Orientation Straight 08/20/2025 3: 51 PM EDT documented as of this encounter Miscellaneous Notes * Telephone Encounter - Dunia Harris RN - 10/24/2025 1:49 PM EST Requesting pre op/procedure risk assessment for intrathecal pain pump trial and ok to hold Plavix for 8 days. Last office visit 06/21/25: 1. Chronic diastolic congestive heart failure (Primary) [...] 6 months or as needed symptoms change ~~~~Left atrial append device on 08/2025 documented in this encounter Plan of Treatment Upcoming Encounters Date Type Department Care Team (Late st Contact Info) Description 12/05/2025 11:15 AM EST Office Visit [facility] [address] [facility] [address] [place] [address] Harley Mendoza PA [address] [facility] [address] [place], [place] [phone] 12/20/2025 1:45 PM EST Office Visit [facility] [address] [place] [address] Thanh Guy MD [address] [facility] [address] [address] [place] [address] 03/02/2026 12:30 PM EDT Telemedicine [facility] [address] [facility] [address] [place] [address] Griffin Connelly APRN [address] [facility] [address] [place] [address] documented as of this encounter Visit Diagnoses Not on filedocumented in this encounter Care Teams Legal Manager Relationship Specialty Start Date End Date Derrell West MD [address] [facility] [address] [facility] [place] [phone] PCP - General Internal Medicine 06/23/22 documented as of this encounter
--- OUTSIDE RECORDS SUMMARY | 2025-10-24 16:53 | XMS_ITS | Encounter Summary ---
Author Organization [facility] Address [address] [place] [address] Care Team Providers Care Helicopter Utility Aircrewman Name Role Phone Derrell West MD Primary Care Provider [phone] Encounter Details Date Type Department Care Team (Latest Contact Info) Description 08/28/2025 Travel Social History Tobacco Use Types Packs/Day [...] or training? Not on file Preferred Language Cymro 08/21/2025 Sex and Gender Information Value Date [...] 7:00 AM EDT Coral Boogie RN * [place] Suicide Severity Rating Scale (Screener/Recent Self-Report) Question Answer Date of Assessment Author 6. Suicidal Behavior (Lifetime) No 7:00 AM EDT Coral Frazier RN documented as of this encounter Plan of Treatment Upcoming Encounters Date Type Department Care Team (Late st Contact Info) Description 12/05/2025 11:15 AM EST Office Visit [facility] [address] [facility] [address] [place] [address] Harley Mendoza PA [address] [facility] [address] [place] [address] 12/20/2025 1:45 PM EST Office Visit [facility] [address] [place] [address] Thanh Guy MD [address] [facility] [address] [place] [address] 03/02/2026 12:30 PM EDT Telemedicine [facility] [address] [place] [address] Griffin Connelly, RADHA [address] [facility] [address] [place] [phone] documented as of this encounter Visit Diagnoses Not on filedocumented in this encounter Care Teams Helicopter Utility Aircrewman Relationship Specialty Start Date End Date Derrell West MD [address] [facility] [address] [facility] [address] [place] [address] PCP - General Internal Medicine 06/23/22 documented as of this encounter
--- OUTSIDE RECORDS SUMMARY | 2025-10-24 16:53 | XMS_ITS | Encounter Summary ---
Author Organization [facility] Address [address] [place] [address] Care Team Providers Care Ice Hockey Coach Name Role Phone Derrell West MD Primary Care Provider [phone] Encounter Details Date Type Department Care Team (Latest Contact Info) Description 10/09/2025 Travel Social History Tobacco Use Types Packs/Day [...] or training? Not on file Preferred Language Israeli 08/21/2025 Sex and Gender Information Value Date [...] Office Visit [facility] [address] [facility] [address] [place] [phone] Harley Mendoza PA [address] [facility] [address] [address] [place] [address] 12/20/2025 1:45 PM EST Office Visit [facility] [address] [place] [address] Thanh Guy MD [address] [facility] [address] [address] [place] [address] 03/02/2026 12:30 PM EDT Telemedicine [facility] [address] [facility] [address] [place] [phone] Griffin Connelly APRN [address] [facility] [address] [place] [address] documented as of this encounter Visit Diagnoses Not on filedocumented in this encounter Care Teams Ice Hockey Coach Relationship Specialty Start Date End Date Derrell West MD [address] [facility] [address] [place] [address] PCP - General Internal Medicine 06/23/22 documented as of this encounter
== END 2025-10-23 23:59 | disposition home or self-care (01) ==
LOC: LAB.DROPOF 10-24 16:50
PROVIDERS: PCP Internal Medicine; Visit Provider Internal Medicine
DX: E78.5 Hyperlipidemia, unspecified (principal); M10.9 Gout, unspecified; I13.0 Hypertensive heart and chronic kidney disease with heart failure and stage 1 through stage 4 chronic kidney disease, or unspecified chronic kidney disease; I25.10 Atherosclerotic heart disease of native coronary artery without angina pectoris; I50.32 Chronic diastolic (congestive) heart failure; N18.9 Chronic kidney disease, unspecified; Z12.5 Encounter for screening for malignant neoplasm of prostate
CPT/HCPCS: 80053; 80061; 84550; G0103